=== PATIENT | female | born 1945 | race Caucasian/White ===

== ENCOUNTER 2019-08-17 11:20 | Inpatient (IN) | payer MEDICARE ==
[~2019-08-17] VITALS: Ht 149 cm; Wt 73.0 kg
[~2019-08-17 11:20] MED LIST: ACHYD1T PO; BUDE0.5A2 IH; CHOL100011 PO; CYCL10TA45 PO; FAMO10TA71 PO; FORM20VI IH; HYDR200T46 PO; MELO-198 PO; MONT10TA24 PO; OXYC1TAB95 PO
[2019-08-17] MEDS ORDERED: methylPREDNISolone 40 MG/ML (Solu-MEDROL) VIAL IV ONE (11:45)
--- NOTE | 2019-08-17 11:47 | ED Cough/URI ---
General Chief Complaint: Respiratory Problems Stated Complaint: PNEUMONIA/INFLUENZA A,02 AT 81, SENT FROM [facility] Nursing Triage Note: ARRIVED VIA AMB TO TRIAGE WITH COMPLAINTS OF SOA, WEAKNESS, EARACHE STARTING ON MONDAY. WAS SEEN AT CLINIC IN AND PULSE OX WAS IN THE 80'S. Sepsis Screen: No Definite Risk Source: patient Exam Limitations: no limitations History of Present Illness Date Seen by Provider: Aug 17, 2019 Time Seen by Provider: 11:46 Initial Comments To ER with reports of shortness of air general weakness earaches 30 on 2 days ago. He was sent here from [facility] in [place] she was found to be hypoxic and 80% range. She does have COPD but does not wear oxygen at home her baseline. Her is admitted on the rehabilitation floor here. She was seen at [facility] urgent care yesterday, diagnosed with left lower lobe pneumonia given a shot of Rocephin. She was then started on doxycycline and Tamiflu. Timing/Duration: constant Severity/Quality: severe Associated Symptoms: cough, nasal congestion, shortness of breath, wheezing Allergies and Home Medications Allergies Coded Allergies: No Known Drug Allergies (Unverified , 06/13/13) Home Medications Budesonide 0.5 Mg/2 Ml Ampul.neb, 1 EACH IH BID, (Reported) Cholecalciferol 1,000 Unit Capsule, 1,000 UNIT PO DAILY, (Reported) Cyclobenzaprine Hcl 10 Mg Tablet, 10 MG PO Q8H PRN for MUSCLE SPASMS Prescribed by: FERNANDA HORAN on 07/09/13 0450 Famotidine 10 Mg Tablet, 1 EACH PO DAILY, (Reported) Formoterol Fumarate 20 Mcg/2 Ml Vial.neb, 20 MCG IH BID, (Reported) Hydrocodone Bit/Acetaminophen 1 Tab Tablet, 1-2 EA PO Q4H PRN for PAIN Prescribed by: FERNANDA HORAN on 07/09/13 0450 Hydroxychloroquine Sulfate 200 Mg Tab, 200 MG PO BID, (Reported) Montelukast Sodium 10 Mg Tablet, 10 MG PO DAILY, (Reported) Patient Home Medication List Home Medication List Reviewed: Yes Review of Systems Review of Systems Constitutional: see HPI, chills, malaise, weakness EENTM: see HPI, nose congestion Respiratory: see HPI, cough, wheezing Cardiovascular: no symptoms reported Genitourinary: no symptoms reported Musculoskeletal: no symptoms reported Skin: no symptoms reported Psychiatric/Neurological: No Symptoms Reported Hematologic/Lymphatic: No Symptoms Reported Immunological/Allergic: no symptoms reported Past Biaxrjj-Udffjh-Tzbinh Hx Patient Social History Alcohol Use: Denies Use Recreational Drug Use: No Smoking Status: Never a Smoker Recent Foreign Travel: No Contact w/Someone Who Travel: No Recent Infectious Disease Expo: No Recent Hopitalizations: No Immunizations Up To Date Tetanus Booster (TDap): Unknown PED Vaccines UTD: No Date of Pneumonia Vaccine: Jun 19, 2011 Date of Influenza Vaccine: Apr 19, 2013 Past Medical History Surgeries: Yes (BACK) Appendectomy, Gallbladder, Orthopedic Respiratory: Yes COPD Cardiac: No Neurological: No Reproductive Disorders: No Genitourinary: No Gastrointestinal: No Musculoskeletal: Yes (LUMBAR PROBLEMS) Degenerate Disk Disease, Arthritis Endocrine: No Cancer: No Psychosocial: No Integumentary: No Blood Disorders: No Adverse Reaction/Blood Tranf: No Family Medical History Family history: Breast disease 03 MOTHER Family history: Cardiovascular disease 03 MOTHER Family history: Diabetes mellitus 03 MOTHER History of - respiratory disease 03 FATHER Physical Exam Vital Signs - First Documented 08/17/19 08/17/19 11:33 11:39 Temp 36.8 Pulse 88 Resp 16 B/P (MAP) 139/84 (102) Pulse Ox 89 O2 Delivery Room Air O2 Flow Rate 2.00 Capillary Refill : Less Than 3 Seconds Height: '" Weight: 186lbs. 0.0oz. 84.637938td; 32.00 BMI Method: General Appearance: WD/WN, no apparent distress, other (87% room air) Eyes: Bilateral Eye Normal Inspection, Bilateral Eye PERRL, Bilateral Eye EOMI HEENT: PERRL/EOMI, normal ENT inspection Neck: non-tender, full range of motion Respiratory: no respiratory distress, no accessory muscle use, wheezing Gastrointestinal: normal bowel sounds, soft Neurologic/Psychiatric: alert, normal mood/affect, oriented x 3 Skin: normal color, warm/dry Focused Exam Lactate Level 08/17/19 11:51: Lactic Acid Level 1.11 Lactic Acid Level Laboratory Tests Test 08/17/19 11:51 Lactic Acid Level 1.11 MMOL/L (0.50-2.00) Progress/Results/Core Measures Suspected Sepsis Recent Fever Within 48 Hours: No Infection Criteria Present: None New/Unexplained Altered Menta: No Sepsis Screen: No Definite Risk SIRS Temperature: Pulse: 88 Respiratory Rate: 16 Laboratory Tests 08/17/19 11:51: White Blood Count 6.0 Blood Pressure 139 /84 Mean: 102 08/17/19 11:51: Lactic Acid Level 1.11 Laboratory Tests 08/17/19 11:51: Creatinine 0.77, Platelet Count 170, Total Bilirubin 0.5 Results/Orders Lab Results Laboratory Tests Test 08/17/19 11:51 08/17/19 12:19 Range/Units White Blood Count 6.0 4.3-11.0 10^3/uL Red Blood Count 4.71 4.35-5.85 10^6/uL Hemoglobin 14.2 11.5-16.0 G/DL Hematocrit 43 35-52 % Mean Corpuscular Volume 90 80-99 FL Mean Corpuscular Hemoglobin 30 25-34 PG Mean Corpuscular Hemoglobin Concent 33 32-36 G/DL Red Cell Distribution Width 13.9 10.0-14.5 % Platelet Count 170 130-400 10^3/uL Mean Platelet Volume 10.0 7.4-10.4 FL Neutrophils (%) (Auto) 85 H 42-75 % Lymphocytes (%) (Auto) 7 L 12-44 % Monocytes (%) (Auto) 8 0-12 % Eosinophils (%) (Auto) 0 0-10 % Basophils (%) (Auto) 0 0-10 % Neutrophils # (Auto) 5.1 1.8-7.8 X 10^3 Lymphocytes # (Auto) 0.4 L 1.0-4.0 X 10^3 Monocytes # (Auto) 0.5 0.0-1.0 X 10^3 Eosinophils # (Auto) 0.0 0.0-0.3 10^3/uL Basophils # (Auto) 0.0 0.0-0.1 10^3/uL Neutrophils % (Manual) 75 % Lymphocytes % (Manual) 7 % Monocytes % (Manual) 8 % Eosinophils % (Manual) 2 % Band Neutrophils 8 % Blood Morphology Comment NORMAL Sodium Level 138 135-145 MMOL/L Potassium Level 4.1 3.6-5.0 MMOL/L Chloride Level 104 98-107 MMOL/L Carbon Dioxide Level 25 21-32 MMOL/L Anion Gap 9 5-14 MMOL/L Blood Urea Nitrogen 13 7-18 MG/DL Creatinine 0.77 0.60-1.30 MG/DL Estimat Glomerular Filtration Rate > 60 BUN/Creatinine Ratio 17 Glucose Level 106 H 70-105 MG/DL Lactic Acid Level 1.11 0.50-2.00 MMOL/L Calcium Level 10.1 8.5-10.1 MG/DL Corrected Calcium 9.9 8.5-10.1 MG/DL Total Bilirubin 0.5 0.1-1.0 MG/DL Aspartate Amino Transf (AST/SGOT) 38 H 5-34 U/L Alanine Aminotransferase (ALT/SGPT) 17 0-55 U/L Alkaline Phosphatase 81 40-136 U/L B-Type Natriuretic Peptide 66.4 <100.0 PG/ML Total Protein 7.3 6.4-8.2 GM/DL Albumin 4.2 3.2-4.5 GM/DL Blood Gas Puncture Site LT RADIAL Blood Gas Patient Temperature 36.8 Arterial Blood pH 7.41 7.37-7.43 Arterial Blood Partial Pressure CO2 40 35-45 MMHG Arterial Blood Partial Pressure O2 98 H 79-93 MMHG Arterial Blood HCO3 25 23-27 MMOL/L Arterial Blood Total CO2 25.9 21.0-31.0 MMOL/L Arterial Blood Oxygen Saturation 98 94-100 % Arterial Blood Base Excess 0.5 -2.5-2.5 MMOL/L Ronnie Test YES-POS Blood Gas Ventilator Setting NO Blood Gas Inspired Oxygen 2 My Orders Orders - SHAN SANCHEZ ASSISTANT ELEMENTARY TEACHER Cbc With Automated Diff (08/17/19 11:43) Comprehensive Metabolic Panel (08/17/19 11:43) Chest Pa/Lat (2 View) (08/17/19 11:43) Ed Iv/Invasive Line Start (08/17/19 11:43) BNP (08/17/19 11:43) O2 (08/17/19 11:43) Methylprednisolone Sod Succ (Solu-Medrol (08/17/19 11:45) Albuterol/Ipra Inhalation Soln (Duoneb I (08/17/19 12:00) Svn Small Volume Nebulizer (08/17/19 11:52) Manual Differential (08/17/19 11:51) Blood Culture (08/17/19 12:08) Lactic Acid Analyzer (08/17/19 12:08) Arterial Blood Gas (08/17/19 12:17) Arterial Blood Draw (08/17/19 ) Medications Given in ED Current Medications Medications Dose Ordered Sig/Dandre Route Start Time Stop Time Status Last Admin Dose Admin Albuterol/ Ipratropium 3 ml ONCE ONCE INH 08/17/19 12:00 08/17/19 12:01 DC 08/17/19 12:08 3 ML Methylprednisolone Sodium Succinate 80 mg ONCE ONCE IV 08/17/19 11:45 08/17/19 11:46 DC 08/17/19 12:03 80 MG Vital Signs/I&O 08/17/19 08/17/19 08/17/19 11:33 11:39 12:08 Temp 36.8 Pulse 88 Resp 16 B/P (MAP) 139/84 (102) Pulse Ox 89 90 97 O2 Delivery Room Air Nasal Cannula Nasal Cannula O2 Flow Rate 2.00 2.00 Capillary Refill : Less Than 3 Seconds Blood Pressure Mean: 102 Diagnostic Imaging Diagonstic Imaging: Xray Comments NAME: ELIZA REID [facility] REC#: [id number] PT STATUS: REG ER : 1945 PHYSICIAN: SHAN SANCHEZ ASSISTANT ELEMENTARY TEACHER ADMIT DATE: 08/17/19/ER Draft Date of Exam:08/17/19 CHEST PA/LAT (2 VIEW) Clinical indication: Patient with shortness of air, weakness and headache which started . Patient's pulse ox was in the 80s when seen at clinic. Exam: Chest x-ray PA and lateral views. Comparisons: None. Findings: Lungs/pleura: There are minimal sized air space opacities in both lung bases which may represent mild atelectasis, but superimposed infiltrates cannot be completely excluded. The remainder of the lungs are clear. There is no pneumothorax. There is no pleural effusion. Mediastinum: Unremarkable. Pulmonary vasculature: Unremarkable. Heart: Unremarkable. Bones/extrathoracic soft tissue: There are mildly hypertrophic spurs involving the thoracic spine. Impression: There is minimal bibasilar atelectasis versus infiltrates. Dictated on workstation # [id number] Dict: 08/17/19 1247 Trans: 08/17/19 1251 [facility] [id number] Interpreted by: JANAY SALGUERO MD Electronically signed by: Departure Impression Primary Impression: Hypoxia Additional Impressions: Influenza COPD exacerbation Disposition: ADMITTED INPATIENT Condition: Stable Admissions Decision to Admit Reason: Admit from ER (General) Decision to Admit/Date: Aug 17, 2019 Time/Decision to Admit Time: 12:52 Departure-Patient Inst. Referrals: WENDY SALEEM MD (PCP/Family) Primary Care Physician SHAN SANCHEZ APRN Aug 17, 2019 11:47
[2019-08-17] MEDS ORDERED: RT-ALBUTEROL/IPRATROPIUM 3 ML (DUONEB) VIAL INH ONE (12:00)
[2019-08-17 12:01] LABS: BASOPHILS % (AUTO) 0 % (0-10); EOSINOPHILS % (AUTO) 0 % (0-10); HEMATOCRIT 43 % (35-52); HEMOGLOBIN 14.2 G/DL (11.5-16.0); LYMPHOCYTES # (AUTO) 0.4 X 10^3 (1.0-4.0); LYMPHOCYTES % (AUTO) 7 % (12-44); MEAN CORPUSCULAR HEMOGLOBIN 30 PG (25-34); MEAN CORPUSCULAR HGB CONC 33 G/DL (32-36); MEAN CORPUSCULAR VOLUME 90 FL (80-99); MONOCYTES # (AUTO) 0.5 X 10^3 (0.0-1.0); MONOCYTES % (AUTO) 8 % (0-12); NEUTROPHILS # (AUTO) 5.1 X 10^3 (1.8-7.8); NEUTROPHILS % (AUTO) 85 % (42-75); PLATELET COUNT 170 10^3/uL (130-400); RED CELL DISTRIBUTION WIDTH 13.9 % (10.0-14.5)
[2019-08-17 12:18] LABS: ALANINE AMINOTRANSFERASE 17 U/L (0-55); ALBUMIN 4.2 GM/DL (3.2-4.5); ALKALINE PHOSPHATASE 81 U/L (40-136); BILIRUBIN,TOTAL 0.5 MG/DL (0.1-1.0); BUN/CREATININE RATIO 17; CALCIUM 10.1 MG/DL (8.5-10.1); CARBON DIOXIDE 25 MMOL/L (21-32); CHLORIDE 104 MMOL/L (98-107); CREATININE SERUM 0.77 MG/DL (0.60-1.30); GFR ESTIMATED > 60; GLUCOSE 106 MG/DL (70-105); POTASSIUM 4.1 MMOL/L (3.6-5.0); SODIUM 138 MMOL/L (135-145); TOTAL PROTEIN 7.3 GM/DL (6.4-8.2)
[2019-08-17 12:21] LABS: LYMPHOCYTES % (MANUAL) 7 %; MONOCYTES % (MANUAL) 8 %; NEUTROPHILS % (MANUAL) 75 %
[2019-08-17 12:22] LABS: BAND NEUTROPHILS 8 %; EOSINOPHILS % (MANUAL) 2 %
[2019-08-17 12:22] LABS: ABG BASE EXCESS 0.5 MMOL/L (-2.5-2.5); ABG OXYGEN SATURATION 98 % (94-100); ABG PCO2 40 MMHG (35-45); ABG PH 7.41 (7.37-7.43); ABG PO2 98 MMHG (79-93); ABG TCO2 25.9 MMOL/L (21.0-31.0)
[2019-08-17 12:23] LABS: ALLENS TEST YES-POS; INSPIRED O2 2; PATIENT TEMP 36.8; VENTILATOR NO
[2019-08-17 12:23] LABS: RBC MORPH NORMAL
[2019-08-17] MEDS ORDERED: DOXY100T2 PO (12:34)
[2019-08-17] MEDS ORDERED: METH4TAB10 PO (12:34)
[2019-08-17] MEDS ORDERED: OSEL75CA15 PO (12:34)
--- NOTE | 2019-08-17 12:52 | Diagnostic Imaging Report ---
Clinical indication: Patient with shortness of air, weakness and headache which started . Patient's pulse ox was in the 80s when seen at clinic. Exam: Chest x-ray PA and lateral views. Comparisons: None. Findings: Lungs/pleura: There are minimal sized air space opacities in both lung bases which may represent mild atelectasis, but superimposed infiltrates cannot be completely excluded. The remainder of the lungs are clear. There is no pneumothorax. There is no pleural effusion. Mediastinum: Unremarkable. Pulmonary vasculature: Unremarkable. Heart: Unremarkable. Bones/extrathoracic soft tissue: There are mildly hypertrophic spurs involving the thoracic spine. Impression: There is minimal bibasilar atelectasis versus infiltrates. Dictated by: Dictated on workstation # [id number]
--- NOTE | 2019-08-17 13:32 | NUR ---
DR PERALTA HERE TO SEE PATIENT.
[2019-08-17 13:50] VITALS: BP 123/73
--- NOTE | 2019-08-17 13:53 | History & Physical-Hospitalist ---
History of Present Illness HPI/Chief Complaint This is a 74-year-old white female with a history of COPD. She began to become ill approximately 2 days prior to this presentation and was seen in [facility] urgent care. She was diagnosed with influenza A was started on Tamiflu and doxycycline and steroids. She presented today to the emergency room with complaints of incr eased shortness of breath and in fact was found to be somewhat hypoxic with oxygen saturations in the 80s. Chest x-ray does not show a discrete pneumonia but shows bibasilar atelectasis possible infiltrate. The patient is admitted for pulmonary toilet IV antibiotics and oxygen. Source: patient, family Exam Limitations: no limitations Date Seen 08/17/19 Time Seen by a Provider: 14:00 Attending Physician Bindu Richardson MD PCP SelfTyrone MD Referring Physician Date of Admission Aug 17, 2019 at 13:12 Home Medications & Allergies Home Medications Reviewed patient Home Medication Reconciliation performed by pharmacy medication reconciliations hvac residential service technician and/or nursing. Patients Allergies have been reviewed. Allergies Allergies Coded Allergies No Known Drug Allergies (Qczvopfool31/26/13) Past Teobanb-Hlhjom-Lyeomv Hx Past Med/Social Hx: Reviewed Nursing Past Med/Soc Hx Patient Social History Marrital Status: Employed/Student: retired Alcohol Use: Denies Use Recreational Drug Use: No Smoking Status: Never a Smoker Recent Foreign Travel: No Contact w/other who traveled: No Recent Hopitalizations: No Recent Infectious Disease Expo: No Immunizations Up To Date Tetanus Booster (TDap): Unknown Pediatric: No Date of Pneumonia Vaccine: Jun 19, 2011 Date of Influenza Vaccine: Apr 19, 2013 Past Medical History Surgeries: Appendectomy, Gallbladder, Orthopedic Respiratory: COPD Reproductive: No Musculoskeletal: Degenerate Disk Disease, Arthritis History of Blood Disorders: No Adverse Reaction to Blood Doshi: No Family History Family history: Breast disease 03 MOTHER Family history: Cardiovascular disease 03 MOTHER Family history: Diabetes mellitus 03 MOTHER History of - respiratory disease 03 FATHER Review of Systems Constitutional: see HPI EENTM: no symptoms reported Respiratory: cough, dyspnea on exertion, short of breath Cardiovascular: no symptoms reported Gastrointestinal: diarrhea, nausea Musculoskeletal: no symptoms reported Skin: no symptoms reported Psychiatric/Neurological: No Symptoms Reported Physical Exam Physical Exam Vital Signs Vital Signs - First Documented 08/17/19 08/17/19 11:33 11:39 Temp 36.8 Pulse 88 Resp 16 B/P (MAP) 139/84 (102) Pulse Ox 89 O2 Delivery Room Air O2 Flow Rate 2.00 Capillary Refill : Less Than 3 Seconds Height, Weight, BMI Height: '" Weight: 186lbs. 0.0oz. 84.224337dv; 32.00 BMI Method: General Appearance: Chronically ill HEENT: Normal ENT Inspection Neck: Full Range of Motion, Non Tender, Supple Respiratory: Crackles, Decreased Breath Sounds Cardiovascular: Regular Rate, Rhythm, No Gallop, No Murmur Gastrointestinal: Normal Bowel Sounds, Soft Rectal: Deferred Back: Normal Inspection Extremity: Normal Capillary Refill, No Pedal Edema Neurologic/Psychiatric: Alert, Oriented x3, No Motor/Sensory Deficits, Normal Mood/Affect Skin: Normal Color Results Results/Procedures Labs Laboratory Tests 08/17/19 11:51 Patient resulted labs reviewed. Imaging: Reviewed Imaging Report Assessment/Plan Admission Diagnosis Influenza A Respiratory insufficiency Exacerbation of COPD-with hypoxia Admission Status: Observation Copy Copies To 1: TYRONE SALEEM MD, KATHLEEN M MD Aug 17, 2019 13:53
[2019-08-17 14:07] VITALS: BP 123/73
[2019-08-17] MEDS ORDERED: methylPREDNISolone 40 MG/ML (Solu-MEDROL) VIAL IV SCH (14:15)
[2019-08-17] MEDS ORDERED: ONDANSETRON 4 MG/2 ML (SDV) Z0FRAN IVP PRN (14:15)
[2019-08-17] MEDS ORDERED: ACETAMINOPHEN 325 MG TABLET PO PRN (14:15)
[2019-08-17] MEDS ORDERED: IBUPROFEN 600 MG (MOTRIN) TAB PO PRN (14:15)
[2019-08-17] MEDS: LACTATED RINGERS 1,000 ML IV SCH (14:24)
[2019-08-17 16:09] VITALS: BP 117/65
[2019-08-17 17:02] VITALS: BP 139/84
[2019-08-17] MEDS ORDERED: RT-ALBUTEROL/IPRATROPIUM 3 ML (DUONEB) VIAL INH PRN (17:15)
[2019-08-17 19:42] VITALS: BP 102/50
[2019-08-17] MEDS: methylPREDNISolone 40 MG/ML (Solu-MEDROL) VIAL IV SCH (19:43)
[2019-08-17] MEDS: guaiFENesin (MUCINEX) 600 MG TAB PO SCH (19:43)
[2019-08-17] MEDS: OSELTAMIVIR 30 MG (TAMIFLU) CAPSULE PO SCH (19:44)
[2019-08-17] MEDS: BENZONATATE 100 MG (TESSALON) CAPSULE PO SCH (19:44)
[2019-08-17] MEDS: DOXYCYCLINE 100 MG (VIBRAMYCIN) TABLET PO SCH (19:44)
[2019-08-17] MEDS: RT-ALBUTEROL/IPRATROPIUM 3 ML (DUONEB) VIAL INH SCH (20:40)
[2019-08-17] MEDS ORDERED: OSELTAMIVIR 75 MG (TAMIFLU) CAPSULE PO SCH (21:00)
[2019-08-18 00:39] VITALS: BP 108/55
[2019-08-18] MEDS: RT-ALBUTEROL/IPRATROPIUM 3 ML (DUONEB) VIAL INH SCH ×4 (02:16→22:17)
[2019-08-18] MEDS: LACTATED RINGERS 1,000 ML IV SCH ×2 (03:11→17:18)
[2019-08-18] MEDS: methylPREDNISolone 40 MG/ML (Solu-MEDROL) VIAL IV SCH ×3 (04:45→20:43)
[2019-08-18 04:50] VITALS: BP 121/57
[2019-08-18 08:00] VITALS: BP 116/69
[2019-08-18] MEDS: BENZONATATE 100 MG (TESSALON) CAPSULE PO SCH ×3 (08:28→20:43)
[2019-08-18] MEDS: OSELTAMIVIR 30 MG (TAMIFLU) CAPSULE PO SCH ×2 (08:28→20:43)
[2019-08-18] MEDS: guaiFENesin (MUCINEX) 600 MG TAB PO SCH ×2 (08:28→20:43)
[2019-08-18] MEDS: ENOXAPARIN 40 MG/0.4 ML (LOVENOX) SYR SC SCH (08:28)
[2019-08-18] MEDS: DOXYCYCLINE 100 MG (VIBRAMYCIN) TABLET PO SCH ×2 (08:28→20:43)
[2019-08-18 12:00] VITALS: BP 109/65
[2019-08-18 12:45] LABS: BASOPHILS % (AUTO) 0 % (0-10); EOSINOPHILS % (AUTO) 0 % (0-10); HEMATOCRIT 39 % (35-52); LYMPHOCYTES # (AUTO) 0.3 X 10^3 (1.0-4.0); LYMPHOCYTES % (AUTO) 5 % (12-44); MEAN CORPUSCULAR HEMOGLOBIN 30 PG (25-34); MEAN CORPUSCULAR HGB CONC 33 G/DL (32-36); MEAN CORPUSCULAR VOLUME 91 FL (80-99); MEAN PLATELET VOLUME 9.9 FL (7.4-10.4); MONOCYTES # (AUTO) 0.3 X 10^3 (0.0-1.0); MONOCYTES % (AUTO) 6 % (0-12); NEUTROPHILS # (AUTO) 4.8 X 10^3 (1.8-7.8); NEUTROPHILS % (AUTO) 89 % (42-75); PLATELET COUNT 179 10^3/uL (130-400); RED CELL DISTRIBUTION WIDTH 14.1 % (10.0-14.5); WHITE BLOOD COUNT 5.4 10^3/uL (4.3-11.0)
--- NOTE | 2019-08-18 13:08 | Progress Note - Hospitalist ---
Subjective HPI/CC On Admission Date Seen by Provider: Aug 18, 2019 Time Seen by Provider: 12:00 This is a 74-year-old white female with a history of COPD. She began to become ill approximately 2 days prior to this presentation and was seen in [facility] urgent care. She was diagnosed with influenza A was started on Tamiflu and doxycycline and steroids. She presented today to the emergency room with complaints of increased shortness of breath and in fact was found to be somewhat hypoxic with oxygen saturations in the 80s. Chest x-ray does not show a discrete pneumonia but shows bibasilar atelectasis possible infiltrate. The patient is admitted for pulmonary toilet IV antibiotics and oxygen. Subjective/Events-last exam Patient complains of coughing all night. She is on Tamiflu doxycycline Solu- Medrol and pulmonary toilet. Did not she does say that she feels a little bit better today. Review of Systems Pulmonary: Dyspnea, Cough Focused Exam Lactate Level 08/17/19 11:51: Lactic Acid Level 1.11 Objective Exam Vital Signs Vital Signs Date Time Temp Pulse Resp B/P (MAP) Pulse Ox O2 Delivery O2 Flow Rate FiO2 08/18/19 09:47 95 Nasal Cannula 2.00 08/18/19 08:00 37.0 63 18 116/69 (85) 08/17/19 17:02 21 Capillary Refill : Less Than 3 Seconds General Appearance: No Apparent Distress, WD/WN HEENT: Normal ENT Inspection, Pharynx Normal Neck: Full Range of Motion, Normal Inspection, Non Tender, Supple Respiratory: Chest Non Tender, Crackles, Rales Cardiovascular: Regular Rate, Rhythm, No Gallop, No Murmur, Normal Peripheral Pulses Gastrointestinal: Normal Bowel Sounds, Non Tender, Soft Extremity: Normal Capillary Refill, Normal Range of Motion, Non Tender Results/Procedures Lab Laboratory Tests 08/18/19 12:25 Patient resulted labs reviewed. Imaging: Reviewed Imaging Report Assessment/Plan Assessment and Plan Assess & Plan/Chief Complaint Influenza A COPD with hypoxia and exacerbation secondary to influenza A Cough and weakness Clinical Quality Measures DVT/VTE Risk/Contraindication: Risk Factor Score Per Nursin RFS Level Per Nursing on Admit: 4+=Very High DEANNA PERALTA MD Aug 18, 2019 13:08
[2019-08-18 13:09] LABS: ALANINE AMINOTRANSFERASE 16 U/L (0-55); ALBUMIN 3.7 GM/DL (3.2-4.5); ALKALINE PHOSPHATASE 68 U/L (40-136); BILIRUBIN,TOTAL 0.4 MG/DL (0.1-1.0); BUN/CREATININE RATIO 19; CARBON DIOXIDE 24 MMOL/L (21-32); CHLORIDE 107 MMOL/L (98-107); GFR ESTIMATED > 60; GLUCOSE 133 MG/DL (70-105); SODIUM 141 MMOL/L (135-145); TOTAL PROTEIN 6.2 GM/DL (6.4-8.2)
[2019-08-18 16:30] VITALS: BP 107/53
[2019-08-18 20:01] VITALS: BP 129/59
[2019-08-19 00:19] VITALS: BP 153/83
[2019-08-19] MEDS: methylPREDNISolone 40 MG/ML (Solu-MEDROL) VIAL IV SCH ×2 (05:21→11:25)
[2019-08-19] MEDS: LACTATED RINGERS 1,000 ML IV SCH ×2 (05:22→18:48)
[2019-08-19] MEDS: RT-ALBUTEROL/IPRATROPIUM 3 ML (DUONEB) VIAL INH SCH ×4 (06:22→21:39)
[2019-08-19 08:00] VITALS: BP 127/68
[2019-08-19] MEDS: DOXYCYCLINE 100 MG (VIBRAMYCIN) TABLET PO SCH ×2 (08:37→19:46)
[2019-08-19] MEDS: BENZONATATE 100 MG (TESSALON) CAPSULE PO SCH ×3 (08:37→19:46)
[2019-08-19] MEDS: OSELTAMIVIR 30 MG (TAMIFLU) CAPSULE PO SCH ×2 (08:37→19:47)
[2019-08-19] MEDS: guaiFENesin (MUCINEX) 600 MG TAB PO SCH ×2 (08:37→19:46)
[2019-08-19] MEDS: ENOXAPARIN 40 MG/0.4 ML (LOVENOX) SYR SC SCH (08:37)
[2019-08-19] MEDS ORDERED: HYDR200T46 PO (09:48)
[2019-08-19] MEDS ORDERED: CHOL10007 PO (09:48)
[2019-08-19] MEDS ORDERED: FLUT12AE6 IH (09:48)
[2019-08-19] MEDS ORDERED: GABA-486 PO (09:48)
[2019-08-19] MEDS ORDERED: MONT10TA26 PO (09:48)
[2019-08-19] MEDS ORDERED: IPRA0.2S51 NEB (09:48)
--- NOTE | 2019-08-19 10:15 | NUR ---
SPOKE WITH THE PT, WENT THRU THE EXT MED HISTORY AND CALLED [facility] IN [place] TO COMPLETE THE MED REC. PT WAS ABLE TO NAME ALL HER MED AND HOW/WHEN SHE TAKES EACH MEDICATION. GABAPENTIN 100MG: SCRIPT READS " TAKE 1 TO 3 CAPS TID" HOWEVER THE PT ONLY TAKES 2 CAPS BID PRN. ON 08-16-2019 DOXYCYCLINE 100, TAMIFLU 75MG AND MEDROL DOSE PACK WERE ALL PICKED UP AND STARTED ( 2 DOSES WERE TAKEN) ALL OTHER MEDS ARE LISTED ON THE EXT MED HISTORY. OTC MEDS: VIT D 25MCG
[2019-08-19 16:00] VITALS: BP 125/71
--- NOTE | 2019-08-19 21:09 | Progress Note ---
Subjective Subjective/Events-last exam Afebrile, states she is feeling similar today, maybe slight improvement. Focused Exam Lactate Level 08/17/19 11:51: Lactic Acid Level 1.11 Objective Exam Last Set of Vital Signs Vital Signs Date Time Temp Pulse Resp B/P (MAP) Pulse Ox O2 Delivery O2 Flow Rate FiO2 08/19/19 19:10 Nasal Cannula 2.00 08/19/19 16:25 94 08/19/19 16:00 36.5 64 20 125/71 (89) 08/17/19 17:02 21 Capillary Refill : Less Than 3 Seconds I&O Intake and Output 08/19/19 00:00 Intake Total 1402 ml Output Total 800 ml Balance 602 ml Intake Oral 1402 ml Output Urine Total 800 ml # Voids 8 # Bowel Movements 1 General: Alert, No Acute Distress Neuro: Normal Speech Psych/Mental Status: Mental Status NL Results/Procedures Lab Microbiology 08/17/19 Blood Culture - Preliminary, Resulted No growth Assessment/Plan Assessment/Plan (1) Influenza Status: Acute Assessment & Plan: Oseltamavir (2) COPD exacerbation Status: Acute Assessment & Plan: Doxycycline and solumedrol, change to prednisone today. RT, rios. (3) DVT prophylaxis Status: Acute Assessment & Plan: Enoxaparin Clinical Quality Measures DVT/VTE Risk/Contraindication: Risk Factor Score Per Nursin RFS Level Per Nursing on Admit: 4+=Very High JOSSE CARROLL MD Aug 19, 2019 21:09
[2019-08-20 00:32] VITALS: BP 103/64
[2019-08-20] MEDS: RT-ALBUTEROL/IPRATROPIUM 3 ML (DUONEB) VIAL INH SCH ×5 (02:00→22:15)
[2019-08-20 06:59] LABS: HEMOGLOBIN 12.2 G/DL (11.5-16.0); MEAN PLATELET VOLUME 9.9 FL (7.4-10.4); WHITE BLOOD COUNT 6.5 10^3/uL (4.3-11.0)
[2019-08-20 07:23] LABS: ALANINE AMINOTRANSFERASE 27 U/L (0-55); ALBUMIN 3.3 GM/DL (3.2-4.5); ALKALINE PHOSPHATASE 62 U/L (40-136); BILIRUBIN,TOTAL 0.4 MG/DL (0.1-1.0); BUN/CREATININE RATIO 19; CALCIUM 9.5 MG/DL (8.5-10.1); CARBON DIOXIDE 28 MMOL/L (21-32); CHLORIDE 107 MMOL/L (98-107); CREATININE SERUM 0.64 MG/DL (0.60-1.30); GFR ESTIMATED > 60; GLUCOSE 89 MG/DL (70-105); POTASSIUM 3.8 MMOL/L (3.6-5.0); SODIUM 143 MMOL/L (135-145); TOTAL PROTEIN 5.6 GM/DL (6.4-8.2)
[2019-08-20] MEDS: DOXYCYCLINE 100 MG (VIBRAMYCIN) TABLET PO SCH ×2 (08:21→20:37)
[2019-08-20] MEDS: LACTATED RINGERS 1,000 ML IV SCH ×2 (08:21→21:59)
[2019-08-20] MEDS: guaiFENesin (MUCINEX) 600 MG TAB PO SCH ×2 (08:21→20:37)
[2019-08-20] MEDS: predniSONE 20 MG TAB PO SCH (08:21)
[2019-08-20] MEDS: BENZONATATE 100 MG (TESSALON) CAPSULE PO SCH ×3 (08:22→20:38)
[2019-08-20] MEDS: ENOXAPARIN 40 MG/0.4 ML (LOVENOX) SYR SC SCH (08:22)
[2019-08-20] MEDS: OSELTAMIVIR 30 MG (TAMIFLU) CAPSULE PO SCH ×2 (08:22→20:37)
[2019-08-20 08:54] VITALS: BP 143/63
--- NOTE | 2019-08-20 11:10 | NUR ---
Patient was on 2 L NC with an O2 sat of 95% and HR 54, O2 was removed and patient was on RA for 52 mins and had an O2 sat of 89% with HR 79; Patient started walking and walked 1 min and O2 sat dropped to 85%; O2 was added at 2 L NC and patient continued to walk for the remainer of the 6 mins, O2 stayed up on 2 L and was at 92%; HR while walking was between 88 and 112 bpm. Patient needed 2 L on ambutation at this time tks up to atleast 88%. She walked a total of 424 ft
[2019-08-20 11:24] VITALS: BP 143/63
--- NOTE | 2019-08-20 11:39 | Progress Note ---
Subjective Subjective/Events-last exam Afebrile, feeling better. Still on 2 lpm supplemental oxygen. Focused Exam Lactate Level 08/17/19 11:51: Lactic Acid Level 1.11 Objective Exam Last Set of Vital Signs Vital Signs Date Time Temp Pulse Resp B/P (MAP) Pulse Ox O2 Delivery O2 Flow Rate FiO2 08/20/19 11:24 36.6 60 95 28 08/20/19 11:18 Nasal Cannula 2.00 08/20/19 08:54 22 143/63 (89) Capillary Refill : Less Than 3 Seconds I&O Intake and Output 08/20/19 00:00 Intake Total 2572 ml Balance 2572 ml Intake Oral 1572 ml IV Total 1000 ml # Voids 8 General: Alert, No Acute Distress Lungs: Clear to Auscultation, Normal Air Movement Heart: Regular Rate, No Murmurs Neuro: Normal Speech Psych/Mental Status: Mental Status NL Results/Procedures Lab Laboratory Tests 08/20/19 06:45: White Blood Count 6.5, Red Blood Count 4.02L, Hemoglobin 12.2, Hematocrit 37, Mean Corpuscular Volume 93, Mean Corpuscular Hemoglobin 30, Mean Corpuscular Hemoglobin Concent 33, Red Cell Distribution Width 14.0, Platelet Count 178, Mean Platelet Volume 9.9, Sodium Level 143, Potassium Level 3.8, Chloride Level 107, Carbon Dioxide Level 28, Anion Gap 8, Blood Urea Nitrogen 12, Creatinine 0.64, Estimat Glomerular Filtration Rate > 60, BUN/Creatinine Ratio 19, Glucose Level 89, Calcium Level 9.5, Corrected Calcium 10.1, Total Bilirubin 0.4, Aspartate Amino Transf (AST/SGOT) 37H, Alanine Aminotransferase (ALT/SGPT) 27, Alkaline Phosphatase 62, Total Protein 5.6L, Albumin 3.3 Microbiology 08/17/19 Blood Culture - Preliminary, Resulted No growth Assessment/Plan Assessment/Plan (1) Influenza Status: Acute Assessment & Plan: Oseltamavir (2) COPD exacerbation Status: Acute Assessment & Plan: Doxycycline and solumedrol, change to prednisone /. RT, duonebs. 3 wean oxygen today, possible d/c if weaned off. (3) DVT prophylaxis Status: Acute Assessment & Plan: Enoxaparin Clinical Quality Measures DVT/VTE Risk/Contraindication: Risk Factor Score Per Nursin RFS Level Per Nursing on Admit: 4+=Very High JOSSE CARROLL MD Aug 20, 2019 11:39
[2019-08-20] MEDS ORDERED: GABAPENTIN 100 MG (NEURONTIN) CAP PO PRN (11:45)
--- NOTE | 2019-08-20 14:15 | NUR ---
CM/SS: Visited with pt as to her need for oxygen and plan for discharge Plan: Pt to be discharged to home with oxygen when deemed appropriate DME: Oxygen will be needed Summary: Pt is tearful when asked how she is doing today. Pt reports she just needs for everyone to be well. Pt shares her is in the hospital in [facility] and that he will be going to Rehab unit on 2nd floor. Visited with pt as to her need for oxygen. Pt reports she is needing it. Note: Respiratory Therapy has evaluated. Her preference is to use [facility], as her has oxygen through them as well. Pt is encouraged to know that everything is going to be ok. She reports she knows, she is just is having a difficult time, and she will be ok. Pt's lunch has arrived, she is assisted with her table and is eating lunch at the end of the visit. She thanks this worker for visiting.
[2019-08-20 16:00] VITALS: BP 117/67
[2019-08-20] MEDS ORDERED: MONTELUKAST 10 MG (SINGULAIR) TAB PO SCH (21:00)
[2019-08-20] MEDS ORDERED: NON-FORMULARY MEDICATION 1 EA EA (Fluticasone/Salmeterol (Advair Hfa 230-21 Mcg Inhaler) 2 IH SCH (21:00)
[2019-08-20 23:07] LABS: HEPATITIS C ANTIBODY C Non-Reactive (Non-Reactive)
[2019-08-20 23:49] VITALS: BP 146/82
[2019-08-21 06:33] LABS: MEAN PLATELET VOLUME 9.7 FL (7.4-10.4); WHITE BLOOD COUNT 5.4 10^3/uL (4.3-11.0)
[2019-08-21] MEDS: predniSONE 20 MG TAB PO SCH (06:40)
[2019-08-21 06:53] LABS: ALANINE AMINOTRANSFERASE 29 U/L (0-55); ALBUMIN 3.1 GM/DL (3.2-4.5); ALKALINE PHOSPHATASE 54 U/L (40-136); BILIRUBIN,TOTAL 0.5 MG/DL (0.1-1.0); BUN/CREATININE RATIO 20; CARBON DIOXIDE 32 MMOL/L (21-32); CHLORIDE 105 MMOL/L (98-107); CREATININE SERUM 0.65 MG/DL (0.60-1.30); GFR ESTIMATED > 60; GLUCOSE 81 MG/DL (70-105); POTASSIUM 3.7 MMOL/L (3.6-5.0); SODIUM 142 MMOL/L (135-145); TOTAL PROTEIN 5.2 GM/DL (6.4-8.2)
[2019-08-21 08:06] VITALS: BP 125/60
[2019-08-21] MEDS: RT-ALBUTEROL/IPRATROPIUM 3 ML (DUONEB) VIAL INH SCH ×2 (08:15→11:11)
[2019-08-21] MEDS: guaiFENesin (MUCINEX) 600 MG TAB PO SCH (08:33)
[2019-08-21] MEDS: OSELTAMIVIR 30 MG (TAMIFLU) CAPSULE PO SCH (08:33)
[2019-08-21] MEDS: BENZONATATE 100 MG (TESSALON) CAPSULE PO SCH (08:33)
[2019-08-21] MEDS: DOXYCYCLINE 100 MG (VIBRAMYCIN) TABLET PO SCH (08:33)
[2019-08-21] MEDS: ENOXAPARIN 40 MG/0.4 ML (LOVENOX) SYR SC SCH (08:33)
[2019-08-21] MEDS ORDERED: HYDROXYCHLOROQUINE 200 MG (PLAQUENIL) TAB PO SCH (09:00)
--- NOTE | 2019-08-21 09:00 | NUR ---
RECEIVED REPORT FROM JASMIN SANDERS TO ASSUME NURSING CARE.
[2019-08-21] MEDS ORDERED: BENZ100C18 PO (11:24)
--- NOTE | 2019-08-21 11:27 | Discharge Summary ---
Discharge Summary Hospital Course Problems/Diagnosis: (1) Influenza Status: Acute Assessment & Plan: Oseltamavir completed 5 day course (2) COPD exacerbation Status: Acute Assessment & Plan: Doxycycline and solumedrol, change to prednisone 08/18. RT, duonebs. 08/19 wean oxygen today, possible d/c if weaned off. 08/20 complete home doxycycline, d/c steroids as already treated for over 4 days. Required home O2 only with exercise, ordered on d/c. Hospital Course Date of Admission: Aug 17, 2019 at 13:12 Admission Diagnosis : Family Physician/Provider: Tyrone Bolden MD Date of Discharge: 08/21/19 Discharge Diagnosis: See problem list Hospital Course: See problem list Labs and Pending Lab Test: Laboratory Tests 08/21/19 06:23: White Blood Count 5.4, Red Blood Count 4.03L, Hemoglobin 12.0, Hematocrit 38, Mean Corpuscular Volume 93, Mean Corpuscular Hemoglobin 30, Mean Corpuscular Hemoglobin Concent 32, Red Cell Distribution Width 14.0, Platelet Count 170, Mean Platelet Volume 9.7, Sodium Level 142, Potassium Level 3.7, Chloride Level 105, Carbon Dioxide Level 32, Anion Gap 5, Blood Urea Nitrogen 13, Creatinine 0.65, Estimat Glomerular Filtration Rate > 60, BUN/Creatinine Ratio 20, Glucose Level 81, Calcium Level 9.0, Corrected Calcium 9.7, Total Bilirubin 0.5, Aspartate Amino Transf (AST/SGOT) 30, Alanine Aminotransferase (ALT/SGPT) 29, Alkaline Phosphatase 54, Total Protein 5.2L, Albumin 3.1L Microbiology 08/17/19 Blood Culture - Preliminary, Resulted No growth Home Meds Active Reported Gabapentin 100 Mg Capsule 200 Mg PO BID PRN Montelukast Sodium 10 Mg Tablet 10 Mg PO DAILY Hydroxychloroquine Sulfate 200 Mg Tablet 200 Mg PO DAILY TAKE WITH FOOD Ipratropium [place] 0.2 Mg/1 Ml Solution 1 Vial NEB BID Advair Hfa 230-21 Mcg Inhaler (Fluticasone/Salmeterol) 12 Gm Hfa.aer.ad 2 Puff IH BID Vitamin D3 (Cholecalciferol (Vitamin D3)) 25 Mcg Capsule 25 Mcg PO DAILY Methylprednisolone 4 Mg Tab.ds.pk 4 Mg PO UD MEDROL TAPER DOSE- 6 TABS DAY 1 AND DECREASE BY 1 TAB EACH DAY (6,5,4,3,2,1) THEN STOP Oseltamivir Phosphate 75 Mg Capsule 75 Mg PO Q12H Doxycycline Hyclate 100 Mg Tablet 100 Mg PO BID PICKED UP 08-16-2019 #07/04 DAY SUPPLY Assessment/Pt DC Instructions Follow up with Dr. Bolden on 08/26 at 10:45. Discharge Diet: Regular Diet Activity as Tolerated: Yes Orders-Post D/C & Referrals Pneu Vac Indicated: Yes Discharge Physical Examination Allergies: Coded Allergies: No Known Drug Allergies (Unverified , 06/13/13) General Appearance: No Apparent Distress, WD/WN Respiratory: Lungs Clear, Normal Breath Sounds Cardiovascular: Regular Rate, Rhythm, No Murmur Skin: Normal Color, Warm/Dry Neurologic/Psychiatric: Alert, Normal Mood/Affect Copy Copies To 1: TYRONE BOLDEN MD Clinical Quality Measures DVT/VTE Risk/Contraindication: Risk Factor Score Per Nursin RFS Level Per Nursing on Admit: 4+=Very High JOSSE CARROLL MD Aug 21, 2019 11:27
--- NOTE | 2019-08-21 13:49 | NUR ---
CM/SS: Coordinate oxygen delivery prior to discharge Plan: Pt will be discharged to home today with oxygen Summary: Information faxed to [facility] home medical equipment for oxygen. Pt has selected [facility] as they live in [place]. Pt will need oxygen, prior to leaving the hospital. [facility] to deliver to hospital prior to 2pm. Pt is informed on the oxygen being here prior to 2pm. 1:30pm- [facility] is here to drop off oxygen. Pt is able to discharge to home awaiting daughter to pick her up.
[2019-08-21 14:32] VITALS: BP 125/60
--- NOTE | 2019-08-21 14:32 | NUR ---
DISCHARGE INSTRUCTIONS GIVEN, VERBALIZED UNDERSTANDING, DAUGHTER AT BEDSIDE, PORTABLE OXYGEN DELIVERED, IV DC, SITE WITHOUT REDNESS OR SWELLING, DISMISSED PER W/C, ACCOMPANIED BY DAUGHTER
--- OUTSIDE RECORDS SUMMARY | 2019-08-23 08:21 | XMS REPORT | Continuity of Care Document ---
Author Organization Unknown Address Unknown Phone Unavailable Allergies Active Description Code Type Severity Reaction Onset Reported/Identified Relationship to Patient Clinical Status Yes No Known Drug Allergies [id number] Drug Allergy Unknown N/A 06/13/2013 Medications There is no data. Problems Date Dx Coded Attending Type Code Diagnosis Diagnosed By 08/21/2019 JOSSE CARROLL MD, Ot J10 .1 FLU DUE TO OTH IDENT INFLUENZA VIRUS W O 08/21/2019 JOSSE CARROLL MD, Ot J44 .1 CHRONIC OBSTRUCTIVE PULMONARY DISEASE W 08/21/2019 JOSSE CARROLL MD, Ot J98.11 ATELECTASIS 08/21/2019 JOSSE CARROLL MD Ot M19.91 PRIMARY OSTEOARTHRITIS, UNSPECIFIED SITE 08/21/2019 JOSSE CARROLL MD Ot R06.89 OTHER ABNORMALITIES OF BREATHING 08/21/2019 JOSSE CARROLL MD Ot R09.02 HYPOXEMIA Procedures There is no data. Results Test Result Range Complete blood count (CBC) with automate d white blood cell (WBC) differential - 08/17/19 11:51 Blood leukocytes automated count (number/volume) 6.0 10*3/uL 4.3-11.0 Blood erythrocytes automated count (number/volume) 4.71 10*6/uL 4.35-5.85 Venous blood hemoglobin measurement (mass/volume) 14.2 g/dL 11.5-16.0 Blood hematocrit (volume fraction) 43 % 35-52 Automated erythrocyte mean corpuscular volume 90 [ foz_us] 80-99 Automated erythrocyte mean corpuscular h emoglobin (mass per erythrocyte) 30 pg 25-34 Automated erythrocyte mean corpuscular h emoglobin concentration measurement (mass/volume) 33 g/dL 32-36 Automated erythrocyte distribution width ratio 13. 9 % 10.0- 14.5 Automated blood platelet count (count/volume) 170 10*3/uL 130-400 Automated blood platelet mean volume measurement 10.0 [foz_us] 7.4-10.4 Automated blood neutrophils/100 leukocytes 85 % 42-75 Automated blood lymphocytes/100 leukocytes 7 % 12-44 Blood monocytes/100 leukocytes 8 % 0-12 Automated blood eosinophils/100 leukocytes 0 % 0-10 Automated blood basophils/100 leukocytes 0 % 0-10 Blood neutrophils automated count (number/volume) 5.1 10*3 1.8-7.8 Blood lymphocytes automated count (number/volume) 0.4 10*3 1.0-4.0 Blood monocytes automated count (number/volume) 0. 5 10*3 0.0-1.0 Automated eosinophil count 0.0 10*3/uL 0 .0-0.3 Automated blood basophil count (count/volume) 0.0 10*3/uL 0.0-0.1 Comprehensive metabolic panel - 08/17/19 11:51 Serum or plasma sodium measurement (moles/volume) 138 mmol/L 135-145 Serum or plasma potassium measurement (moles/volume) 4.1 mmol/L 3.6-5.0 Serum or plasma chloride measurement (moles/volume) 104 mmol/L 98-107 Carbon dioxide 25 mmol/L 21-32 Serum or plasma anion gap determination (moles/volume) 9 mmol/L 5-14 Serum or plasma urea nitrogen measurement (mass/volume ) 13 mg/dL 7-18 Serum or plasma creatinine measurement (mass/volume) 0.77 mg/dL 0.60-1.30 Serum or plasma urea nitrogen/creatinine mass ratio 17 NRG Serum or plasma creatinine measurement w ith calculation of estimated glomerular filtration rate > NRG Serum or plasma glucose measurement (mass/volume) 106 mg/dL 70-105 Serum or plasma calcium measurement (mass/volume) 10.1 mg/dL 8.5-10.1 Serum or plasma total bilirubin measurement (mass/volu me) 0.5 mg/dL 0.1-1.0 Serum or plasma alkaline phosphatase yasmeen surement (enzymatic activity/volume) 81 U/L 40-136 Serum or plasma aspartate aminotransfera se measurement (enzymatic activity/volume) 38 U/L 5-34 Serum or plasma alanine aminotransferase measurement (enzymatic activity/volume) 17 U/L 0-55 Serum or plasma protein measurement (mass/volume) 7.3 g/dL 6.4-8.2 Serum or plasma albumin measurement (mass/volume) 4.2 g/dL 3.2-4.5 CALCIUM CORRECTED 9.9 mg/dL 8.5-10.1 Manual absolute plasma cell count - 07/21 03/08 11:51 Blood monocytes/100 leukocytes 8 % NRG Manual blood segmented neutrophils/100 leukocytes 75 % NRG Blood band neutrophils/100 leukocytes 8 % NRG Manual blood lymphocytes/100 leukocytes 7 % NRG Manual eosinophils/100 leukocytes in nose 2 % NRG Blood erythrocyte morphology finding identification NORMAL NRG Serum or plasma lithium measurement (mol es/volume) - 08/17/19 11:51 BNP PT 66.4 pg/mL <100.0 Blood lactic acid measurement (moles/vol ume) - 08/17/19 11:51 Blood lactic acid measurement (moles/volume) 1.11 mmol/L 0.50-2.00 Bacterial blood culture - 08/17/19 11:51 Bacterial blood culture NG NRG Arterial blood gas measurement - 0 12:19 Blood pCO2 40 mm[Hg] 35-45 Blood pO2 98 mm[Hg] 79-93 Arterial blood bicarbonate measurement (moles/volume) 25 mmol/L 23-27 Arterial blood base excess by calculation 0.5 mmol /L -2.5-2.5 Arterial blood oxygen saturation measurement 98 % 94-100 * Inhaled oxygen flow rate 2 NRG Arterial blood pH measurement with patient temperature correction 7.41 7.37-7.43 Arterial blood carbon dioxide, total measurement (mole s/volume) 25.9 mmol/L 21.0-31.0 Body site LT RADIAL NRG Assessment of wrist artery patency prior to arterial p uncture YES-POS NRG Setting of ventilation mode NO NR G Measurement of body temperature 36.8 NRG Bacterial blood culture - 08/17/19 13:08 Bacterial blood culture NG NRG Complete blood count (CBC) with automate d white blood cell (WBC) differential - 08/18/19 12:25 Blood leukocytes automated count (number/volume) 5.4 10*3/uL 4.3-11.0 Blood erythrocytes automated count (number/volume) 4.31 10*6/uL 4.35-5.85 Venous blood hemoglobin measurement (mass/volume) 13.0 g/dL 11.5-16.0 Blood hematocrit (volume fraction) 39 % 35-52 Automated erythrocyte mean corpuscular volume 91 [ foz_us] 80-99 Automated erythrocyte mean corpuscular h emoglobin (mass per erythrocyte) 30 pg 25-34 Automated erythrocyte mean corpuscular h emoglobin concentration measurement (mass/volume) 33 g/dL 32-36 Automated erythrocyte distribution width ratio 14. 1 % 10.0- 14.5 Automated blood platelet count (count/volume) 179 10*3/uL 130-400 Automated blood platelet mean volume measurement 9.9 [foz_us] 7.4-10.4 Automated blood neutrophils/100 leukocytes 89 % 42-75 Automated blood lymphocytes/100 leukocytes 5 % 12-44 Blood monocytes/100 leukocytes 6 % 0-12 Automated blood eosinophils/100 leukocytes 0 % 0-10 Automated blood basophils/100 leukocytes 0 % 0-10 Blood neutrophils automated count (number/volume) 4.8 10*3 1.8-7.8 Blood lymphocytes automated count (number/volume) 0.3 10*3 1.0-4.0 Blood monocytes automated count (number/volume) 0. 3 10*3 0.0-1.0 Automated eosinophil count 0.0 10*3/uL 0 .0-0.3 Automated blood basophil count (count/volume) 0.0 10*3/uL 0.0-0.1 Comprehensive metabolic panel - 08/18/19 12:25 Serum or plasma sodium measurement (moles/volume) 141 mmol/L 135-145 Serum or plasma potassium measurement (moles/volume) 4.0 mmol/L 3.6-5.0 Serum or plasma chloride measurement (moles/volume) 107 mmol/L 98-107 Carbon dioxide 24 mmol/L 21-32 Serum or plasma anion gap determination (moles/volume) 10 mmol/L 5-14 Serum or plasma urea nitrogen measurement (mass/volume ) 13 mg/dL 7-18 Serum or plasma creatinine measurement (mass/volume) 0.70 mg/dL 0.60-1.30 Serum or plasma urea nitrogen/creatinine mass ratio 19 NRG Serum or plasma creatinine measurement w ith calculation of estimated glomerular filtration rate > NRG Serum or plasma glucose measurement (mass/volume) 133 mg/dL 70-105 Serum or plasma calcium measurement (mass/volume) 10.0 mg/dL 8.5-10.1 Serum or plasma total bilirubin measurement (mass/volu me) 0.4 mg/dL 0.1-1.0 Serum or plasma alkaline phosphatase yasmeen surement (enzymatic activity/volume) 68 U/L 40-136 Serum or plasma aspartate aminotransfera se measurement (enzymatic activity/volume) 36 U/L 5-34 Serum or plasma alanine aminotransferase measurement (enzymatic activity/volume) 16 U/L 0-55 Serum or plasma protein measurement (mass/volume) 6.2 g/dL 6.4-8.2 Serum or plasma albumin measurement (mass/volume) 3.7 g/dL 3.2-4.5 CALCIUM CORRECTED 10.2 mg/dL 8.5-10.1 Automated blood complete blood count ( mogram) panel - 08/20/19 06:45 Blood leukocytes automated count (number/volume) 6.5 10*3/uL 4.3-11.0 Blood erythrocytes automated count (number/volume) 4.02 10*6/uL 4.35-5.85 Venous blood hemoglobin measurement (mass/volume) 12.2 g/dL 11.5-16.0 Blood hematocrit (volume fraction) 37 % 35-52 Automated erythrocyte mean corpuscular volume 93 [ foz_us] 80-99 Automated erythrocyte mean corpuscular h emoglobin (mass per erythrocyte) 30 pg 25-34 Automated erythrocyte mean corpuscular h emoglobin concentration measurement (mass/volume) 33 g/dL 32-36 Automated erythrocyte distribution width ratio 14. 0 % 10.0- 14.5 Automated blood platelet count (count/volume) 178 10*3/uL 130-400 Automated blood platelet mean volume measurement 9.9 [foz_us] 7.4-10.4 Comprehensive metabolic panel - 08/20/19 06:45 Serum or plasma sodium measurement (moles/volume) 143 mmol/L 135-145 Serum or plasma potassium measurement (moles/volume) 3.8 mmol/L 3.6-5.0 Serum or plasma chloride measurement (moles/volume) 107 mmol/L 98-107 Carbon dioxide 28 mmol/L 21-32 Serum or plasma anion gap determination (moles/volume) 8 mmol/L 5-14 Serum or plasma urea nitrogen measurement (mass/volume ) 12 mg/dL 7-18 Serum or plasma creatinine measurement (mass/volume) 0.64 mg/dL 0.60-1.30 Serum or plasma urea nitrogen/creatinine mass ratio 19 NRG Serum or plasma creatinine measurement w ith calculation of estimated glomerular filtration rate > NRG Serum or plasma glucose measurement (mass/volume) 89 mg/dL 70-105 Serum or plasma calcium measurement (mass/volume) 9.5 mg/dL 8.5-10.1 Serum or plasma total bilirubin measurement (mass/volu me) 0.4 mg/dL 0.1-1.0 Serum or plasma alkaline phosphatase yasmeen surement (enzymatic activity/volume) 62 U/L 40-136 Serum or plasma aspartate aminotransfera se measurement (enzymatic activity/volume) 37 U/L 5-34 Serum or plasma alanine aminotransferase measurement (enzymatic activity/volume) 27 U/L 0-55 Serum or plasma protein measurement (mass/volume) 5.6 g/dL 6.4-8.2 Serum or plasma albumin measurement (mass/volume) 3.3 g/dL 3.2-4.5 CALCIUM CORRECTED 10.1 mg/dL 8.5-10.1 Acute hepatitis panel - 08/20/19 06:45 HEPATITIS A ANTIBODY IGM Non-Reactive N on-Reactive HEPATITIS B CORE ZOË IGM Non-Reactive N on-Reactive Confirmatory quantitative serum or plasm a hepatitis B virus surface antigen measurement Non-Reactive Non-Reactive Serum hepatitis C virus antibody detection Non-[place] ctive Non-Reactive Automated blood complete blood count (he mogram) panel - 08/21/19 06:23 Blood leukocytes automated count (number/volume) 5.4 10*3/uL 4.3-11.0 Blood erythrocytes automated count (number/volume) 4.03 10*6/uL 4.35-5.85 Venous blood hemoglobin measurement (mass/volume) 12.0 g/dL 11.5-16.0 Blood hematocrit (volume fraction) 38 % 35-52 Automated erythrocyte mean corpuscular volume 93 [ foz_us] 80-99 Automated erythrocyte mean corpuscular h emoglobin (mass per erythrocyte) 30 pg 25-34 Automated erythrocyte mean corpuscular h emoglobin concentration measurement (mass/volume) 32 g/dL 32-36 Automated erythrocyte distribution width ratio 14. 0 % 10.0- 14.5 Automated blood platelet count (count/volume) 170 10*3/uL 130-400 Automated blood platelet mean volume measurement 9.7 [foz_us] 7.4-10.4 Comprehensive metabolic panel - 08/21/19 06:23 Serum or plasma sodium measurement (moles/volume) 142 mmol/L 135-145 Serum or plasma potassium measurement (moles/volume) 3.7 mmol/L 3.6-5.0 Serum or plasma chloride measurement (moles/volume) 105 mmol/L 98-107 Carbon dioxide 32 mmol/L 21-32 Serum or plasma anion gap determination (moles/volume) 5 mmol/L 5-14 Serum or plasma urea nitrogen measurement (mass/volume ) 13 mg/dL 7-18 Serum or plasma creatinine measurement (mass/volume) 0.65 mg/dL 0.60-1.30 Serum or plasma urea nitrogen/creatinine mass ratio 20 NRG Serum or plasma creatinine measurement w ith calculation of estimated glomerular filtration rate > NRG Serum or plasma glucose measurement (mass/volume) 81 mg/dL 70-105 Serum or plasma calcium measurement (mass/volume) 9.0 mg/dL 8.5-10.1 Serum or plasma total bilirubin measurement (mass/volu me) 0.5 mg/dL 0.1-1.0 Serum or plasma alkaline phosphatase yasmeen surement (enzymatic activity/volume) 54 U/L 40-136 Serum or plasma aspartate aminotransfera se measurement (enzymatic activity/volume) 30 U/L 5-34 Serum or plasma alanine aminotransferase measurement (enzymatic activity/volume) 29 U/L 0-55 Serum or plasma protein measurement (mass/volume) 5.2 g/dL 6.4-8.2 Serum or plasma albumin measurement (mass/volume) 3.1 g/dL 3.2-4.5 CALCIUM CORRECTED 9.7 mg/dL 8.5-10.1 Encounters ACCT No. Visit Date/Time Discharge Status Pt. Type Provider Facility Loc./Unit Complaint [id number] 08/17/2019 13:12:00 020 14:35:00 DIS Inpatient CARLY EDOUARD, JOSSE Dolan [facility] 4TH HYPOXIA, COPD, EXCAERBA TION [id number] 07/03/2013 06:00:00 014 12:30:00 DIS Inpatient [id number] 06/13/2013 09:16:00 013 23:59:59 CLS Outpatient
--- OUTSIDE RECORDS SUMMARY | 2019-08-23 09:12 | XMS REPORT | Continuity of Care Document ---
Author Organization Unknown Address Unknown Phone Unavailable Allergies Active Description Code Type Severity Reaction Onset Reported/Identified Relationship to Patient Clinical Status Yes No Known Drug Allergies [id number] Drug Allergy Unknown N/A 06/13/2013 Medications There [...] Status Pt. Type Provider Facility Loc./Unit Complaint [id number] 08/17/2019 13:12:00 020 14:35:00 DIS Inpatient CARLY EDOUARD, JOSSE Dolan [facility] 4TH HYPOXIA, COPD, EXCAERBA TION [id number] 07/03/2013 06:00:00 014 12:30:00 DIS Inpatient [id number] 06/13/2013 09:16:00 013 23:59:59 CLS Outpatient
== END 2019-08-21 14:35 | disposition home or self-care (01) | DRG 194 ==
LOC: EDUNIT# 11:20 → ER 11:22 → 4TH 13:12
PROVIDERS: ADMIT Internal Medicine; ATTEND Family Medicine
DX: J10.1 Influenza due to other identified influenza virus with other respiratory manifestations (principal); J44.1 Chronic obstructive pulmonary disease with (acute) exacerbation; J98.11 Atelectasis; R09.02 Hypoxemia; R06.89 Other abnormalities of breathing; M19.91 Primary osteoarthritis, unspecified site
CPT/HCPCS: 36415; 36600; 71046; 80053; 80074; 82805; 83605; 83880; 85007; 85025; 85027; 87040; 94640; 94760; 94761; 96374

== ENCOUNTER → 2020-07-23 | Outpatient (CLI) | payer MEDICARE, OTHER ==
[~2020-07-23] MED LIST changes: +BENZ100C18 PO; +CATHETER FLUSH 10 ML SYR IV PRN; +CHOL10007 PO; +DOXY100T2 PO; +FLUT12AE6 IH; +GABA-486 PO; +HOLD METFORMIN - RECEIVED CONTRAST 20 ML VIAL IV SCH; +IOHEXOL 350 MG/ML 100 ML (OMNIPAQUE 350) VIAL IV ONE; +IPRA0.2S51 NEB; +METH4TAB10 PO; +MONT10TA97 PO; +NS 100 ML (IVPB) BAG IV ONE; +OSEL75CA15 PO; +RT-ALBUTEROL SULF 2.5 MG/3 ML PRE-MIX VIAL INH ONE
[2020-07-23 12:57] LABS: BUN/CREATININE RATIO 15; CREATININE SERUM 0.79 MG/DL (0.60-1.30); GFR ESTIMATED > 60
== END ==
LOC: RT 12:08
PROVIDERS: ATTEND Internal Medicine Critical Care Medicine
DX: Z13.83 Encounter for screening for respiratory disorder NEC (principal); R06.00 Dyspnea, unspecified
CPT/HCPCS: 36415; 82565; 84520; 94060; 94726; 94729

== ENCOUNTER → 2021-01-05 | Outpatient (CLI) | payer MEDICARE, OTHER ==
[~2021-01-05] MED LIST changes: -CATHETER FLUSH 10 ML SYR IV PRN; -HOLD METFORMIN - RECEIVED CONTRAST 20 ML VIAL IV SCH; -IOHEXOL 350 MG/ML 100 ML (OMNIPAQUE 350) VIAL IV ONE; +MONT10TA32 PO; -MONT10TA97 PO; -NS 100 ML (IVPB) BAG IV ONE; -RT-ALBUTEROL SULF 2.5 MG/3 ML PRE-MIX VIAL INH ONE
--- NOTE | 2021-01-05 12:42 | Diagnostic Imaging Report ---
INDICATION: Postmenopausal screening COMPARISON: Baseline FINDINGS: AP Spine L1-L4: [BMD (g/cm2): NA] [T-Score: NA] [Z-Score: NA] [BMD Previous: NA] [BMD % Change: NA] LT Hip Neck: [BMD (g/cm2): 0.717] [T-Score: -2.3] [Z-Score: -0.5] LT Hip Total: [BMD (g/cm2):0.633] [T-Score:-3.0] [Z-Score: -1.3] [BMD Previous: NA] [BMD % Change: NA] RT Hip Neck: [BMD (g/cm2):0.674] [T-Score:-2.6] [Z-Score:-0.8] RT Hip Total: [BMD (g/cm2):0.589] [T-score:-3.3] [Z-Score:-1.7] [BMD Previous:NA] [BMD % Change:NA] *Indicates significant change from prior examination based on 95% confidence level. World Health Organization criteria for BMD interpretation classify patients as Normal (T-score at or above -1.0), Osteopenic (T-score between -1.0 and -2.5) or Osteoporotic (T-score at or below -2.5). LIMITATIONS AND MODIFICATION: None. FRACTURE RISK (FRAX SCORE): The ten year probability of (%): Major Osteoporotic Fracture: [NA] Hip Fracture: [NA] IMPRESSION: 1. Osteoporosis. 2. Baseline examination. 3. See below National Osteoporosis Foundation guidelines on when to potentially initiate pharmacologic therapy. Based on the National Osteoporosis Foundation Guidelines, pharmacologic treatment should be initiated in any of the following, unless clinical conditions suggest otherwise: * Any patient with prior fragility fracture of the hip or vertebrae. A spine fracture indicates 5X risk for subsequent spine fracture and 2X risk for subsequent hip fracture. * Osteoporosis (T-score <-2.5). * Postmenopausal women and men age 50 and older with low bone mass/osteopenia (T-score between -1.0 and -2.5) by DXA and 10-year major osteoporotic fracture greater than 20% or a 10-year probability of hip fracture greater than 3%. These fracture risks are supplied above in the FRAX score, if applicable. * Clinician judgement and/or patient preferences may indicate treatment for people with 10-year fracture probabilities above or below these levels. Dictated by: Dictated on workstation # [id number]
== END ==
LOC: RAD 11:00
PROVIDERS: ATTEND Family Medicine
DX: M81.0 Age-related osteoporosis without current pathological fracture (principal); Z78.0 Asymptomatic menopausal state
CPT/HCPCS: 77080

== ENCOUNTER → 2022-05-25 | Outpatient (CLI) | payer MEDICARE, OTHER ==
[~2022-05-25] MED LIST changes: +LIDOCAINE 1% INJ 30 ML (XYLOCAINE) VIAL INJ ONE; +MONT-40 PO; -MONT10TA32 PO
--- NOTE | 2022-05-25 11:53 | Diagnostic Imaging Report ---
INDICATION: Left thyroid nodule. Patient presents for ultrasound-guided fine-needle aspiration and Rotex biopsy. Patient brought to the procedure room and placed on table in the supine position. Ultrasound imaging of the neck was performed to evaluate appropriate entry site. Left neck was then prepped and draped in usual sterile fashion. Small amount of 1% lidocaine was utilized for local anesthesia. Total of 4 passes were made into the dominant solid mass left lobe of thyroid utilizing 25-gauge needles and fine-needle aspiration technique. A single pass was made with a Rotex needle and Rotex biopsy was performed. Hemostasis was obtained. Patient tolerated the procedure well and left the department in stable condition. IMPRESSION: Successful ultrasound guided fine needle aspiration and Rotex biopsy of the dominant left lobe thyroid mass. Pathology results are currently pending. Dictated by: Dictated on workstation # [id number]
== END ==
LOC: RAD 10:26
PROVIDERS: ATTEND Family Medicine
DX: E04.1 Nontoxic single thyroid nodule (principal)
CPT/HCPCS: 10005

== ENCOUNTER 2022-07-13 01:01 | Emergency (ER) | payer MEDICARE, OTHER ==
[~2022-07-13] VITALS: Ht 152 cm; Wt 77.1 kg
[~2022-07-13 01:01] MED LIST changes: -LIDOCAINE 1% INJ 30 ML (XYLOCAINE) VIAL INJ ONE
[2022-07-13] MEDS ORDERED: fentaNYL INJ 100 MCG/2 ML AMP IVP STA (01:13)
[2022-07-13] MEDS ORDERED: ASPIRIN 81 MG CHEW (CHILDREN'S ASA) PO STA (01:13)
[2022-07-13] MEDS ORDERED: NITROGLYCERIN 0.4 MG SL TABS BTL 25'S SL PRN (01:15)
[2022-07-13] MEDS ORDERED: ONDANSETRON 4 MG/2 ML (SDV) Z0FRAN IVP STA (01:17)
--- NOTE | 2022-07-13 01:24 | ED Chest Pain ---
General Stated Complaint: CP Source: patient, EMS History of Present Illness Date Seen by Provider: Jul 13, 2022 Time Seen by Provider: 01:01 Initial Comments 77-year-old female presenting by EMS from home with complaints of heaviness in her chest and radiating to the left neck and jaw. She states that the pain is a 10 out of 10 and woke her up from sleep at 11:50. Initially she thought it might be indigestion because she had eaten chili for supper. When the pain was not going away she called EMS and they transported her here to the emergency department. She states that she has COPD and has thyroid cancer. She denies having any history of cardiac disease and has not had chest heaviness like this previously. She did have 1 episode of vomiting and states she thinks it was a combination of getting the morphine by EMS for her chest pain in addition to some phlegm caught in the back of her throat from her COPD. She denies feeling bad earlier in the evening or during the day. She has not had a fever, chills, abdominal pain, cough worse than usual, nasal drainage, sore throat, pain in her legs, pain in her arms. Pain has been constant since it came on and also radiates to her back in addition to her left neck and jaw. Timing/Duration: 1 hour Severity/Quality: severe, pressure (heaviness or pressure on her chest) Location: substernal Radiation: jaw (left side), back Activities at Onset: sleep Prior CP/Workup: no prior cardiac workup Modifying Factors: worse with movement ASA po SQL MANAGER: No NTG SL SQL MANAGER: No Associated Symptoms: No abdominal pain; back pain (pain radiates to her back); No diaphoresis, No dizziness, No edema, No fatigue, No fever/chills, No headache; heartburn, nausea/vomiting (x1 after morphine); No rash; shortness of breath (chronic from COPD); No swelling/lump in chest, No syncope, No weakness Allergies and Home Medications Allergies Coded Allergies: No Known Drug Allergies (Unverified , 06/13/13) Patient Home Medication List Home Medication List Reviewed: Yes Benzonatate (Tessalon Perles) 100 Mg Capsule, 100 MG PO TID Prescribed by: JOSSE CARROLL on 08/21/19 6259 Cholecalciferol (Vitamin D3) (Vitamin D3) 25 Mcg Capsule, 25 MCG PO DAILY, (Reported) Entered as Reported by: MARY CLAYTON on 08/19/19947 Doxycycline Hyclate (Doxycycline Hyclate) 100 Mg Tablet, 100 MG PO BID, (Reported) Entered as Reported by: TASHI MERA on 08/17/19 1234 Fluticasone/Salmeterol (Advair Hfa 230-21 Mcg Inhaler) 12 Gm Hfa.aer.ad, 2 PUFF IH BID, (Reported) Entered as Reported by: MARY CLAYTON on 08/19/19947 Gabapentin (Gabapentin) 100 Mg Capsule, 200 MG PO BID PRN for NERVE PAIN, (Reported) Entered as Reported by: MARY CLAYTON on 08/19/19947 Hydroxychloroquine Sulfate (Hydroxychloroquine Sulfate) 200 Mg Tablet, 200 MG PO DAILY, (Reported) Entered as Reported by: MARY CLAYTON on 08/19/19947 Ipratropium Garfield (Ipratropium Garfield) 0.2 Mg/1 Ml Solution, 1 VIAL NEB BID, (Reported) Entered as Reported by: MARY CLAYTON on 08/19/19947 Montelukast Sodium (Montelukast Sodium) 10 Mg Tablet, 10 MG PO DAILY, (Reported) Entered as Reported by: MARY CLAYTON on 08/19/19947 Review of Systems Review of Systems Constitutional: No chills, No fever EENTM: No Symptoms Reported Respiratory: See HPI Cardiovascular: See HPI Gastrointestinal: See HPI Genitourinary: No Symptoms Reported Musculoskeletal: no symptoms reported Skin: No rash Psychiatric/Neurological: Anxiety Endocrine: No Symptoms Reported Hematologic/Lymphatic: Denies Blood Clots Past Kjnhewn-Ltvkhe-Ijocwj Hx Patient Social History Tobacco Use?: No Use of E-Cig and/or Vaping dev: No Substance use?: No Alcohol Use?: No Immunizations Up To Date Tetanus Booster (TDap): Unknown PED Vaccines UTD: No Past Medical History Surgery/Hospitalization HX: COPD, Thyroid cancer Surgeries: Yes (BACK) Appendectomy, Gallbladder, Orthopedic Respiratory: Yes COPD Cardiac: No Neurological: No Reproductive Disorders: No Genitourinary: No Gastrointestinal: No Musculoskeletal: Yes (LUMBAR PROBLEMS) Degenerate Disk Disease, Arthritis Endocrine: No Cancer: No Psychosocial: No Integumentary: No Blood Disorders: No Adverse Reaction/Blood Tranf: No Family Medical History Family history: Breast disease 03 MOTHER Family history: Cardiovascular disease 03 MOTHER Family history: Diabetes mellitus 03 MOTHER History of - respiratory disease 03 FATHER Physical Exam Vital Signs Vital Signs - First Documented 07/13/22 07/13/22 01:04 01:45 Temp 36.0 Pulse 71 Resp 20 B/P (MAP) 141/65 (90) Pulse Ox 94 O2 Delivery Room Air O2 Flow Rate 3.00 Capillary Refill : Height, Weight, BMI Height: '" Weight: 186lbs. 0.0oz. 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 Norm as Tested Skin: Normal Color, Warm/Dry Progress/Results/Core Measures Results/Orders Lab Results Laboratory Tests Test 07/13/22 01:15 07/13/22 03:10 Range/Units White Blood Count 7.6 4.3-11.0 10^3/uL Red Blood Count 4.38 3.80-5.11 10^6/uL Hemoglobin 13.1 11.5-16.0 g/dL Hematocrit 39 35-52 % Mean Corpuscular Volume 88 80-99 fL Mean Corpuscular Hemoglobin 30 25-34 pg Mean Corpuscular Hemoglobin Concent 34 32-36 g/dL Red Cell Distribution Width 13.2 10.0-14.5 % Platelet Count 167 130-400 10^3/uL Mean Platelet Volume 10.4 9.0-12.2 fL Immature Granulocyte % (Auto) 0 % Neutrophils (%) (Auto) 42 42-75 % Lymphocytes (%) (Auto) 47 H 12-44 % Monocytes (%) (Auto) 7 0-12 % Eosinophils (%) (Auto) 3 0-10 % Basophils (%) (Auto) 1 0-10 % Neutrophils # (Auto) 3.2 1.8-7.8 10^3/uL Lymphocytes # (Auto) 3.6 1.0-4.0 10^3/uL Monocytes # (Auto) 0.5 0.0-1.0 10^3/uL Eosinophils # (Auto) 0.2 0.0-0.3 10^3/uL Basophils # (Auto) 0.0 0.0-0.1 10^3/uL Immature Granulocyte # (Auto) 0.0 0.0-0.1 10^3/uL Prothrombin Time 14.1 12.2-14.7 SEC INR Comment 1.0 0.8-1.4 Activated Partial Thromboplast Time 28 24-35 SEC Sodium Level 139 135-145 MMOL/L Potassium Level 4.2 3.6-5.0 MMOL/L Chloride Level 105 98-107 MMOL/L Carbon Dioxide Level 26 21-32 MMOL/L Anion Gap 8 5-14 MMOL/L Blood Urea Nitrogen 15 7-18 MG/DL Creatinine 0.84 0.60-1.30 MG/DL Estimat Glomerular Filtration Rate 71 BUN/Creatinine Ratio 18 Glucose Level 104 70-105 MG/DL Calcium Level 10.0 8.5-10.1 MG/DL Corrected Calcium 10.1 8.5-10.1 MG/DL Magnesium Level 1.8 1.6-2.4 MG/DL Total Bilirubin 0.3 0.1-1.0 MG/DL Aspartate Amino Transf (AST/SGOT) 17 5-34 U/L Alanine Aminotransferase (ALT/SGPT) 8 0-55 U/L Alkaline Phosphatase 101 40-136 U/L Troponin I < 0.30 < 0.30 <0.30 NG/ML Pro-B-Type Natriuretic Peptide 64.8 <450.0 PG/ML Total Protein 6.4 6.4-8.2 GM/DL Albumin 3.9 3.2-4.5 GM/DL Lipase 22 8-78 U/L My Orders Orders - JALEESA THORPE MD Cbc With Automated Diff (07/13/22 01:12) Magnesium (07/13/22 01:12) Chest 1 View Ap/Pa Only (07/13/22 01:12) Ekg Tracing (07/13/22 01:12) Comprehensive Metabolic Panel (07/13/22 01:12) Protime With Inr (07/13/22 01:12) Partial Thromboplastin Time (07/13/22 01:12) O2 (07/13/22 01:12) Monitor-Rhythm Ecg Trace Only (07/13/22 01:12) Ed Iv/Invasive Line Start (07/13/22 01:12) Lipase (07/13/22 01:12) Troponin I Fs (07/13/22 01:12) Probnp Fs (07/13/22 01:12) Fentanyl Inj (Sublimaze Injection) (07/13/22 01:13) Aspirin Chewable Tablet (Baby Aspirin Ch (07/13/22 01:13) Nitroglycerin 0.4 Mg Btl 25's (Nitrostat (07/13/22 01:15) Ondansetron Injection (Zofran Injectio (07/13/22 01:17) Ns Iv 1000 Ml (Sodium Chloride 0.9%) (07/13/22 01:31) Lidocaine 2% Viscous 15 Ml (Xylocaine Vi (07/13/22 01:45) Antacid Suspension (Mylanta Suspension (07/13/22 01:45) Pantoprazole Injection (Protonix Injecti (07/13/22 01:41) Lorazepam Injection (Ativan Injection) (07/13/22 02:18) Albuterol/Ipra Inhalation Soln (Duoneb I (07/13/22 02:18) Svn Small Volume Nebulizer (07/13/22 02:18) Methylprednisolone Sod Succ (Solu-Medrol (07/13/22 02:19) Iohexol Injection (Omnipaque 350 Mg/Ml 1 (07/13/22 02:45) Received Contrast (Hold Metformin- Contr (07/13/22 02:45) Sodium Chloride Flush (Catheter Flush Sy (07/13/22 02:45) Ns (Ivpb) (Sodium Chloride 0.9% Ivpb Bag (07/13/22 02:45) Troponin I Fs (07/13/22 02:54) Ct Angio Chest W (07/13/22 04:31) Medications Given in ED Current Medications Medications Dose Ordered Sig/Dandre Route Start Time Stop Time Status Last Admin Dose Admin Al Hydrox/Mg Hydrox/Simethicone 30 ml ONCE ONCE PO 07/13/22 01:45 07/13/22 01:46 DC 07/13/22 01:54 30 ML Iohexol 100 ml ONCE ONCE IV 07/13/22 02:45 07/13/22 02:46 DC 07/13/22 03:11 100 ML Lidocaine HCl 15 ml ONCE ONCE PO 07/13/22 01:45 07/13/22 01:46 DC 07/13/22 01:54 15 ML Nitroglycerin 1 TAB Q 5 MIN X 3 NEEDED PRN SL 07/13/22 01:15 07/13/22 01:23 0.4 MG Sodium Chloride 10 ml NEEDED PRN IV 07/13/22 02:45 07/13/22 03:11 10 ML Sodium Chloride 100 ml ONCE ONCE IV 07/13/22 02:45 07/13/22 02:46 DC 07/13/22 03:11 100 ML Vital Signs/I&O 07/13/22 07/13/22 07/13/22 07/13/22 01:04 01:04 01:45 03:04 Temp 36.0 Pulse 71 Resp 20 B/P (MAP) 141/65 (90) Pulse Ox 94 34 85 100 O2 Delivery Room Air Room Air Nasal Cannula Nasal Cannula O2 Flow Rate 3.00 3.00 Admisison Planning May Need Admission (Planning): 01:15 Progress Progress Note #1: Progress Note Potential life-threatening conditions of pulmonary embolism, myocardial infarction, congestive heart failure, pneumonia, dissecting aortic aneurysm. Obtain electrocardiogram on patient's arrival for her complaint of chest pain. Order labs to look at CBC, chemistry, cardiac enzymes, magnesium, coags. Chest x-ray to look for structural abnormalities. Placed on cardiac residential monitor for her complaint of chest pain. Initial cardiac telemetry shows sinus rhythm with a heart rate in the 70s. My initial interpretation and review of her electrocardiogram shows a normal sinus rhythm without ST elevation. She has no prior tracing available for comparison. Order Fentanyl 25 mcg IV for pain, Aspirin 324 mg po, sublingual nitroglycerin 0.4 mg x 1. Shortly after the medications were given she had drop in her blood pressure to systolic 69, O2 sat to 80%, heart rate to 40 sinus bradycardia on cardiac residential monitor. Placed in trendelenberg and given NS 1 L IV fluid bolus. Progress Note #2: Time: 01:54 Progress Note CBC stable without elevation of WBC or anemia. On my personal interpretation and review of her 1 view chest xray she had no definite infiltrate but has COPD changes with hyperexpansion of lungs and increased perihilar markings with atelectasis vs infiltrate in left lung base. Overall appears similar to imaging from 2020. Coags were normal without acute significant abnormality. Will try GI cocktail and Protonix 40 mg IV to see if that helps her symptoms as she still has heaviness in her chest. If she is having indigestion or GI source of her symptoms then this should help. Progress Note #3: Time: 02:16 Progress Note Chemistry without acute significant abnormality. Troponin I is <0.3 and proBNP is not elevated. With her continued pain, although she is resting more comfortably in the room. Will add on CT angiogram of chest to evaluate for PE, lung mass, aortic dissection, pneumonia. She said she was too anxious to be enclosed for CT and they usually have to "knock me out" to get a scan. Will give Lorazepam 0.5 mg IV for anxiety and see if that helps her chest pain as well. Since she does have COPD history will also give Solumedrol 125 mg IV and Duoneb treatment to help treat for COPD as a possible contributing factor to her symptoms and complaints tonight. Progress Note #4: Time: 03:22 Progress Note I reviewed [facility] radiologist reading for CT angiography of chest with IV contrast shows No pulmonary embolism, no thoracic aorta aneurysm. awaiting repeat Troponin. Patient resting more comfortably in the room after lorazepam and solumedrol. She was having pleuritic chest pain with deep breaths when trying to do DuoNeb treatment. Progress Note #5: Time: 03:51 Progress Note Repeat Troponin is still <0.3. Cardiac residential monitor shows sinus tachycardia after she had the breathing treatment. Heart rate 106 to 116 sinus tachycardia on telemetry. Will check again on patient and update her about the CT results and repeat lab tests still negative for LA or ACS. Her symptoms may be a combinationof her COPD, Anxiety, GERD with esophagitis and pleurisy. Progress Note #6: Time: 04:18 Progress Note Now that patient is more calm and pain is doing better when I reviewed the test findings with her she now mentions that she was worried about her headache that was there when she woke up. She had not mentioned a left sided headache at all until now when discussing discharge to home. She states she gets them from time to time and sometimes they are severe. She treats them with a heated rice bag and sometimes a cold bag of frozen peas. The headaches sometimes get better with exposure to cold air as well. Reassured that the tests to look for heart attack were negative. She also had no evidence of blood clots in her lungs, tumor or mass present, pneumonia, collapsed lung. We were not seeing evidence of an infection or fluid buildup. Her aorta appeared fine without dissection or aneurysm. The pain radiating to her back could certainly have been from esophageal spasms and irritation from GERD. Her extra stress and anxiety about the thyroid cancer could be playing a role as well. Certainly it might be contributing to flareup of GERD for her. The COPD can be causing her to be short of breath and have heaviness or tightness in chest as well. Her daughter is present in the room when reviewing the results and discussing the discharge plan. They are both comfortable with going home knowing that her tests were all negative for acute life threatening conditions. She did not have abnormal findings to indicate admit to the hospital was necessary, especially since she had improving symptoms. Initial ECG Impression Date: Jul 13, 2022 Initial ECG Impression Time: 01:10 Initial ECG Rate: 71 Initial ECG Rhythm: Normal Sinus Initial ECG Comparisson: No Previous ECG Available Comment Based on my personal interpretation and review her electrocardiogram shows normal sinus rhythm with a heart rate of 71 bpm. PA interval [address] elevation. There are some artifact and wander on the tracing. QT interval 408 ms with a QTc interval 430 ms. She has less than [address] depression in her lateral leads. There is no prior tracing available for comparison Diagnostic Imaging Diagonstic Imaging: Xray Plain Films/CT/US/NM/MRI: chest Comments On my personal review and interpretation of her 1 view chest x-ray compared to two-view chest x-ray from 2019 she has increased perihilar markings and chronic COPD changes to her lungs. There is atelectasis versus infiltrate in the left lung base. Reviewed: Reviewed by Me Diagonstic Imaging: CT (Angiography) Plain Films/CT/US/NM/MRI: chest Comments CT angiography of the chest with IV contrast read by [facility] Impression: No pulmonary embolism. No thoracic aortic aneurysm. She has thyroid nodules with the largest measuring 2.1 cm. Read by radiologist Dr. Nuvia Cassidy MD at 0312 and faxed at 0320 Reviewed: Reviewed [place] Study, Reviewed by Me Departure Impression Primary Impression: Chest heaviness Additional Impressions: GERD with esophagitis Qualified Codes: K21.00 - Gastro-esophageal reflux disease with esophagitis, without bleeding Anxiety about health Pleuritic chest pain Disposition: HOME, SELF-CARE Condition: Improved Departure-Patient Inst. Decision time for Depature: 04:23 Referrals: WENDY SALEEM MD (PCP/Family) Primary Care Physician Patient Instructions: Pleuritic Chest Pain ED, Acid Reflux, Adult and Adolescent ED, Anxiety, Adult ED, Chest Pain, Adult ED Add. Discharge Instructions: Your tests to look at the heart did not show signs of a heart attack or heart damage. Testing to look for blood clot in your lungs or any tumors or masses in the lungs were all negative as well. Your symptoms tonight were likely a combination of your COPD along with anxiety and stress and some gastritis causing irritation to the stomach and esophagus. For the next week consider just following a bland diet and you could also take [id number] medication of famotidine which is Pepcid or a proton pump inhibitor such as Prilosec which is omeprazole, Prevacid which is lansoprazole, Nexium which is esomeprazole. Check back with your primary care provider for continued concerns or if not improving. JALEESA THORPE MD Jul 13, 2022 01:24
[2022-07-13 01:29] LABS: BASOPHILS % (AUTO) 1 % (0-10); EOSINOPHILS # (AUTO) 0.2 10^3/uL (0.0-0.3); EOSINOPHILS % (AUTO) 3 % (0-10); HEMATOCRIT 39 % (35-52); HEMOGLOBIN 13.1 g/dL (11.5-16.0); LYMPHOCYTES # (AUTO) 3.6 10^3/uL (1.0-4.0); LYMPHOCYTES % (AUTO) 47 % (12-44); MEAN CORPUSCULAR HEMOGLOBIN 30 pg (25-34); MEAN CORPUSCULAR HGB CONC 34 g/dL (32-36); MEAN CORPUSCULAR VOLUME 88 fL (80-99); MEAN PLATELET VOLUME 10.4 fL (9.0-12.2); MONOCYTES # (AUTO) 0.5 10^3/uL (0.0-1.0); MONOCYTES % (AUTO) 7 % (0-12); NEUTROPHILS # (AUTO) 3.2 10^3/uL (1.8-7.8); NEUTROPHILS % (AUTO) 42 % (42-75); PLATELET COUNT 167 10^3/uL (130-400); WHITE BLOOD COUNT 7.6 10^3/uL (4.3-11.0)
[2022-07-13] MEDS ORDERED: NS IV 1000 ML 1,000 ML IV STA (01:31)
[2022-07-13] MEDS ORDERED: PANTOPRAZOLE 40 MG (PROTONIX) VIAL IV STA (01:41)
[2022-07-13] MEDS ORDERED: ANTACID SUSP 30 ML UDC (MYLANTA) PO ONE (01:45)
[2022-07-13] MEDS ORDERED: LIDOCAINE 2% VISCOUS 15 ML UDC PO ONE (01:45)
[2022-07-13 01:52] LABS: PROTHROMBIN TIME PATIENT 14.1 SEC (12.2-14.7)
[2022-07-13 02:09] LABS: POTASSIUM 4.2 MMOL/L (3.6-5.0)
[2022-07-13 02:10] LABS: ALBUMIN 3.9 GM/DL (3.2-4.5); BILIRUBIN,TOTAL 0.3 MG/DL (0.1-1.0); CREATININE SERUM 0.84 MG/DL (0.60-1.30); MAGNESIUM 1.8 MG/DL (1.6-2.4); TOTAL PROTEIN 6.4 GM/DL (6.4-8.2)
[2022-07-13] MEDS ORDERED: RT-ALBUTEROL/IPRATROPIUM 3 ML (DUONEB) VIAL INH STA (02:18)
[2022-07-13] MEDS ORDERED: LORazepam INJ 2 MG/ML (ATIVAN) VIAL IVP STA (02:18)
[2022-07-13] MEDS ORDERED: methylPREDNISolone 125 MG (Solu-MEDROL) VIAL IVP STA (02:19)
[2022-07-13] MEDS ORDERED: NS 100 ML (IVPB) BAG IV ONE (02:45)
[2022-07-13] MEDS ORDERED: IOHEXOL 350 MG/ML 100 ML (OMNIPAQUE 350) VIAL IV ONE (02:45)
[2022-07-13] MEDS ORDERED: HOLD METFORMIN - RECEIVED CONTRAST 20 ML VIAL IV SCH (02:45)
[2022-07-13] MEDS ORDERED: CATHETER FLUSH 10 ML SYR IV PRN (02:45)
[2022-07-13 04:35] VITALS: BP 122/71
--- NOTE | 2022-07-13 06:04 | Diagnostic Imaging Report ---
PROCEDURE: CT angiography of the chest with contrast. TECHNIQUE: Multiple contiguous axial images were obtained through the chest after uneventful bolus administration of intravenous contrast. 3D reconstructed CTA MIP acquisitions were also performed. Auto Exposure Controls were utilized during the CT exam to meet ALARA standards for radiation dose reduction. INDICATION: Shortness of breath, chest pain There are no intraluminal pulmonary arterial filling defects. No PE. The thoracic aorta is nonacute. There is no pleural or pericardial effusion. Some mild juxta fissural and dependent zones of partial atelectasis but no consolidating pneumonia. No findings of pulmonary edema. No lung mass. No thoracic adenopathy. No acute chest wall pathology. Bridging syndesmophytes and ankylosis throughout the thoracic spine present with no acute spinal pathology evident. The visualized upper abdomen showed no free fluid, free air or acute appearing abnormalities. IMPRESSION: Negative for PE or other acute abnormalities. I agree with preliminary. Dictated by: Dictated on workstation # [id number]
--- NOTE | 2022-07-13 07:41 | Diagnostic Imaging Report ---
INDICATION: Pain, shortness of air COMPARISON: 08/17/2019 FINDINGS: The lungs clear. No failure, effusion or pneumothorax. IMPRESSION: No acute appearing abnormality. Dictated by: Dictated on workstation # [id number]
== END 2022-07-13 04:45 | disposition home or self-care (01) ==
LOC: EDUNIT# 01:01 → ER FS 01:02
DX: K21.00 Gastro-esophageal reflux disease with esophagitis, without bleeding (principal); F41.9 Anxiety disorder, unspecified; J44.9 Chronic obstructive pulmonary disease, unspecified; Z90.49 Acquired absence of other specified parts of digestive tract; Z28.310 Unvaccinated for COVID-19
CPT/HCPCS: 36415; 71045; 71275; 80053; 83690; 83735; 83880; 84484; 85025; 85610; 85730; 93005; 93041; 94640; 96361; 96374; 96375

== ENCOUNTER 2023-01-18 15:30 | Inpatient (IN) | payer MEDICARE, OTHER ==
[~2023-01-18] VITALS: Ht 152 cm; Wt 77.2 kg
[~2023-01-18 15:30] MED LIST changes: +HYDR200T71 PO
--- NOTE | 2023-01-18 15:34 | ED General ---
General Stated Complaint: SOB History of Present Illness Date Seen by Provider: Jan 18, 2023 Time Seen by Provider: 15:34 Initial Comments 77-year-old female presents with shortness of breath, rapid heart rate and not feeling well that started around 130. Patient reports she has a cough as a chronic cough all the time. She uses inhaler 3 times a day. EMS arrived and found she was tachycardic and was concerned about SVT and she received 6 of adenosine and 12 adenosine with no relief. Patient also received 324 mg of aspirin and 1 dose of nitro sublingual prior to arrival by EMS. She has no known history of atrial fibs or atrial flutter. Patient did admit to increase in her chronic cough however over the last month but no fevers or chills. She uses albuterol twice daily and has had 2 doses already today. She is not on any blood thinners. Allergies and Home Medications Allergies Coded Allergies: No Known Drug Allergies (Unverified , 06/13/13) Patient Home Medication List Home Medication List Reviewed: Yes Benzonatate (Tessalon Perles) 100 Mg Capsule, 100 MG PO TID Prescribed by: JOSSE CARROLL on 08/21/19 1124 Cholecalciferol (Vitamin D3) (Vitamin D3) 25 Mcg Capsule, 25 MCG PO DAILY, (Reported) Entered as Reported by: MARY CLAYTON on 08/19/19 0948 Doxycycline Hyclate (Doxycycline Hyclate) 100 Mg Tablet, 100 MG PO BID, (Reported) Entered as Reported by: TASHI MERA on 08/17/19 1234 Fluticasone/Salmeterol (Advair Hfa 230-21 Mcg Inhaler) 12 Gm Hfa.aer.ad, 2 PUFF IH BID, (Reported) Entered as Reported by: MARY CLAYTON on 08/19/1948 Gabapentin (Gabapentin) 100 Mg Capsule, 200 MG PO BID PRN for NERVE PAIN, (Reported) Entered as Reported by: MARY CLAYTON on 08/19/19947 Hydroxychloroquine Sulfate (Hydroxychloroquine Sulfate) 200 Mg Tablet, 200 MG PO DAILY, (Reported) Entered as Reported by: MARY CLAYTON on 08/19/19947 Ipratropium Cylinder (Ipratropium Cylinder) 0.2 Mg/1 Ml Solution, 1 VIAL NEB BID, (Reported) Entered as Reported by: MARY CLAYTON on 08/19/19947 Montelukast Sodium (Montelukast Sodium) 10 Mg Tablet, 10 MG PO DAILY, (Reported) Entered as Reported by: MARY CLAYTON on 08/19/19947 Review of Systems Review of Systems Constitutional: see HPI Respiratory: see HPI, cough Cardiovascular: see HPI, chest pain Genitourinary: no symptoms reported Musculoskeletal: no symptoms reported Skin: no symptoms reported Psychiatric/Neurological: No Symptoms Reported Hematologic/Lymphatic: No Symptoms Reported Past Pjontfz-Sokivr-[id number] Hx Immunizations Up To Date Tetanus Booster (TDap): Unknown PED Vaccines UTD: No Past Medical History Surgery/Hospitalization HX: COPD, Thyroid cancer Surgeries: Yes (BACK) Appendectomy, Gallbladder, Orthopedic Respiratory: Yes COPD Cardiac: No Neurological: No Reproductive Disorders: No Genitourinary: No Gastrointestinal: No Musculoskeletal: Yes (LUMBAR PROBLEMS) Degenerate Disk Disease, Arthritis Endocrine: No Cancer: No Psychosocial: No Integumentary: No Blood Disorders: No Adverse Reaction/Blood Tranf: No Family Medical History Family history: Breast disease 03 MOTHER Family history: Cardiovascular disease 03 MOTHER Family history: Diabetes mellitus 03 MOTHER History of - respiratory disease 03 FATHER Physical Exam Vital Signs Vital Signs - First Documented 01/18/23 01/18/23 01/18/23 15:45 15:49 15:50 Temp 37.2 Pulse 189 Resp 24 B/P (MAP) 150/120 Pulse Ox 98 O2 Delivery Nasal Cannula O2 Flow Rate 2.00 Capillary Refill : Height, Weight, BMI Height: '" Weight: 186lbs. 0.0oz. 84.072846kd; 33.00 BMI Method: General Appearance: Mild Distress Respiratory: Decreased Breath Sounds Cardiovascular: Irregularly Irregular, Tachycardia Gastrointestinal: Non Tender, Soft Extremity: Normal Capillary Refill, Normal Inspection, Normal Range of Motion Neurologic/Psychiatric: Oriented x3, No Motor/Sensory Deficits, Normal Mood/Affect, town administrator II-XII Norm as Tested Skin: Normal Color, Warm/Dry Progress/Results/Core Measures Suspected Sepsis SIRS Temperature: Pulse: Respiratory Rate: Laboratory Tests 01/18/23 15:37: White Blood Count 8.4 Blood Pressure / Mean: Laboratory Tests 01/18/23 15:37: Creatinine 0.71, INR Comment 1.0, Platelet Count 146, Total Bilirubin 0.5 Results/Orders Lab Results Laboratory Tests Test 01/18/23 15:37 Range/Units White Blood Count 8.4 4.3-11.0 10^3/uL Red Blood Count 4.31 3.80-5.11 10^6/uL Hemoglobin 13.0 11.5-16.0 g/dL Hematocrit 40 35-52 % Mean Corpuscular Volume 92 80-99 fL Mean Corpuscular Hemoglobin 30 25-34 pg Mean Corpuscular Hemoglobin Concent 33 32-36 g/dL Red Cell Distribution Width 13.8 10.0-14.5 % Platelet Count 146 130-400 10^3/uL Mean Platelet Volume 11.2 9.0-12.2 fL Neutrophils (%) (Auto) 61 42-75 % Lymphocytes (%) (Auto) 30 12-44 % Monocytes (%) (Auto) 8 0-12 % Eosinophils (%) (Auto) 1 0-10 % Basophils (%) (Auto) 1 0-10 % Neutrophils # (Auto) 5.1 1.8-7.8 X 10^3 Lymphocytes # (Auto) 2.5 1.0-4.0 X 10^3 Monocytes # (Auto) 0.7 0.0-1.0 X 10^3 Eosinophils # (Auto) 0.1 0.0-0.3 10^3/uL Basophils # (Auto) 0.1 0.0-0.1 10^3/uL Prothrombin Time 13.9 12.2-14.7 SEC INR Comment 1.0 0.8-1.4 Activated Partial Thromboplast Time 29 24-35 SEC Sodium Level 144 135-145 MMOL/L Potassium Level 4.4 3.6-5.0 MMOL/L Chloride Level 109 H 98-107 MMOL/L Carbon Dioxide Level 24 21-32 MMOL/L Anion Gap 11 5-14 MMOL/L Blood Urea Nitrogen 13 7-18 MG/DL Creatinine 0.71 0.60-1.30 MG/DL Estimat Glomerular Filtration Rate 86 BUN/Creatinine Ratio 18 Glucose Level 109 H 70-105 MG/DL Calcium Level 9.2 8.5-10.1 MG/DL Corrected Calcium 9.4 8.5-10.1 MG/DL Magnesium Level 1.7 1.6-2.4 MG/DL Total Bilirubin 0.5 0.1-1.0 MG/DL Aspartate Amino Transf (AST/SGOT) 27 5-34 U/L Alanine Aminotransferase (ALT/SGPT) 11 0-55 U/L Alkaline Phosphatase 100 40-136 U/L Troponin I < 0.30 <0.30 NG/ML Pro-B-Type Natriuretic Peptide 660.7 H <450.0 PG/ML Total Protein 6.1 L 6.4-8.2 GM/DL Albumin 3.7 3.2-4.5 GM/DL My Orders Orders - OSORIO,ALIZA L DO Cbc With Automated Diff (01/18/23 15:34) Comprehensive Metabolic Panel (01/18/23 15:34) Magnesium (01/18/23 15:34) Protime With Inr (01/18/23 15:34) Partial Thromboplastin Time (01/18/23 15:34) Troponin I Fs (01/18/23 15:34) Ekg Tracing (01/18/23 15:34) O2 (01/18/23 15:34) Monitor-Rhythm Ecg Trace Only (01/18/23 15:34) Diltiazem Injection (Diltiazem Injection (01/18/23 15:45) Chest 1 View Ap/Pa Only (01/18/23 15:37) Probnp Fs (01/18/23 15:34) Benzonatate Capsule (Benzonatate Capsule (01/18/23 16:00) Diltiazem Injection (Diltiazem Injection (01/18/23 16:00) Diltiazem Drip Pre-Mix (Diltiazem Drip P (01/18/23 16:15) Ekg Tracing (01/18/23 16:46) Diltiazem Er 24 Hr Capsule (Diltiazem Er (01/18/23 17:00) Ed Admission (Communication) (01/18/23 17:05) Medications Given in ED Current Medications Medications Dose Ordered Sig/Dandre Route Start Time Stop Time Status Last Admin Dose Admin Benzonatate 100 mg ONCE ONCE PO 01/18/23 16:00 01/18/23 16:01 DC 01/18/23 15:53 100 MG Diltiazem HCl 20 mg ONCE ONCE IVP 01/18/23 15:45 01/18/23 15:46 DC 8/2/23 15:45 20 MG Diltiazem HCl 25 mg ONCE ONCE IVP 01/18/23 16:00 01/18/23 16:01 DC 01/18/23 15:58 25 MG Vital Signs/I&O 01/18/23 01/18/23 01/18/23 01/18/23 15:45 15:49 15:50 15:58 Temp 37.2 Pulse 189 189 139 Resp 24 B/P (MAP) 150/120 161/115 (130) 117/69 Pulse Ox 98 O2 Delivery Nasal Cannula Nasal Cannula O2 Flow Rate 2.00 01/18/23 01/18/23 16:12 17:09 Temp 36.9 Pulse 123 79 Resp 20 B/P (MAP) 121/80 117/37 Pulse Ox 94 O2 Delivery Room Air Capillary Refill : Progress Note : Progress Note Patient's diagnostic studies were ordered reviewed and interpreted by me. Patient presented with initial EKG of atrial fibs with RVR heart rate [address] and T wave changes. She was treated with initial 20 mg bolus of Cardizem with minimal response then an additional 25 mg bolus of Cardizem with slightly improved response but continued to have atrial fib with RVR with a elevated heart rate. She was then started on a Cardizem drip. She did spontaneously convert approximately 35 to 45 minutes after being on the drip. Patient was then given the Cardizem 120 mg p.o. extended release. Repeat EKG approximately an hour later showed sinus rhythm, heart rate 88, NH 153, QRS [address]-T wave abnormalities is unchanged. She will be weaned off the drip. I did discuss case with on-call [facility] resident who accepted patient after visiting with Dr. Sanders. Patient to be admitted to [facility] and transferred to [facility] via EMS. Patient was stable at time of transfer. Diagnostic Imaging Diagonstic Imaging: Xray Plain Films/CT/US/NM/MRI: chest Comments Date of Exam:01/18/23 CHEST 1 VIEW AP/PA ONLY INDICATION: Chest pain. COMPARISON: 07/13/2022. FINDINGS: The heart is mildly enlarged, increased from prior. There is increased central vascular congestion. No pneumonic consolidation. No effusion or pneumothorax. IMPRESSION: Slight increased heart size and venous congestion. No brant edema or acute pleural pathology, however. Critical Care Note Critical Care Total Time (minutes) 60 minutes Departure Impression Primary Impression: Atrial fibrillation Qualified Codes: I48.91 - Unspecified atrial fibrillation Disposition: 43 DISC/XFER TO A [facility] Condition: Stable Admissions Decision to Admit Reason: Admit from ER (General) Decision to Admit/Date: Jan 18, 2023 Time/Decision to Admit Time: 17:00 Departure-Patient Inst. Referrals: WENDY SALEEM MD (PCP/Family) Primary Care Physician ALIZA OSORIO DO Jan 18, 2023 15:34
[2023-01-18] MEDS ORDERED: dilTIAZem INJ 25 MG/5 ML VIAL IVP ONE ×2 (15:45→16:00)
[2023-01-18 15:47] LABS: BASOPHILS # (AUTO) 0.1 10^3/uL (0.0-0.1); BASOPHILS % (AUTO) 1 % (0-10); EOSINOPHILS # (AUTO) 0.1 10^3/uL (0.0-0.3); EOSINOPHILS % (AUTO) 1 % (0-10); HEMATOCRIT 40 % (35-52); LYMPHOCYTES # (AUTO) 2.5 X 10^3 (1.0-4.0); LYMPHOCYTES % (AUTO) 30 % (12-44); MEAN CORPUSCULAR HEMOGLOBIN 30 pg (25-34); MEAN CORPUSCULAR HGB CONC 33 g/dL (32-36); MEAN CORPUSCULAR VOLUME 92 fL (80-99); MEAN PLATELET VOLUME 11.2 fL (9.0-12.2); MONOCYTES # (AUTO) 0.7 X 10^3 (0.0-1.0); MONOCYTES % (AUTO) 8 % (0-12); NEUTROPHILS # (AUTO) 5.1 X 10^3 (1.8-7.8); NEUTROPHILS % (AUTO) 61 % (42-75); PLATELET COUNT 146 10^3/uL (130-400); WHITE BLOOD COUNT 8.4 10^3/uL (4.3-11.0)
--- NOTE | 2023-01-18 15:59 | Diagnostic Imaging Report ---
INDICATION: Chest pain. COMPARISON: 07/13/2022. FINDINGS: The heart is mildly enlarged, increased from prior. There is increased central vascular congestion. No pneumonic consolidation. No effusion or pneumothorax. IMPRESSION: Slight increased heart size and venous congestion. No brant edema or acute pleural pathology, however. Dictated by: Dictated on workstation # [id number]
[2023-01-18] MEDS ORDERED: BENZONATATE 100 MG CAPSULE PO ONE (16:00)
[2023-01-18] MEDS ORDERED: dilTIAZem DRIP PRE-MIX 125 ML IV SCH (16:15)
[2023-01-18 16:17] LABS: PROTHROMBIN TIME PATIENT 13.9 SEC (12.2-14.7)
[2023-01-18 16:18] LABS: ALANINE AMINOTRANSFERASE 11 U/L (0-55); ALBUMIN 3.7 GM/DL (3.2-4.5); ALKALINE PHOSPHATASE 100 U/L (40-136); BILIRUBIN,TOTAL 0.5 MG/DL (0.1-1.0); BUN/CREATININE RATIO 18; CALCIUM 9.2 MG/DL (8.5-10.1); CARBON DIOXIDE 24 MMOL/L (21-32); CHLORIDE 109 MMOL/L (98-107); CREATININE SERUM 0.71 MG/DL (0.60-1.30); GFR ESTIMATED 86; GLUCOSE 109 MG/DL (70-105); MAGNESIUM 1.7 MG/DL (1.6-2.4); POTASSIUM 4.4 MMOL/L (3.6-5.0); SODIUM 144 MMOL/L (135-145); TOTAL PROTEIN 6.1 GM/DL (6.4-8.2)
[2023-01-18] MEDS ORDERED: dilTIAZem ER 120 MG CAPSULE PO SCH (17:00)
[2023-01-19] VITALS: BP_SYST 103; BP_SYST 99; BP_DIAS 43; BP_DIAS 55
[2023-01-19] MEDS: ACETAMINOPHEN 325 MG TABLET PO PRN ×2 (02:02→22:35)
[2023-01-19 04:00] VITALS: BP 102/51
[2023-01-19 08:18] VITALS: BP 110/62
[2023-01-19] MEDS ORDERED: dilTIAZem ER 240 MG CAPSULE PO ONE ×2 (08:30)
[2023-01-19] MEDS ORDERED: APIXABAN 5 MG TABLET ONE (08:30)
[2023-01-19] MEDS: MONTELUKAST 10 MG (SINGULAIR) TAB PO SCH (08:32)
[2023-01-19] MEDS: HYDROXYCHLOROQUINE 200 MG TABLET PO SCH (08:40)
[2023-01-19] MEDS ORDERED: dilTIAZem ER 120 MG CAPSULE PO SCH (09:00)
[2023-01-19] MEDS ORDERED: APIXABAN 5 MG TABLET PO SCH (09:00)
--- NOTE | 2023-01-19 09:17 | Consultation-Cardiology ---
HPI-Cardiology Cardiology Consultation: Date of Consultation 01/19/23 Time Seen by a Provider: 09:10 Date of Admission Attending Physician Tyrone Bolden MD Admitting Physician Admitting Physician: Renae Sanders MD Attending Physician: Renae Sanders MD Consulting Physician SHANTELLE DANIELS MD, MA, FACP, FACC, FSCAI, CCDS Physician requesting consult: Dr Sanders HPI: Chief Complaint: Reason for Card consult: PAF with RVR 77 yo woman who has been weak and tired for several weeks. Had thyroid cancer surgery on 08/15/22 and has since been generally weak. This has progressed over the last several weeks. Came home from [facility] and was profoundly weak abd was then short of breath and some gen feeling of chest discomfort that last several hours and gradually subsided. She decided to come to the ER. Went to [facility] where she was found to be in PAF. She was placed on iv dilt and transferred to this hospital to Dr Sanders's service who has now asked ask to see Ms Noyola in consultation. Ms Noyola had chronic, bilat leg swelling. She denies palp or syncope. She reports shortness of breath that is chronic due to COPD. Review of Systems-Cardiology Review of Systems Constitutional: malaise, tiredness; No weight loss, No weight gain Eyes: No vision change Ears/Nose/Throat: No ear discharge, No nasal drainage, No recent hearing loss Respiratory: As described under HPI Cardiovascular: As described under HPI Gastrointestinal: No diarrhea, No nausea, No vomiting Genitourinary: No dysuria, No hematuria Musculoskeletal: No back pain; joint pain (chronic) Skin: No rash, No ulcerations Psychiatric/Neurological: No seizure, No focal weakness, No syncope Hematologic: No bleeding abnormalities PXN-Snfxvy-Gllfvo Hx Patient Social History Smoking Status: Former Smoker 2nd Hand Smoke Exposure: No Alcohol Use?: No Immunizations Up To Date Tetanus Booster (TDap): Unknown Date of Pneumonia Vaccine: Jun 19, 2011 Date of Influenza Vaccine: Mar 19, 2019 Past Medical History PMH As described under Assessment. Family Medical History Family Medical History: No fam h/o early CAD Family History: Family history: Breast disease 03 MOTHER Family history: Cardiovascular disease 03 MOTHER Family history: Diabetes mellitus 03 MOTHER History of - respiratory disease 03 FATHER Allergies and Home Medications Allergies Coded Allergies: No Known Drug Allergies (Unverified , 06/13/13) Patient Home Medication List Home Medication List Reviewed: Yes Benzonatate (Tessalon Perles) 100 Mg Capsule, 100 MG PO TID Prescribed by: JOSSE CARROLL on 08/21/19 112 Last Action: Held Cholecalciferol (Vitamin D3) (Vitamin D3) 25 Mcg Capsule, 25 MCG PO DAILY, (Reported) Entered as Reported by: MARY CLAYTON on 08/19/19947 Last Action: Reviewed Doxycycline Hyclate (Doxycycline Hyclate) 100 Mg Tablet, 100 MG PO BID, (Reported) Entered as Reported by: TASHI MERA on 08/17/19 1234 Last Action: Held Fluticasone/Salmeterol (Advair Hfa 230-21 Mcg Inhaler) 12 Gm Hfa.aer.ad, 2 PUFF IH BID, (Reported) Entered as Reported by: MARY CLAYTON on 08/19/19947 Last Action: Converted Gabapentin (Gabapentin) 100 Mg Capsule, 200 MG PO BID PRN for NERVE PAIN, (Reported) Entered as Reported by: MARY CLAYTON on 08/19/19947 Last Action: Held Hydroxychloroquine Sulfate (Hydroxychloroquine Sulfate) 200 Mg Tablet, 200 MG PO DAILY, (Reported) Entered as Reported by: MARY CLAYTON on 08/19/19947 Last Action: Continued Ipratropium [place] (Ipratropium [place]) 0.2 Mg/1 Ml Solution, 1 VIAL NEB BID, (Reported) Entered as Reported by: MARY CLAYTON on 08/19/19947 Last Action: Continued Montelukast Sodium (Montelukast Sodium) 10 Mg Tablet, 10 MG PO DAILY, (Reported) Entered as Reported by: MARY CLAYTON on 08/19/19947 Last Action: Continued Physical Exam-Cardiology Physical Exam Vital Signs/I&O 01/18/23 01/19/23 01/19/23 01/19/23 22:00 00:00 00:00 01:00 Temp 37.8 37.8 Pulse 66 70 Resp 16 B/P (MAP) 99/43 (61) 103/55 (71) Pulse Ox 97 94 O2 Delivery Nasal Cannula Room Air O2 Flow Rate 2.00 01/19/23 01/19/23 01/19/23 01/19/23 02:02 03:13 04:00 07:00 Temp 37.8 37.5 37.5 Pulse 56 52 Resp 16 B/P (MAP) 102/51 (68) Pulse Ox 94 O2 Delivery Room Air 01/19/23 08:18 Temp 36.6 Pulse 131 Resp 20 B/P (MAP) 110/62 (78) Pulse Ox 96 O2 Delivery Room Air 01/19/23 00:00 Intake Total 157 ml Balance 157 ml Capillary Refill : Constitutional: AAO x 3, well-developed, well-nourished HEENT: EOMI, hearing is well preserved; No xanthelasmas are seen Neck: No carotid pulses are 2 + bilaterally; with good upstrokes Respiratory: chest expansion is symmetric, chest is bilaterally symmetric, other (good, bilateral air entry) Cardiovascular: irregularly irregular, S1 and S2, systolic murmur (soft ELÍAS at card base) Gastrointestinal: No tender, No guarding, No rebound; audible bowel sounds Extremities: No clubbing, No cyanosis; significant edema (bilat, nonpitting leg edema, moderate) Neurologic/Psychiatric: oriented x 3, other (moves all limbs equally) Skin: No rash on exposed areas, No ulcerations on exposed areas Data Review Labs Laboratory Tests 01/18/23 15:37: White Blood Count 8.4, Red Blood Count 4.31, Hemoglobin 13.0, Hematocrit 40, Mean Corpuscular Volume 92, Mean Corpuscular Hemoglobin 30, Mean Corpuscular Hemoglobin Concent 33, Red Cell Distribution Width 13.8, Platelet Count 146, Mean Platelet Volume 11.2, Neutrophils (%) (Auto) 61, Lymphocytes (%) (Auto) 30, Monocytes (%) (Auto) 8, Eosinophils (%) (Auto) 1, Basophils (%) (Auto) 1, Ne utrophils # (Auto) 5.1, Lymphocytes # (Auto) 2.5, Monocytes # (Auto) 0.7, Eosinophils # (Auto) 0.1, Basophils # (Auto) 0.1, Prothrombin Time 13.9, INR Comment 1.0, Activated Partial Thromboplast Time 29, Sodium Level 144, Potassium Level 4.4, Chloride Level 109H, Carbon Dioxide Level 24, Anion Gap 11, Blood Urea Nitrogen 13, Creatinine 0.71, Estimat Glomerular Filtration Rate 86, BUN/Creatinine Ratio 18, Glucose Level 109H, Calcium Level 9.2, Corrected C alcium 9.4, Magnesium Level 1.7, Total Bilirubin 0.5, Aspartate Amino Transf (AST/SGOT) 27, Alanine Aminotransferase (ALT/SGPT) 11, Alkaline Phosphatase 100, Troponin I < 0.30, Pro-B-Type Natriuretic Peptide 660.7H, Total Protein 6.1L, Albumin 3.7 01/19/23 04:30: Thyroid Stimulating Hormone (TSH) 0.69 Laboratory Tests 01/18/23 15:37 A/P-Cardiology Assessment/Admission Diagnosis PAF with RVR 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 Add beta-jack if needed * Apixaban for stroke prophylaxis * Echo * MPI when stable * Monitor labs * Keep on tele SHANTELLE DANIELS MD FACP [facility] CCDS Jan 19, 2023 09:17
[2023-01-19] MEDS ORDERED: NS IV 1000 ML 1,000 ML ONE (10:49)
[2023-01-19] MEDS ORDERED: HEParin (CATH LAB) 1,000 ML IV ONE (10:49)
[2023-01-19] MEDS ORDERED: LIDOCAINE 1% INJ 20 ML VIAL ONE (10:49)
[2023-01-19] MEDS ORDERED: fentaNYL INJECTION 100 MCG/2 ML VIAL ONE (10:51)
[2023-01-19] MEDS ORDERED: MIDAZOLAM 2 MG/2 ML (VERSED) VIAL ONE (10:51)
[2023-01-19] MEDS ORDERED: FLUT1BLS15 INH (11:06)
[2023-01-19] MEDS ORDERED: MULT-1136 PO (11:06)
[2023-01-19] MEDS ORDERED: OMEP20CA18 PO (11:06)
[2023-01-19] MEDS ORDERED: IPRA3AMP31 NEB (11:06)
[2023-01-19] MEDS ORDERED: MIRT7.5T8 PO (11:06)
[2023-01-19] MEDS ORDERED: CETI10TA17 PO (11:06)
[2023-01-19] MEDS ORDERED: ALBU18HF2 INH (11:06)
[2023-01-19] MEDS ORDERED: LEVO150T6 PO (11:06)
[2023-01-19] MEDS ORDERED: GABA-486 PO (11:06)
[2023-01-19] MEDS ORDERED: NS IV 1000 ML 1,000 ML IV SCH (11:45)
--- NOTE | 2023-01-19 12:44 | History & Physical ---
TATIANATAYLOR 01/19/23 1244: HPI History of Present Illness: Patient is a 60-year-old female with a history of COPD that arrived to the ED on 01/18 via EMS with CC of SOB. Patient states that over the past 3 months she has had intermittent feeling of pressure in her chest that sometimes radiate to her head and neck. She states that yesterday this happened again but more severe and very painful. She also felt that she could not catch her breath during this time. Patient has albuterol and ipratropium inhalers that she tried without relief. She also tried aspirin and sublingual nitro with no improvement. EMS found her to be tachycardic on arrival and gave adenosine with no change. On arrival to the hospital she was found to be in afib w/ RVR and a HR in the 180s. She was given 20mg then 25mg of cardizem before being started on a drip, after which she converted to sinus rhythm. She reports that while in sinus rhythm her SOB and feeling of pressure in her chest improved, however she had converted out of sinus rhythm with HR in the 140s-170s and was hypotensive, with BP as low as 77/43 while in the room. She had short symptomatic pauses this morning, but began having multiple symptomatic pauses in her HR while in the room. Patient is scheduled for pacemaker placement later today, but was taken to the coreroom foundry laborer for emergent temporary pacemaker placement. Source: patient Exam Limitations: no limitations Attending Physician Tyrone Bolden MD PCP Admitting Physician: Kaylee Vera MD Attending Physician: Kaylee Vera MD Consult Date of Admission Jan 18, 2023 at 19:08 Home Medications Home Medications Reviewed patient Home Medication Reconciliation performed by pharmacy medication reconciliations template reproduction technician and/or nursing. Patients Allergies have been reviewed. Allergies Coded Allergies: No Known Drug Allergies (Unverified , 06/13/13) [id number] Hx Patient Social History Smoking Status: Former Smoker 2nd Hand Smoke Exposure: No Recent Hopitalizations: No Alcohol Use?: No Immunizations Up To Date Tetanus Booster (TDap): Unknown Family Medical History Significant Family History: No Pertinent Family Hx Family History: Family history: Breast disease 03 MOTHER Family history: Cardiovascular disease 03 MOTHER Family history: Diabetes mellitus 03 MOTHER History of - respiratory disease 03 FATHER Review of Systems ([facility]) Constitutional: No chills, No fever, No weakness EENTM: No hearing loss, No blurred vision, No double vision Respiratory: cough (Chronic, patient states worse past month), short of breath (Improved when in sinus rhythm) Cardiovascular: chest pain (Describe as heavy sensation radiating to neck and head), edema (3+ b/l LEs, patient states slightly more than her baseline), palpitations Gastrointestinal: No abdominal pain, No diarrhea, No nausea, No vomiting Genitourinary: No dysuria, No frequency, No hematuria Musculoskeletal: No back pain, No neck pain Skin: No change in color, No change in hair/nails Psychiatric/Neurological: Denies Numbness, Denies Tingling, Denies Weakness Reviewed Test Results Reviewed Test Results Lab Laboratory Tests Test 01/18/23 15:37 01/19/23 04:30 Range/Units White Blood Count 8.4 4.3-11.0 10^3/uL Red Blood Count 4.31 3.80-5.11 10^6/uL Hemoglobin 13.0 11.5-16.0 g/dL Hematocrit 40 35-52 % Mean Corpuscular Volume 92 80-99 fL Mean Corpuscular Hemoglobin 30 25-34 pg Mean Corpuscular Hemoglobin Concent 33 32-36 g/dL Red Cell Distribution Width 13.8 10.0-14.5 % Platelet Count 146 130-400 10^3/uL Mean Platelet Volume 11.2 9.0-12.2 fL Neutrophils (%) (Auto) 61 42-75 % Lymphocytes (%) (Auto) 30 12-44 % Monocytes (%) (Auto) 8 0-12 % Eosinophils (%) (Auto) 1 0-10 % Basophils (%) (Auto) 1 0-10 % Neutrophils # (Auto) 5.1 1.8-7.8 X 10^3 Lymphocytes # (Auto) 2.5 1.0-4.0 X 10^3 Monocytes # (Auto) 0.7 0.0-1.0 X 10^3 Eosinophils # (Auto) 0.1 0.0-0.3 10^3/uL Basophils # (Auto) 0.1 0.0-0.1 10^3/uL Prothrombin Time 13.9 12.2-14.7 SEC INR Comment 1.0 0.8-1.4 Activated Partial Thromboplast Time 29 24-35 SEC Sodium Level 144 135-145 MMOL/L Potassium Level 4.4 3.6-5.0 MMOL/L Chloride Level 109 H 98-107 MMOL/L Carbon Dioxide Level 24 21-32 MMOL/L Anion Gap 11 5-14 MMOL/L Blood Urea Nitrogen 13 7-18 MG/DL Creatinine 0.71 0.60-1.30 MG/DL Estimat Glomerular Filtration Rate 86 BUN/Creatinine Ratio 18 Glucose Level 109 H 70-105 MG/DL Calcium Level 9.2 8.5-10.1 MG/DL Corrected Calcium 9.4 8.5-10.1 MG/DL Magnesium Level 1.7 1.6-2.4 MG/DL Total Bilirubin 0.5 0.1-1.0 MG/DL Aspartate Amino Transf (AST/SGOT) 27 5-34 U/L Alanine Aminotransferase (ALT/SGPT) 11 0-55 U/L Alkaline Phosphatase 100 40-136 U/L Troponin I < 0.30 <0.30 NG/ML Pro-B-Type Natriuretic Peptide 660.7 H <450.0 PG/ML Total Protein 6.1 L 6.4-8.2 GM/DL Albumin 3.7 3.2-4.5 GM/DL Thyroid Stimulating Hormone (TSH) 0.69 0.35-4.94 UIU/ML Physical Exam-([facility]) Physical Exam Vital Signs VS - Last 72 Hours, by Label 01/18/23 01/18/23 01/18/23 01/18/23 15:45 15:49 15:50 15:58 Temp 37.2 Pulse 189 189 139 Resp 24 B/P (MAP) 150/120 161/115 (130) 117/69 Pulse Ox 98 O2 Delivery Nasal Cannula Nasal Cannula O2 Flow Rate 2.00 01/18/23 01/18/23 01/18/23 01/18/23 16:12 17:09 19:10 22:00 Temp 36.9 Pulse 123 79 90 Resp 20 B/P (MAP) 121/80 117/37 Pulse Ox 94 O2 Delivery Room Air Nasal Cannula O2 Flow Rate 2.00 01/19/23 01/19/23 01/19/23 01/19/23 00:00 00:00 01:00 02:02 Temp 37.8 37.8 37.8 Pulse 66 70 Resp 16 B/P (MAP) 99/43 (61) 103/55 (71) Pulse Ox 97 94 O2 Delivery Room Air 01/19/23 01/19/23 01/19/23 01/19/23 03:13 04:00 07:00 08:00 Temp 37.5 37.5 Pulse 56 52 Resp 16 B/P (MAP) 102/51 (68) Pulse Ox 94 O2 Delivery Room Air Room Air 01/19/23 01/19/23 01/19/23 01/19/23 08:18 10:00 10:30 10:45 Temp 36.6 Pulse 131 144 133 146 Resp 20 37 15 12 B/P (MAP) 110/62 (78) 111/55 (73) 100/55 (70) 111/55 (73) Pulse Ox 96 98 95 97 O2 Delivery Room Air Room Air Room Air Room Air 01/19/23 01/19/23 01/19/23 11:50 11:54 12:00 Temp 36.3 Pulse 116 Resp 20 B/P (MAP) 124/52 (76) Pulse Ox 95 O2 Delivery Room Air Room Air Room Air Capillary Refill : General Appearance: WD/WN, moderate distress HEENT: PERRL/EOMI, pharynx normal Neck: non-tender, supple Respiratory: lungs clear, normal breath sounds Cardiovascular: tachycardia, other (afib w/ RVR, symptomatic pauses) Gastrointestinal: non tender, soft Rectal: deferred Back: no vertebral tenderness Extremities: normal capillary refill, pedal edema (3+ b/l) Neurologic/Psychiatric: alert, oriented x 3 Skin: normal color, warm/dry Lymphatic: no adenopathy (cervical) Assessment/Plan Assessment/Plan Admission Dx afib w/ RVR: Cardiology consulted appreciate recommendations, continue diltiazem, pacemaker placement this afternoon, restart apixaban after pacemaker placement, obtain echo 3rd degree AV block: symptomatic, emergent temporary pacemaker being placed, continue to monitor w/ telemetry SOB: O2 sats in 90s, supplemental O2 for symptomatic relief COPD: Continue Ipratropium and Breo-ellipta Fibromyalgia: Continue home dose hydroxychloroquine Admission Status: Observation Assessment & Plan Afib w/ RVR: KAYLEE VERA MD 01/19/23 1338: HPI History of Present Illness: Source: patient, family (Daughter) Date seen by provider: Jan 19, 2023 Time Seen by Provider: 09:00 Home Medications Allergies Coded Allergies: No Known Drug Allergies (Unverified , 06/13/13) [id number] Hx Past Medical History COPD H/o thyroid Ca s/p thyroidectomy Family Medical History Family History: Family history: Breast disease 03 MOTHER Family history: Cardiovascular disease 03 MOTHER Family history: Diabetes mellitus 03 MOTHER History of - respiratory disease 03 FATHER Review of Systems ([facility]) Constitutional: No chills; dizziness; No fever; malaise EENTM: no symptoms reported; No mouth pain, No nose congestion, No nose pain Respiratory: cough (Chronic, patient states worse past month), short of breath (Improved when in sinus rhythm) Cardiovascular: chest pain (Describe as heavy sensation radiating to neck and head), edema (3+ b/l LEs, patient states slightly more than her baseline), palpitations Gastrointestinal: no symptoms reported; No abdominal pain, No diarrhea, No nausea, No vomiting Genitourinary: no symptoms reported Musculoskeletal: no symptoms reported Skin: no symptoms reported Psychiatric/Neurological: No Symptoms Reported Physical Exam-([facility]) Physical Exam General Appearance: moderate distress (with change in HR) HEENT: PERRL/EOMI Neck: non-tender, supple Respiratory: chest non-tender, lungs clear, normal breath sounds, no respiratory distress, no accessory muscle use Cardiovascular: no murmur, tachycardia, other (afib w/ RVR, symptomatic pauses) Gastrointestinal: normal bowel sounds, non tender, soft Back: no CVA tenderness, no vertebral tenderness Extremities: pedal edema (2+ pitting edema) Neurologic/Psychiatric: alert, oriented x 3 Skin: normal color, warm/dry Lymphatic: no adenopathy (cervical) Assessment/Plan Assessment/Plan Admission Status: Inpatient Order (span 2 midnights) Reason for Inpatient Admission: Requiring close monitoring and emergent pacemaker Supervisory-Addendum Brief Supervisory Addendum Verification and Attestation of Medical Student E/M Service A medical student performed and documented this service in my presence. I reviewed and verified all information documented by the medical student and made modifications to such information, when appropriate. I personally performed the physical exam and medical decision making. Kaylee Vera, Jan 19, 2023,13:35 A/P Atrial Fibrillation with RVR Atypical Chest pain Shortness of breath H/o thyroid cancer Post op hypothyroidism COPD DVT PPX - Cardiology consulted appreciate recommendations. Patient having symptomatic bradycardia and pauses during my exam. Had nursing contact Dr Rao and he is going to proceed with temporary emergent pacemaker. Will restart levothyroxine and COPD home meds. TAYLOR SIMPSON Jan 19, 2023 12:44 KAYLEE VERA MD Jan 19, 2023 13:38
--- NOTE | 2023-01-19 13:32 | Diagnostic Imaging Report ---
EXAMINATION: Chest 1 view HISTORY: Pacemaker placement COMPARISON: 01/18/2023 FINDINGS: Transvenous pacemaker projects over the right ventricle. There is mild pulmonary edema asymmetrically on the right. No pleural effusion or pneumothorax. Heart size is normal. IMPRESSION: 1. Mild asymmetric right sided pulmonary edema. Dictated by: Dictated on workstation # [id number]
--- NOTE | 2023-01-19 14:02 | OPERATIVE REPORT ---
DATE OF SERVICE: 01/19/2023 PREOPERATIVE DIAGNOSIS: Sinus node dysfunction with tachycardia-bradycardia syndrome and episodes of profound bradycardia and long pauses. POSTOPERATIVE DIAGNOSIS: Sinus node dysfunction with tachycardia-bradycardia syndrome and episodes of profound bradycardia and long pauses. PROCEDURE: Temporary pacemaker implantation. The patient is a 77-year-old lady who presented with atrial fibrillation with a rapid ventricular response and has also been exhibiting episodes of profound bradycardia with long pauses from which she has been quite symptomatic. Consent for temporary pacemaker was obtained. She was brought to the cardiac catheterization laboratory. The right groin was prepped and draped in the usual sterile fashion. A 1% lidocaine was used for local anesthesia. Modified Seldinger technique was advanced to a 6-Divehi sheath into the right femoral vein and we then advanced a balloon-tipped pacemaker wire under fluoroscopy, the tip of which was placed at the right ventricular apex and the ends of the leads were attached to the pacemaker device. R-waves were approx 8 millivolts. The capture threshold was 0.5 milliamperes and was set at 8 milliamperes. The rate was set at 70 beats per minute. She tolerated the procedure well. Job ID: [id number] DocumentID: [id number] Dictated Date: 01/19/2023 11:38:39 Music Education Director Date: 01/19/2023 13:40:00 Dictated By: SHANTELLE DANIELS MD; JANE; FACP; CRYSTALC; SHAY
[2023-01-19] MEDS: RT-IPRATROPIUM NEBS 0.5 MG/2.5 ML IH SCH (22:34)
[2023-01-19] MEDS: FLUTICASONE/VILANTEROL 200/25 MCG (7 DOSES) IH SCH (22:34)
[2023-01-20 04:56] LABS: HEMATOCRIT 38 % (35-52); HEMOGLOBIN 12.4 g/dL (11.5-16.0); MEAN CORPUSCULAR HEMOGLOBIN 30 pg (25-34); MEAN CORPUSCULAR HGB CONC 33 g/dL (32-36); MEAN CORPUSCULAR VOLUME 92 fL (80-99); MEAN PLATELET VOLUME 11.2 fL (9.0-12.2); PLATELET COUNT 166 10^3/uL (130-400); WHITE BLOOD COUNT 5.9 10^3/uL (4.3-11.0)
[2023-01-20 05:11] LABS: ALBUMIN 3.1 GM/DL (3.2-4.5); CALCIUM 9.1 MG/DL (8.5-10.1); CREATININE SERUM 0.65 MG/DL (0.60-1.30); POTASSIUM 3.7 MMOL/L (3.6-5.0); TOTAL PROTEIN 5.6 GM/DL (6.4-8.2)
[2023-01-20] MEDS ORDERED: NS IV 1000 ML 1,000 ML ONE ×2 (06:48→07:47)
[2023-01-20] MEDS ORDERED: HEParin (CATH LAB) 1,000 ML IV ONE (06:48)
[2023-01-20] MEDS ORDERED: LIDOCAINE 1% INJ 20 ML VIAL ONE (06:48)
[2023-01-20] MEDS ORDERED: ceFAZolin INJECTION 1,000 MG ONE (06:48)
[2023-01-20] MEDS ORDERED: fentaNYL INJECTION 100 MCG/2 ML VIAL ONE ×2 (07:16→08:30)
[2023-01-20] MEDS ORDERED: MIDAZOLAM 5 MG/5 ML (VERSED) VIAL ONE ×2 (07:16→08:30)
[2023-01-20] MEDS ORDERED: diphenhydrAMINE INJ 50 MG/ML VIAL ONE (09:34)
--- NOTE | 2023-01-20 09:44 | Progress Note - Cardiology ---
Cardiology SOAP Progress Note Objective: I&O/Vital Signs 01/19/23 01/19/23 01/20/23 01/20/23 22:00 23:00 00:00 00:00 Pulse 141 129 112 Resp 18 26 20 B/P (MAP) 128/69 (88) 112/64 (80) 110/64 (79) Pulse Ox 92 94 90 O2 Delivery Room Air Room Air Room Air Room Air 01/20/23 01/20/23 01/20/23 01/20/23 01:00 01:00 02:00 03:00 Pulse 106 133 115 112 Resp 18 18 17 B/P (MAP) 113/67 (82) 104/62 (76) 103/57 (72) Pulse Ox 94 96 97 O2 Delivery Room Air Room Air Room Air 01/20/23 01/20/23 01/20/23 01/20/23 04:00 04:00 05:00 06:00 Pulse 87 70 70 Resp 19 15 16 B/P (MAP) 114/80 (91) 104/61 (75) 100/57 (71) Pulse Ox 94 94 94 O2 Delivery Room Air Room Air Room Air Room Air 01/20/23 01/20/23 01/20/23 01/20/23 07:00 07:30 07:38 07:51 Temp 36.2 Pulse 126 137 Resp 20 B/P (MAP) 110/93 (98) Pulse Ox 95 O2 Delivery Room Air Room Air 01/20/23 00:00 Intake Total 690 ml Output Total 230 ml Balance 460 ml Weight (Pounds): 186 Weight (Ounces): 0.0 Weight (Calculated Kilograms): 84.669883 Constitutional: AAO x 3, well-developed, well-nourished Respiratory: chest expansion is symmetric, chest is bilaterally symmetric, other (good, bilateral air entry) Cardiovascular: irregularly irregular, S1 and S2, systolic murmur (soft ELÍAS at card base) Gastrointestional: No tender, No guarding, No rebound; audible bowel sounds Extremities: No clubbing, No cyanosis; significant edema (bilat, nonpitting leg edema, moderate) Neurologic/Psychiatric: oriented x 3, other (moves all limbs equally) Skin: No rash on exposed areas, No ulcerations on exposed areas Results/Procedures: Labs Laboratory Tests 01/20/23 04:30: White Blood Count 5.9, Red Blood Count 4.17, Hemoglobin 12.4, Hematocrit 38, Mean Corpuscular Volume 92, Mean Corpuscular Hemoglobin 30, Mean Corpuscular Hemoglobin Concent 33, Red Cell Distribution Width 13.7, Platelet Count 166, Mean Platelet Volume 11.2, Sodium Level 143, Potassium Level 3.7, Chloride Level 114H, Carbon Dioxide Level 20L, Anion Gap 9, Blood Urea Nitrogen 11, Creatinine 0.65, Estimat Glomerular Filtration Rate 90, BUN/Creatinine Ratio 17, Glucose Level 74, Calcium Level 9.1, Corrected Calcium 9.8, Total Bilirubin 1.0, Aspartate Amino Transf (AST/SGOT) 19, Alanine Aminotransferase (ALT/SGPT) 8, Alkaline Phosphatase 76, Total Protein 5.6L, Albumin 3.1L A/P: Assessment: Marked sinus node dysfuntion - PAF with RVR 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) from both of which she is symptomatic - s/p temporary ventricular pacemaker on 01/19/23 - s/p perm dual chamber pacemaker (Medtronic) and removal of temp pacemaker on 01/20/23 - echo 01/19/23: LVEF 60-65%, mild to mod LA enlargement, mild to mod MR, PASP 25- 30 mmHg 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
[2023-01-20] MEDS ORDERED: dilTIAZem ER 240 MG CAPSULE PO ONE (09:45)
[2023-01-20] MEDS ORDERED: PATIENT MAY USE OWN MEDS, ALL PO SCH ×2 (09:45)
[2023-01-20] MEDS ORDERED: NS IV 1000 ML 1,000 ML IV SCH ×2 (09:45)
[2023-01-20] MEDS: MONTELUKAST 10 MG (SINGULAIR) TAB PO SCH (10:32)
[2023-01-20] MEDS: dilTIAZem ER 240 MG CAPSULE PO SCH (10:32)
[2023-01-20] MEDS: HYDROXYCHLOROQUINE 200 MG TABLET PO SCH (10:32)
--- NOTE | 2023-01-20 11:49 | Diagnostic Imaging Report ---
INDICATION: Post cardiac device placement. TECHNIQUE: Two view chest 10:07 AM CORRELATION STUDY: 01/19/2023 FINDINGS: Left-sided pacemaker is in place since prior. Heart size remains enlarged. There is mild vascular congestion. The lungs are clear with no consolidating infiltrate. There is no significant pleural effusion or pneumothorax. Advanced degenerative changes left to lesser right shoulder. IMPRESSION: 1. Left-sided pacemaker placement. No post procedure complication. Edema, however may be slightly increased from prior. Dictated by: Dictated on workstation # [id number]
--- NOTE | 2023-01-20 12:46 | OPERATIVE REPORT ---
DATE OF SERVICE: 01/20/2023 PREOPERATIVE DIAGNOSIS: Sinus node dysfunction with symptomatic tachycardia-bradycardia syndrome. POSTOPERATIVE DIAGNOSIS: Sinus node dysfunction with symptomatic tachycardia-bradycardia syndrome. DESCRIPTION OF PROCEDURE: Dual chamber pacemaker implantation was carried out after having obtained an informed consent. She was brought to the cardiac catheterization laboratory in a fasting state. The left prepectoral area was prepared and draped in the usual sterile fashion. Lidocaine 1% was used for local anesthesia. Modified Seldinger technique was used to advance 2 guidewires into the left subclavian vein and the tips of the wires were placed in the right atrium. Sharp and blunt dissection was used to make a pacemaker pocket and good hemostasis was assured. The pocket was packed with gauze soaked in saline. The wires were used to advance sheaths and the wires were removed. The sheaths were used to advance leads and the sheaths were removed. All lead manipulation was carried out under fluoroscopy. Both leads are active fixation leads. The tip of one lead was placed at the right ventricular apex. The tip of the other lead was placed at the right atrial appendage. The leads were actively secured. Good sensing and capture thresholds were obtained. There was no diaphragmatic stimulation seen at maximum output. Atrial lead impedance is 646 ohms and P-wave amplitude is 1.875 millivolts. Right atrial capture threshold is 1.25 volts at 0.4 milliseconds. The ventricular lead impedance is 722 ohms. R wave is measured at 7.5 millivolts and the capture threshold is 0.625 volts at 0.4 milliseconds. The leads were sutured to the prepectoral fascia using sleeves and 0 Ethibond. The gauze was removed from the pacemaker pocket and the pocket was thoroughly irrigated with normal saline. The leads were attached to a dual chamber pacemaker. The assembly was placed in a TYRX pouch and the leads and the pacemaker were placed in the pacemaker pocket and the pocket was closed in 2 layers using 3-0 Vicryl. The atrial lead is Medtronic model 5076-52 with serial number [id number]. The ventricular lead is Medtronic model 5076-58 with serial number [id number]. The pacemaker is Medtronic model W1DR01 with serial number [id number]. The pacemaker is set at a lower rate of 70 beats per minute with an upper tracking rate of 130 beats per minute. The paced and sensed AV intervals are set at 240 milliseconds. The pacing mode is DDDR. Job ID: [id number] DocumentID: [id number] Dictated Date: 01/20/2023 09:55:48 Project Development Director Date: 01/20/2023 12:44:00 Dictated By: SHANTELLE DANIELS MD; JANE; FACP; CRYSTALC; SHAY
--- NOTE | 2023-01-20 13:34 | Progress Note ---
TAYLOR SIMPSON 01/20/23 1334: Subjective Date Seen by a Provider: Jan 20, 2023 Time Seen by a Provider: 10:30 Subjective/Events-last exam Patient is seen awake and alert laying comfortably in bed following her pacemaker placement. HR is in the 70s while in the room, sinus rhythm. Patient was in sinus rhythm yesterday until about midnight when she converted back into afib. During that time she had some discomfort in her chest and SOB, she reports that these symptoms have resolved this morning. Patient reports that they are feeling well currently and have no complaints today. Review of Systems General: No Chills; Fatigue; No Malaise HEENT: No Head Aches, No Visual Changes Pulmonary: No Dyspnea (resolved), No Cough Cardiovascular: Edema (b/l LE edema, patient says slightly increased from her baseline); No: Chest Pain, Palpitations Gastrointestinal: No: Nausea, Vomiting, Abdominal Pain Genitourinary: No Dysuria, No Hematuria Musculoskeletal: No: neck pain, back pain Neurological: No: Numbness, Incoordination, Change in speech, Confusion Objective Exam Last Set of Vital Signs Vital Signs Date Time Temp Pulse Resp B/P (MAP) Pulse Ox O2 Delivery O2 Flow Rate FiO2 01/20/23 13:00 69 18 118/54 (73) 93 Room Air 01/20/23 12:18 35.9 01/18/23 22:00 2.00 Capillary Refill : I&O Intake and Output 01/20/23 00:00 Intake Total 810 ml Output Total 430 ml Balance 380 ml Intake Oral 810 ml Output Urine Total 430 ml # Voids 3 General: Alert, Oriented X3, Cooperative, No Acute Distress HEENT: Atraumatic Neck: Supple Lungs: Clear to Auscultation, Normal Air Movement Heart: Regular Rate, No Murmurs Abdomen: Soft, No Tenderness Extremities: No Clubbing, No Cyanosis Skin: No Rashes, No Breakdown, No Significant Lesion Neuro: Normal Speech, Normal Tone Psych/Mental Status: Mental Status NL Results Lab Laboratory Tests 01/20/23 04:30: White Blood Count 5.9, Red Blood Count 4.17, Hemoglobin 12.4, Hematocrit 38, Mean Corpuscular Volume 92, Mean Corpuscular Hemoglobin 30, Mean Corpuscular Hemoglobin Concent 33, Red Cell Distribution Width 13.7, Platelet Count 166, Mean Platelet Volume 11.2, Sodium Level 143, Potassium Level 3.7, Chloride Level 114H, Carbon Dioxide Level 20L, Anion Gap 9, Blood Urea Nitrogen 11, Creatinine 0.65, Estimat Glomerular Filtration Rate 90, BUN/Creatinine Ratio 17, Glucose Level 74, Calcium Level 9.1, Corrected Calcium 9.8, Total Bilirubin 1.0, Aspartate Amino Transf (AST/SGOT) 19, Alanine Aminotransferase (ALT/SGPT) 8, Alkaline Phosphatase 76, Total Protein 5.6L, Albumin 3.1L Assessment/Plan Assessment/Plan Assess & Plan/Chief Complaint afib w/ RVR: cardiology consulted, appreciate recs. HR currently well controlled on 240mg diltiazem, apixaban resumed after pacemaker placement this morning. SOB: resolved Atypical chest pain: resolved, acetaminophen PRN COPD: continue ipratropium, daniel-ellipta Fibromyalgia: continue hydroxychloroquine Hx of thyroid cancer: Post-op hypothyroidism: continue levothyroxine RENAE SANDERS MD 01/20/23 1416: Supervisory-Addendum Brief Verification & Attestation Participated in pt care: history, physical Personally performed: exam, history Care discussed with: Medical Student Procedures: n/a Verification and Attestation of Medical Student E/M Service A medical student performed and documented this service in my presence. I reviewed and verified all information documented by the medical student and made modifications to such information, when appropriate. I personally performed the physical exam and medical decision making. Renae Sanders, Jan 20, 2023,14:15 A/P Atrial Fibrillation with RVR Atypical Chest pain Shortness of breath H/o thyroid cancer Post op hypothyroidism COPD S/p Pacemaker placement DVT PPX - Cardiology consulted appreciate recommendations. Patient having symptomatic bradycardia and pauses during my exam. Had nursing contact Dr Rao and he is going to proceed with temporary emergent pacemaker. Will restart levothyroxine and COPD home meds. 01/20: Pacemaker placement this AM, patient doing well after procedure. Will likely d/c home in AM. TAYLOR SIMPSON Jan 20, 2023 13:34 RENAE SANDERS MD Jan 20, 2023 14:16
[2023-01-20] MEDS: ceFAZolin INJECTION 1,000 MG in NS (IVPB) 50 ML 50 ML IV SCH ×2 (14:31→21:12)
[2023-01-20] MEDS: FLUTICASONE/VILANTEROL 200/25 MCG (7 DOSES) IH SCH (15:08)
[2023-01-20] MEDS: RT-IPRATROPIUM NEBS 0.5 MG/2.5 ML IH SCH ×2 (15:09→19:52)
[2023-01-20] MEDS: APIXABAN 5 MG TABLET PO SCH (21:12)
[2023-01-21 04:54] LABS: HEMATOCRIT 38 % (35-52); HEMOGLOBIN 12.5 g/dL (11.5-16.0); MEAN CORPUSCULAR HEMOGLOBIN 30 pg (25-34); MEAN CORPUSCULAR HGB CONC 33 g/dL (32-36); MEAN CORPUSCULAR VOLUME 92 fL (80-99); MEAN PLATELET VOLUME 11.2 fL (9.0-12.2); PLATELET COUNT 167 10^3/uL (130-400); WHITE BLOOD COUNT 6.5 10^3/uL (4.3-11.0)
[2023-01-21 05:09] LABS: ALBUMIN 3.1 GM/DL (3.2-4.5); BILIRUBIN,TOTAL 0.5 MG/DL (0.1-1.0); CALCIUM 9.3 MG/DL (8.5-10.1); CREATININE SERUM 0.68 MG/DL (0.60-1.30); POTASSIUM 3.7 MMOL/L (3.6-5.0); TOTAL PROTEIN 5.6 GM/DL (6.4-8.2)
[2023-01-21] MEDS: ceFAZolin INJECTION 1,000 MG in NS (IVPB) 50 ML 50 ML IV SCH (05:30)
--- NOTE | 2023-01-21 08:14 | Tele-ICU Progress Note ---
Subjective Date Seen by a Provider: Jan 21, 2023 Time Seen by a Provider: 08:04 Subjective/Events-last exam (Tele-ICU Physician , consultation as per request of PCP Service provided via interactive audio and video telecommunications E-CARE system to a patient admitted to ICU bed in [facility]. Available chart/ vitals / labs / Images reviewed H&P is from ER notes Patient's information available about PMH, Shx, Fhx allergy reviewed in EMR. ROS as per chart and RN report Now in ICU, hemodynamically stable Video assessment done using teleICU camera, rest of exam as per RN Discussed with RN. 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 0.0oz. 84.678087zk; 32.67 BMI Method: Exam Exam Patient acknowledged, consented, and participated in this virtual visit which was conducted using real time audio/video Vital Signs Date Time Temp Pulse Resp B/P (MAP) Pulse Ox O2 Delivery O2 Flow Rate FiO2 01/21/23 07:37 35.8 Room Air 01/21/23 07:00 70 19 117/65 (94) 95 Room Air 01/21/23 07:00 71 01/21/23 06:00 70 16 113/64 (80) 95 Room Air 01/21/23 05:00 93 18 114/86 (95) 95 Room Air 01/21/23 04:00 Room Air 01/21/23 04:00 70 17 100/61 (74) 96 Room Air 01/21/23 03:00 70 17 105/58 (74) 95 Room Air 01/21/23 02:00 70 21 110/82 (91) 94 Room Air 01/21/23 01:00 70 18 86/62 (70) 96 Room Air 01/21/23 01:00 113 01/21/23 00:00 Room Air 01/21/23 00:00 70 18 100/57 (71) 96 Room Air 01/20/23 23:00 69 18 108/72 (84) 96 Room Air 01/20/23 22:00 69 22 108/55 (72) 94 Room Air 01/20/23 21:00 69 17 111/85 (94) 94 Room Air 01/20/23 20:00 Room Air 01/20/23 20:00 71 16 121/58 (79) 97 Room Air 01/20/23 19:53 97 Room Air 01/20/23 19:00 70 20 119/53 (75) 94 Room Air 01/20/23 19:00 70 01/20/23 18:00 70 36 121/57 (77) 89 Room Air 01/20/23 17:00 116 25 124/78 (84) 96 Room Air 01/20/23 16:12 35.9 01/20/23 16:00 Room Air 01/20/23 16:00 70 18 113/55 (71) 96 Room Air 01/20/23 15:00 69 18 101/61 (75) 93 Room Air 01/20/23 14:00 70 24 111/78 (85) 95 Room Air 01/20/23 13:00 69 18 118/54 (73) 93 Room Air 01/20/23 12:34 70 01/20/23 12:18 35.9 01/20/23 12:00 69 16 109/44 (69) 92 Room Air 01/20/23 12:00 Room Air 01/20/23 11:15 70 17 119/51 (73) 91 Room Air 01/20/23 11:00 70 19 100/60 (88) 97 Room Air 01/20/23 10:45 70 23 120/59 (75) 95 Room Air 01/20/23 10:30 70 14 116/66 (81) 97 Room Air 01/20/23 10:15 72 16 102/47 (65) 93 Room Air I & O 01/21/23 07:00 Intake Total 850 ml Output Total 1500 ml Balance -650 ml Height & Weight Height: '" Weight: 186lbs. 0.0oz. 84.853316ux; 32.67 BMI Method: General Appearance: Mild Distress, Other (+ cough) Respiratory: Lungs Clear, Decreased Breath Sounds Cardiovascular: Irregularly Irregular, Tachycardia Gastrointestinal: normal bowel sounds, non tender, soft Extremity: Normal Capillary Refill, Normal Inspection, Normal Range of Motion, No Pedal Edema Neurologic/Psychiatric: Alert, Oriented x3, No Motor/Sensory Deficits, Normal Mood/Affect, well driller II-XII Norm as Tested Skin: Normal Color, Warm/Dry Results Lab Laboratory Tests 01/20/23 04:30 01/21/23 04:22 Assessment/Plan Assessment/Plan s/p dual chamber pacemaker for tachy-lorna doing well, will continue Eliquis and Cardizem CXR post procedure did not show a PMNTX Cardiology to see, may need an additional med ie metoprolol, or increase in Crardizem dose COPD, on Breo, will order Jessie ESPANA Critical Care: Critically Ill Patient Time spent with patient (mins): 25 ROHINI SERRATO MD Jan 21, 2023 08:14
[2023-01-21] MEDS: APIXABAN 5 MG TABLET PO SCH ×2 (08:35→21:03)
[2023-01-21] MEDS: RT-IPRATROPIUM NEBS 0.5 MG/2.5 ML IH SCH ×2 (08:36→20:27)
[2023-01-21] MEDS: FLUTICASONE/VILANTEROL 200/25 MCG (7 DOSES) IH SCH ×2 (08:36→20:31)
[2023-01-21] MEDS: dilTIAZem ER 240 MG CAPSULE PO SCH (08:36)
[2023-01-21] MEDS: MONTELUKAST 10 MG (SINGULAIR) TAB PO SCH (08:36)
[2023-01-21] MEDS: HYDROXYCHLOROQUINE 200 MG TABLET PO SCH (08:36)
[2023-01-21] MEDS: ACETAMINOPHEN 325 MG TABLET PO PRN (08:36)
[2023-01-21] MEDS ORDERED: dilTIAZem ER 240 MG CAPSULE PO SCH (09:00)
--- NOTE | 2023-01-21 09:04 | Progress Note ---
Standard Progress Note Progress Notes/Assess & Plan Date Seen by a Provider: Jan 21, 2023 ROBERT SMITH MD Jan 21, 2023 09:04
[2023-01-21] MEDS ORDERED: dilTIAZem ER 120 MG CAPSULE PO ONE (10:45)
--- NOTE | 2023-01-21 12:44 | Progress Note ---
ROBERT ARREDONDO MD 01/21/23 1244: Subjective HPI/CC On Admission Date Seen by Provider: Jan 21, 2023 Time Seen by Provider: 09:55 A-fib with RVR Subjective/Events-last exam Patient is continuing to feel some heart racing sensations and overall feels anxious and antsy. She would like to get up into the chair as she feels she has been in bed too much. She otherwise denies any chest pain, shortness of breath. Has no other concerns for today. Objective Exam Vital Signs Vital Signs Date Time Temp Pulse Resp B/P (MAP) Pulse Ox O2 Delivery O2 Flow Rate FiO2 01/21/23 12:00 105 28 112/79 (92) 95 Room Air 01/21/23 11:28 36.0 01/18/23 22:00 2.00 Capillary Refill : General Appearance: No Apparent Distress HEENT: PERRL/EOMI Neck: Full Range of Motion Respiratory: Chest Non Tender, Lungs Clear, Normal Breath Sounds, No Accessory Muscle Use, No Respiratory Distress, Wheezing (Occasional mild) Cardiovascular: No Murmur, Irregularly Irregular, Other (Nonpitting peripheral edema) Gastrointestinal: Normal Bowel Sounds, Non Tender, Soft Extremity: Normal Range of Motion Neurologic/Psychiatric: Alert, Oriented x3 Skin: Normal Color Results/Procedures Lab Laboratory Tests 01/21/23 04:22 Patient resulted labs reviewed. Imaging: Reviewed Imaging Films, Reviewed Imaging Report Assessment/Plan Assessment and Plan Assess & Plan/Chief Complaint A-fib with RVR Diagnosis/Problems Diagnosis/Problems (1) Atrial fibrillation Status: Acute Assessment & Plan: Status post pacemaker placement on 01/20/2023 Patient continues to pop into A-fib overnight, have been self converting Continue diltiazem Appreciate cardiology recommendations for next steps Qualifiers: Qualified Codes: I48.91 - Unspecified atrial fibrillation (2) DVT prophylaxis Status: Acute Assessment & Plan: Continue Eliquis (3) History of thyroid cancer Assessment & Plan: Noted to have a history of thyroid cancer with postop hypothyroidism Is on levothyroxine TSH during hospitalization normal (4) COPD (chronic obstructive pulmonary disease) Status: Chronic Assessment & Plan: Resumed home meds Qualifiers: Qualified Codes: J44.9 - Chronic obstructive pulmonary disease, unspecified LAMBERT BROOKS DO 01/21/23 1556: Assessment/Plan Assessment and Plan Assess & Plan/Chief Complaint Rounded with Dr Arredondo and interviewed the patient and discussed case in- depth with results review and med management. Daughter is anxious for resolution and plan going forward and tried to reassure and updated them that Cardiology will have the plan ROBERT ARREDONDO MD Jan 21, 2023 12:44 LAMBERT BROOKS DO Jan 21, 2023 15:56
--- NOTE | 2023-01-21 14:13 | Progress Note - Cardiology ---
Cardiology SOAP Progress Note Subjective: Reports some improvement of weakness and shortness of breath, but not complete resolution No n/v/d No focal weakness No cp or palp or syncope Objective: I&O/Vital Signs 01/21/23 01/21/23 01/21/23 01/21/23 03:00 04:00 04:00 05:00 Pulse 70 70 93 Resp 17 17 18 B/P (MAP) 105/58 (74) 100/61 (74) 114/86 (95) Pulse Ox 95 96 95 O2 Delivery Room Air Room Air Room Air Room Air 01/21/23 01/21/23 01/21/23 01/21/23 06:00 07:00 07:00 07:37 Temp 35.8 Pulse 70 71 70 Resp 16 19 B/P (MAP) 113/64 (80) 117/65 (94) Pulse Ox 95 95 O2 Delivery Room Air Room Air Room Air 01/21/23 01/21/23 01/21/23 01/21/23 08:00 08:44 09:00 10:00 Pulse 70 122 126 Resp 31 25 12 B/P (MAP) 126/72 (86) 112/73 (77) 97/75 (82) Pulse Ox 95 95 94 97 O2 Delivery Room Air Room Air Room Air Room Air 01/21/23 01/21/23 01/21/23 01/21/23 11:00 11:28 12:00 12:47 Temp 36.0 Pulse 124 105 131 Resp 19 28 B/P (MAP) 102/73 (79) 112/79 (92) Pulse Ox 94 95 O2 Delivery Room Air Room Air Room Air 01/21/23 00:00 Intake Total 750 ml Output Total 1500 ml Balance -750 ml Weight (Pounds): 186 Weight (Ounces): 0.0 Weight (Calculated Kilograms): 84.923420 Constitutional: AAO x 3, well-developed, well-nourished Respiratory: chest expansion is symmetric, chest is bilaterally symmetric, other (good, bilateral air entry) Cardiovascular: irregularly irregular, S1 and S2, systolic murmur (soft ELÍAS at card base) Gastrointestional: No tender, No guarding, No rebound; audible bowel sounds Extremities: No clubbing, No cyanosis; significant edema (bilat, nonpitting leg edema, moderate) Neurologic/Psychiatric: oriented x 3, other (moves all limbs equally) Skin: No rash on exposed areas, No ulcerations on exposed areas Results/Procedures: Labs Laboratory Tests 01/21/23 04:22: White Blood Count 6.5, Red Blood Count 4.17, Hemoglobin 12.5, Hematocrit 38, Mean Corpuscular Volume 92, Mean Corpuscular Hemoglobin 30, Mean Corpuscular Hemoglobin Concent 33, Red Cell Distribution Width 13.5, Platelet Count 167, Mean Platelet Volume 11.2, Sodium Level 142, Potassium Level 3.7, Chloride Level 113H, Carbon Dioxide Level 22, Anion Gap 7, Blood Urea Nitrogen 15, Creatinine 0.68, Estimat Glomerular Filtration Rate 89, BUN/Creatinine Ratio 22, Glucose Level 110H, Calcium Level 9.3, Corrected Calcium 10.0, Total Bilirubin 0.5, Aspartate Amino Transf (AST/SGOT) 20, Alanine Aminotransferase (ALT/SGPT) 9, Alkaline Phosphatase 87, Total Protein 5.6L, Albumin 3.1L Laboratory Tests 01/20/23 04:30 01/21/23 04:22 A/P: Assessment: Marked sinus node dysfunction - PAF with RVR 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) from both of which she is symptomatic - s/p temporary ventricular pacemaker on 01/19/23 - s/p perm dual chamber pacemaker ([employer]tronic) and removal of temp pacemaker on 01/20/23 - echo 01/19/23: LVEF 60-65%, mild to mod LA enlargement, mild to mod MR, PASP 25- 30 mmHg - no clinical evidence of decompensated CHF S/p 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 Will initiate dronedarone (no contraindication, given no cardiomyopathy or CHF) * Oral dilt for rate control during episodes of PAF * Pacemaker set at lower atrial rate of 70 bpm in effort to keep right atrium overdriven * Apixaban for stroke prophylaxis * Monitor labs * Keep on tele * Increase ambulation SHANTELLE DANIELS MD [facility] Jan 21, 2023 14:13
[2023-01-21] MEDS: DRONEDARONE 400 MG TABLET PO SCH ×2 (14:55→21:03)
[2023-01-21] MEDS ORDERED: RT-ALBUTEROL HFA 8.5 GM INHALER IH PRN (16:15)
[2023-01-22] MEDS: ACETAMINOPHEN 325 MG TABLET PO PRN (03:23)
[2023-01-22] MEDS ORDERED: ONDANSETRON 4 MG/2 ML (SDV) Z0FRAN IV PRN (07:00)
[2023-01-22] MEDS ORDERED: ACETAMINOPHEN 325 MG TABLET PO PRN (07:00)
[2023-01-22] MEDS ORDERED: BISACODYL 10 MG SUPPOSITORY PR PRN (07:00)
[2023-01-22] MEDS ORDERED: polyethylene glycoL POWDER 17 GM (MIRALAX) PACK PO PRN (07:00)
[2023-01-22] MEDS ORDERED: CALCIUM CARBONATE 500 MG CHEW TABLET PO PRN (07:00)
[2023-01-22] MEDS ORDERED: ANTACID SUSP 30 ML UDC (MYLANTA) PO PRN (07:00)
[2023-01-22] MEDS ORDERED: MILK OF MAGNESIA 400 MG/5 ML 30 ML UDC PO PRN (07:00)
[2023-01-22] MEDS ORDERED: diphenhydrAMINE 25 MG TABLET PO PRN (07:00)
[2023-01-22] MEDS ORDERED: LACTULOSE SYRUP 10GM/15ML 30ML UDC PO PRN (07:00)
[2023-01-22] MEDS ORDERED: ONDANSETRON 4 MG (ZOFRAN) ORAL DISSOLVE TAB PO PRN (07:00)
[2023-01-22] MEDS ORDERED: diphenhydrAMINE INJ 50 MG/ML VIAL IVP PRN (07:00)
[2023-01-22] MEDS ORDERED: MELATONIN 3 MG TABLET PO PRN (07:00)
[2023-01-22] MEDS: RT-IPRATROPIUM NEBS 0.5 MG/2.5 ML IH SCH ×2 (07:14→21:52)
--- NOTE | 2023-01-22 07:34 | Progress Note ---
ROBERT SMITH MD 01/22/23 0734: Subjective HPI/CC On Admission Date Seen by Provider: Jan 22, 2023 A-fib with RVR Subjective/Events-last exam Patient doing well today, was happy that she was able to get up and out of bed yesterday. She does feel very sleepy this morning but otherwise notes that her heart rhythm has not been jumping into A-fib as frequently. Was noted that she was coughing, she states this is chronic and consistent with her COPD. Patient otherwise had no concerns today. Review of Systems General: Fatigue HEENT: No Sore Throat Pulmonary: Cough Cardiovascular: No: Chest Pain, Palpitations, Edema Gastrointestinal: No: Nausea, Vomiting, Abdominal Pain, Diarrhea, Constipation Genitourinary: No Dysuria Objective Exam Vital Signs Vital Signs Date Time Temp Pulse Resp B/P (MAP) Pulse Ox O2 Delivery O2 Flow Rate FiO2 01/22/23 07:55 Room Air 95 01/22/23 07:54 36.4 70 20 112/64 (80) 94 01/18/23 22:00 2.00 Capillary Refill : General Appearance: No Apparent Distress, WD/WN HEENT: Moist Mucous Membranes Neck: Full Range of Motion Respiratory: Chest Non Tender, Lungs Clear, No Accessory Muscle Use, No Respiratory Distress, Wheezing Cardiovascular: Regular Rate, Rhythm, No Edema, No Murmur, Normal Peripheral Pulses Gastrointestinal: Normal Bowel Sounds, Non Tender Extremity: Pedal Edema (Tender on the right lower extremity however left and right lower extremity are consistent in size) Neurologic/Psychiatric: Alert, Oriented x3 Results/Procedures Lab Laboratory Tests 01/22/23 07:28 Patient resulted labs reviewed. Imaging: Reviewed Imaging Films, Reviewed Imaging Report Assessment/Plan Assessment and Plan Assess & Plan/Chief Complaint A-fib with RVR Diagnosis/Problems Diagnosis/Problems (1) Atrial fibrillation Status: Acute Assessment & Plan: Status post pacemaker placement on 01/20/2023 Patient popped into A-fib 1 time this a.m. and self converted after [address] Rao discussed with EP service in [place], started dronedarone Ok to increase ambulation Patient may be a candidate for inpatient rehab to work on improving strength Would appreciate cardiology's recommendations prior to transfer likely tomorrow Qualifiers: Qualified Codes: I48.91 - Unspecified atrial fibrillation (2) DVT prophylaxis Status: Acute Assessment & Plan: Continue Eliquis (3) History of thyroid cancer Assessment & Plan: Noted to have a history of thyroid cancer with postop hypothyroidism Is on levothyroxine, restarting today TSH during hospitalization normal (4) COPD (chronic obstructive pulmonary disease) Status: Chronic Assessment & Plan: Continue home meds Qualifiers: Qualified Codes: J44.9 - Chronic obstructive pulmonary disease, unspecified LAMBERT BROOKS DO 01/22/23 1626: Assessment/Plan Assessment and Plan Assess & Plan/Chief Complaint I performed a history and physical examination of the patient and discussed the management with the resident. I reviewed the residents note and agree with the documented findings and plan of care. ROBERT SMITH MD Jan 22, 2023 07:34 LAMBERT BROOKS DO Jan 22, 2023 16:26
[2023-01-22 07:36] LABS: BASOPHILS % (AUTO) 1 % (0-10); EOSINOPHILS # (AUTO) 0.2 10^3/uL (0.0-0.3); EOSINOPHILS % (AUTO) 3 % (0-10); HEMATOCRIT 36 % (35-52); LYMPHOCYTES # (AUTO) 2.6 10^3/uL (1.0-4.0); LYMPHOCYTES % (AUTO) 41 % (12-44); MEAN CORPUSCULAR HEMOGLOBIN 30 pg (25-34); MEAN CORPUSCULAR HGB CONC 33 g/dL (32-36); MEAN CORPUSCULAR VOLUME 91 fL (80-99); MEAN PLATELET VOLUME 10.6 fL (9.0-12.2); MONOCYTES # (AUTO) 0.5 10^3/uL (0.0-1.0); MONOCYTES % (AUTO) 8 % (0-12); NEUTROPHILS # (AUTO) 2.9 10^3/uL (1.8-7.8); NEUTROPHILS % (AUTO) 47 % (42-75); PLATELET COUNT 174 10^3/uL (130-400); WHITE BLOOD COUNT 6.2 10^3/uL (4.3-11.0)
[2023-01-22 07:54] LABS: ALBUMIN 3.1 GM/DL (3.2-4.5); POTASSIUM 3.8 MMOL/L (3.6-5.0)
[2023-01-22 07:56] LABS: TOTAL PROTEIN 5.7 GM/DL (6.4-8.2)
[2023-01-22 07:58] LABS: BILIRUBIN,TOTAL 0.6 MG/DL (0.1-1.0)
[2023-01-22 08:00] LABS: CREATININE SERUM 0.68 MG/DL (0.60-1.30)
[2023-01-22] MEDS: DRONEDARONE 400 MG TABLET PO SCH ×2 (08:39→21:47)
[2023-01-22] MEDS: HYDROXYCHLOROQUINE 200 MG TABLET PO SCH (08:39)
[2023-01-22] MEDS: dilTIAZem ER 240 MG CAPSULE PO SCH (08:39)
[2023-01-22] MEDS: APIXABAN 5 MG TABLET PO SCH ×2 (08:39→21:47)
[2023-01-22] MEDS: DOCUSATE SODIUM 100 MG CAPSULE PO SCH ×2 (08:40→21:47)
[2023-01-22] MEDS: SENNOSIDES 8.6 MG (SENOKOT) TAB PO SCH ×2 (08:40→21:47)
[2023-01-22] MEDS: MONTELUKAST 10 MG (SINGULAIR) TAB PO SCH (09:00)
--- NOTE | 2023-01-22 11:49 | Progress Note - Cardiology ---
Cardiology SOAP Progress Note Subjective: No cp or palp or syncope Shortness of breath much improved No n/v/d Gen weakness and malaise are present, chronic Objective: I&O/Vital Signs 01/22/23 01/22/23 01/22/23 01/22/23 00:00 01:00 01:00 02:00 Pulse 82 75 Resp 18 B/P (MAP) 92/50 (62) 103/57 (74) 109/50 (76) Pulse Ox 94 O2 Delivery Room Air 01/22/23 01/22/23 01/22/23 01/22/23 03:00 04:00 07:00 07:15 Temp 35.9 Pulse 70 70 Resp 20 B/P (MAP) 108/57 (73) 88/44 (64) Pulse Ox 94 96 O2 Delivery Room Air Room Air 01/22/23 01/22/23 07:54 07:55 Temp 36.4 Pulse 70 Resp 20 B/P (MAP) 112/64 (80) Pulse Ox 94 O2 Delivery Room Air Room Air FiO2 95 01/22/23 00:00 Intake Total 450 ml Balance 450 ml Weight (Pounds): 186 Weight (Ounces): 0.0 Weight (Calculated Kilograms): 84.169982 Constitutional: AAO x 3, well-developed, well-nourished Respiratory: chest expansion is symmetric, chest is bilaterally symmetric, other (good, bilateral air entry) Cardiovascular: irregularly irregular, S1 and S2, systolic murmur (soft ELÍAS at card base) Gastrointestional: No tender, No guarding, No rebound; audible bowel sounds Extremities: No clubbing, No cyanosis; significant edema (bilat, nonpitting leg edema, moderate) Neurologic/Psychiatric: oriented x 3, other (moves all limbs equally) Skin: No rash on exposed areas, No ulcerations on exposed areas Results/Procedures: Labs Laboratory Tests 01/22/23 07:28: White Blood Count 6.2, Red Blood Count 3.97, Hemoglobin 12.0, Hematocrit 36, Mean Corpuscular Volume 91, Mean Corpuscular Hemoglobin 30, Mean Corpuscular Hemoglobin Concent 33, Red Cell Distribution Width 13.6, Platelet Count 174, Mean Platelet Volume 10.6, Immature Granulocyte % (Auto) 0, Neutrophils (%) (Auto) 47, Lymphocytes (%) (Auto) 41, Monocytes (%) (Auto) 8, Eosinophils (%) (Auto) 3, Basophils (%) (Auto) 1, Neutrophils # (Auto) 2.9, Lymphocytes # (Auto) 2.6, Monocytes # (Auto) 0.5, Eosinophils # (Auto) 0.2, Basophils # (Auto) 0.0, Immature Granulocyte # (Auto) 0.0, Sodium Level 141, Potassium Level 3.8, Chloride Level 111H, Carbon Dioxide Level 21, Anion Gap 9, Blood Urea Nitrogen 12, Creatinine 0.68, Estimat Glomerular Filtration Rate 89, BUN/Creatinine Ratio 18, Glucose Level 91, Calcium Level 9.0, Corrected Calcium 9.7, Total Bilirubin 0.6, Aspartate Amino Transf (AST/SGOT) 19, Alanine Aminotransferase (ALT/SGPT) 8, Alkaline Phosphatase 77, Total Protein 5.7L, Albumin 3.1L Laboratory Tests 01/21/23 04:22 01/22/23 07:28 A/P: Assessment: Marked sinus node dysfunction - PAF with RVR 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 Continue current regimen * Pacemaker set at lower atrial rate of 70 bpm in effort to keep right atrium overdriven * Apixaban for stroke prophylaxis * Increase ambulation * Ok to d/c from cardiac standpoint. Close outpatient eval * Dr Sharp evaluating for inpatient rehab * I spoke with the patient and her family and answered questions in detail SHANTELLE DANIELS MD [facility] Jan 22, 2023 11:49
[2023-01-22] MEDS: FLUTICASONE/VILANTEROL 200/25 MCG (7 DOSES) IH SCH (21:49)
[2023-01-23 05:08] LABS: BASOPHILS # (AUTO) 0.1 10^3/uL (0.0-0.1); BASOPHILS % (AUTO) 1 % (0-10); EOSINOPHILS # (AUTO) 0.2 10^3/uL (0.0-0.3); EOSINOPHILS % (AUTO) 4 % (0-10); HEMATOCRIT 37 % (35-52); HEMOGLOBIN 12.2 g/dL (11.5-16.0); LYMPHOCYTES # (AUTO) 2.1 10^3/uL (1.0-4.0); LYMPHOCYTES % (AUTO) 42 % (12-44); MEAN CORPUSCULAR HEMOGLOBIN 30 pg (25-34); MEAN CORPUSCULAR HGB CONC 33 g/dL (32-36); MEAN CORPUSCULAR VOLUME 91 fL (80-99); MEAN PLATELET VOLUME 10.3 fL (9.0-12.2); MONOCYTES # (AUTO) 0.4 10^3/uL (0.0-1.0); MONOCYTES % (AUTO) 8 % (0-12); NEUTROPHILS # (AUTO) 2.3 10^3/uL (1.8-7.8); NEUTROPHILS % (AUTO) 45 % (42-75); PLATELET COUNT 173 10^3/uL (130-400)
[2023-01-23 05:43] LABS: ALBUMIN 3.2 GM/DL (3.2-4.5); BILIRUBIN,TOTAL 0.5 MG/DL (0.1-1.0); CALCIUM 9.2 MG/DL (8.5-10.1); CREATININE SERUM 0.76 MG/DL (0.60-1.30); TOTAL PROTEIN 5.7 GM/DL (6.4-8.2)
[2023-01-23] MEDS ORDERED: LEVOTHYROXINE 150 MCG (LEVOTHROID) TAB PO SCH (06:30)
[2023-01-23] MEDS: RT-IPRATROPIUM NEBS 0.5 MG/2.5 ML IH SCH (07:19)
[2023-01-23] MEDS: MONTELUKAST 10 MG (SINGULAIR) TAB PO SCH (08:11)
[2023-01-23] MEDS: dilTIAZem ER 240 MG CAPSULE PO SCH (08:11)
[2023-01-23] MEDS: DRONEDARONE 400 MG TABLET PO SCH (08:11)
[2023-01-23] MEDS: HYDROXYCHLOROQUINE 200 MG TABLET PO SCH (08:11)
[2023-01-23] MEDS: APIXABAN 5 MG TABLET PO SCH (08:11)
[2023-01-23] MEDS: SENNOSIDES 8.6 MG (SENOKOT) TAB PO SCH (08:12)
[2023-01-23] MEDS: DOCUSATE SODIUM 100 MG CAPSULE PO SCH (08:12)
--- NOTE | 2023-01-23 08:52 | Physical Therapy Evaluation ---
PT Evaluation-General Medical Diagnosis Admission Date Jan 20, 2023 at 13:16 Medical Diagnosis: new onset A-fib Onset Date: Jan 20, 2023 Therapy Diagnosis Therapy Diagnosis: debility Height/Weight Weight (Pounds): 186 Weight (Ounces): 0.0 Precautions Precautions/Isolations: Fall Prevention, Standard Precautions Referral Physician: Aron Reason for Referral: Evaluation/Treatment Medical History Pertinent Medical History: COPD Additional Medical History thyroid cancer Current History ER secondary to elevated HR and SOA/s/p pacemaker placement with sling in place Reviewed History: Yes Social History Home: Single Level Current Living Status: Alone Entry Into Home: Ramp, Stairs With Railing PT Steps Into Home: 3 Prior Prior Level of Function SCALE: Activities may be completed with or without assistive devices. 7-Kgqvjepbli-gneqrco completes the activity by him/herself with no assistance fr om a helper. 5-Set-up or Clean-up Assistance-helper sets up or cleans up; patient completes activity. Kendrick assists only prior to or following the activity. 4-Supervision or Touching Assistance-helper provides verbal cues and/or touching/steadying and/or contact guard assistance as patient completes activity. Assistance may be provided throughout the activity or intermittently. 3-Partial/Moderate Assistance-helper does LESS THAN HALF the effort. Kendrick lifts, holds or supports trunk or limbs, but provides less than half the effort. 2-Substantial/Maximal Assistance-helper does MORE THAN HALF the effort. Kendrick lifts or holds trunk or limbs and provides more than half the effort. 6-Hqjxwhfty-glemvu does ALL the effort. Patient does none of the effort to complete the activity. Or, the assistance of 2 or more helpers is required for the patient to complete the activity. If activity was not attempted, code reason: 7-Patient Refused. 9-Not Applicable-not attempted and the patient did not perform the activity before the current illness, exacerbation or injury. 10-Not Attempted due to Environmental Limitations-(lack of equipment, weather restraints, etc.). 88-Not Attempted due to Medical Conditions or Safety Concerns. Bed Mobility: 6 Transfers (B,C,W/C): 6 Gait: 6 Stairs: 6 Indoor Mobility (Ambulation): Independent Stairs: Independent Prior Devices Use: Other-see list below Prior Device Use: cane PT Evaluation-Current Subjective Patient agrees to PT. Family present Objective Patient Orientation: Normal For Age ROM/Strength ROM Lower Extremities bilateral LE WFL Strength Lower Extremities 3+/5 grossly bilateral LE all planes Integumentary/Posture Bowel Incontinence: No Bladder Incontinence: No Posture trunk flexed posture Neuromuscular (Tone, Coordination, Reflexes) grossly intact Sensory Vision: Wears Glasses Hearing: Functional Transfers Sit to Stand (QC): 4 Chair/Uur-zi-Aglat Xfer(QC): 4 Gait Mode of Locomotion: Walk Anticipated Mode of Locomotion: Walk Walk 10 feet (QC): 4 Walk 50 ft with 2 Turns(QC): 4 Walk 150 ft (QC): 88 Distance: 100' Gait Assistive Device: Cane Single Point Comments/Gait Description slow, steady gait sequence Balance Sitting Static: Normal Sitting Dynamic: Normal Standing Static: Fair Standing Dynamic: Fair Assessment/Needs Patient will benefit from skilled PT to address functional strength and mobility to improve current LOF to safely return to home at maximum LOF. Rehab Potential: Fair PT Piercing Specialist Goals Piercing Specialist Goals PT Senior Living Goals Time Frame: Feb 04, 2023 Roll Left & Right (QC): 6 Sit to Lying (QC): 6 Lying-Sitting on Side/Bed(QC): 6 Sit to Stand (QC): 6 Chair/Ccj-pb-Aewzf Xfer(QC): 6 Toilet Transfer (QC): 6 Walk 10 feet (QC): 6 Walk 50ft with 2 Turns (QC): 6 Walk 150 ft (QC): 6 1 Step (curb) (QC): 4 4 Steps (QC): 4 PT Plan Problem List Problem List: Activity Tolerance, Functional Strength, Balance, Gait, Transfer, Bed Mobility Treatment/Plan Treatment Plan: Continue Plan of Care Treatment Plan: Bed Mobility, Education, Functional Activity Mulu, Functional Strength, Gait, Safety, Therapeutic Exercise, Transfers Treatment Duration: Feb 04, 2023 Frequency: 6 times per week Estimated Hrs Per Day: .25 hour per day Patient and/or Family Agrees t: Yes Time Time In: 812 Time Out: 825 DATE: Jan 23, 2023 Total Billed Treatment Time: 13 Total Billed Treatment 1 visit EVMod 13 min [facility] PT Jan 23, 2023 08:52
[2023-01-23] MEDS ORDERED: DILT240C91 PO (08:57)
[2023-01-23] MEDS ORDERED: DRON400T6 PO (08:57)
[2023-01-23] MEDS ORDERED: APIX5TAB PO (08:57)
--- NOTE | 2023-01-23 08:58 | Discharge Summary ---
Diagnosis/Chief Complaint Date of Admission Jan 20, 2023 at 13:16 Date of Discharge Discharge Date: Jan 23, 2023 Discharge Diagnosis (1) Atrial fibrillation Status: Acute Assessment & Plan: Status post pacemaker placement on 01/20/2023 Patient popped into A-fib 1 time this a.m. and self converted after [address] Rao discussed with EP service in [place], started dronedarone Ok to increase ambulation Patient may be a candidate for inpatient rehab to work on improving strength Would appreciate cardiology's recommendations prior to transfer likely tomorrow Qualifiers: Qualified Codes: I48.91 - Unspecified atrial fibrillation (2) DVT prophylaxis Status: Acute Assessment & Plan: Continue Eliquis (3) History of thyroid cancer Assessment & Plan: Noted to have a history of thyroid cancer with postop hypothyroidism Is on levothyroxine, restarting today TSH during hospitalization normal (4) COPD (chronic obstructive pulmonary disease) Status: Chronic Assessment & Plan: Continue home meds Qualifiers: Qualified Codes: J44.9 - Chronic obstructive pulmonary disease, unspecified Discharge Summary Discharge Physical Examination Allergies: Coded Allergies: No Known Drug Allergies (Unverified , 06/13/13) Vitals & I&Os Vital Signs Date Time Temp Pulse Resp B/P (MAP) Pulse Ox O2 Delivery O2 Flow Rate FiO2 01/23/23 13:45 01/23/23 13:00 70 01/23/23 11:57 36.2 Room Air 01/23/23 08:00 18 94 01/23/23 08:00 95 01/18/23 22:00 2.00 General Appearance: Alert, Oriented X3, Cooperative Respiratory: Clear to Auscultation Cardiovascular: Regular Rate Psych/Mental Status: Mental Status NL Hospital Course Was the Problem List Reviewed?: Yes Patient had a complicated hospital course which included new onset atrial fibrillation and cardiac pauses requiring temporary pacemaker placement until permanent pacemaker placed by Dr. Rao. She still required multiple medication changes due to consistent atrial fibrillation with RVR. She was restarted on all home medication and maintain on oral anticoagulation. Due to the fact that she was very weak she was deemed stable for inpatient rehab discharge. Labs (last 24 hrs) Laboratory Tests 01/18/23 15:37: White Blood Count 8.4, Red Blood Count 4.31, Hemoglobin 13.0, Hematocrit 40, Mean Corpuscular Volume 92, Mean Corpuscular Hemoglobin 30, Mean Corpuscular Hemoglobin Concent 33, Red Cell Distribution Width 13.8, Platelet Count 146, Mean Platelet Volume 11.2, Neutrophils (%) (Auto) 61, Lymphocytes (%) (Auto) 30, Monocytes (%) (Auto) 8, Eosinophils (%) (Auto) 1, Basophils (%) (Auto) 1, Neutr ophils # (Auto) 5.1, Lymphocytes # (Auto) 2.5, Monocytes # (Auto) 0.7, Eosinophils # (Auto) 0.1, Basophils # (Auto) 0.1, Prothrombin Time 13.9, INR Comment 1.0, Activated Partial Thromboplast Time 29, Sodium Level 144, Potassium Level 4.4, Chloride Level 109H, Carbon Dioxide Level 24, Anion Gap 11, Blood Urea Nitrogen 13, Creatinine 0.71, Estimat Glomerular Filtration Rate 86, BUN/Creatinine Ratio 18, Glucose Level 109H, Calcium Level 9.2, Corrected Calcium 9.4, Magnesium Level 1.7, Total Bilirubin 0.5, Aspartate Amino Transf (AST/SGOT) 27, Alanine Aminotransferase (ALT/SGPT) 11, Alkaline Phosphatase 100, Troponin I < 0.30, Pro-B-Type Natriuretic Peptide 660.7H, Total Protein 6.1L, Albumin 3.7 01/19/23 04:30: Thyroid Stimulating Hormone (TSH) 0.69 01/20/23 04:30: White Blood Count 5.9, Red Blood Count 4.17, Hemoglobin 12.4, Hematocrit 38, Mean Corpuscular Volume 92, Mean Corpuscular Hemoglobin 30, Mean Corpuscular Hemoglobin Concent 33, Red Cell Distribution Width 13.7, Platelet Count 166, Mean Platelet Volume 11.2, Sodium Level 143, Potassium Level 3.7, Chloride Level 114H, Carbon Dioxide Level 20L, Anion Gap 9, Blood Urea Nitrogen 11, Creatinine 0.65, Estimat Glomerular Filtration Rate 90, BUN/Creatinine Ratio 17, Glucose Level 74, Calcium Level 9.1, Corrected Calcium 9.8, Total Bilirubin 1.0, Aspartate Amino Transf (AST/SGOT) 19, Alanine Aminotransferase (ALT/SGPT) 8, Alkaline Phosphatase 76, Total Protein 5.6L, Albumin 3.1L 01/21/23 04:22: White Blood Count 6.5, Red Blood Count 4.17, Hemoglobin 12.5, Hematocrit 38, Mean Corpuscular Volume 92, Mean Corpuscular Hemoglobin 30, Mean Corpuscular Hemoglobin Concent 33, Red Cell Distribution Width 13.5, Platelet Count 167, Mean Platelet Volume 11.2, Sodium Level 142, Potassium Level 3.7, Chloride Level 113H, Carbon Dioxide Level 22, Anion Gap 7, Blood Urea Nitrogen 15, Creatinine 0.68, Estimat Glomerular Filtration Rate 89, BUN/Creatinine Ratio 22, Glucose L evel 110H, Calcium Level 9.3, Corrected Calcium 10.0, Total Bilirubin 0.5, Aspartate Amino Transf (AST/SGOT) 20, Alanine Aminotransferase (ALT/SGPT) 9, Alkaline Phosphatase 87, Total Protein 5.6L, Albumin 3.1L 01/22/23 07:28: White Blood Count 6.2, Red Blood Count 3.97, Hemoglobin 12.0, Hematocrit 36, Mean Corpuscular Volume 91, Mean Corpuscular Hemoglobin 30, Mean Corpuscular Hemoglobin Concent 33, Red Cell Distribution Width 13.6, Platelet Count 174, Mean Platelet Volume 10.6, Immature Granulocyte % (Auto) 0, Neutrophils (%) (Auto) 47, Lymphocytes (%) (Auto) 41, Monocytes (%) (Auto) 8, Eosinophils (%) (Auto) 3, Basophils (%) (Auto) 1, Neutrophils # (Auto) 2.9, Lymphocytes # (Auto) 2.6, Monocytes # (Auto) 0.5, Eosinophils # (Auto) 0.2, Basophils # (Auto) 0.0, Immature Granulocyte # (Auto) 0.0, Sodium Level 141, Potassium Level 3.8, Chloride Level 111H, Carbon Dioxide Level 21, Anion Gap 9, Blood Urea Nitrogen 12, Creatinine 0.68, Estimat Glomerular Filtration Rate 89, BUN/Creatinine Ratio 18, Glucose Level 91, Calcium Level 9.0, Corrected Calcium 9.7, Total Bilirubin 0.6, Aspartate Amino Transf (AST/SGOT) 19, Alanine Aminotransferase (ALT/SGPT) 8, Alkaline Phosphatase 77, Total Protein 5.7L, Albumin 3.1L 01/23/23 04:50: White Blood Count 5.0, Red Blood Count 4.09, Hemoglobin 12.2, Hematocrit 37, Mean Corpuscular Volume 91, Mean Corpuscular Hemoglobin 30, Mean Corpuscular Hemoglobin Concent 33, Red Cell Distribution Width 13.4, Platelet Count 173, Mean Platelet Volume 10.3, Immature Granulocyte % (Auto) 0, Neutrophils (%) (Au to) 45, Lymphocytes (%) (Auto) 42, Monocytes (%) (Auto) 8, Eosinophils (%) (Auto) 4, Basophils (%) (Auto) 1, Neutrophils # (Auto) 2.3, Lymphocytes # (Auto) 2.1, Monocytes # (Auto) 0.4, Eosinophils # (Auto) 0.2, Basophils # (Auto) 0.1, Immature Granulocyte # (Auto) 0.0, Sodium Level 141, Potassium Level 4.0, Chloride Level 110H, Carbon Dioxide Level 24, Anion Gap 7, Blood Urea Nitrogen 13, Creatinine 0.76, Estimat Glomerular Filtration Rate 79, BUN/Creatinine Ratio 17, Glucose Level 97, Calcium Level 9.2, Corrected Calcium 9.8, Total Bilirubin 0.5, Aspartate Amino Transf (AST/SGOT) 18, Alanine Aminotransferase (ALT/SGPT) 6, Alkaline Phosphatase 73, Total Protein 5.7L, Albumin 3.2 Pending Labs Laboratory Tests 01/18/23 15:37: White Blood Count 8.4, Red Blood Count 4.31, Hemoglobin 13.0, Hematocrit 40, M essence Corpuscular Volume 92, Mean Corpuscular Hemoglobin 30, Mean Corpuscular Hemoglobin Concent 33, Red Cell Distribution Width 13.8, Platelet Count 146, Mean Platelet Volume 11.2, Neutrophils (%) (Auto) 61, Lymphocytes (%) (Auto) 30, Monocytes (%) (Auto) 8, Eosinophils (%) (Auto) 1, Basophils (%) (Auto) 1, Neutrophils # (Auto) 5.1, Lymphocytes # (Auto) 2.5, Monocytes # (Auto) 0.7, Eosinophils # (Auto) 0.1, Basophils # (Auto) 0.1, Prothrombin Time 13.9, INR Comment 1.0, Activated Partial Thromboplast Time 29, Sodium Level 144, Potassium Level 4.4, Chloride Level 109, Carbon Dioxide Level 24, Anion Gap 11, Blood Urea Nitrogen 13, Creatinine 0.71, Estimat Glomerular Filtration Rate 86, BUN/Creatinine Ratio 18, Glucose Level 109, Calcium Level 9.2, Corrected Calcium 9.4, Magnesium Level 1.7, Total Bilirubin 0.5, Aspartate Amino Transf (AST/SGOT) 27, Alanine Aminotransferase (ALT/SGPT) 11, Alkaline Phosphatase 100, Troponin I < 0.30, Pro-B-Type Natriuretic Peptide 660.7, Total Protein 6.1, Albumin 3.7 01/19/23 04:30: Thyroid Stimulating Hormone (TSH) 0.69 01/20/23 04:30: White Blood Count 5.9, Red Blood Count 4.17, Hemoglobin 12.4, Hematocrit 38, Mean Corpuscular Volume 92, Mean Corpuscular Hemoglobin 30, Mean Corpuscular Hemoglobin Concent 33, Red Cell Distribution Width 13.7, Platelet Count 166, Mean Platelet Volume 11.2, Sodium Level 143, Potassium Level 3.7, Chloride Level 114, Carbon Dioxide Level 20, Anion Gap 9, Blood Urea Nitrogen 11, Creatinine 0.65, Estimat Glomerular Filtration Rate 90, BUN/Creatinine Ratio 17, Glucose Level 74, Calcium Level 9.1, Corrected Calcium 9.8, Total Bilirubin 1.0, A spartate Amino Transf (AST/SGOT) 19, Alanine Aminotransferase (ALT/SGPT) 8, Alkaline Phosphatase 76, Total Protein 5.6, Albumin 3.1 01/21/23 04:22: White Blood Count 6.5, Red Blood Count 4.17, Hemoglobin 12.5, Hematocrit 38, Mean Corpuscular Volume 92, Mean Corpuscular Hemoglobin 30, Mean Corpuscular Hemoglobin Concent 33, Red Cell Distribution Width 13.5, Platelet Count 167, Mean Platelet Volume 11.2, Sodium Level 142, Potassium Level 3.7, Chloride Level 113, Carbon Dioxide Level 22, Anion Gap 7, Blood Urea Nitrogen 15, Creatinine 0.68, Estimat Glomerular Filtration Rate 89, BUN/Creatinine Ratio 22, Glucose Level 110, Calcium Level 9.3, Corrected Calcium 10.0, Total Bilirubin 0.5, Aspartate Amino Transf (AST/SGOT) 20, Alanine Aminotransferase (ALT/SGPT) 9, Alkaline Phosphatase 87, Total Protein 5.6, Albumin 3.1 01/22/23 07:28: White Blood Count 6.2, Red Blood Count 3.97, Hemoglobin 12.0, Hematocrit 36, Mean Corpuscular Volume 91, Mean Corpuscular Hemoglobin 30, Mean Corpuscular Hemoglobin Concent 33, Red Cell Distribution Width 13.6, Platelet Count 174, Mean Platelet Volume 10.6, Immature Granulocyte % (Auto) 0, Neutrophils (%) (Auto) 47, Lymphocytes (%) (Auto) 41, Monocytes (%) (Auto) 8, Eosinophils (%) (Auto) 3, Basophils (%) (Auto) 1, Neutrophils # (Auto) 2.9, Lymphocytes # (Auto) 2.6, Monocytes # (Auto) 0.5, Eosinophils # (Auto) 0.2, Basophils # (Auto) 0.0, Immature Granulocyte # (Auto) 0.0, Sodium Level 141, Potassium Level 3.8, Chloride Level 111, Carbon Dioxide Level 21, Anion Gap 9, Blood Urea Nitrogen 12, Creatinine 0.68, Estimat Glomerular Filtration Rate 89, BUN/Creatinine Ratio 18, Glucose Level 91, Calcium Level 9.0, Corrected Calcium 9.7, Total Bilirubin 0.6, Aspartate Amino Transf (AST/SGOT) 19, Alanine Aminotransferase (ALT/SGPT) 8, Alkaline Phosphatase 77, Total Protein 5.7, Albumin 3.1 01/23/23 04:50: White Blood Count 5.0, Red Blood Count 4.09, Hemoglobin 12.2, Hematocrit 37, Mean Corpuscular Volume 91, Mean Corpuscular Hemoglobin 30, Mean Corpuscular Hemoglobin Concent 33, Red Cell Distribution Width 13.4, Platelet Count 173, Mean Platelet Volume 10.3, Immature Granulocyte % (Auto) 0, Neutrophils (%) (Auto) 45, Lymphocytes (%) (Auto) 42, Monocytes (%) (Auto) 8, Eosinophils (%) (Auto) 4, Basophils (%) (Auto) 1, Neutrophils # (Auto) 2.3, Lymphocytes # (Auto) 2.1, Monocytes # (Auto) 0.4, Eosinophils # (Auto) 0.2, Basophils # (Auto) 0.1, Immature Granulocyte # (Auto) 0.0, Sodium Level 141, Potassium Level 4.0, Chloride Level 110, Carbon Dioxide Level 24, Anion Gap 7, Blood Urea Nitrogen 13, Creatinine 0.76, Estimat Glomerular Filtration Rate 79, BUN/Creatinine Ratio 17, Glucose Level 97, Calcium Level 9.2, Corrected Calcium 9.8, Total Bilirubin 0.5, Aspartate Amino Transf (AST/SGOT) 18, Alanine Aminotransferase (ALT/SGPT) 6, Alkaline Phosphatase 73, Total Protein 5.7, Albumin 3.2 Discharge Home Medications: Active Scripts Active Diltiazem 24Hr ER (Diltiazem HCl) 240 Mg Cap.er.24h 240 Mg PO DAILY 30 Days Multaq (Dronedarone HCl) 400 Mg Tablet 400 Mg PO BID 30 Days Eliquis (Apixaban) 5 Mg Tablet 5 Mg PO BID 30 Days Reported Multivitamin 1 Each Tablet 1 Each PO DAILY Omeprazole 20 Mg Capsule.dr 20 Mg PO DAILY Cetirizine HCl 10 Mg Tablet 10 Mg PO DAILY Trelegy Ellipta 200-62.5-25 (Fluticasone/Umeclidin/Vilanter) 200-62.5 Blst.w.dev 1 Puff INH HS Levothyroxine Sodium 150 Mcg Tablet 150 Mcg PO DAILY Mirtazapine 7.5 Mg Tablet 7.5 Mg PO HS Ventolin Hfa (Albuterol Sulfate) 90 Mcg Hfa.aer.ad 2 Puff INH Q6H PRN Gabapentin 100 Mg Capsule 100 Mg PO BID PRN Iprat-Albut 0.5-3(2.5) mg/3 ml (Ipratropium/Albuterol Sulfate) 0.5 Mg-3 Mg (2.5 Mg Base)/3 Ml Ampul.neb 3 Ml NEB BID Gabapentin 100 Mg Capsule 100 Mg PO DAILY Montelukast Sodium 10 Mg Tablet 10 Mg PO DAILY Hydroxychloroquine Sulfate 200 Mg Tablet 200 Mg PO DAILY Vitamin D3 (Cholecalciferol (Vitamin D3)) 25 Mcg Capsule 25 Mcg PO DAILY Instructions to patient/family Please see electronic discharge instructions given to patient. LAMBERT BROOKS DO Jan 23, 2023 08:58
--- NOTE | 2023-01-23 09:54 | Progress Note - Cardiology ---
Cardiology SOAP Progress Note Subjective: Sitting up in the recliner at the bedside No c/o CP, SOB or palpitations No c/o discomfort at the device insertion site Objective: I&O/Vital Signs 01/22/23 01/23/23 01/23/23 01/23/23 23:59 00:30 04:00 07:00 Temp 35.8 35.8 Pulse 69 73 68 73 Resp 14 16 B/P (MAP) 117/71 (86) 108/53 (71) Pulse Ox 95 92 O2 Delivery Room Air Room Air 01/23/23 01/23/23 08:00 08:00 Temp 36.4 Pulse 69 Resp 18 B/P (MAP) 114/75 (88) Pulse Ox 94 O2 Delivery Room Air Room Air FiO2 95 01/23/23 00:00 Intake Total 1025 ml Balance 1025 ml Weight (Pounds): 186 Weight (Ounces): 0.0 Weight (Calculated Kilograms): 84.346189 Side: left Swelling: without swelling Drainage: No Bruising: mild bruising Constitutional: AAO x 3, well-developed, well-nourished Respiratory: chest expansion is symmetric, chest is bilaterally symmetric, other (good, bilateral air entry) Cardiovascular: irregularly irregular, S1 and S2, systolic murmur (soft ELÍAS at card base) Gastrointestional: No tender, No guarding, No rebound; audible bowel sounds Extremities: No clubbing, No cyanosis; significant edema (bilat, nonpitting leg edema, moderate) Neurologic/Psychiatric: oriented x 3, other (moves all limbs equally) Skin: No rash on exposed areas, No ulcerations on exposed areas Results/Procedures: Labs Laboratory Tests 01/23/23 04:50: White Blood Count 5.0, Red Blood Count 4.09, Hemoglobin 12.2, Hematocrit 37, Mean Corpuscular Volume 91, Mean Corpuscular Hemoglobin 30, Mean Corpuscular Hemoglobin Concent 33, Red Cell Distribution Width 13.4, Platelet Count 173, Mean Platelet Volume 10.3, Immature Granulocyte % (Auto) 0, Neutrophils (%) (Auto) 45, Lymphocytes (%) (Auto) 42, Monocytes (%) (Auto) 8, Eosinophils (%) (A uto) 4, Basophils (%) (Auto) 1, Neutrophils # (Auto) 2.3, Lymphocytes # (Auto) 2.1, Monocytes # (Auto) 0.4, Eosinophils # (Auto) 0.2, Basophils # (Auto) 0.1, Immature Granulocyte # (Auto) 0.0, Sodium Level 141, Potassium Level 4.0, Chloride Level 110H, Carbon Dioxide Level 24, Anion Gap 7, Blood Urea Nitrogen 13, Creatinine 0.76, Estimat Glomerular Filtration Rate 79, BUN/Creatinine Ratio 17, Glucose Level 97, Calcium Level 9.2, Corrected Calcium 9.8, Total Bilirubin 0.5, Aspartate Amino Transf (AST/SGOT) 18, Alanine Aminotransferase (ALT/SGPT) 6, Alkaline Phosphatase 73, Total Protein 5.7L, Albumin 3.2 Laboratory Tests 01/22/23 07:28 01/23/23 04:50 A/P: Assessment: Marked sinus node dysfunction - PAF with RVR 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) from both of which she is symptomatic - s/p temporary ventricular pacemaker on 01/19/23 - s/p perm dual chamber pacemaker ([employer]) and removal of temp pacemaker on 01/20/23 - echo 01/19/23: LVEF 60-65%, mild to mod LA enlargement, mild to mod MR, PASP 25- 30 mmHg - no clinical evidence of decompensated CHF - initiation of oral dronedarone on 01/21/23 S/p 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 Continue current regimen * Pacemaker set at lower atrial rate of 70 bpm in effort to keep right atrium overdriven * Apixaban for stroke prophylaxis * Increase ambulation * Ok to d/c from cardiac standpoint. Close outpatient eval * Dr Sharp planning for admission to inpatient rehab * Dressing to pacemaker insertion site removed: steri-strips in place, no drainage or swelling, edges approx. Instructions regarding site care reviewed with patient RANJITDA LARA Jazzy BOJORQUEZ Jan 23, 2023 09:54
--- NOTE | 2023-01-23 11:39 | Occupational Therapy Eval ---
OT Evaluation-General/PLF Medical Diagnosis Admission Date Jan 20, 2023 at 13:16 Medical Diagnosis: new onset A-fib Onset Date: Jan 20, 2023 Therapy Diagnosis Therapy Diagnosis: weakness Height/Weight Weight (Pounds): 186 Weight (Ounces): 0.0 Precautions Precautions/Isolations: Fall Prevention, Standard Precautions Referral Physician: Aron Eastman Reason: Self Care, Evaluation/Treatment Medical History Pertinent Medical History: COPD Social History Home: Multilevel Current Living Status: Alone Entry Into Home: Ramp, Stairs With Railing Steps Into Home: 3 Steps Inside Home: 13 (upstairs bedrooms, Patient does access bedromms) ADL-Prior Level of Function SCALE: Activities may be completed with or without assistive devices. 4-Uqadxdalsu-knrtaak completes the activity by him/herself with no assistance from a helper. 5-Set-up or Clean-up Assistance-helper sets up or cleans up; patient completes activity. [place] assists only prior to or following the activity. 4-Supervision or Touching Assistance-helper provides verbal cues and/or touching/steadying and/or contact guard assistance as patient completes activity. Assistance may be provided throughout the activity or intermittently. 3-Partial/Moderate Assistance-helper does LESS THAN HALF the effort. [place] lifts, holds or supports trunk or limbs, but provides less than half the effort. 2-Substantial/Maximal Assistance-helper does MORE THAN HALF the effort. [place] lifts or holds trunk or limbs and provides more than half the effort. 6-Amusiernw-kbdgss does ALL the effort. Patient does none of the effort to complete the activity. Or, the assistance of 2 or more helpers is required for the patient to complete the activity. If activity was not attempted, code reason: 7-Patient Refused. 9-Not Applicable-not attempted and the patient did not perform the activity before the current illness, exacerbation or injury. 10-Not Attempted due to Environmental Limitations-(lack of equipment, weather restraints, etc.). 88-Not Attempted due to Medical Conditions or Safety Concerns. Self Care: Independent Functional Cognition: Independent DME/Equipment: Bath Chair (has a back), Grab Bars (in shower), Tall Toilet (removable toilet riser), Tub/Shower DME/Equipment Comments has a both FWW and 4ww but does not use, uses cane when she thinks she needs it during outtings. Drive Self: Yes OT Current Status Pain Numeric Pain Scale: 0-No Pain Mental Status/Objective Patient Orientation: Person, Place, Time, Situation b;ue. sock. 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 and has a dog ADL-Treatment Eating (QC): 6 Oral Hygiene (QC): 6 Shower/Bathe Self (QC): 88 Upper Body Dressing (QC): 4 Lower Body Dressing (QC): 4 On/Off Footwear (QC): 4 Toileting Hygiene (QC): 4 Education OT Patient Education: Correct positioning, Modified ADL techniques, Progress toward Goal/Update tx plan, Purpose of tx/functional activities, Reviewed precautions, Rehab process, Safety issues, Transfer techniques, Use of adapted equipment Teaching Recipient: Patient, Family (daughter and grandkids) Teaching Methods: Demonstration, Discussion Response to Teaching: Verbalize Understanding, Reinforcement Needed OT Retirement Goals Job Tracer Goals Eating (QC): 6 Oral Hygiene (QC): 6 Toileting Hygiene (QC): 6 Shower/Bathe Self (QC): 6 Upper Body Dressing (QC): 6 Lower Body Dressing (QC): 6 On/Off Footwear (QC): 6 1=Demonstrate adherence to instructed precautions during ADL tasks. 2=Patient will verbalize/demonstrate understanding of assistive devices/modifications for ADL. 3=Patient will improve strength/tolerance for activity to enable patient to perform ADL's. OT Education/Plan Problem List/Assessment Assessment: Decreased Activ Tolerance, Decreased UE Strength, Impaired Cognition, Impaired Funct Balance, Impaired Self-Care Skills, Restricted Funct UE ROM Discharge Recommendations Plan/Recommendations: Continue POC Treatment Plan/Plan of Care Treatment,Training & Education: Yes Patient would benefit from OT for education, treatment and training to promote independence in ADL's, mobility, safety and/or upper extremity function for ADL's. Plan of Care: ADL Retraining, Concurrent Therapy, Functional Mobility, Group Exercise/Act as Ind, UE Funct Exercise/Act Treatment Duration: Jan 27, 2023 Frequency: 3 times per week (3-5 times per week) Estimated Hrs Per Day: .25 hour per day Agreement: Yes Rehab Potential: Fair Time Start Time: 11:30 Stop Time: 11:48 DATE: Jan 23, 2023 Total Time Billed (hr/min): 18 Billed Treatment Time EVM 18 min RIYA HAYDEN OT Jan 23, 2023 11:39
--- NOTE | 2023-01-23 18:50 | Progress Note - Cardiology ---
Cardiology SOAP Progress Note Subjective: No cp or palp or syncope or shortness of breath No n/v/d Gen weakness and malaise No focal weakness Objective: I&O/Vital Signs 01/23/23 01/23/23 01/23/23 01/23/23 07:00 08:00 08:00 11:57 Temp 36.4 36.2 Pulse 73 69 71 Resp 18 B/P (MAP) 114/75 (88) 111/58 (75) Pulse Ox 94 O2 Delivery Room Air Room Air Room Air FiO2 95 01/23/23 01/23/23 13:00 13:45 Pulse 70 B/P (MAP) 01/23/23 00:00 Intake Total 1025 ml Balance 1025 ml Weight (Pounds): 186 Weight (Ounces): 0.0 Weight (Calculated Kilograms): 84.732285 Side: left Swelling: without swelling Drainage: No Bruising: mild bruising Constitutional: AAO x 3, well-developed, well-nourished Respiratory: chest expansion is symmetric, chest is bilaterally symmetric, other (good, bilateral air entry) Cardiovascular: irregularly irregular, S1 and S2, systolic murmur (soft ELÍAS at card base) Gastrointestional: No tender, No guarding, No rebound; audible bowel sounds Extremities: No clubbing, No cyanosis; significant edema (bilat, nonpitting leg edema, moderate) Neurologic/Psychiatric: oriented x 3, other (moves all limbs equally) Skin: No rash on exposed areas, No ulcerations on exposed areas Results/Procedures: Labs Laboratory Tests 01/23/23 04:50: White Blood Count 5.0, Red Blood Count 4.09, Hemoglobin 12.2, Hematocrit 37, Mean Corpuscular Volume 91, Mean Corpuscular Hemoglobin 30, Mean Corpuscular Hemoglobin Concent 33, Red Cell Distribution Width 13.4, Platelet Count 173, Mean Platelet Volume 10.3, Immature Granulocyte % (Auto) 0, Neutrophils (%) (Auto) 45, Lymphocytes (%) (Auto) 42, Monocytes (%) (Auto) 8, Eosinophils (%) (Auto) 4, Basophils (%) (Auto) 1, Neutrophils # (Auto) 2.3, Lymphocytes # (Auto) 2.1, Monocytes # (Auto) 0.4, Eosinophils # (Auto) 0.2, Basophils # (Auto) 0.1, Immature Granulocyte # (Auto) 0.0, Sodium Level 141, Potassium Level 4.0, Chloride Level 110H, Carbon Dioxide Level 24, Anion Gap 7, Blood Urea Nitrogen 13, Creatinine 0.76, Estimat Glomerular Filtration Rate 79, BUN/Creatinine Ratio 17, Glucose Level 97, Calcium Level 9.2, Corrected Calcium 9.8, Total Bilirubin 0.5, Aspartate Amino Transf (AST/SGOT) 18, Alanine Aminotransferase (ALT/SGPT) 6, Alkaline Phosphatase 73, Total Protein 5.7L, Albumin 3.2 A/P: Assessment: Marked sinus node dysfunction - PAF with RVR 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) from both of which she is symptomatic - s/p temporary ventricular pacemaker on 01/19/23 - s/p perm dual chamber pacemaker ([employer]) and removal of temp pacemaker on 01/20/23 - echo 01/19/23: LVEF 60-65%, mild to mod LA enlargement, mild to mod MR, PASP 25- 30 mmHg - no clinical evidence of decompensated CHF - initiation of oral dronedarone on 01/21/23 S/p thyroidectomy in Jul 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 Continue current regimen * Pacemaker set at lower atrial rate of 70 bpm in effort to keep right atrium overdriven * Apixaban for stroke prophylaxis * Increase ambulation * Ok to d/c from cardiac standpoint. Close outpatient eval * Dr Sharp planning for admission to inpatient rehab * Dressing to pacemaker insertion site removed: steri-strips in place, no drainage or swelling, edges approx. Instructions regarding site care reviewed with patient SHANTELLE DANIELS MD [facility] Jan 23, 2023 18:50
== END 2023-01-23 13:45 | DRG 244 ==
LOC: EDUNIT# 15:30 → ER FS 15:31 → CSD 19:08 → ICU 01-19 09:49 → OBSVTOIN 01-20 13:16 → CSD 01-21 15:36
PROVIDERS: ADMIT Family Medicine; ATTEND Family Medicine
PROC: 5A1223Z Performance of Cardiac Pacing, Continuous (ICD-10-PCS; 2023-01-19)
PROC: 0JH606Z Insertion of Pacemaker, Dual Chamber into Chest Subcutaneous Tissue and Fascia, Open Approach (ICD-10-PCS; principal; 2023-01-20)
PROC: 02H63JZ Insertion of Pacemaker Lead into Right Atrium, Percutaneous Approach (ICD-10-PCS; 2023-01-20)
PROC: 02HK3JZ Insertion of Pacemaker Lead into Right Ventricle, Percutaneous Approach (ICD-10-PCS; 2023-01-20)
DX: I48.0 Paroxysmal atrial fibrillation (principal); I44.2 Atrioventricular block, complete; I49.5 Sick sinus syndrome; J44.9 Chronic obstructive pulmonary disease, unspecified; M79.7 Fibromyalgia; R07.89 Other chest pain; E89.0 Postprocedural hypothyroidism; Z85.850 Personal history of malignant neoplasm of thyroid; M19.90 Unspecified osteoarthritis, unspecified site; Z87.891 Personal history of nicotine dependence; Z79.01 Long term (current) use of anticoagulants; Z79.899 Other long term (current) drug therapy
CPT/HCPCS: 33208; 33210; 36415; 71045; 71046; 80053; 83735; 83880; 84443; 84484; 85025; 85027; 85610; 85730; 93005; 93041; 93306; 94640; 96374; G0378

== ENCOUNTER 2023-01-23 12:15 | Inpatient (IN) | payer MEDICARE, OTHER ==
[~2023-01-23] VITALS: Ht 149.8 cm; Wt 75.4 kg
[~2023-01-23 12:15] MED LIST changes: +ALBU18HF2 INH; +APIX5TAB PO; +CETI10TA17 PO; +DILT240C91 PO; +DRON400T6 PO; +FLUT1BLS15 INH; +IPRA3AMP31 NEB; +LEVO150T6 PO; +MIRT7.5T8 PO; +MULT-1136 PO; +OMEP20CA18 PO
[2023-01-23] MEDS ORDERED: BISACODYL 10 MG SUPPOSITORY PR PRN ×2 (12:45→19:00)
[2023-01-23] MEDS ORDERED: MELATONIN 3 MG TABLET PO PRN ×2 (12:45→19:00)
[2023-01-23] MEDS ORDERED: LOPERAMIDE 2 MG CAPSULE PO PRN (12:45)
[2023-01-23] MEDS ORDERED: diphenhydrAMINE 25 MG TABLET PO PRN ×2 (12:45→19:00)
[2023-01-23] MEDS ORDERED: DOCUSATE SODIUM 100 MG CAPSULE PO PRN (12:45)
[2023-01-23] MEDS ORDERED: guaiFENesin/CODEINE 10ML UDC PO PRN (12:45)
[2023-01-23] MEDS ORDERED: LACTULOSE SYRUP 10GM/15ML 30ML UDC PO PRN ×2 (12:45→19:00)
[2023-01-23] MEDS ORDERED: ONDANSETRON 4 MG (ZOFRAN) ORAL DISSOLVE TAB PO PRN ×2 (12:45→19:00)
[2023-01-23] MEDS ORDERED: CALCIUM CARBONATE 500 MG CHEW TABLET PO PRN (12:45)
[2023-01-23] MEDS ORDERED: Sodium Phosphate/Sodium Biphosphate ADULT enema PR PRN (12:45)
[2023-01-23] MEDS ORDERED: ACETAMINOPHEN 325 MG TABLET PO PRN (12:45)
[2023-01-23 13:50] VITALS: BP 127/58
--- OUTSIDE RECORDS SUMMARY | 2023-01-23 14:04 | XMS REPORT | Clinical Summary ---
Author Author [facility] Organization [facility] Address Unknown Phone Unavailable Care Team Providers Care Safe Deposit Clerk Name Role Phone PCP Unavailable Allergies Not on File Medications Not on file Active Problems Not on file Family History Medical History Relation Name Comments Coronary artery disease Other Family History ; Coronary Artery Disease; Diabetes Other Family History; Lisa betes Mellitus; Relation Name Status Comments Other Social History Date Tobacco Use Types Packs/Day Years Used Smoking Tobacco: Never Assessed Date Recorded Sex and Gender Information Value Sex Assigned at Not on file Gender Identity Not on file Sexual Orientation Not on file Last Filed Vital Signs Reading Time Taken Comments Vital Sign 130/80 12/05/2008 11:55 AM CDT Blood Pressure 60 12/05/2008 11:55 AM CDT Pulse - - Temperature - - Respiratory Rate - - Oxygen Saturation - - Inhaled Oxygen Concentration 91.6 kg (202 lb) 12/05/2008 11:55 AM CDT Weight - - Height - - Body Mass Index Plan of Treatment Not on file Results Not on filefrom Last 3 Months
--- NOTE | 2023-01-23 14:08 | Physical Therapy Evaluation ---
PT Evaluation-General Medical Diagnosis Admission Date Jan 23, 2023 at 13:50 Medical Diagnosis: CHF Myopathy Onset Date: Jan 18, 2023 Therapy Diagnosis Therapy Diagnosis: Proximal weakness, decreased functional mobility, SOB Height/Weight Weight (Pounds): 186 Weight (Ounces): 0.0 Precautions Precautions/Isolations: Fall Prevention, Standard Precautions L UE pacemaker precautions L UE sling for comfort; no lifting greater than 8 lbs, no extreme ROM Sling for comfort, at night Weight Bear Status Right Lower Extremity: Right Full Weight Bearing Left Lower Extremity: Left Full Weight Bearing Referral Physician: Aron Reason for Referral: Evaluation/Treatment Medical History Pertinent Medical History: COPD Additional Medical History A-Fib, COPD, Fibromyalgia, Hypothyroidism s/p thyroidectomy due to cancer 07/2022, Pacemaker placement 01/20/23, Appendectomy, Gallbladder surgery, Orthopedic surgery, DDD, Arthritis Current History ED on 01/18/23 for SOB and rapid HR; S/P pacemaker placement on 01/20/23; Admitted to ARU on 01/23/23 Reviewed History: Yes Social History Home: Multilevel Current Living Status: Alone Entry Into Home: Stairs With Railing PT Steps Into Home: 3 (B HR ) PT Steps Inside Home: 10 (B HR ) Pt lives in [place] alone in a multi-level home with 3 steps to enter/exit in the front with B HR. Ramp to enter through the back door. 10 steps in the home with B HR. Tub-shower combo, GBs, SC, tall toilet. Family lives close and is able to assist as needed. 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 Dog at home. Prior Prior Level of Function SCALE: Activities may be completed with or without assistive devices. 0-Nmhruhlpiv-yidyjff completes the activity by him/herself with no assistance from a helper. 5-Set-up or Clean-up Assistance-helper sets up or cleans up; patient completes activity. [place] assists only prior to or following the activity. 4-Supervision or Touching Assistance-helper provides verbal cues and/or touching/steadying and/or contact guard assistance as patient completes activity. Assistance may be provided throughout the activity or intermittently. 3-Partial/Moderate Assistance-helper does LESS THAN HALF the effort. [place] lifts, holds or supports trunk or limbs, but provides less than half the effort. 2-Substantial/Maximal Assistance-helper does MORE THAN HALF the effort. [place] lifts or holds trunk or limbs and provides more than half the effort. 6-Rfquezfuv-svvrnb does ALL the effort. Patient does none of the effort to complete the activity. Or, the assistance of 2 or more helpers is required for the patient to complete the activity. If activity was not attempted, code reason: 7-Patient Refused. 9-Not Applicable-not attempted and the patient did not perform the activity before the current illness, exacerbation or injury. 10-Not Attempted due to Environmental Limitations-(lack of equipment, weather restraints, etc.). 88-Not Attempted due to Medical Conditions or Safety Concerns. Bed Mobility: 6 Transfers (B,C,W/C): 6 Gait: 6 Stairs: 6 Wheelchair Mobility: 9 Indoor Mobility (Ambulation): Independent Stairs: Independent Prior Devices Use: Mechanical lift (lift chair ) Prior Device Use: SPC At [facility], pt was Mod I with the SPC, cooking, and driving; Ind with stairs PT Evaluation-Current Subjective Pt is agreeable PT eval; denies pain Pain Numeric Pain Scale: 0-No Pain Location: No Pain Reported Section J - Health Conditions 1. Rarely or not at all 2. Occasionally 3. Frequently 4. Almost constantly 8. Unable to answer Pain Effect on Sleep: 1 Pain Interference with Therapy: 1 Pain Interference w/Day-to-Day: 1 Pt/Family Goals Safely return home Objective Patient Orientation: Person, Place, Time, Situation Attachments: IV ROM/Strength ROM Upper Extremities See OT eval ROM Lower Extremities WFL Strength Upper Extremities See OT eval Strength Lower Extremities B ankle/knee MMT = 4-/5 B hip MMT = 3+/5 Fair core strength Integumentary/Posture Integumentary See nurses note Bowel Incontinence: No Bladder Incontinence: No Sensory Vision: Wears Glasses Hearing: Functional Hand Dominance: Right Sensation Right Upper Extremit: Impaired Sensation Left Upper Extremity: Impaired Sensation Right Lower Extremit: Impaired Sensation Left Lower Extremity: Impaired Transfers Roll Left & Right (QC): 4 (SBA ) Sit to Lying (QC): 4 (SBA ) Lying to Sitting/Side of Bed(Q: 4 (SBA ) Sit to Stand (QC): 4 (CGA ) Chair/Zuj-td-Wiupp Xfer(QC): 4 (CGA ) Toilet Transfer (QC): 4 (CGA ) Car Transfer (QC): 3 (Min A) Gait Does the Patient Walk?: Yes Mode of Locomotion: Walk Anticipated Mode of Locomotion: Walk Walk 10 feet (QC): 4 (CGA ) Walk 50 ft with 2 Turns(QC): 4 (CGA ) Walk 150 ft (QC): 4 (CGA ) Walking 10ft/uneven surface-QC: 3 (Min A for balance ) Distance: 150ft Gait Assistive Device: Cane Single Point Wheelchair Training Does the Pt Use a Wheelchair?: No Wheel 50 ft with 2 turns (QC): 9 Wheel 150 ft (QC): 9 Type of Wheelchair: N/A Stairs #of Steps: 4 1 Step (curb) (QC): 3 (Min A ) 4 Steps (QC): 3 (Min A ) 12 Steps (QC): 88 Walking Assistive Device: Cane Balance Sitting Static: Normal Sitting Dynamic: Good Standing Static: Good Standing Dynamic: Fair Picking up an Object (QC): 4 (CGA with core dropper ) Special Test Comments KU standing balance scale = 2+/5 (Goal = 4+/5) Treatment PT eval completed Assessment/Needs Pt tolerated PT well with good effort; O2 stayed above 90% throughout eval Rehab Potential: Good Post Rehab Potential-Barriers: SOB; enduracne Equipment Needs N/A PT Chief Of Party Goals Correction Goals PT Correction Goals Time Frame: Feb 02, 2023 Roll Left to Right (QC): 6 (Pt will be Mod I with all aspects of functional mobility with SPC, in order to safely return home. ) Sit to Lying (QC): 6 (Pt will be Mod I with all aspects of functional mobility with SPC, in order to safely return home. ) Lying-Sitting on Side/Bed(QC): 6 (Pt will be Mod I with all aspects of functional mobility with SPC, in order to safely return home. ) Sit to Stand (QC): 6 (Pt will be Mod I with all aspects of functional mobility with SPC, in order to safely return home. ) Chair/Lky-hk-Ajkia Xfer(QC): 6 (Pt will be Mod I with all aspects of functional mobility with SPC, in order to safely return home. ) Toilet/Commode Transfer (QC): 6 (Pt will be Mod I with all aspects of functional mobility with SPC, in order to safely return home. ) Car Transfer (QC): 6 (Pt will be Mod I with all aspects of functional mobility with SPC, in order to safely return home. ) Does the Patient Walk: Yes Walk 10 feet (QC): 6 (Pt will be Mod I with all aspects of functional mobility with SPC, in order to safely return home. ) Walk 10ft-Uneven Surface(QC): 6 (Pt will be Mod I with all aspects of functional mobility with SPC, in order to safely return home. ) Walk 50ft with 2 Turns (QC): 6 (Pt will be Mod I with all aspects of functional mobility with SPC, in order to safely return home. ) Walk 150 ft (QC): 6 (Pt will be Mod I with all aspects of functional mobility with SPC, in order to safely return home. ) Does the Pt use WC or Scooter?: No Wheel 50 feet with 2 turns (QC: 9 Type: N/A Wheel 150 feet: 9 Type: N/A 1 Step (curb) (QC): 6 (Pt will be Mod I with all aspects of functional mobility with SPC, in order to safely return home. ) 4 Steps (QC): 6 (Pt will be Mod I with all aspects of functional mobility with SPC, in order to safely return home. ) 12 Steps (QC): 6 (Pt will be Mod I with all aspects of functional mobility with SPC, in order to safely return home. ) Picking up an Object (QC): 6 (Pt will be Mod I with all aspects of functional mobility with SPC, in order to safely return home. ) KU standing balance scale = 4+/5 PT Plan Problem List Problem List: Activity Tolerance, Functional Strength, Safety, Balance, Gait, Transfer, Bed Mobility Proximal B LE weakness, as well as decreased core strength Treatment/Plan Treatment Plan: Continue Plan of Care Treatment Plan: Bed Mobility, Concurrent Therapy, Education, Functional Activity Mulu, Functional Strength, Group Therapy, Gait, Safety, Therapeutic Exercise, Transfers Treatment Duration: Feb 02, 2023 Frequency: At least 5 of 7 days/Wk (IRF) Estimated Hrs Per Day: 2 hours per day Patient and/or Family Agrees t: Yes Safety Risks/Education Patient Education: Gait Training, Transfer Techniques, Steps, Reviewed Precautions, Correct Positioning, Safety Issues Teaching Recipient: Patient Teaching Methods: Demonstration, Discussion Response to Teaching: Verbalize Understanding, Return Demonstration, Reinforcement Needed Discharge Recommendations Therapy Discharge Recommendati: Home & Family Equpiment Recommendations-D/C: None Discharge Status/Home Program Cont per POC Barriers to Progress SOB; endurance; proximal weakness; decreased core strength Target Placement Home with family support Time Time In: 1355 Time Out: 1410 DATE: Jan 23, 2023 Total Billed Treatment Time: 15 Total Billed Treatment 15 min ANNI DUMONT PT Jan 23, 2023 14:08
--- NOTE | 2023-01-23 14:52 | Occupational Therapy Eval ---
OT Evaluation-General/PLF Medical Diagnosis Admission Date Jan 23, 2023 at 13:50 Medical Diagnosis: CHF Myopathy Onset Date: Jan 18, 2023 Therapy Diagnosis Therapy Diagnosis: s/p PPm, weakness, SOA Height/Weight Weight (Pounds): 186 Weight (Ounces): 0.0 Precautions Precautions/Isolations: Fall Prevention, Standard Precautions Weight Bear Status Weight Bearing Restriction: Partial Weight Bearing Location Restriction: L UE (PPM precautions 8 pounds) Sling for comfort, at night Referral Physician: Aron Referral Reason: Activity Tolerance, Self Care, Evaluation/Treatment, Strengthening/ROM Medical History Pertinent Medical History: COPD Additional Medical History A fib, RVR, COPD, hypothyroid resection d/t CA, fibromyalgia, PPM 01/20/23 Reviewed History: Yes Social History Home: Multilevel (upstairs bedrooms) Current Living Status: Alone Entry Into Home: Stairs With Railing Steps Into Home: 3 (B HR ) Steps Inside Home: 10 (B HR ) ADL-Prior Level of Function SCALE: Activities may be completed with or without assistive devices. 4-Hdseudsbgr-uzugkam completes the activity by him/herself with no assistance from a helper. 5-Set-up or Clean-up Assistance-helper sets up or cleans up; patient completes activity. [place] assists only prior to or following the activity. 4-Supervision or Touching Assistance-helper provides verbal cues and/or touchin g/steadying and/or contact guard assistance as patient completes activity. Assistance may be provided throughout the activity or intermittently. 3-Partial/Moderate Assistance-helper does LESS THAN HALF the effort. [place] lifts, holds or supports trunk or limbs, but provides less than half the effort. 2-Substantial/Maximal Assistance-helper does MORE THAN HALF the effort. [place] lifts or holds trunk or limbs and provides more than half the effort. 3-Afzidvihs-msodnr does ALL the effort. Patient does none of the effort to complete the activity. Or, the assistance of 2 or more helpers is required for the patient to complete the activity. If activity was not attempted, code reason: 7-Patient Refused. 9-Not Applicable-not attempted and the patient did not perform the activity before the current illness, exacerbation or injury. 10-Not Attempted due to Environmental Limitations-(lack of equipment, weather restraints, etc.). 88-Not Attempted due to Medical Conditions or Safety Concerns. 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 Self Care: Independent Functional Cognition: Independent DME/Equipment: Bath Chair (back, no arms), Grab Bars, Shower, Tub/Shower (combo), Toilet/Riser DME/Equipment Comments has lift chair, FWW and 4ww at home, does not use walkers, uses SPC Drive Self: Yes OT Current Status Subjective Agreeable to OT Mental Status/Objective Patient Orientation: Person, Place, Time, Situation Happy birthday Attachments: IV (port only) Current Glasses/Contacts: Yes Hearing Aids: No Dentures/Partials: Yes Hand Dominance: Right Upper Extremity ROM PPM ROM precautions, otherwise WFLS Upper Extremity Coordination forward flexion posture, FAIR +, Upper Extremity Sensation numbness in hands and feet. Upper Extremity Strength PPM precautions 8 pounds ADL-Treatment ADL-Current 02 sustianed RA 96-92% during evaluation Eating (QC): 6 Oral Hygiene (QC): 5 (standing at sink w/ SPC) Shower/Bathe Self (QC): 88 Upper Body Dressing (QC): 88 Lower Body Dressing (QC): 88 On/Off Footwear (QC): 5 Toileting Hygiene (QC): 5 Education OT Patient Education: Correct positioning, Modified ADL techniques, Progress toward Goal/Update tx plan, Purpose of tx/functional activities, Reviewed precautions, Rehab process, Safety issues, Transfer techniques, Use of adapted equipment Teaching Recipient: Patient Teaching Methods: Demonstration, Discussion Response to Teaching: Reinforcement Needed BIMS CAM BIMS Expression of Ideas and Wants: Without Difficulty Understanding Verbal Content: Understands Brief Interview/Mental Status: Yes IRF ZAIDA BIMS: IRF ZAIDA BIMS Response (Comments) Value Repitition of Three Words Three 3 Recalls Socks Yes, No Cue Required 2 Recalls Blue Yes, No Cue Required 2 Recalls Bed Yes, No Cue Required 2 Year Correct 3 Month Accurate Within 5 Days 2 Day Correct 1 Total 15 Patient Normally Able to Recal: Current Session, Staff Names and faces, That he/she in a hsp Should Staff Asses. Mental St.: No CAM Mental Status Change/Baseline: 0 Inattention: 0 Disorganized thinkin Altered level of consciousness: 0 OT Short Term Goals Short Term Goals Time Frame: Jan 26, 2023 Eatin Oral hygiene: 6 Toileting hygiene: 6 OT Longterm Goals Longterm Goals Eating (QC): 6 Oral Hygiene (QC): 6 Toileting Hygiene (QC): 6 Shower/Bathe Self (QC): 6 Upper Body Dressing (QC): 6 Lower Body Dressing (QC): 6 On/Off Footwear (QC): 6 1=Demonstrate adherence to instructed precautions during ADL tasks. 2=Patient will verbalize/demonstrate understanding of assistive devices/modifications for ADL. 3=Patient will improve strength/tolerance for activity to enable patient to perform ADL's. OT Education/Plan Problem List/Assessment Assessment: Decreased Activ Tolerance, Impaired I ADL's, Impaired Self-Care Skills, Restricted Funct UE ROM Discharge Recommendations Plan/Recommendations: Continue POC Treatment Plan/Plan of Care Treatment,Training & Education: Yes Patient would benefit from OT for education, treatment and training to promote independence in ADL's, mobility, safety and/or upper extremity function for ADL's. Plan of Care: ADL Retraining, Concurrent Therapy, Functional Mobility, Group Exercise/Act as Ind, UE Funct Exercise/Act Treatment Duration: Feb 01, 2023 Frequency: At least 5 of 7 days/Wk (IRF) Estimated Hrs Per Day: 1 hour per day (up to 60 minutes less than 130 minutes) Agreement: Yes Rehab Potential: Good Time Start Time: 14:10 Stop Time: 14:40 DATE: Jan 23, 2023 Total Time Billed (hr/min): 30 Billed Treatment Time 1 EVM, 30 minutes RIYA HAYDEN OT Jan 23, 2023 14:52
--- NOTE | 2023-01-23 15:55 | Physical Therapy Daily Note ---
PT Daily Note-Current Subjective Pt sitting in recliner upon arrival. Pt agrees to PT/OT co-treat due to decreased fall risk, monitor SOA, educate on energy conservation and increased activity tolerance. Pain Location: No Pain Reported Section J - Health Conditions 1. Rarely or not at all 2. Occasionally 3. Frequently 4. Almost constantly 8. Unable to answer Pain Effect on Sleep: 1 Pain Interference with Therapy: 1 Pain Interference w/Day-to-Day: 1 Mental Status Patient Orientation: Person, Place, Time, Situation Attachments: Other-See Comments (Telemetry), IV Transfers SCALE: Activities may be completed with or without assistive devices. 2-Pmlewbdzhh-xyfpuzv completes the activity by him/herself with no assistance from a helper. 5-Set-up or Clean-up Assistance-helper sets up or cleans up; patient completes activity. [place] assists only prior to or following the activity. 4-Supervision or Touching Assistance-helper provides verbal cues and/or touching/steadying and/or contact guard assistance as patient completes activit y. Assistance may be provided throughout the activity or intermittently. 3-Partial/Moderate Assistance-helper does LESS THAN HALF the effort. [place] lifts, holds or supports trunk or limbs, but provides less than half the effort. 2-Substantial/Maximal Assistance-helper does MORE THAN HALF the effort. [place] lifts or holds trunk or limbs and provides more than half the effort. 5-Vvypdikci-pxvdre does ALL the effort. Patient does none of the effort to complete the activity. Or, the assistance of 2 or more helpers is required for the patient to complete the activity. If activity was not attempted, code reason: 7-Patient Refused. 9-Not Applicable-not attempted and the patient did not perform the activity before the current illness, exacerbation or injury. 10-Not Attempted due to Environmental Limitations-(lack of equipment, weather restraints, etc.). 88-Not Attempted due to Medical Conditions or Safety Concerns. Sit to Lying (QC): 5 Sit to Stand (QC): 5 Weight Bearing Right Lower Extremity: Right Full Weight Bearing Left Lower Extremity: Left Full Weight Bearing Gait Training Does the Patient Walk?: Yes Distance: 15' x2 Walk 10 feet (QC): 5 Gait Assistive Device: Cane Single Point Exercises Seated Therapy Exercises: Ankle pumps, Long arc quads, Hip flexion Seated Reps: 15 Treatments TF to standing and amb to BR. Pt completes shower, dresses & brushes teeth (see OT note for ADL info). Pt returns to recliner to rest then completes Seated UE & LE w/RB as needed. Pt TF to standing then lays Supine in bed at end of tx to rest. All needs met, call light in hand. Assessment Current Status: Fair Progress Pt fatigues easily and needs frequent RB to recover. PT [facility] Goals Ore Trimmer Goals PT Penitentiary Goals Time Frame: Feb 02, 2023 Roll Left & Right (QC): 6 (Pt will be Mod I with all aspects of functional mobility with SPC, in order to safely return home. ) Sit to Lying (QC): 6 (Pt will be Mod I with all aspects of functional mobility with SPC, in order to safely return home. ) Lying-Sitting on Side/Bed(QC): 6 (Pt will be Mod I with all aspects of functional mobility with SPC, in order to safely return home. ) Sit to Stand (QC): 6 (Pt will be Mod I with all aspects of functional mobility with SPC, in order to safely return home. ) Chair/Trv-gb-Gfrcj Xfer(QC): 6 (Pt will be Mod I with all aspects of functional mobility with SPC, in order to safely return home. ) Toilet Transfer (QC): 6 (Pt will be Mod I with all aspects of functional mobility with SPC, in order to safely return home. ) Car Transfer (QC): 6 (Pt will be Mod I with all aspects of functional mobility with SPC, in order to safely return home. ) Does the Patient Walk: Yes Walk 10 feet (QC): 6 (Pt will be Mod I with all aspects of functional mobility with SPC, in order to safely return home. ) Walk 50ft with 2 Turns (QC): 6 (Pt will be Mod I with all aspects of functional mobility with SPC, in order to safely return home. ) Walk 150 ft (QC): 6 (Pt will be Mod I with all aspects of functional mobility with SPC, in order to safely return home. ) Walking 10ft on Uneven Surface: 6 (Pt will be Mod I with all aspects of functional mobility with SPC, in order to safely return home. ) 1 Step (curb) (QC): 6 (Pt will be Mod I with all aspects of functional mobility with SPC, in order to safely return home. ) 4 Steps (QC): 6 (Pt will be Mod I with all aspects of functional mobility with SPC, in order to safely return home. ) 12 Steps (QC): 6 (Pt will be Mod I with all aspects of functional mobility with SPC, in order to safely return home. ) Picking up an Object (QC): 6 (Pt will be Mod I with all aspects of functional mobility with SPC, in order to safely return home. ) Does the Pt use WC or Scooter?: No Wheel 50 feet with 2 turns (QC: 9 Type: N/A Wheel 150 feet: 9 Type: N/A PT Plan Problem List Problem List: Activity Tolerance Treatment/Plan Treatment Plan: Continue Plan of Care Treatment Plan: Bed Mobility, Concurrent Therapy, Education, Functional Activity Mulu, Functional Strength, Group Therapy, Gait, Safety, Therapeutic Exercise, Transfers Treatment Duration: Feb 02, 2023 Frequency: At least 5 of 7 days/Wk (IRF) Estimated Hrs Per Day: 2 hours per day Patient and/or Family Agrees t: Yes Time Time In: 1440 Time Out: 1548 DATE: Jan 23, 2023 Total Billed Treatment Time: 68 Total Billed Treatment Co-treat w/OT for 68m, 1,FA x3 (40m) & EX x 2 (28m) CURTIS SMITH CHOCOLATE FINISHER Jan 23, 2023 15:55
--- NOTE | 2023-01-23 15:57 | Occupational Ther Daily Note ---
OT Current Status-Daily Note Subjective Pt alert, working with OTR/L. Took over care from OTR/L. Co-treat with PT [id number], skills of 2 clinicians required to decrease fall risk, monitor SOA, educate on energy conservation and increase activity tolerance. PT focusing on transfers, ambulation and B LE strengthening while OT focusing on ADLs, func tional mobility and B UE with modifications due to pacemaker precautions. Mental Status/Objective Patient Orientation: Person, Place, Time, Situation Attachments: IV (2), Telemetry, Other-See Comments (pacemaker) ADL-Treatment Pt agrees to shower. CGA for shower and toilet transfer. Using shower bench, grabbar and hand held shower pt required assist to cleanse feet then able to cleanse all other areas. CGA for toileting. Min A for UBD due to pacemaker precautions. Min A to thread feet into pants then CGA while pt hiked pants over hips. Pt dons/doffs slip on shoes with set up. CGA standing at sink to complete oral care. Pt demonstrates ability to complete eating independently. Therapy Code Descriptions/Definitions Functional [place] Measure: 0=Not Assessed/NA 4=Minimal Assistance 1=Total Assistance 5=Supervision or Setup 2=Maximal Assistance 6=Modified [place] 3=Moderate Assistance 7=Complete IndependenceSCALE: Activities may be completed with or without assistive devices. 0-Ayycwwubsx-oabkyqo completes the activity by him/herself with no assistance from a helper. 5-Set-up or Clean-up Assistance-helper sets up or cleans up; patient completes activity. [place] assists only prior to or following the activity. 4-Supervision or Touching Assistance-helper provides verbal cues and/or touching/steadying and/or contact guard assistance as patient completes activity. Assistance may be provided throughout the activity or intermittently. 3-Partial/Moderate Assistance-helper does LESS THAN HALF the effort. [place] lifts, holds or supports trunk or limbs, but provides less than half the effort. 2-Substantial/Maximal Assistance-helper does MORE THAN HALF the effort. [place] lifts or holds trunk or limbs and provides more than half the effort. 4-Zefwjyejz-ymgrxh does ALL the effort. Patient does none of the effort to complete the activity. Or, the assistance of 2 or more helpers is required for the patient to complete the activity. If activity was not attempted, code reason: 7-Patient Refused. 9-Not Applicable-not attempted and the patient did not perform the activity bef ore the current illness, exacerbation or injury. 10-Not Attempted due to Environmental Limitations-(lack of equipment, weather r estraints, etc.). 88-Not Attempted due to Medical Conditions or Safety Concerns. Eating (QC): 6 Oral Hygiene (QC): 4 Shower/Bathe Self (QC): 3 Upper Body Dressing (QC): 3 Lower Body Dressing (QC): 3 On/Off Footwear: 5 Toileting Hygiene (QC): 4 Toilet Transfer (QC): 4 Other Treatment Pt given medium resistance therapy sponge to increase strength for translator deaf and pinch for use in room. Modification to UE strengthening due to pacemaker precautions. After therapy, pt lying in bed with call light/phone in reach. All needs met. OT Short Term Goals Short Term Goals Time Frame: Jan 26, 2023 Eatin Oral hygiene: 6 Toileting hygiene: 6 OT Correspondence Dictator Goals Correspondence Dictator Goals Acute change in mental status: 0 Inattention: 0 Disorganized thinkin Altered level of consciousness: 0 Eating (QC): 6 Oral Hygiene (QC): 6 Toileting Hygiene (QC): 6 Shower/Bathe Self (QC): 6 Upper Body Dressing (QC): 6 Lower Body Dressing (QC): 6 On/Off Footwear (QC): 6 1=Demonstrate adherence to instructed precautions during ADL tasks. 2=Patient will verbalize/demonstrate understanding of assistive devices/mo difications for ADL. 3=Patient will improve strength/tolerance for activity to enable patient to perform ADL's. OT Education/Plan Problem List/Assessment Assessment: Decreased Activ Tolerance, Decreased UE Strength, Impaired Funct Balance, Impaired Self-Care Skills, Restricted Funct UE ROM Discharge Recommendations Plan/Recommendations: Continue POC Treatment Plan/Plan of Care Patient would benefit from OT for education, treatment and training to promote independence in ADL's, mobility, safety and/or upper extremity function for ADL 's. Plan of Care: ADL Retraining, Concurrent Therapy, Functional Mobility, Group Exercise/Act as Ind, UE Funct Exercise/Act Treatment Duration: Feb 01, 2023 Frequency: At least 5 of 7 days/Wk (IRF) Estimated Hrs Per Day: 1 hour per day (up to 60 minutes less than 130 minutes) Agreement: Yes Rehab Potential: Good Time Start Time: 13:40 Stop Time: 14:48 DATE: Jan 23, 2023 Total Time Billed (hr/min): 68 Billed Treatment Time 1 visit-ADL 4 (60 min) EX 1 (8 min) co-treat with PT 68 min PING PHILLIPS Jan 23, 2023 15:57
--- NOTE | 2023-01-23 18:59 | PM&R Post Admission Assessment ---
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 She had a complicated hospital course upstairs which included new onset atrial fibrillation with RVR which was very resistant to control and included cardiac pauses requiring temporary pacemaker placement until permanent pacemaker was placed by Dr. Rao. Currently she is doing very well but very weak. She will continue on telemetry. Cardiology will continue monitoring. She resides at home alone and her daughter is involved in her care. Past Sfldrkm-Phwnov-Fwdrjn Hx Past Med/Social Hx: Reviewed Nursing Past Med/Soc Hx, Reviewed and Corrections made Patient Social History Marrital Status: single Employed/Student: retired Alcohol Use: Denies Use Smoking Status: Former Smoker 2nd Hand Smoke Exposure: No Recent Hopitalizations: No Immunizations Up To Date Tetanus Booster (TDap): Unknown Pediatric: No Date of Pneumonia Vaccine: Jun 19, 2011 Date of Influenza Vaccine: Mar 19, 2019 Past Medical History Surgeries: Appendectomy, Gallbladder, Orthopedic, Pacemaker Respiratory: COPD Cardiac: Atrial Fibrillation Reproductive: No Musculoskeletal: Degenerate Disk Disease, Arthritis History of Blood Disorders: No Adverse Reaction to Blood Doshi: No Family History Family history: Breast disease 03 MOTHER Family history: Cardiovascular disease 03 MOTHER Family history: Diabetes mellitus 03 MOTHER History of - respiratory disease 03 FATHER No Pertinent Family Hx Prior Level of Function Bed Mobility: 6 Transfers: 6 Gait: 6 Stairs: 6 Wheelchair Mobility: 9 Indoor Mobility (Ambulation): Independent Stairs: Independent Prior Devices Use: Mechanical lift (lift chair ) SPC Self Care: Independent Functional Cognition: Independent Drive Self: Yes Current Level of Fuctioning Roll Left to Right: 4 (SBA ) Sit to Lyin Lying to Sitting/Side of Bed: 4 (SBA ) Sit to Stand: 5 Chair/Awf-lc-Ayngf Xfer: 4 (CGA ) Car Transfer: 3 (Min A) Does the Patient Walk: Yes Mode of Locomotion: Walk Anticipated Mode of Locomotion: Walk Walk 10 feet: 5 Walk 50 ft with 2 Turns: 4 (CGA ) Walk 150 ft: 4 (CGA ) Walking 10ft on uneven surface: 3 (Min A for balance ) Gait Assistive Device: Cane Single Point Does the Pt Use a Wheelchair: No Wheel 50 ft with 2 turns: 9 Wheel 150 ft: 9 Type of Wheelchair: N/A #of Steps: 4 1 Step (curb): 3 (Min A ) 4 Steps: 3 (Min A ) Walking Assistive Device: Cane 12 Steps: 88 Picking up an Object: 4 (CGA with tool and equipment rental clerk ) Eatin Oral Hygiene: 4 Shower/Bathe Self: 3 Upper Body Dressin Lower Body Dressin On/Off Footwear: 5 Toileting Hygiene: 4 Toilet Transfer: 4 PM&R Allergy/Meds/Data Review Allergies Coded Allergies: No Known Drug Allergies (Unverified , 06/13/13) Home Medications Scheduled Apixaban (Eliquis), 5 MG PO BID Cetirizine HCl (Cetirizine HCl), 10 MG PO DAILY, (Reported) Cholecalciferol (Vitamin D3) (Vitamin D3), 25 MCG PO DAILY, (Reported) Diltiazem HCl (Diltiazem 24Hr ER), 240 MG PO DAILY Dronedarone HCl (Multaq), 400 MG PO BID Fluticasone/Umeclidin/Vilanter (Trelegy Ellipta 200-62.5-25), 1 PUFF INH HS, (Reported) Gabapentin (Gabapentin), 100 MG PO DAILY, (Reported) Hydroxychloroquine Sulfate (Hydroxychloroquine Sulfate), 200 MG PO DAILY, (Reported) Ipratropium/Albuterol Sulfate (Iprat-Albut 0.5-3(2.5) mg/3 ml), 3 ML NEB BID, (Reported) Levothyroxine Sodium (Levothyroxine Sodium), 150 MCG PO DAILY, (Reported) Mirtazapine (Mirtazapine), 7.5 MG PO HS, (Reported) Montelukast Sodium (Montelukast Sodium), 10 MG PO DAILY, (Reported) Multivitamin (Multivitamin), 1 EACH PO DAILY, (Reported) Omeprazole (Omeprazole), 20 MG PO DAILY, (Reported) Scheduled PRN Albuterol Sulfate (Ventolin Hfa), 2 PUFF INH Q6H PRN for SHORTNESS OF BREATH, (Reported) Gabapentin (Gabapentin), 100 MG PO BID PRN for PAIN-BREAKTHROUGH, (Reported) Discontinued Medications Benzonatate (Tessalon Perles), 100 MG PO TID Discontinued Reason: No Longer Taking Doxycycline Hyclate (Doxycycline Hyclate), 100 MG PO BID, (Reported) Discontinued Reason: No Longer Taking Fluticasone/Salmeterol (Advair Hfa 230-21 Mcg Inhaler), 2 PUFF IH BID, (Reported) Discontinued Reason: No Longer Taking Ipratropium [place] (Ipratropium [place]), 1 VIAL NEB BID, (Reported) Discontinued Reason: No Longer Taking Current Medications Current Medications Reviewed Review of Systems Constitutional: see HPI, malaise, weakness EENTM: no symptoms reported Respiratory: cough, dyspnea on exertion, short of breath Cardiovascular: palpitations Gastrointestinal: no symptoms reported Genitourinary: no symptoms reported Musculoskeletal: no symptoms reported Skin: no symptoms reported Psychiatric/Neurological: Anxiety, Depressed All Other Systems Reviewed Negative Unless Noted: Yes Physical Exam Physical Exam Vital Signs Vital Signs - First Documented 01/23/23 13:50 Temp 36.2 Pulse 72 Resp 20 B/P (MAP) 127/58 (81) Pulse Ox 94 O2 Delivery Room Air Capillary Refill : Height, Weight, BMI Height: '" Weight: 186lbs. 0.0oz. 84.178964ko; 32.88 BMI Method: General Appearance: No Apparent Distress, WD/WN, Chronically ill Eyes: Bilateral Eye Normal Inspection, Bilateral Eye PERRL HEENT: PERRL/EOMI, Normal ENT Inspection, Pharynx Normal Neck: Full Range of Motion, Normal Inspection, Non Tender, Supple, Carotid Bruit Respiratory: Chest Non Tender, No Accessory Muscle Use, No Respiratory Distress, Decreased Breath Sounds, Wheezing Cardiovascular: Regular Rate, Rhythm, No Edema, No Gallop, No JVD, No Murmur, Normal Peripheral Pulses Gastrointestinal: Normal Bowel Sounds, No Organomegaly, No Pulsatile Mass, Non Tender, Soft Back: Normal Inspection, No CVA Tenderness, No Vertebral Tenderness Extremity: Normal Capillary Refill, Normal Inspection, Normal Range of Motion, Non Tender, No Calf Tenderness, No Pedal Edema Neurologic/Psychiatric: Alert, Oriented x3, bumboater II-XII Norm as Tested, Abnormal Gait, Depressed Affect, Motor Weakness (Generalized 3/5) Skin: Normal Color, Warm/Dry Lymphatic: No Adenopathy PM&R Medical Assessment & Plan REHAB/MEDICAL ASSESSMENT AND PLAN: REHAB IMPAIRMENT GROUP: CHF myopathy ETIOLOGIC DIAGNOSIS: CHF myopathy with A-fib with RVR requiring pacemaker placement due to cardiac pauses The comorbidities that impact the patients function and/or functional outcome by: advanced age, severe weakness, new onset arrhythmia, new pacemaker placement, fall risk REHAB PLAN: The patient is being admitted to our comprehensive inpatient rehabilitation facility and can tolerate the intensity of service consisting of at least: 180 minutes of therapy a day, 5 out of 7 days a week Rehab treatment will consist of: PT and OT will focus on regaining function with use of assistive devices in order to increase stamina with ambulation and prevent falls and increased independence in ADLs The patient/family has a good understanding of our discharge process and will benefit from an interdisciplinary inpatient rehabilitation program. The patient has potential to make improvement and is in need of at least two of the following multidisciplinary therapies including but not limited to physical, occupational, speech, and prosthetics and orthotics. Additionally the patient will need services from respiratory, nutritional services, wound care, psychology, etc. (Customize this to each patient). Given the patients complex condition and risk of further medical complications, rehabilitation services cannot be safely or effectively provided at a lower level of care such as a longterm facility. BARRIERS TO DISCHARGE: severe weakness and lives alone ESTIMATED LOS: 7 days DISPOSITION: home with home care RELEVANT CHANGES SINCE PREADMISSION SCREENING: I have compared the patients medical and functional status at the time of the preadmission screening and there are: no changes PROGNOSIS: good REHABILITATION GOALS: 1. PT and OT will focus on regaining function with use of assistive devices in order to increase stamina with ambulation and prevent falls and increased independence in ADLs All the above goals were reviewed with the patient and he/she is in agreement. By signing this document, I acknowledge that I have personally performed a full physical examination on this patient within 24 hours of admission to this inpatient rehabilitation facility and have determined the patient to be able to tolerate the above course of treatment at an intensive level for a reasonable period of time. I will be completing a detailed individualized Plan of Care for this patient by day #4 of the patients stay based upon the Preadmission Screen, the Post-Admission Evaluation, and the therapy evaluations. Admission Dx/Comorbidities: (1) Myopathy ICD Codes: G72.9 - Myopathy, unspecified (2) Atrial fibrillation Status: Acute ICD Codes: I48.91 - Unspecified atrial fibrillation (3) COPD (chronic obstructive pulmonary disease) Status: Chronic ICD Codes: J44.9 - Chronic obstructive pulmonary disease, unspecified (4) New onset a-fib ICD Codes: I48.91 - Unspecified atrial fibrillation Assessment/Plan Assessment and Plan Assess & Plan/Chief Complaint Assessment: CHF myopathy Recent pacemaker placement due to cardiac pauses New onset atrial fibrillation with RVR with difficult to control rate COPD Cough Wheezing History of thyroid cancer Neuropathy Fall risk Advanced age Plan: Restart home meds Oral anticoagulation Telemetry Cardiology evaluation Aggressive rehab LAMBERT BROOKS DO Jan 23, 2023 18:59
[2023-01-23] MEDS ORDERED: ANTACID SUSPENSION 30 ML UDC PO PRN (19:00)
[2023-01-23] MEDS ORDERED: diphenhydrAMINE INJ 50 MG/ML VIAL IVP PRN (19:00)
[2023-01-23] MEDS ORDERED: PATIENT MAY USE OWN MEDS, ALL PO SCH (19:00)
[2023-01-23] MEDS ORDERED: polyethylene glycoL POWDER 17 GM (MIRALAX) PACK PO PRN (19:00)
[2023-01-23] MEDS ORDERED: MILK OF MAGNESIA 400 MG/5 ML 30 ML UDC PO PRN (19:00)
[2023-01-23] MEDS ORDERED: ONDANSETRON 4 MG/2 ML (SDV) Z0FRAN IV PRN (19:00)
[2023-01-23 20:35] VITALS: BP 124/58
[2023-01-23] MEDS: DOCUSATE SODIUM 100 MG CAPSULE PO SCH (20:42)
[2023-01-23] MEDS: SENNOSIDES 8.6 MG (SENOKOT) TAB PO SCH (20:42)
[2023-01-23] MEDS: polyethylene glycoL POWDER 17 GM (MIRALAX) PACK PO SCH (20:42)
[2023-01-23] MEDS: APIXABAN 5 MG TABLET PO SCH (20:47)
[2023-01-23] MEDS: DRONEDARONE 400 MG TABLET PO SCH (20:47)
[2023-01-23] MEDS ORDERED: SENNA W/DOCUSATE (SENOKOT S) TABLET PO SCH (21:00)
[2023-01-23] MEDS ORDERED: DOCUSATE SODIUM 100 MG CAPSULE PO SCH (21:00)
[2023-01-23] MEDS: RT-IPRATROPIUM NEBS 0.5 MG/2.5 ML IH SCH (21:12)
[2023-01-24 05:33] LABS: BASOPHILS % (AUTO) 1 % (0-10); EOSINOPHILS # (AUTO) 0.3 10^3/uL (0.0-0.3); EOSINOPHILS % (AUTO) 5 % (0-10); HEMATOCRIT 36 % (35-52); HEMOGLOBIN 12.1 g/dL (11.5-16.0); LYMPHOCYTES # (AUTO) 2.2 10^3/uL (1.0-4.0); LYMPHOCYTES % (AUTO) 41 % (12-44); MEAN CORPUSCULAR HEMOGLOBIN 31 pg (25-34); MEAN CORPUSCULAR HGB CONC 34 g/dL (32-36); MEAN CORPUSCULAR VOLUME 91 fL (80-99); MEAN PLATELET VOLUME 10.4 fL (9.0-12.2); MONOCYTES # (AUTO) 0.4 10^3/uL (0.0-1.0); MONOCYTES % (AUTO) 8 % (0-12); NEUTROPHILS # (AUTO) 2.4 10^3/uL (1.8-7.8); NEUTROPHILS % (AUTO) 45 % (42-75); PLATELET COUNT 152 10^3/uL (130-400); WHITE BLOOD COUNT 5.3 10^3/uL (4.3-11.0)
[2023-01-24 06:06] LABS: ALBUMIN 3.1 GM/DL (3.2-4.5); BILIRUBIN,TOTAL 0.4 MG/DL (0.1-1.0); CALCIUM 9.3 MG/DL (8.5-10.1); CREATININE SERUM 0.71 MG/DL (0.60-1.30); POTASSIUM 4.1 MMOL/L (3.6-5.0); TOTAL PROTEIN 5.5 GM/DL (6.4-8.2)
[2023-01-24] MEDS: LEVOTHYROXINE 150 MCG TABLET PO SCH (06:22)
--- NOTE | 2023-01-24 06:24 | PM&R Progress Note ---
Subjective HPI/CC On Admission Date Seen by Provider: Jan 24, 2023 Time Seen by Provider: 09:00 Subjective/Events-last exam 01/24/2023: Patient doing much better No pain Less short of breath Ambulating around much better Very weak Review of Systems General: Fatigue, Malaise Neurological: Weakness Objective Exam Vital Signs Vital Signs Date Time Temp Pulse Resp B/P (MAP) Pulse Ox O2 Delivery O2 Flow Rate FiO2 01/25/23 01:00 70 01/24/23 21:20 94 Room Air 01/24/23 20:58 36.3 18 120/69 (86) Capillary Refill : General Appearance: No Apparent Distress, WD/WN, Chronically ill HEENT: PERRL/EOMI, Normal ENT Inspection, Pharynx Normal Neck: Full Range of Motion, Normal Inspection, Non Tender, Supple, Carotid Bru it Respiratory: Chest Non Tender, No Accessory Muscle Use, No Respiratory Dist ress, Decreased Breath Sounds, Wheezing Cardiovascular: Regular Rate, Rhythm, No Edema, No Gallop, No JVD, No Murmur, Normal Peripheral Pulses Gastrointestinal: Normal Bowel Sounds, No Organomegaly, No Pulsatile Mass, Non Tender, Soft Back: Normal Inspection, No CVA Tenderness, No Vertebral Tenderness Extremity: Normal Capillary Refill, Normal Inspection, Normal Range of Motion, Non Tender, No Calf Tenderness, No Pedal Edema Neurologic/Psychiatric: Alert, Oriented x3, scow hand II-XII Norm as Tested, Abnormal Gait, Depressed Affect, Motor Weakness (Generalized 3/5) Skin: Normal Color, Warm/Dry Lymphatic: No Adenopathy Results/Procedures Lab Laboratory Tests 01/24/23 05:19 Patient resulted labs reviewed. FIM Transfers Therapy Code Descriptions/Definitions Functional [place] Measure: 0=Not Assessed/NA 4=Minimal Assistance 1=Total Assistance 5=Supervision or Setup 2=Maximal Assistance 6=Modified [place] 3=Moderate Assistance 7=Complete IndependenceSCALE: Activities may be completed with or without assistive devices. 1-Bwycryfuks-tximmbe completes the activity by him/herself with no assistance from a helper. 5-Set-up or Clean-up Assistance-helper sets up or cleans up; patient completes activity. [place] assists only prior to or following the activity. 4-Supervision or Touching Assistance-helper provides verbal cues and/or touching/steadying and/or contact guard assistance as patient completes activity. Assistance may be provided throughout the activity or intermittently. 3-Partial/Moderate Assistance-helper does LESS THAN HALF the effort. [place] lifts, holds or supports trunk or limbs, but provides less than half the effort. 2-Substantial/Maximal Assistance-helper does MORE THAN HALF the effort. [place] lifts or holds trunk or limbs and provides more than half the effort. 0-Xtwjwwlxq-cvqlaj does ALL the effort. Patient does none of the effort to complete the activity. Or, the assistance of 2 or more helpers is required for the patient to complete the activity. If activity was not attempted, code reason: 7-Patient Refused. 9-Not Applicable-not attempted and the patient did not perform the activity before the current illness, exacerbation or injury. 10-Not Attempted due to Environmental Limitations-(lack of equipment, weather restraints, etc.). 88-Not Attempted due to Medical Conditions or Safety Concerns. Roll Left to Right (QC): 4 (SBA ) Sit to Lying (QC): 5 Sit to Stand (QC): 5 Chair/Qej-pu-Qixyp Xfer(QC): 4 (CGA ) Car Transfer (QC): 3 (Min A) Gait Training Does the Patient Walk?: Yes Distance: 15' x2 Walk 10 feet (QC): 5 Walk 50 ft with 2 Turns(QC): 4 (CGA ) Walk 150 ft (QC): 4 (CGA ) Walking 10ft/uneven surface-QC: 3 (Min A for balance ) Gait Assistive Device: Cane Single Point Wheelchair Training Does the Pt Use a Wheelchair?: No Wheel 50 ft with 2 turns (QC): 9 Wheel 150 ft (QC): 9 Type of Wheelchair: N/A Stair Training #of Steps: 4 1 Step (curb) (QC): 3 (Min A ) 4 Steps (QC): 3 (Min A ) 12 Steps (QC): 88 Balance Picking up an Object (QC): 4 (CGA with dry ice maker ) ADL-Treatment Eating (QC): 6 Oral Hygiene (QC): 4 Shower/Bathe Self (QC): 3 Upper Body Dressing (QC): 3 Lower Body Dressing (QC): 3 On/Off Footwear (QC): 5 Toileting Hygiene (QC): 4 Toilet Transfer (QC): 4 Assessment/Plan Assessment and Plan Assess & Plan/Chief Complaint Assessment: CHF myopathy Recent pacemaker placement due to cardiac pauses New onset atrial fibrillation with RVR with difficult to control rate COPD Cough Wheezing History of thyroid cancer Neuropathy Fall risk Advanced age Plan: Restart home meds Oral anticoagulation Telemetry Cardiology evaluation Aggressive rehab 01/24/2023: Continue telemetry Continue aggressive rehab (1) Myopathy (2) Atrial fibrillation Status: Acute (3) COPD (chronic obstructive pulmonary disease) Status: Chronic (4) New onset a-fib LAMBERT BROOKS DO Jan 24, 2023 06:24
--- NOTE | 2023-01-24 06:24 | Individualized Plan of Care ---
Individualized Plan of Care Rehab Nursing IPOC Order Admission Date Jan 23, 2023 at 13:50 Current Orders Orders Admission Order(Inpt,Obs,Sdc) (01/23/23 12:36) Vital Signs: Per Unit Policy ( 08,16,00 (01/23/23 12:36) Barrera Dutton ,21 (01/23/23 12:36) Sequential Compression Device [id number] (01/23/23 12:36) Mailing Specialist-Inpt Rehab Con (01/23/23 12:36) Rehab Nursing Orders-Ipoc (01/23/23 12:36) Physical Therapy Rehab Orders (01/23/23 12:36) Occupational Therapy Rehab Ord (01/23/23 12:36) Speech Therapy Rehab Orders (01/23/23 12:36) Cbc With Automated Diff (01/24/23 06:00) Comprehensive Metabolic Panel (01/24/23 06:00) Precautions (Aru) (01/23/23 12:36) Weekly Weight WEEK (01/23/23 12:36) Rehab-Intensity Of Therapy (01/23/23 12:36) Initiate Admission Nursing Pro .admission (01/23/23 12:36) Alprazolam Tablet (Alprazolam Tablet) (01/23/23 12:45) Calcium Carbonate Chew Tablet (Calcium C (01/23/23 12:45) Diphenhydramine Tablet (Diphenhydramine (01/23/23 12:45) Docusate Sodium Capsule (Docusate Sodium (01/23/23 21:00) Docusate Sodium Capsule (Docusate Sodium (01/23/23 12:45) Bisacodyl Suppository (Bisacodyl Supposi (01/23/23 12:45) Lactulose Oral Solution (Enulose Oral So (01/23/23 12:45) Na Phos/Na Biphos Adult Enema (Na Phos/N (01/23/23 12:45) Guaifenesin/Codeine Syrup (Guaifenesin/C (01/23/23 12:45) Loperamide Tablet (Imodium Tablet) (01/23/23 12:45) Melatonin Tablet (Melatonin Tablet) (01/23/23 12:45) Polyethylene Glycol Powder Pkt (Miralax (01/23/23 21:00) Ondansetron Oral Dissolve Tab (Zofran (01/23/23 12:45) Senna S Tablet (Senokot S Tablet) (01/23/23 21:00) Acetaminophen Tablet (Acetaminophen Ta (01/23/23 12:45) Initiate Admission Nursing Pro .admission (01/23/23 12:36) Telemetry (01/23/23 12:37) Telemetry Nursing Assessment ( (01/23/23 12:37) Admission Arrival Bed Request (01/23/23 13:51) Patient Visit (01/23/23 ) Pt Eval Moderate Complexity (01/23/23 ) Patient Visit (01/23/23 ) Functional Activities, Ea 15 (01/23/23 ) Exercise Therap, Ea 15 Min (01/23/23 ) Incentive Spirometry (Nursing) Q2H (01/23/23 17:14) Code/Resuscitation (01/23/23 18:59) Sodium 2g (2000 Mg) (01/23/23 Dinner) Apixaban Tablet (Apixaban Tablet) (01/23/23 21:00) Diphenhydramine Injection (Diphenhydram (01/23/23 19:00) Diphenhydramine Tablet (Diphenhydramine (01/23/23 19:00) Docusate Sodium Capsule (Docusate Sodium (01/23/23 21:00) Dronedarone Tablet (Dronedarone Tablet) (01/23/23 21:00) Bisacodyl Suppository (Bisacodyl Supposi (01/23/23 19:00) Lactulose Oral Solution (Enulose Oral So (01/23/23 19:00) Hydroxychloroquine Sulfate (Plaquenil) (01/24/23 08:00) Ipratropium 0.02% Neb Solution (Atrovent (01/23/23 21:00) Levothyroxine Tablet (Synthroid Tablet) (01/24/23 06:30) Melatonin Tablet (Melatonin Tablet) (01/23/23 19:00) Magnesium Hydroxide Oral Susp (Mom Oral (01/23/23 19:00) Polyethylene Glycol Powder Pkt (Miralax (01/23/23 19:00) Montelukast Tablet (Singulair Tablet) (01/24/23 09:00) Antacid Suspension (Mylanta Suspension (01/23/23 19:00) Patient May Use Own Meds, All (Patient M (01/23/23 19:00) Sennosides Tablet (Senokot Tablet) (01/23/23 21:00) Calcium Carbonate Chew Tablet (Calcium C (01/23/23 19:00) Acetaminophen Tablet (Acetaminophen Ta (01/23/23 19:00) Ondansetron Injection (Zofran Injectio (01/23/23 19:00) Ondansetron Oral Dissolve Tab (Zofran (01/23/23 19:00) Diltiazem Er 24 Hr Capsule (Diltiazem Er (01/24/23 09:00) Guaifenesin/Dm Syrup (Guaifenesin/Dm Syr (01/23/23 19:00) Consult Cardiology (01/23/23 18:59) Patient Visit (01/24/23 ) Gait Training, Ea 15 Min (01/24/23 ) Exercise Therap, Ea 15 Min (01/24/23 ) Functional Activities, Ea 15 (01/24/23 ) Rehab Nursing Orders: Ongoing Assess. of Cognitive Status, Ongoing Assess. of Function Status, Bladder Management, Bladder Scan, Bladder Training, Bowel Management, Bowel Training, Disease Management & Educaiton, DVT Prophylaxis, Fall Prevention, Fluid/Electrolyte/Nutrition Mgmt, Infection Prevention, Medication Management & Education, Management of Risks & Complications, Management of Skin Intergrity, Nutrition Management, Pain Management, Patient/Family Support, Safety Management Intensity of Therapy to be met Patient to be seen: Min.3h per day/5 of 7d PT IPOC Problem List: Activity Tolerance Treatment Plan: Continue Plan of Care Bed Mobility, Concurrent Therapy, Education, Functional Activity Mulu, Functional Strength, Group Therapy, Gait, Safety, Therapeutic Exercise, Transfers Treatment Duration: Feb 02, 2023 Frequency: At least 5 of 7 days/Wk (IRF) Estimated Hrs Per Day: 2 hours per day OT IPOC Problems: Decreased Activ Tolerance, Decreased UE Strength, Impaired Funct Balance, Impaired Self-Care Skills, Restricted Funct UE ROM OT Treatment, Training and Edu: Yes Plan of Care: ADL Retraining, Concurrent Therapy, Functional Mobility, Group Exercise/Act as Ind, UE Funct Exercise/Act Treatment Duration: Feb 01, 2023 Frequency: At least 5 of 7 days/Wk (IRF) Estimated Hrs Per Day: 1 hour per day (up to 60 minutes less than 130 minutes) ST IPOC Speech Therapy Treatment Plan: Discontinue ST Treatment Duration: Jan 24, 2023 Frequency: Modified Program (IRF) Estimated Hrs Per Day: Other Mailing Specialist/Case Mgmt Mailing Specialist/Case Managemen: Discharge Planning Dietitian/Cash Management Coordinator Dietitian/Cash Management Coordinator to monitor nutritional status and make changes and/or recommendations as needed and work with speech pathology on dietary upgrades as the occur. Physician IPOC Medical Issues being managed closely and that require the 24 hour availability of a physician: Recent new onset A-fib requiring multiple medication changes along with pacemaker for cardiac pauses will require close monitoring on telemetry with cardiology consultation Medical Issues: Bowel/Bladder Function, DVT Prophylaxis, Falls Precautions, Fluid/Electrolyte/Nutrition Balance, Infection Protection, Pain Management Brief Synthesis of Preadmission Screen, Post-Admission Evaluation, and Therapy Evaluations: PT and OT will focus on regaining function with assistive devices to increase ambulation and increase ADLs in order to go home and live alone Medical Prognosis: Good Anticipated Length of Stay: 7 days LAMBERT BROOKS DO Jan 24, 2023 06:24
[2023-01-24 07:01] VITALS: BP 104/53
[2023-01-24] MEDS: DRONEDARONE 400 MG TABLET PO SCH ×2 (08:07→21:11)
[2023-01-24] MEDS: MONTELUKAST 10 MG TABLET PO SCH (08:07)
[2023-01-24] MEDS: dilTIAZem ER 240 MG CAPSULE PO SCH (08:07)
[2023-01-24] MEDS: HYDROXYCHLOROQUINE 200 MG TABLET PO SCH (08:07)
[2023-01-24] MEDS: APIXABAN 5 MG TABLET PO SCH ×2 (08:07→21:11)
[2023-01-24] MEDS: RT-IPRATROPIUM NEBS 0.5 MG/2.5 ML IH SCH ×2 (08:13→20:43)
[2023-01-24] MEDS: DOCUSATE SODIUM 100 MG CAPSULE PO SCH ×2 (08:17→21:15)
[2023-01-24] MEDS: polyethylene glycoL POWDER 17 GM (MIRALAX) PACK PO SCH ×2 (08:17→21:15)
[2023-01-24] MEDS: SENNOSIDES 8.6 MG (SENOKOT) TAB PO SCH ×2 (08:17→21:15)
--- NOTE | 2023-01-24 09:50 | Physical Therapy Daily Note ---
PT Daily Note-Current Subjective Pt sitting in recliner upon arrival. Pt reports sleeping well and has no pain. Pt agrees to PT. Pain Location: No Pain Reported Section J - Health Conditions 1. Rarely or not at all 2. Occasionally 3. Frequently 4. Almost constantly 8. Unable to answer Pain Effect on Sleep: 1 Pain Interference with Therapy: 1 Pain Interference w/Day-to-Day: 1 Mental Status Patient Orientation: Person, Place, Time, Situation Attachments: Other-See Comments (Telemetry), IV Transfers SCALE: Activities may be completed with or without assistive devices. 0-Gehqemzmzk-erphoom completes the activity by him/herself with no assistance from a helper. 5-Set-up or Clean-up Assistance-helper sets up or cleans up; patient completes activity. [place] assists only prior to or following the activity. 4-Supervision or Touching Assistance-helper provides verbal cues and/or touching/steadying and/or contact guard assistance as patient completes activity. Assistance may be provided throughout the activity or intermittently. 3-Partial/Moderate Assistance-helper does LESS THAN HALF the effort. [place] lifts, holds or supports trunk or limbs, but provides less than half the effort. 2-Substantial/Maximal Assistance-helper does MORE THAN HALF the effort. [place] lifts or holds trunk or limbs and provides more than half the effort. 9-Jhjpksuxb-jxkiyf does ALL the effort. Patient does none of the effort to complete the activity. Or, the assistance of 2 or more helpers is required for the patient to complete the activity. If activity was not attempted, code reason: 7-Patient Refused. 9-Not Applicable-not attempted and the patient did not perform the activity before the current illness, exacerbation or injury. 10-Not Attempted due to Environmental Limitations-(lack of equipment, weather restraints, etc.). 88-Not Attempted due to Medical Conditions or Safety Concerns. Sit to Stand (QC): 5 Weight Bearing Right Lower Extremity: Right Full Weight Bearing Left Lower Extremity: Left Full Weight Bearing Gait Training Does the Patient Walk?: Yes Distance: 60', 250' Walk 10 feet (QC): 4 Walk 50 ft with 2 Turns(QC): 4 Walk 150 ft (QC): 4 Gait Persons Needed: 1 Gait Assistive Device: Cane Single Point Wheelchair Training Does the Pt Use a Wheelchair?: No Exercises Seated Therapy Exercises: Ankle pumps, Long arc quads, Hip flexion, Hamstring Curls, Hip abd/add, Glut set Seated Reps: 15 NuStep Minutes: 15 NuStep Workload: 3 Treatments Discusses how ARU works and what POC will look like, how to make progress for d/c to home. Declines need for BR. TF to standing and amb in hallway. Pt uses NuStep followed by short RB. Pt completes Seated Ex on written HEP followed by demo. on Supine Ex from HEP. Pt amb longer distance in hallway before returning to room to rest in recliner. Pt declined need for BR. All needs met, call light in hand. Assessment Current Status: Good Progress Pt is gaining strength and act. margoth. with mobility. PT Facilities Coordinator Goals Group Home Goals PT Group Home Goals Time Frame: Feb 02, 2023 Roll Left & Right (QC): 6 (Pt will be Mod I with all aspects of functional mobility with SPC, in order to safely return home. ) Sit to Lying (QC): 6 (Pt will be Mod I with all aspects of functional mobility with SPC, in order to safely return home. ) Lying-Sitting on Side/Bed(QC): 6 (Pt will be Mod I with all aspects of functional mobility with SPC, in order to safely return home. ) Sit to Stand (QC): 6 (Pt will be Mod I with all aspects of functional mobility with SPC, in order to safely return home. ) Chair/Lzh-oz-Ganxu Xfer(QC): 6 (Pt will be Mod I with all aspects of functional mobility with SPC, in order to safely return home. ) Toilet Transfer (QC): 6 (Pt will be Mod I with all aspects of functional mobility with SPC, in order to safely return home. ) Car Transfer (QC): 6 (Pt will be Mod I with all aspects of functional mobility with SPC, in order to safely return home. ) Does the Patient Walk: Yes Walk 10 feet (QC): 6 (Pt will be Mod I with all aspects of functional mobility with SPC, in order to safely return home. ) Walk 50ft with 2 Turns (QC): 6 (Pt will be Mod I with all aspects of functional mobility with SPC, in order to safely return home. ) Walk 150 ft (QC): 6 (Pt will be Mod I with all aspects of functional mobility with SPC, in order to safely return home. ) Walking 10ft on Uneven Surface: 6 (Pt will be Mod I with all aspects of functional mobility with SPC, in order to safely return home. ) 1 Step (curb) (QC): 6 (Pt will be Mod I with all aspects of functional mobility with SPC, in order to safely return home. ) 4 Steps (QC): 6 (Pt will be Mod I with all aspects of functional mobility with SPC, in order to safely return home. ) 12 Steps (QC): 6 (Pt will be Mod I with all aspects of functional mobility with SPC, in order to safely return home. ) Picking up an Object (QC): 6 (Pt will be Mod I with all aspects of functional mobility with SPC, in order to safely return home. ) Does the Pt use WC or Scooter?: No Wheel 50 feet with 2 turns (QC: 9 Type: N/A Wheel 150 feet: 9 Type: N/A PT Plan Problem List Problem List: Activity Tolerance, Functional Strength Treatment/Plan Treatment Plan: Continue Plan of Care Treatment Plan: Bed Mobility, Concurrent Therapy, Education, Functional Activity Mulu, Functional Strength, Group Therapy, Gait, Safety, Therapeutic Exercise, Transfers Treatment Duration: Feb 02, 2023 Frequency: At least 5 of 7 days/Wk (IRF) Estimated Hrs Per Day: 2 hours per day Patient and/or Family Agrees t: Yes Safety Risks/Education Patient Education: Gait Training, Issued Written HEP, Correct Positioning, Safety Issues Teaching Recipient: Patient Teaching Methods: Demonstration, Discussion Response to Teaching: Verbalize Understanding, Return Demonstration Time Time In: 800 Time Out: 930 DATE: Jan 24, 2023 Total Billed Treatment Time: 90 Total Billed Treatment 1, GT x2 (30m), EX x3 (45m) & FA (15m) CURTIS SMITH HIDE BUFFER Jan 24, 2023 09:50
--- NOTE | 2023-01-24 11:57 | Occupational Ther Daily Note ---
OT Current Status-Daily Note Subjective Pt alert, sitting in recliner. Pt agrees to therapy. Pt c/o fatigue, no pain. Mental Status/Objective Patient Orientation: Person, Place, Time, Situation Attachments: IV, Telemetry ADL-Treatment Pt declines shower. Agrees to complete oral care standing at sink independently. Therapy Code Descriptions/Definitions Functional [place] Measure: 0=Not Assessed/NA 4=Minimal Assistance 1=Total Assistance 5=Supervision or Setup 2=Maximal Assistance 6=Modified [place] 3=Moderate Assistance 7=Complete IndependenceSCALE: Activities may be completed with or without assistive devices. 4-Jpzzcmnekb-kyoncei completes the activity by him/herself with no assistance from a helper. 5-Set-up or Clean-up Assistance-helper sets up or cleans up; patient completes activity. [place] assists only prior to or following the activity. 4-Supervision or Touching Assistance-helper provides verbal cues and/or touching/steadying and/or contact guard assistance as patient completes activity. Assistance may be provided throughout the activity or intermittently. 3-Partial/Moderate Assistance-helper does LESS THAN HALF the effort. [place] lifts, holds or supports trunk or limbs, but provides less than half the effort. 2-Substantial/Maximal Assistance-helper does MORE THAN HALF the effort. [place] lifts or holds trunk or limbs and provides more than half the effort. 3-Asucsqdzu-dmxnoo does ALL the effort. Patient does none of the effort to complete the activity. Or, the assistance of 2 or more helpers is required for the patient to complete the activity. If activity was not attempted, code reason: 7-Patient Refused. 9-Not Applicable-not attempted and the patient did not perform the activity before the current illness, exacerbation or injury. 10-Not Attempted due to Environmental Limitations-(lack of equipment, weather restraints, etc.). 88-Not Attempted due to Medical Conditions or Safety Concerns. Oral Hygiene (QC): 6 Other Treatment Pt adheres to pacemaker precautions with L UE. Pt does complete task slowly and takes recovery breaks when needed for energy conservation. Pt ambulated around ARU prior to going to gym using SPC with CGA. Skilled instruction for B UE strengthening for correct technique and modifications due to pacemaker precautions. Pt completed wrist flex/ext/uln and rad deviation using 1# wt 3 sets 10 reps. Light resistance theraband exercises with R UE only to increase strength for daily functional tasks, 2 sets 10 reps 4 exercises. Bicep curls with L UE using 1# wt, 2 sets 10 reps. Pt educated then demonstrated tub transfer bench transfer into tub/shower, CGA for safety. Discussed energy conservation techniques for home environment. Pt verbalized understanding by giving own strategies used at home. Pt then completed pinch/director of corporate responsibility exercises with medium resistance therapy sponge sitting in room recliner. After session, pt sitting in recliner with call light/phone in reach. All needs met in room. OT Short Term Goals Short Term Goals Time Frame: Jan 26, 2023 Eatin Oral hygiene: 6 Toileting hygiene: 6 OT Skilled Nursing Goals Skilled Nursing Goals Acute change in mental status: 0 Inattention: 0 Disorganized thinkin Altered level of consciousness: 0 Eating (QC): 6 Oral Hygiene (QC): 6 Toileting Hygiene (QC): 6 Shower/Bathe Self (QC): 6 Upper Body Dressing (QC): 6 Lower Body Dressing (QC): 6 On/Off Footwear (QC): 6 1=Demonstrate adherence to instructed precautions during ADL tasks. 2=Patient will verbalize/demonstrate understanding of assistive devices/modifications for ADL. 3=Patient will improve strength/tolerance for activity to enable patient to perform ADL's. OT Education/Plan Problem List/Assessment Assessment: Decreased Activ Tolerance, Decreased UE Strength, Impaired Funct Balance, Impaired Self-Care Skills, Restricted Funct UE ROM Discharge Recommendations Plan/Recommendations: Continue POC Treatment Plan/Plan of Care Patient would benefit from OT for education, treatment and training to promote independence in ADL's, mobility, safety and/or upper extremity function for ADL's. Plan of Care: ADL Retraining, Concurrent Therapy, Functional Mobility, Group Exercise/Act as Ind, UE Funct Exercise/Act Treatment Duration: Feb 01, 2023 Frequency: At least 5 of 7 days/Wk (IRF) Estimated Hrs Per Day: 1 hour per day (up to 60 minutes less than 130 minutes) Agreement: Yes Rehab Potential: Good Time Start Time: 10:30 Stop Time: 12:00 DATE: Jan 24, 2023 Total Time Billed (hr/min): 90 Billed Treatment Time 1 visit-ADL 1 (20 min) FA 3 (40 min) EX 2 (30 min) PING PHILLIPS Jan 24, 2023 11:57
[2023-01-24] MEDS: ACETAMINOPHEN 325 MG TABLET PO PRN ×2 (15:15→21:11)
[2023-01-24 20:58] VITALS: BP 120/69
--- NOTE | 2023-01-25 05:35 | PM&R Progress Note ---
Subjective HPI/CC On Admission Date Seen by Provider: Jan 25, 2023 Time Seen by Provider: 13:00 Subjective/Events-last exam 01/25/2023: Patient doing really well Had an episode of lightheadedness and she did have an arrhythmia on telemetry but cardiology will evaluate No pain is reported 01/24/2023: Patient doing much better No pain Less short of breath Ambulating around much better Very weak Review of Systems General: Fatigue, Malaise Objective Exam Vital Signs Vital Signs Date Time Temp Pulse Resp B/P (MAP) Pulse Ox O2 Delivery O2 Flow Rate FiO2 01/25/23 13:18 71 01/25/23 09:56 94 Room Air 0.00 01/25/23 09:53 127/60 (82) 01/25/23 09:22 22 01/25/23 08:44 36.4 Capillary Refill : General Appearance: No Apparent Distress, WD/WN, Chronically ill HEENT: PERRL/EOMI, Normal ENT Inspection, Pharynx Normal Neck: Full Range of Motion, Normal Inspection, Non Tender, Supple, Carotid Bruit Respiratory: Chest Non Tender, No Accessory Muscle Use, No Respiratory Distress, Decreased Breath Sounds, Wheezing Cardiovascular: Regular Rate, Rhythm, No Edema, No Gallop, No JVD, No Murmur, Normal Peripheral Pulses Gastrointestinal: Normal Bowel Sounds, No Organomegaly, No Pulsatile Mass, Non Tender, Soft Back: Normal Inspection, No CVA Tenderness, No Vertebral Tenderness Extremity: Normal Capillary Refill, Normal Inspection, Normal Range of Motion, Non Tender, No Calf Tenderness, No Pedal Edema Neurologic/Psychiatric: Alert, Oriented x3, conductor/brakeman II-XII Norm as Tested, Abnormal Gait, Depressed Affect, Motor Weakness (Generalized 3/5) Skin: Normal Color, Warm/Dry Lymphatic: No Adenopathy Results/Procedures Lab Patient resulted labs reviewed. FIM Transfers Therapy Code Descriptions/Definitions Functional [place] Measure: 0=Not Assessed/NA 4=Minimal Assistance 1=Total Assistance 5=Supervision or Setup 2=Maximal Assistance 6=Modified [place] 3=Moderate Assistance 7=Complete IndependenceSCALE: Activities may be completed with or without assistive devices. 9-Anjwsxfkst-xpvbczv completes the activity by him/herself with no assistance from a helper. 5-Set-up or Clean-up Assistance-helper sets up or cleans up; patient completes activity. [place] assists only prior to or following the activity. 4-Supervision or Touching Assistance-helper provides verbal cues and/or touching/steadying and/or contact guard assistance as patient completes activity. Assistance may be provided throughout the activity or intermittently. 3-Partial/Moderate Assistance-helper does LESS THAN HALF the effort. [place] lifts, holds or supports trunk or limbs, but provides less than half the effort. 2-Substantial/Maximal Assistance-helper does MORE THAN HALF the effort. [place] lifts or holds trunk or limbs and provides more than half the effort. 8-Vauckskxp-xonszo does ALL the effort. Patient does none of the effort to complete the activity. Or, the assistance of 2 or more helpers is required for the patient to complete the activity. If activity was not attempted, code reason: 7-Patient Refused. 9-Not Applicable-not attempted and the patient did not perform the activity before the current illness, exacerbation or injury. 10-Not Attempted due to Environmental Limitations-(lack of equipment, weather restraints, etc.). 88-Not Attempted due to Medical Conditions or Safety Concerns. Roll Left to Right (QC): 4 (SBA ) Sit to Lying (QC): 5 Sit to Stand (QC): 5 Chair/Duk-dj-Uxehm Xfer(QC): 4 (CGA ) Car Transfer (QC): 3 (Min A) Gait Training Does the Patient Walk?: Yes Distance: 60', 250' Walk 10 feet (QC): 4 Walk 50 ft with 2 Turns(QC): 4 Walk 150 ft (QC): 4 Walking 10ft/uneven surface-QC: 3 (Min A for balance ) Gait Persons Needed: 1 Gait Assistive Device: Cane Single Point Wheelchair Training Does the Pt Use a Wheelchair?: No Wheel 50 ft with 2 turns (QC): 9 Wheel 150 ft (QC): 9 Type of Wheelchair: N/A Stair Training #of Steps: 4 1 Step (curb) (QC): 3 (Min A ) 4 Steps (QC): 3 (Min A ) 12 Steps (QC): 88 Balance Picking up an Object (QC): 4 (CGA with patent engineer ) ADL-Treatment Eating (QC): 6 Oral Hygiene (QC): 6 Shower/Bathe Self (QC): 3 Upper Body Dressing (QC): 3 Lower Body Dressing (QC): 3 On/Off Footwear (QC): 5 Toileting Hygiene (QC): 4 Toilet Transfer (QC): 4 Assessment/Plan Assessment and Plan Assess & Plan/Chief Complaint 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
[2023-01-25] MEDS: LEVOTHYROXINE 150 MCG TABLET PO SCH (06:06)
[2023-01-25 08:44] VITALS: BP 138/63
[2023-01-25 09:22] VITALS: BP 134/98
[2023-01-25] MEDS: HYDROXYCHLOROQUINE 200 MG TABLET PO SCH (09:35)
[2023-01-25] MEDS: MONTELUKAST 10 MG TABLET PO SCH (09:41)
[2023-01-25] MEDS: dilTIAZem ER 240 MG CAPSULE PO SCH (09:41)
[2023-01-25] MEDS: DRONEDARONE 400 MG TABLET PO SCH ×2 (09:41→20:20)
[2023-01-25] MEDS: APIXABAN 5 MG TABLET PO SCH ×2 (09:41→20:20)
[2023-01-25] MEDS: DOCUSATE SODIUM 100 MG CAPSULE PO SCH ×2 (09:48→21:00)
--- NOTE | 2023-01-25 09:48 | Physical Therapy Daily Note ---
PT Daily Note-Current Subjective Pt in recliner upon arrival and willing for therapy. pt reported no pain upon arrival. after pt ambulated to therapy gym pt stated a bit of chest pain. nursing reported HR of 150 from monitor technician. BP was taken 138/63. pt preformed nu step 5 mins at a time and rested 5 mins after each session with HR not exceeding 75 at all times during.after pt ambulated back to room form therapy gym pt was SOB and nursing was notified. nursing aided in getting pt in bed comfortably BP was taken at 134/98 HR was 72 SPo2 was 95. Pt was left in bed with call light in hand and nursing by bedside Pain Section J - Health Conditions 1. Rarely or not at all 2. Occasionally 3. Frequently 4. Almost constantly 8. Unable to answer Pain Effect on Sleep: 1 Pain Interference with Therapy: 1 Pain Interference w/Day-to-Day: 1 Transfers SCALE: Activities may be completed with or without assistive devices. 2-Txjjtsconk-adixobo completes the activity by him/herself with no assistance from a helper. 5-Set-up or Clean-up Assistance-helper sets up or cleans up; patient completes activity. [place] assists only prior to or following the activity. 4-Supervision or Touching Assistance-helper provides verbal cues and/or touching/steadying and/or contact guard assistance as patient completes activity. Assistance may be provided throughout the activity or intermittently. 3-Partial/Moderate Assistance-helper does LESS THAN HALF the effort. [place] lifts, holds or supports trunk or limbs, but provides less than half the effort. 2-Substantial/Maximal Assistance-helper does MORE THAN HALF the effort. [place] lifts or holds trunk or limbs and provides more than half the effort. 1-Tmclxmwoc-eylcms does ALL the effort. Patient does none of the effort to complete the activity. Or, the assistance of 2 or more helpers is required for the patient to complete the activity. If activity was not attempted, code reason: 7-Patient Refused. 9-Not Applicable-not attempted and the patient did not perform the activity before the current illness, exacerbation or injury. 10-Not Attempted due to Environmental Limitations-(lack of equipment, weather restraints, etc.). 88-Not Attempted due to Medical Conditions or Safety Concerns. Sit to Stand (QC): 4 Chair/Bat-oe-Ygtje Xfer(QC): 4 Weight Bearing Right Lower Extremity: Right Full Weight Bearing Left Lower Extremity: Left Full Weight Bearing Gait Training Walk 10 feet (QC): 4 Gait Assistive Device: Cane Single Point Exercises Supine Ex: Ankle pumps, Quad Set, Glut sets, Short Arc Quads, Hip abd/add Seated Therapy Exercises: Ankle pumps, Long arc quads, Hip flexion, Kicking activity, Hip abd/add, Glut set NuStep Minutes: 10 NuStep Workload: 1 Treatments Pt preformed there-ex with and without gravity in all planes of motion available with BLE with rest in between each activity. pt preformed 2 sets with and without gravity for 15 reps each. Pt preformed sit to stand transfer and ambulated aprox 60ft with SPC and CGA wit resting break after secodnary to SOB. pt preformed 5 min on Nu-step at level 1 and rest 5 mins, pt repeated 5 mins level one and resting 5 mins. Pt was able to ambulate aprox 60ft from therapy gym to bed in room with SPA and CGA. Assessment Current Status: Fair Progress PT Chcf Goals Cdl Bulk Driver Goals PT Cdl Bulk Driver Goals Time Frame: Feb 02, 2023 Roll Left & Right (QC): 6 (Pt will be Mod I with all aspects of functional mobi lity with SPC, in order to safely return home. ) Sit to Lying (QC): 6 (Pt will be Mod I with all aspects of functional mobility with SPC, in order to safely return home. ) Lying-Sitting on Side/Bed(QC): 6 (Pt will be Mod I with all aspects of functional mobility with SPC, in order to safely return home. ) Sit to Stand (QC): 6 (Pt will be Mod I with all aspects of functional mobility with SPC, in order to safely return home. ) Chair/Rud-go-Rxcnh Xfer(QC): 6 (Pt will be Mod I with all aspects of functional mobility with SPC, in order to safely return home. ) Toilet Transfer (QC): 6 (Pt will be Mod I with all aspects of functional mobility with SPC, in order to safely return home. ) Car Transfer (QC): 6 (Pt will be Mod I with all aspects of functional mobility with SPC, in order to safely return home. ) Does the Patient Walk: Yes Walk 10 feet (QC): 6 (Pt will be Mod I with all aspects of functional mobility with SPC, in order to safely return home. ) Walk 50ft with 2 Turns (QC): 6 (Pt will be Mod I with all aspects of functional mobility with SPC, in order to safely return home. ) Walk 150 ft (QC): 6 (Pt will be Mod I with all aspects of functional mobility with SPC, in order to safely return home. ) Walking 10ft on Uneven Surface: 6 (Pt will be Mod I with all aspects of funct ional mobility with SPC, in order to safely return home. ) 1 Step (curb) (QC): 6 (Pt will be Mod I with all aspects of functional mobility with SPC, in order to safely return home. ) 4 Steps (QC): 6 (Pt will be Mod I with all aspects of functional mobility with SPC, in order to safely return home. ) 12 Steps (QC): 6 (Pt will be Mod I with all aspects of functional mobility with SPC, in order to safely return home. ) Picking up an Object (QC): 6 (Pt will be Mod I with all aspects of functional mobility with SPC, in order to safely return home. ) Does the Pt use WC or Scooter?: No Wheel 50 feet with 2 turns (QC: 9 Type: N/A Wheel 150 feet: 9 Type: N/A PT Plan Treatment/Plan Treatment Plan: Continue Plan of Care Treatment Plan: Bed Mobility, Concurrent Therapy, Education, Functional Activity [place], Functional Strength, Group Therapy, Gait, Safety, Therapeutic Exercise, Transfers Treatment Duration: Feb 02, 2023 Frequency: At least 5 of 7 days/Wk (IRF) Estimated Hrs Per Day: 2 hours per day Patient and/or Family Agrees t: Yes Time Time In: 0800 Time Out: 929 DATE: Jan 25, 2023 Total Billed Treatment Time: 90 Total Billed Treatment 1 EX x 4 GT FA Cathi Maldonado MACHINE CLOTHING WORKER Jan 25, 2023 09:48
[2023-01-25] MEDS: SENNOSIDES 8.6 MG (SENOKOT) TAB PO SCH ×2 (09:49→21:00)
[2023-01-25] MEDS: polyethylene glycoL POWDER 17 GM (MIRALAX) PACK PO SCH ×2 (09:49→21:00)
[2023-01-25 09:52] VITALS: BP 142/65
[2023-01-25 09:53] VITALS: BP 127/60
[2023-01-25] MEDS: RT-IPRATROPIUM NEBS 0.5 MG/2.5 ML IH SCH ×2 (09:56→20:49)
--- NOTE | 2023-01-25 12:53 | Occupational Ther Daily Note ---
OT Current Status-Daily Note Subjective Pt alert, sitting in recliner. Pt states she feels better after earlier anxiety attack. Pt agrees to therapy. No c/o pain, discomfort at L upper trap area. Mental Status/Objective Patient Orientation: Person, Place, Time, Situation Attachments: IV, Telemetry ADL-Treatment Pt agrees to shower. SBA while pt ambulated to closet and gathered clothing. Using grabbars, hand held shower, LH sponge and shower bench pt completed shower after setup for covering surgical site and IV. Pt able to complete UBD by self. SBA for LBD. Set up for footwear. Independent with oral care. Therapy Code Descriptions/Definitions Functional [place] Measure: 0=Not Assessed/NA 4=Minimal Assistance 1=Total Assistance 5=Supervision or Setup 2=Maximal Assistance 6=Modified [place] 3=Moderate Assistance 7=Complete IndependenceSCALE: Activities may be completed with or without assistive devices. 2-Uwnigeyrsz-taohkbl completes the activity by him/herself with no assistance from a helper. 5-Set-up or Clean-up Assistance-helper sets up or cleans up; patient completes activity. [place] assists only prior to or following the activity. 4-Supervision or Touching Assistance-helper provides verbal cues and/or touching/steadying and/or contact guard assistance as patient completes act ivity. Assistance may be provided throughout the activity or intermittently. 3-Partial/Moderate Assistance-helper does LESS THAN HALF the effort. [place] lifts, holds or supports trunk or limbs, but provides less than half the effort. 2-Substantial/Maximal Assistance-helper does MORE THAN HALF the effort. [place] lifts or holds trunk or limbs and provides more than half the effort. 9-Ufdotkjfa-ggkgck does ALL the effort. Patient does none of the effort to complete the activity. Or, the assistance of 2 or more helpers is required for the patient to complete the activity. If activity was not attempted, code reason: 7-Patient Refused. 9-Not Applicable-not attempted and the patient did not perform the activity before the current illness, exacerbation or injury. 10-Not Attempted due to Environmental Limitations-(lack of equipment, weather restraints, etc.). 88-Not Attempted due to Medical Conditions or Safety Concerns. Eating (QC): 6 Oral Hygiene (QC): 6 Shower/Bathe Self (QC): 5 Upper Body Dressing (QC): 5 Lower Body Dressing (QC): 5 On/Off Footwear: 5 Toileting Hygiene (QC): 6 Toilet Transfer (QC): 6 Other Treatment Pt completed arm bike using R UE to increase activity tolerance for daily functional tasks, no resistance for 8 min. Theraputty to increase solar sales manager and pinch strength for daily tasks. After session, pt sitting in recliner with call light/phone in reach. All needs met. OT Short Term Goals Short Term Goals Time Frame: Jan 26, 2023 Eatin Oral hygiene: 6 Toileting hygiene: 6 OT Bucket Chucker Goals Intermediate Goals Acute change in mental status: 0 Inattention: 0 Disorganized thinkin Altered level of consciousness: 0 Eating (QC): 6 Oral Hygiene (QC): 6 Toileting Hygiene (QC): 6 Shower/Bathe Self (QC): 6 Upper Body Dressing (QC): 6 Lower Body Dressing (QC): 6 On/Off Footwear (QC): 6 1=Demonstrate adherence to instructed precautions during ADL tasks. 2=Patient will verbalize/demonstrate understanding of assistive devices/modifications for ADL. 3=Patient will improve strength/tolerance for activity to enable patient to perform ADL's. OT Education/Plan Problem List/Assessment Assessment: Decreased Activ Tolerance, Decreased UE Strength, Impaired Funct Balance, Impaired Self-Care Skills, Restricted Funct UE ROM Discharge Recommendations Plan/Recommendations: Continue POC Treatment Plan/Plan of Care Patient would benefit from OT for education, treatment and training to promote independence in ADL's, mobility, safety and/or upper extremity function for ADL's. Plan of Care: ADL Retraining, Concurrent Therapy, Functional Mobility, Group Exercise/Act as Ind, UE Funct Exercise/Act Treatment Duration: Feb 01, 2023 Frequency: At least 5 of 7 days/Wk (IRF) Estimated Hrs Per Day: 1 hour per day (up to 60 minutes less than 130 minutes) Agreement: Yes Rehab Potential: Good Time Start Time: 10:30 Stop Time: 12:00 DATE: Jan 25, 2023 Total Time Billed (hr/min): 90 Billed Treatment Time 1 visit-ADL 4 (60 min) EX 2 (30 min) PING PHILLIPS Jan 25, 2023 12:53
[2023-01-25] MEDS: ACETAMINOPHEN 325 MG TABLET PO PRN (20:20)
[2023-01-25 20:55] VITALS: BP 119/66
[2023-01-25] MEDS: ALPRAZolam 0.25 MG TABLET PO PRN (23:54)
--- NOTE | 2023-01-26 05:47 | PM&R Progress Note ---
Subjective HPI/CC On Admission Date Seen by Provider: Jan 26, 2023 Time Seen by Provider: 12:00 Subjective/Events-last exam 01/26/2023: Patient doing well Had another panic attack last night No falls Appreciate cardiology 01/25/2023: Patient doing really well Had an episode of lightheadedness and she did have an arrhythmia on telemetry but cardiology will evaluate No pain is reported 01/24/2023: Patient doing much better No pain Less short of breath Ambulating around much better Very weak Review of Systems General: Fatigue, Malaise Objective Exam Vital Signs Vital Signs Date Time Temp Pulse Resp B/P (MAP) Pulse Ox O2 Delivery O2 Flow Rate FiO2 01/26/23 19:28 36.3 73 22 113/55 (74) 94 Room Air 01/25/23 09:56 0.00 Capillary Refill : General Appearance: No Apparent Distress, WD/WN, Chronically ill HEENT: PERRL/EOMI, Normal ENT Inspection, Pharynx Normal Neck: Full Range of Motion, Normal Inspection, Non Tender, Supple, Carotid Bruit Respiratory: Chest Non Tender, No Accessory Muscle Use, No Respiratory Distress, Decreased Breath Sounds, Wheezing Cardiovascular: Regular Rate, Rhythm, No Edema, No Gallop, No JVD, No Murmur, Normal Peripheral Pulses Gastrointestinal: Normal Bowel Sounds, No Organomegaly, No Pulsatile Mass, Non Tender, Soft Back: Normal Inspection, No CVA Tenderness, No Vertebral Tenderness Extremity: Normal Capillary Refill, Normal Inspection, Normal Range of Motion, Non Tender, No Calf Tenderness, No Pedal Edema Neurologic/Psychiatric: Alert, Oriented x3, zoology professor II-XII Norm as Tested, Abnormal Gait, Depressed Affect, Motor Weakness (Generalized 3/5) Skin: Normal Color, Warm/Dry Lymphatic: No Adenopathy Results/Procedures Lab Patient resulted labs reviewed. FIM Transfers Therapy Code Descriptions/Definitions Functional [place] Measure: 0=Not Assessed/NA 4=Minimal Assistance 1=Total Assistance 5=Supervision or Setup 2=Maximal Assistance 6=Modified [place] 3=Moderate Assistance 7=Complete IndependenceSCALE: Activities may be completed with or without assistive devices. 4-Kknuouvtmn-iseklug completes the activity by him/herself with no assistance from a helper. 5-Set-up or Clean-up Assistance-helper sets up or cleans up; patient completes activity. [place] assists only prior to or following the activity. 4-Supervision or Touching Assistance-helper provides verbal cues and/or touching/steadying and/or contact guard assistance as patient completes activity. Assistance may be provided throughout the activity or intermittently. 3-Partial/Moderate Assistance-helper does LESS THAN HALF the effort. [place] lifts, holds or supports trunk or limbs, but provides less than half the effort. 2-Substantial/Maximal Assistance-helper does MORE THAN HALF the effort. [place] l ifts or holds trunk or limbs and provides more than half the effort. 3-Mmbmavqcg-ayiuag does ALL the effort. Patient does none of the effort to complete the activity. Or, the assistance of 2 or more helpers is required for the patient to complete the activity. If activity was not attempted, code reason: 7-Patient Refused. 9-Not Applicable-not attempted and the patient did not perform the activity before the current illness, exacerbation or injury. 10-Not Attempted due to Environmental Limitations-(lack of equipment, weather restraints, etc.). 88-Not Attempted due to Medical Conditions or Safety Concerns. Roll Left to Right (QC): 4 (SBA ) Sit to Lying (QC): 5 Sit to Stand (QC): 4 Chair/Dhy-ko-Mmcdc Xfer(QC): 4 Car Transfer (QC): 3 (Min A) Gait Training Does the Patient Walk?: Yes Distance: 60', 250' Walk 10 feet (QC): 4 Walk 50 ft with 2 Turns(QC): 4 Walk 150 ft (QC): 4 Walking 10ft/uneven surface-QC: 3 (Min A for balance ) Gait Persons Needed: 1 Gait Assistive Device: Cane Single Point Wheelchair Training Does the Pt Use a Wheelchair?: No Wheel 50 ft with 2 turns (QC): 9 Wheel 150 ft (QC): 9 Type of Wheelchair: Manual Stair Training #of Steps: 4 1 Step (curb) (QC): 3 (Min A ) 4 Steps (QC): 3 (Min A ) 12 Steps (QC): 88 Balance Picking up an Object (QC): 4 (CGA with vamp stitcher ) ADL-Treatment Eating (QC): 6 Oral Hygiene (QC): 6 Shower/Bathe Self (QC): 5 Upper Body Dressing (QC): 5 Lower Body Dressing (QC): 5 On/Off Footwear (QC): 5 Toileting Hygiene (QC): 6 Toilet Transfer (QC): 6 Assessment/Plan Assessment and Plan Assess & Plan/Chief Complaint 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
[2023-01-26] MEDS: LEVOTHYROXINE 150 MCG TABLET PO SCH (06:18)
[2023-01-26 07:10] VITALS: BP 117/57
[2023-01-26] MEDS: RT-IPRATROPIUM NEBS 0.5 MG/2.5 ML IH SCH ×2 (07:13→19:24)
--- NOTE | 2023-01-26 07:47 | Occupational Ther Daily Note ---
OT Current Status-Daily Note Subjective Pt alert, sitting in recliner. Pt agrees to therapy. Pt c/o upper shldr pain due to shldr elevation, movement completed to protect pacemaker site/movement. Discussed with nrsg K-pac or pain ointment. Mental Status/Objective Patient Orientation: Person, Place, Time, Situation Attachments: IV, Telemetry (pacemaker) ADL-Treatment Pt takes increased time to complete all tasks due to decreased stamina and lengthy recovery breaks. Pt declines shower. Independent with toileting. Using SPC, pt gathers clothing with supervision. Pt completes oral care/grooming and minimal sponge bath sitting at sink, independent. SBA for all dressing for safety and verbal cues to assist with maintaining pacemaker precautions with dressing when needed. Pt utilizes slip on shoes, independently. Therapy Code Descriptions/Definitions Functional [place] Measure: 0=Not Assessed/NA 4=Minimal Assistance 1=Total Assistance 5=Supervision or Setup 2=Maximal Assistance 6=Modified [place] 3=Moderate Assistance 7=Complete IndependenceSCALE: Activities may be completed with or without assistive devices. 8-Qdbldhxatb-evmrcny completes the activity by him/herself with no assistance from a helper. 5-Set-up or Clean-up Assistance-helper sets up or cleans up; patient completes activity. [place] assists only prior to or following the activity. 4-Supervision or Touching Assistance-helper provides verbal cues and/or touching/steadying and/or contact guard assistance as patient completes activity. Assistance may be provided throughout the activity or intermittently. 3-Partial/Moderate Assistance-helper does LESS THAN HALF the effort. [place] lifts, holds or supports trunk or limbs, but provides less than half the effort. 2-Substantial/Maximal Assistance-helper does MORE THAN HALF the effort. [place] lifts or holds trunk or limbs and provides more than half the effort. 2-Punltpzrs-kcvgma does ALL the effort. Patient does none of the effort to complete the activity. Or, the assistance of 2 or more helpers is required for the patient to complete the activity. If activity was not attempted, code reason: 7-Patient Refused. 9-Not Applicable-not attempted and the patient did not perform the activity before the current illness, exacerbation or injury. 10-Not Attempted due to Environmental Limitations-(lack of equipment, weather restraints, etc.). 88-Not Attempted due to Medical Conditions or Safety Concerns. Eating (QC): 6 Oral Hygiene (QC): 6 Upper Body Dressing (QC): 4 Lower Body Dressing (QC): 4 On/Off Footwear: 6 Toileting Hygiene (QC): 6 Toilet Transfer (QC): 6 Other Treatment Pt ambulated to therapy gym using SPC, supervision for safety. Pt completed B UE exercises to increase strength, stamina and maintain ROM for daily functional tasks. Skilled instruction provided for correct position and modification needed for pacemaker precautions. Pt used 2# wt for R UE and 1# wt for L UE, bicep/tricep exercises 2 sets 10 reps each, R shldr abd/add 2 sets 10 reps. Pt tolerated well. After session, pt sitting in recliner with call light/phone in reach. All needs met in room. Education OT Patient Education: Modified ADL techniques Teaching Recipient: Patient Teaching Methods: Demonstration, Discussion Response to Teaching: Verbalize Understanding, Return Demonstration OT Short Term Goals Short Term Goals Time Frame: Jan 26, 2023 Eatin Oral hygiene: 6 Toileting hygiene: 6 OT Shelter Goals Shelter Goals Acute change in mental status: 0 Inattention: 0 Disorganized thinkin Altered level of consciousness: 0 Eating (QC): 6 Oral Hygiene (QC): 6 Toileting Hygiene (QC): 6 Shower/Bathe Self (QC): 6 Upper Body Dressing (QC): 6 Lower Body Dressing (QC): 6 On/Off Footwear (QC): 6 1=Demonstrate adherence to instructed precautions during ADL tasks. 2=Patient will verbalize/demonstrate understanding of assistive devices/modifications for ADL. 3=Patient will improve strength/tolerance for activity to enable patient to perform ADL's. OT Education/Plan Problem List/Assessment Assessment: Decreased Activ Tolerance, Decreased UE Strength, Impaired Funct Balance, Impaired Self-Care Skills Discharge Recommendations Plan/Recommendations: Continue POC Treatment Plan/Plan of Care Patient would benefit from OT for education, treatment and training to promote independence in ADL's, mobility, safety and/or upper extremity function for ADL's. Plan of Care: ADL Retraining, Concurrent Therapy, Functional Mobility, Group Exercise/Act as Ind, UE Funct Exercise/Act Treatment Duration: Feb 01, 2023 Frequency: At least 5 of 7 days/Wk (IRF) Estimated Hrs Per Day: 1 hour per day (up to 60 minutes less than 130 minutes) Agreement: Yes Rehab Potential: Good Time Start Time: 07:30 Stop Time: 08:30 DATE: Jan 26, 2023 Total Time Billed (hr/min): 60 Billed Treatment Time 1 visit-ADL 2 (30 min) EX 2 (30 min) PING PHILLIPS Jan 26, 2023 07:47
[2023-01-26] MEDS: HYDROXYCHLOROQUINE 200 MG TABLET PO SCH (08:37)
[2023-01-26] MEDS: DRONEDARONE 400 MG TABLET PO SCH ×2 (08:37→21:11)
[2023-01-26] MEDS: dilTIAZem ER 240 MG CAPSULE PO SCH (08:37)
[2023-01-26] MEDS: MONTELUKAST 10 MG TABLET PO SCH (08:37)
[2023-01-26] MEDS: APIXABAN 5 MG TABLET PO SCH ×2 (08:38→21:10)
[2023-01-26] MEDS: SENNOSIDES 8.6 MG (SENOKOT) TAB PO SCH ×2 (08:41→21:10)
[2023-01-26] MEDS: polyethylene glycoL POWDER 17 GM (MIRALAX) PACK PO SCH ×2 (08:41→21:11)
[2023-01-26] MEDS: DOCUSATE SODIUM 100 MG CAPSULE PO SCH ×2 (08:41→21:11)
--- NOTE | 2023-01-26 09:53 | Physical Therapy Daily Note ---
PT Daily Note-Current Subjective Pt reports she is doing well this morning and is agreeable to PT. Denies pain. Pain Numeric Pain Scale: 0-No Pain Location: No Pain Reported Section J - Health Conditions 1. Rarely or not at all 2. Occasionally 3. Frequently 4. Almost constantly 8. Unable to answer Pain Effect on Sleep: 1 Pain Interference with Therapy: 1 Pain Interference w/Day-to-Day: 1 Mental Status Attachments: IV Transfers SCALE: Activities may be completed with or without assistive devices. 6-Elnkstghbz-utiuwwz completes the activity by him/herself with no assistance from a helper. 5-Set-up or Clean-up Assistance-helper sets up or cleans up; patient completes activity. [place] assists only prior to or following the activity. 4-Supervision or Touching Assistance-helper provides verbal cues and/or touching/steadying and/or contact guard assistance as patient completes activity. Assistance may be provided throughout the activity or intermittently. 3-Partial/Moderate Assistance-helper does LESS THAN HALF the effort. [place] lifts, holds or supports trunk or limbs, but provides less than half the effort. 2-Substantial/Maximal Assistance-helper does MORE THAN HALF the effort. [place] lifts or holds trunk or limbs and provides more than half the effort. 9-Xeerxjtin-ldmneq does ALL the effort. Patient does none of the effort to complete the activity. Or, the assistance of 2 or more helpers is required for the patient to complete the activity. If activity was not attempted, code reason: 7-Patient Refused. 9-Not Applicable-not attempted and the patient did not perform the activity before the current illness, exacerbation or injury. 10-Not Attempted due to Environmental Limitations-(lack of equipment, weather restraints, etc.). 88-Not Attempted due to Medical Conditions or Safety Concerns. Sit to Stand (QC): 4 Chair/Zha-dj-Yknam Xfer(QC): 4 Weight Bearing Right Lower Extremity: Right Full Weight Bearing Left Lower Extremity: Left Full Weight Bearing Gait Training Does the Patient Walk?: Yes Distance: 240ft x 2 Walk 10 feet (QC): 4 Walk 50 ft with 2 Turns(QC): 4 Walk 150 ft (QC): 4 Gait Persons Needed: 1 Gait Assistive Device: Cane Single Point Wheelchair Training Does the Pt Use a Wheelchair?: No Wheel 50 ft with 2 turns (QC): 9 Wheel 150 ft (QC): 9 Type of Wheelchair: N/A Stair Training Stair Training: Handrails/: 2 handrails #of Steps: 1 1 Step (curb) (QC): 4 Stairs: Pattern: Step to Treatments Pt completed functional transfers with SBA. Pt ambulated 240ft x 2 with the SPC and CGA. Pt completed seated B LE Ther Ex x 15 reps each with the red Tband. Pt completed standing ring toss x 4 with SBA. Pt completed step-ups x 10 with B HR and SBA. Pt completed sit to stand x 10 reps with SBA. Pt completed mini-squats x 10 reps with B HR and SBA. Pt completed 10 min on the nu-step on level 2. Pt sitting in the recliner upon completion of PT with call light in reach and all needs met. Assessment Current Status: Good Progress Pt tolerated PT well with good effort PT Usp Goals Dental Aide Goals PT Dental Aide Goals Time Frame: Feb 02, 2023 Roll Left & Right (QC): 6 (Pt will be Mod I with all aspects of functional mobility with SPC, in order to safely return home. ) Sit to Lying (QC): 6 (Pt will be Mod I with all aspects of functional mobility with SPC, in order to safely return home. ) Lying-Sitting on Side/Bed(QC): 6 (Pt will be Mod I with all aspects of functional mobility with SPC, in order to safely return home. ) Sit to Stand (QC): 6 (Pt will be Mod I with all aspects of functional mobility with SPC, in order to safely return home. ) Chair/Xiy-rq-Dixhb Xfer(QC): 6 (Pt will be Mod I with all aspects of functional mobility with SPC, in order to safely return home. ) Toilet Transfer (QC): 6 (Pt will be Mod I with all aspects of functional mobility with SPC, in order to safely return home. ) Car Transfer (QC): 6 (Pt will be Mod I with all aspects of functional mobility with SPC, in order to safely return home. ) Does the Patient Walk: Yes Walk 10 feet (QC): 6 (Pt will be Mod I with all aspects of functional mobility with SPC, in order to safely return home. ) Walk 50ft with 2 Turns (QC): 6 (Pt will be Mod I with all aspects of functional mobility with SPC, in order to safely return home. ) Walk 150 ft (QC): 6 (Pt will be Mod I with all aspects of functional mobility with SPC, in order to safely return home. ) Walking 10ft on Uneven Surface: 6 (Pt will be Mod I with all aspects of functional mobility with SPC, in order to safely return home. ) 1 Step (curb) (QC): 6 (Pt will be Mod I with all aspects of functional mobility with SPC, in order to safely return home. ) 4 Steps (QC): 6 (Pt will be Mod I with all aspects of functional mobility with SPC, in order to safely return home. ) 12 Steps (QC): 6 (Pt will be Mod I with all aspects of functional mobility with SPC, in order to safely return home. ) Picking up an Object (QC): 6 (Pt will be Mod I with all aspects of functional mobility with SPC, in order to safely return home. ) Does the Pt use WC or Scooter?: No Wheel 50 feet with 2 turns (QC: 9 Type: N/A Wheel 150 feet: 9 Type: N/A PT Plan Problem List Problem List: Activity Tolerance, Functional Strength, Safety, Balance, Gait, Transfer, Bed Mobility, ROM Treatment/Plan Treatment Plan: Continue Plan of Care Treatment Plan: Bed Mobility, Concurrent Therapy, Education, Functional Activity [place], Functional Strength, Group Therapy, Gait, Safety, Therapeutic Exercise, Transfers Treatment Duration: Feb 02, 2023 Frequency: At least 5 of 7 days/Wk (IRF) Estimated Hrs Per Day: 2 hours per day Patient and/or Family Agrees t: Yes Safety Risks/Education Patient Education: Gait Training, Transfer Techniques, Steps, Reviewed Precautions, Correct Positioning, Safety Issues Teaching Recipient: Patient Teaching Methods: Demonstration, Discussion Response to Teaching: Verbalize Understanding, Return Demonstration, Reinforcement Needed Discharge Recommendations Therapy Discharge Recommendati: Home & Family Equpiment Recommendations-D/C: None Discharge Status/Home Program Cont per POC Barriers to Progress SOB; endurance; proximal weakness; decreased core strength Target Placement Home with family assistance Time Time In: 830 Time Out: 1000 DATE: Jan 26, 2023 Total Billed Treatment Time: 90 Total Billed Treatment 90 min 1 visit EX x 2 FA x 2 GT x 2 ANNI PUENTES PT Jan 26, 2023 09:53
[2023-01-26] MEDS: ACETAMINOPHEN 325 MG TABLET PO PRN (15:15)
--- NOTE | 2023-01-26 18:24 | Progress Note - Cardiology ---
Cardiology SOAP Progress Note Subjective: Episode of dizziness and rapid heart beat during PT today No syncope No cp or palp Shortness of breath with activity Gen weakness No focal weakness No n/v/d Objective: I&O/Vital Signs 01/26/23 01/26/23 01/26/23 01/26/23 06:55 07:10 07:13 09:00 Temp 36.0 Pulse 70 77 Resp 18 B/P (MAP) 117/57 (77) Pulse Ox 95 97 O2 Delivery Room Air Room Air Room Air 01/26/23 12:12 Pulse 71 01/25/23 23:59 Intake Total 1150 ml Balance 1150 ml Weight (Pounds): 186 Weight (Ounces): 0.0 Weight (Calculated Kilograms): 84.663235 Constitutional: AAO x 3, other (frail) Respiratory: No accessory muscle use; chest expansion is symmetric, chest is bilaterally symmetric, other (fair, bilateral air entry) Cardiovascular: regular rate-rhythm, S1 and S2, systolic murmur (soft ELÍAS at card base) Gastrointestional: No tender; soft; No guarding, No rebound; audible bowel sounds Extremities: No clubbing, No cyanosis, No significant edema Neurologic/Psychiatric: oriented x 3, other (moves all limbs equally) Skin: normal color, warm/dry; No cyanosis, No cool, No rash on exposed areas, No ulcerations on exposed areas A/P: Assessment: Marked sinus node dysfunction - PAF with RVR 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) from both of which she is symptomatic - s/p temporary ventricular pacemaker on 01/19/23 - s/p perm dual chamber pacemaker ([employer]) and removal of temp pacemaker on 01/20/23 - echo 01/19/23: LVEF 60-65%, mild to mod LA enlargement, mild to mod MR, PASP 25- 30 mmHg - no clinical evidence of decompensated CHF - initiation of oral dronedarone on 01/21/23 S/p thyroidectomy in Jul in 2022 for papillary thyroid cancer in [place], [place] COPD Fibromyalgia treated with Plaquenil and gabapentin Gen weakness Plan: * Continue dronedarone * Pacemaker set at lower atrial rate of 70 bpm in effort to keep right atrium overdriven * Apixaban for stroke prophylaxis * Continue PT * Monitor labs from time to time SHANTELLE DANIELS MD FACP FAC CCDS Jan 26, 2023 18:24
[2023-01-26 19:28] VITALS: BP 113/55
[2023-01-27 05:18] LABS: BASOPHILS # (AUTO) 0.1 10^3/uL (0.0-0.1); BASOPHILS % (AUTO) 1 % (0-10); EOSINOPHILS # (AUTO) 0.3 10^3/uL (0.0-0.3); EOSINOPHILS % (AUTO) 5 % (0-10); HEMATOCRIT 38 % (35-52); HEMOGLOBIN 12.4 g/dL (11.5-16.0); LYMPHOCYTES # (AUTO) 2.6 10^3/uL (1.0-4.0); LYMPHOCYTES % (AUTO) 48 % (12-44); MEAN CORPUSCULAR HEMOGLOBIN 30 pg (25-34); MEAN CORPUSCULAR HGB CONC 33 g/dL (32-36); MEAN CORPUSCULAR VOLUME 93 fL (80-99); MEAN PLATELET VOLUME 9.9 fL (9.0-12.2); MONOCYTES # (AUTO) 0.4 10^3/uL (0.0-1.0); MONOCYTES % (AUTO) 8 % (0-12); NEUTROPHILS % (AUTO) 38 % (42-75); PLATELET COUNT 168 10^3/uL (130-400); WHITE BLOOD COUNT 5.4 10^3/uL (4.3-11.0)
[2023-01-27 05:28] LABS: POTASSIUM 4.5 MMOL/L (3.6-5.0)
[2023-01-27 05:29] LABS: CALCIUM 9.1 MG/DL (8.5-10.1)
[2023-01-27 05:33] LABS: CREATININE SERUM 0.87 MG/DL (0.60-1.30)
[2023-01-27] MEDS: LEVOTHYROXINE 150 MCG TABLET PO SCH (06:30)
[2023-01-27 07:17] VITALS: BP 108/58
[2023-01-27] MEDS: SENNOSIDES 8.6 MG (SENOKOT) TAB PO SCH ×3 (07:37→20:00)
[2023-01-27] MEDS: MONTELUKAST 10 MG TABLET PO SCH (07:37)
[2023-01-27] MEDS: DRONEDARONE 400 MG TABLET PO SCH ×2 (07:37→20:01)
[2023-01-27] MEDS: HYDROXYCHLOROQUINE 200 MG TABLET PO SCH (07:37)
[2023-01-27] MEDS: dilTIAZem ER 240 MG CAPSULE PO SCH (07:38)
[2023-01-27] MEDS: APIXABAN 5 MG TABLET PO SCH ×2 (07:38→20:01)
[2023-01-27] MEDS: DOCUSATE SODIUM 100 MG CAPSULE PO SCH ×3 (07:38→20:01)
[2023-01-27] MEDS: RT-IPRATROPIUM NEBS 0.5 MG/2.5 ML IH SCH ×2 (07:44→20:44)
--- NOTE | 2023-01-27 07:51 | Occupational Ther Daily Note ---
OT Current Status-Daily Note Subjective Pt alert, sitting in recliner. Pt agrees to therapy. No c/o pain at this time. Mental Status/Objective Patient Orientation: Person, Place, Time, Situation Attachments: IV, Telemetry ADL-Treatment Independent with eating. Independent with toileting. Pt completes shower using grabbars, hand held shower and shower bench, set up for covering pacemaker site. Independent standing at sink to complete oral care. Pt gathers clothing using SPC independently. Independent completing dressing. Therapy Code Descriptions/Definitions Functional [place] Measure: 0=Not Assessed/NA 4=Minimal Assistance 1=Total Assistance 5=Supervision or Setup 2=Maximal Assistance 6=Modified [place] 3=Moderate Assistance 7=Complete IndependenceSCALE: Activities may be completed with or without assistive devices. 0-Pgeivfwnlj-lansaae completes the activity by him/herself with no assistance from a helper. 5-Set-up or Clean-up Assistance-helper sets up or cleans up; patient completes activity. [place] assists only prior to or following the activity. 4-Supervision or Touching Assistance-helper provides verbal cues and/or touching/steadying and/or contact guard assistance as patient completes activity. Assistance may be provided throughout the activity or intermittently. 3-Partial/Moderate Assistance-helper does LESS THAN HALF the effort. [place] lifts, holds or supports trunk or limbs, but provides less than half the effort. 2-Substantial/Maximal Assistance-helper does MORE THAN HALF the effort. [place] lifts or holds trunk or limbs and provides more than half the effort. 3-Rczbvqxxq-qmvcac does ALL the effort. Patient does none of the effort to complete the activity. Or, the assistance of 2 or more helpers is required for the patient to complete the activity. If activity was not attempted, code reason: 7-Patient Refused. 9-Not Applicable-not attempted and the patient did not perform the activity be fore the current illness, exacerbation or injury. 10-Not Attempted due to Environmental Limitations-(lack of equipment, weather restraints, etc.). 88-Not Attempted due to Medical Conditions or Safety Concerns. Eating (QC): 6 Oral Hygiene (QC): 6 Shower/Bathe Self (QC): 5 Upper Body Dressing (QC): 6 Lower Body Dressing (QC): 6 On/Off Footwear: 6 Toileting Hygiene (QC): 6 Toilet Transfer (QC): 6 Other Treatment Reviewed and completed HEP for B UE exercises while maintaining pacemaker precautions. Skilled instruction for correct technique and modifications. Pt requires minimal verbal cues for correct technique then demonstrates understanding of each exercise. Recommend that pt complete 10 reps each throughout the day. After therapy, pt sitting in recliner with call light/phone in reach. All needs met in room. OT Short Term Goals Short Term Goals Time Frame: Jan 26, 2023 Eatin Oral hygiene: 6 Toileting hygiene: 6 OT Fci Goals Fci Goals Acute change in mental status: 0 Inattention: 0 Disorganized thinkin Altered level of consciousness: 0 Eating (QC): 6 Oral Hygiene (QC): 6 Toileting Hygiene (QC): 6 Shower/Bathe Self (QC): 6 Upper Body Dressing (QC): 6 Lower Body Dressing (QC): 6 On/Off Footwear (QC): 6 1=Demonstrate adherence to instructed precautions during ADL tasks. 2=Patient will verbalize/demonstrate understanding of assistive devices/modifications for ADL. 3=Patient will improve strength/tolerance for activity to enable patient to perform ADL's. OT Education/Plan Problem List/Assessment Assessment: Decreased Activ Tolerance Discharge Recommendations Plan/Recommendations: Continue POC Treatment Plan/Plan of Care Patient would benefit from OT for education, treatment and training to promote independence in ADL's, mobility, safety and/or upper extremity function for ADL's. Plan of Care: ADL Retraining, Concurrent Therapy, Functional Mobility, Group Exercise/Act as Ind, UE Funct Exercise/Act Treatment Duration: Feb 01, 2023 Frequency: At least 5 of 7 days/Wk (IRF) Estimated Hrs Per Day: 1 hour per day (up to 60 minutes less than 130 minutes) Agreement: Yes Rehab Potential: Good Time Start Time: 07:30 Stop Time: 09:00 DATE: Jan 27, 2023 Total Time Billed (hr/min): 90 Billed Treatment Time 1 visit-ADL 5 (75 min) EX 1 (15 min) PING PHILLIPS Jan 27, 2023 07:51
[2023-01-27] MEDS: polyethylene glycoL POWDER 17 GM (MIRALAX) PACK PO SCH ×2 (09:09→19:25)
--- NOTE | 2023-01-27 09:22 | Occupational Ther Daily Note ---
OT Current Status-Daily Note Subjective LATE ENTRY FOR 01/26/2023: Pt alert, sitting in recliner. Pt agrees to therapy. No c/o pain. Mental Status/Objective Patient Orientation: Person, Place, Time, Situation Attachments: IV, Other-See Comments (pacemaker) ADL-Treatment Therapy Code Descriptions/Definitions Functional [place] Measure: 0=Not Assessed/NA 4=Minimal Assistance 1=Total Assistance 5=Supervision or Setup 2=Maximal Assistance 6=Modified [place] 3=Moderate Assistance 7=Complete IndependenceSCALE: Activities may be completed with or without assistive devices. 2-Qjyuyrflif-blselzk completes the activity by him/herself with no assistance from a helper. 5-Set-up or Clean-up Assistance-helper sets up or cleans up; patient completes activity. [place] assists only prior to or following the activity. 4-Supervision or Touching Assistance-helper provides verbal cues and/or touching/steadying and/or contact guard assistance as patient completes activity. Assistance may be provided throughout the activity or intermittently. 3-Partial/Moderate Assistance-helper does LESS THAN HALF the effort. [place] lifts, holds or supports trunk or limbs, but provides less than half the effort. 2-Substantial/Maximal Assistance-helper does MORE THAN HALF the effort. [place] lifts or holds trunk or limbs and provides more than half the effort. 0-Iolfanpoc-lmlsav does ALL the effort. Patient does none of the effort to complete the activity. Or, the assistance of 2 or more helpers is required for the patient to complete the activity. If activity was not attempted, code reason: 7-Patient Refused. 9-Not Applicable-not attempted and the patient did not perform the activity be fore the current illness, exacerbation or injury. 10-Not Attempted due to Environmental Limitations-(lack of equipment, weather restraints, etc.). 88-Not Attempted due to Medical Conditions or Safety Concerns. Other Treatment Pt ambulated through doors, corners utilizing SPC with R UE, with minimal LOB able to right self easily. Pt required 1 lengthy recovery break. Pt states that she typically uses L UE with cane and that R UE feels awkward. Pt then completed B UE exercises to increase strength and activity tolerance while maintaining pacemaker precautions. After therapy, pt sitting in recliner with call light/phone in reach. OT Short Term Goals Short Term Goals Time Frame: Jan 26, 2023 Eatin Oral hygiene: 6 Toileting hygiene: 6 OT Spa Host Goals Spa Host Goals Acute change in mental status: 0 Inattention: 0 Disorganized thinkin Altered level of consciousness: 0 Eating (QC): 6 Oral Hygiene (QC): 6 Toileting Hygiene (QC): 6 Shower/Bathe Self (QC): 6 Upper Body Dressing (QC): 6 Lower Body Dressing (QC): 6 On/Off Footwear (QC): 6 1=Demonstrate adherence to instructed precautions during ADL tasks. 2=Patient will verbalize/demonstrate understanding of assistive devices/modifications for ADL. 3=Patient will improve strength/tolerance for activity to enable patient to perform ADL's. OT Education/Plan Problem List/Assessment Assessment: Decreased Activ Tolerance, Decreased UE Strength Discharge Recommendations Plan/Recommendations: Continue POC Treatment Plan/Plan of Care Patient would benefit from OT for education, treatment and training to promote independence in ADL's, mobility, safety and/or upper extremity function for ADL's. Plan of Care: ADL Retraining, Concurrent Therapy, Functional Mobility, Group Exercise/Act as Ind, UE Funct Exercise/Act Treatment Duration: Feb 01, 2023 Frequency: At least 5 of 7 days/Wk (IRF) Estimated Hrs Per Day: 1 hour per day (up to 60 minutes less than 130 minutes) Agreement: Yes Rehab Potential: Good Time Start Time: 11:30 Stop Time: 12:00 DATE: Jan 27, 2023 Total Time Billed (hr/min): 30 Billed Treatment Time LATE ENTRY FOR 01/26/2023: 1 visit-EX 1 (15 min) FA 1 (15 min) PING PHILLIPS Jan 27, 2023 09:22
--- NOTE | 2023-01-27 10:25 | PM&R Progress Note ---
Subjective HPI/CC On Admission Date Seen by Provider: Jan 27, 2023 Time Seen by Provider: 10:15 Subjective/Events-last exam 01/27/2023: Doing well No pain reported No falls DC Monday Rehab going well 01/26/2023: Patient doing well Had another panic attack last night No falls Appreciate cardiology 01/25/2023: Patient doing really well Had an episode of lightheadedness and she did have an arrhythmia on telemetry but cardiology will evaluate No pain is reported 01/24/2023: Patient doing much better No pain Less short of breath Ambulating around much better Very weak Review of Systems General: Fatigue, Malaise Objective Exam Vital Signs Vital Signs Date Time Temp Pulse Resp B/P (MAP) Pulse Ox O2 Delivery O2 Flow Rate FiO2 01/27/23 12:33 71 01/27/23 09:10 Room Air 01/27/23 07:44 92 01/27/23 07:17 36.0 14 108/58 (75) 01/25/23 09:56 0.00 Capillary Refill : General Appearance: No Apparent Distress, WD/WN, Chronically ill HEENT: PERRL/EOMI, Normal ENT Inspection, Pharynx Normal Neck: Full Range of Motion, Normal Inspection, Non Tender, Supple, Carotid Bruit Respiratory: Chest Non Tender, No Accessory Muscle Use, No Respiratory Distress, Decreased Breath Sounds, Wheezing Cardiovascular: Regular Rate, Rhythm, No Edema, No Gallop, No JVD, No Murmur, Normal Peripheral Pulses Gastrointestinal: Normal Bowel Sounds, No Organomegaly, No Pulsatile Mass, Non Tender, Soft Back: Normal Inspection, No CVA Tenderness, No Vertebral Tenderness Extremity: Normal Capillary Refill, Normal Inspection, Normal Range of Motion, Non Tender, No Calf Tenderness, No Pedal Edema Neurologic/Psychiatric: Alert, Oriented x3, quill buncher and sorter II-XII Norm as Tested, Abnormal Gait, Depressed Affect, Motor Weakness (Generalized 3/5) Skin: Normal Color, Warm/Dry Lymphatic: No Adenopathy Results/Procedures Lab Laboratory Tests 01/27/23 05:12 Patient resulted labs reviewed. FIM Transfers Therapy Code Descriptions/Definitions Functional [place] Measure: 0=Not Assessed/NA 4=Minimal Assistance 1=Total Assistance 5=Supervision or Setup 2=Maximal Assistance 6=Modified [place] 3=Moderate Assistance 7=Complete IndependenceSCALE: Activities may be completed with or without assistive devices. 5-Kgxfyzqhky-vcghrry completes the activity by him/herself with no assistance from a helper. 5-Set-up or Clean-up Assistance-helper sets up or cleans up; patient completes activity. [place] assists only prior to or following the activity. 4-Supervision or Touching Assistance-helper provides verbal cues and/or touching/steadying and/or contact guard assistance as patient completes acti vity. Assistance may be provided throughout the activity or intermittently. 3-Partial/Moderate Assistance-helper does LESS THAN HALF the effort. [place] lifts, holds or supports trunk or limbs, but provides less than half the effort. 2-Substantial/Maximal Assistance-helper does MORE THAN HALF the effort. [place] lifts or holds trunk or limbs and provides more than half the effort. 0-Ytfxiupxg-qzpegm does ALL the effort. Patient does none of the effort to complete the activity. Or, the assistance of 2 or more helpers is required for the patient to complete the activity. If activity was not attempted, code reason: 7-Patient Refused. 9-Not Applicable-not attempted and the patient did not perform the activity before the current illness, exacerbation or injury. 10-Not Attempted due to Environmental Limitations-(lack of equipment, weather restraints, etc.). 88-Not Attempted due to Medical Conditions or Safety Concerns. Roll Left to Right (QC): 4 (SBA ) Sit to Lying (QC): 5 Sit to Stand (QC): 4 Chair/Nal-pu-Brcsa Xfer(QC): 4 Car Transfer (QC): 3 (Min A) Gait Training Does the Patient Walk?: Yes Distance: 240ft x 2 Walk 10 feet (QC): 4 Walk 50 ft with 2 Turns(QC): 4 Walk 150 ft (QC): 4 Walking 10ft/uneven surface-QC: 3 (Min A for balance ) Gait Persons Needed: 1 Gait Assistive Device: Cane Single Point Wheelchair Training Does the Pt Use a Wheelchair?: No Wheel 50 ft with 2 turns (QC): 9 Wheel 150 ft (QC): 9 Type of Wheelchair: N/A Stair Training Stair Training: Handrails/: 2 handrails #of Steps: 1 1 Step (curb) (QC): 4 4 Steps (QC): 3 (Min A ) 12 Steps (QC): 88 Stairs: Pattern: Step to Balance Picking up an Object (QC): 4 (CGA with medtronics technician ) ADL-Treatment Eating (QC): 6 Oral Hygiene (QC): 6 Shower/Bathe Self (QC): 5 Upper Body Dressing (QC): 6 Lower Body Dressing (QC): 6 On/Off Footwear (QC): 6 Toileting Hygiene (QC): 6 Toilet Transfer (QC): 6 Assessment/Plan Assessment and Plan Assess & Plan/Chief Complaint Assessment: CHF myopathy Recent pacemaker placement due to cardiac pauses New onset atrial fibrillation with RVR with difficult to control rate COPD Cough Wheezing History of thyroid cancer Neuropathy Fall risk Advanced age Plan: Restart home meds Oral anticoagulation Telemetry Cardiology evaluation Aggressive rehab 01/24/2023: Continue telemetry Continue aggressive rehab 01/25/2023: Supportive care Monitor closely 01/26/2023: Supportive care Monitor closely 01/27/2023: Monitor closely Monitor BP (1) Myopathy (2) Atrial fibrillation Status: Acute (3) COPD (chronic obstructive pulmonary disease) Status: Chronic (4) New onset a-fib LAMBERT BROOKS DO Jan 27, 2023 10:25
--- NOTE | 2023-01-27 13:53 | Physical Therapy Daily Note ---
PT Daily Note-Current Subjective Pt reports she is doing well today and is agreeable to PT. Denies pain. Pain Numeric Pain Scale: 0-No Pain Location: No Pain Reported Section J - Health Conditions 1. Rarely or not at all 2. Occasionally 3. Frequently 4. Almost constantly 8. Unable to answer Pain Effect on Sleep: 1 Pain Interference with Therapy: 1 Pain Interference w/Day-to-Day: 1 Transfers SCALE: Activities may be completed with or without assistive devices. 1-Iezsfdmapl-onayuzu completes the activity by him/herself with no assistance from a helper. 5-Set-up or Clean-up Assistance-helper sets up or cleans up; patient completes activity. [place] assists only prior to or following the activity. 4-Supervision or Touching Assistance-helper provides verbal cues and/or touching/steadying and/or contact guard assistance as patient completes activity. Assistance may be provided throughout the activity or intermittently. 3-Partial/Moderate Assistance-helper does LESS THAN HALF the effort. [place] lifts, holds or supports trunk or limbs, but provides less than half the effort. 2-Substantial/Maximal Assistance-helper does MORE THAN HALF the effort. [place] lifts or holds trunk or limbs and provides more than half the effort. 2-Pugictgsp-fnudzx does ALL the effort. Patient does none of the effort to complete the activity. Or, the assistance of 2 or more helpers is required for the patient to complete the activity. If activity was not attempted, code reason: 7-Patient Refused. 9-Not Applicable-not attempted and the patient did not perform the activity befo re the current illness, exacerbation or injury. 10-Not Attempted due to Environmental Limitations-(lack of equipment, weather re straints, etc.). 88-Not Attempted due to Medical Conditions or Safety Concerns. Sit to Stand (QC): 6 Chair/Ltj-qv-Ijrjf Xfer(QC): 6 Weight Bearing Right Lower Extremity: Right Full Weight Bearing Left Lower Extremity: Left Full Weight Bearing Gait Training Does the Patient Walk?: Yes Distance: 200ft x 2 Walk 10 feet (QC): 4 Walk 50 ft with 2 Turns(QC): 4 Walk 150 ft (QC): 4 Gait Persons Needed: 1 Gait Assistive Device: Cane Single Point Wheelchair Training Does the Pt Use a Wheelchair?: No Wheel 50 ft with 2 turns (QC): 9 Wheel 150 ft (QC): 9 Type of Wheelchair: N/A Stair Training Stair Training: Handrails/: 2 handrails #of Steps: 12 1 Step (curb) (QC): 4 4 Steps (QC): 4 12 Steps (QC): 4 Stairs: Pattern: Reciprocal Treatments Pt edu on HEP, with handouts provided. Pt completed functional transfers with Mod I. Pt ambulated 200ft with the SPC and CGA/SBA. Pt completed seated B LE Ther Ex x 15 reps each with the red Tband. Pt completed standing B LE Ther Ex x 10 reps each at the // bars with B UE support and SBA. Pt negotiated 12 steps with B HR and SBA. Pt completed 10 min on the nu-step on level 1. Pt sitting up in the recliner upon completion of PT with call light in hand and all needs met. Assessment Current Status: Good Progress Pt tolerated PT well with good effort; requires frequent rest breaks PT Usp Goals Commercial Lending Relationship Manager Goals PT Usp Goals Time Frame: Feb 02, 2023 Roll Left & Right (QC): 6 (Pt will be Mod I with all aspects of functional mobility with SPC, in order to safely return home. ) Sit to Lying (QC): 6 (Pt will be Mod I with all aspects of functional mobility with SPC, in order to safely return home. ) Lying-Sitting on Side/Bed(QC): 6 (Pt will be Mod I with all aspects of functional mobility with SPC, in order to safely return home. ) Sit to Stand (QC): 6 (Pt will be Mod I with all aspects of functional mobility with SPC, in order to safely return home. ) Chair/Cxg-yg-Ibcvg Xfer(QC): 6 (Pt will be Mod I with all aspects of functional mobility with SPC, in order to safely return home. ) Toilet Transfer (QC): 6 (Pt will be Mod I with all aspects of functional mobility with SPC, in order to safely return home. ) Car Transfer (QC): 6 (Pt will be Mod I with all aspects of functional mobility with SPC, in order to safely return home. ) Does the Patient Walk: Yes Walk 10 feet (QC): 6 (Pt will be Mod I with all aspects of functional mobility with SPC, in order to safely return home. ) Walk 50ft with 2 Turns (QC): 6 (Pt will be Mod I with all aspects of functional mobility with SPC, in order to safely return home. ) Walk 150 ft (QC): 6 (Pt will be Mod I with all aspects of functional mobility with SPC, in order to safely return home. ) Walking 10ft on Uneven Surface: 6 (Pt will be Mod I with all aspects of functional mobility with SPC, in order to safely return home. ) 1 Step (curb) (QC): 6 (Pt will be Mod I with all aspects of functional mobility with SPC, in order to safely return home. ) 4 Steps (QC): 6 (Pt will be Mod I with all aspects of functional mobility with SPC, in order to safely return home. ) 12 Steps (QC): 6 (Pt will be Mod I with all aspects of functional mobility with SPC, in order to safely return home. ) Picking up an Object (QC): 6 (Pt will be Mod I with all aspects of functional mobility with SPC, in order to safely return home. ) Does the Pt use WC or Scooter?: No Wheel 50 feet with 2 turns (QC: 9 Type: N/A Wheel 150 feet: 9 Type: N/A PT Plan Problem List Problem List: Activity Tolerance, Functional Strength, Safety, Balance, Gait, Transfer, Bed Mobility, ROM Treatment/Plan Treatment Plan: Continue Plan of Care Treatment Plan: Bed Mobility, Concurrent Therapy, Education, Functional Acti vity [place], Functional Strength, Group Therapy, Gait, Safety, Therapeutic Exercise, Transfers Treatment Duration: Feb 02, 2023 Frequency: At least 5 of 7 days/Wk (IRF) Estimated Hrs Per Day: 2 hours per day Patient and/or Family Agrees t: Yes Safety Risks/Education Patient Education: Gait Training, Transfer Techniques, Steps, Issued Written HEP, Reviewed Precautions, Correct Positioning, Safety Issues Teaching Recipient: Patient Teaching Methods: Demonstration, Discussion Response to Teaching: Verbalize Understanding, Return Demonstration, Reinforcement Needed Discharge Recommendations Therapy Discharge Recommendati: Home & Family Equpiment Recommendations-D/C: None Discharge Status/Home Program Cont per POC Barriers to Progress SOB; weakness; endurance Target Placement Home with family assistance Time Time In: 1000 Time Out: 1130 DATE: Jan 27, 2023 Total Billed Treatment Time: 90 Total Billed Treatment 90 min 1 visit GT x 2 FA x 2 EX x 2 ANNI PUENTES PT Jan 27, 2023 13:53
--- NOTE | 2023-01-27 15:54 | Progress Note - Cardiology ---
Cardiology SOAP Progress Note Subjective: No cp or palp or syncope or shortness of breath at rest Weakness improving No n/v/d No swelling Objective: I&O/Vital Signs 01/27/23 01/27/23 01/27/23 01/27/23 07:00 07:17 07:44 09:10 Temp 36.0 Pulse 72 71 Resp 14 B/P (MAP) 108/58 (75) Pulse Ox 94 92 O2 Delivery Room Air Room Air Room Air 01/27/23 12:33 Pulse 71 01/26/23 23:59 Intake Total 1050 ml Balance 1050 ml Weight (Pounds): 186 Weight (Ounces): 0.0 Weight (Calculated Kilograms): [id number] Constitutional: AAO x 3, other (frail) Respiratory: No accessory muscle use; chest expansion is symmetric, chest is bilaterally symmetric, other (fair, bilateral air entry) Cardiovascular: regular rate-rhythm, S1 and S2, systolic murmur (soft ELÍAS at c avelino base) Gastrointestional: No tender; soft; No guarding, No rebound; audible bowel sounds Extremities: No clubbing, No cyanosis, No significant edema Neurologic/Psychiatric: oriented x 3, other (moves all limbs equally) Skin: normal color, warm/dry; No cyanosis, No cool, No rash on exposed areas, No ulcerations on exposed areas Results/Procedures: Labs Laboratory Tests 01/27/23 05:12: White Blood Count 5.4, Red Blood Count 4.08, Hemoglobin 12.4, Hematocrit 38, Mean Corpuscular Volume 93, Mean Corpuscular Hemoglobin 30, Mean Corpuscular Hemoglobin Concent 33, Red Cell Distribution Width 13.3, Platelet Count 168, Mean Platelet Volume 9.9, Immature Granulocyte % (Auto) 0, Neutrophils (%) (Auto) 38L, Lymphocytes (%) (Auto) 48H, Monocytes (%) (Auto) 8, Eosinophils (%) (Auto) 5, Basophils (%) (Auto) 1, Neutrophils # (Auto) 2.0, Lymphocytes # (Auto) 2.6, Monocytes # (Auto) 0.4, Eosinophils # (Auto) 0.3, Basophils # (Auto) 0.1, I mmature Granulocyte # (Auto) 0.0, Sodium Level 140, Potassium Level 4.5, Chloride Level 110H, Carbon Dioxide Level 23, Anion Gap 7, Blood Urea Nitrogen 14, Creatinine 0.87, Estimat Glomerular Filtration Rate 67, BUN/Creatinine Ratio 16, Glucose Level 96, Calcium Level 9.1, Magnesium Level 2.0 Laboratory Tests 01/27/23 05:12 A/P: Assessment: Marked sinus node dysfunction - PAF with RVR 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) from both of which she is symptomatic - s/p temporary ventricular pacemaker on 01/19/23 - s/p perm dual chamber pacemaker ([employer]) and removal of temp pacemaker on 01/20/23 - echo 01/19/23: LVEF 60-65%, mild to mod LA enlargement, mild to mod MR, PASP 25- 30 mmHg - no clinical evidence of decompensated CHF - initiation of oral dronedarone on 01/21/23 S/p thyroidectomy in Jul in 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
[2023-01-27 19:32] VITALS: BP 111/74
[2023-01-27] MEDS: CALCIUM CARBONATE 500 MG CHEW TABLET PO PRN (20:02)
[2023-01-28] MEDS: LEVOTHYROXINE 150 MCG TABLET PO SCH (06:31)
--- NOTE | 2023-01-28 06:40 | PM&R Progress Note ---
Subjective HPI/CC On Admission Date Seen by Provider: Jan 28, 2023 Time Seen by Provider: 11:00 Subjective/Events-last exam 01/28/2023: Patient doing well Ready for discharge on Monday No falls Ambulating well 01/27/2023: Doing well No pain reported No falls DC Monday Rehab going well 01/26/2023: Patient doing well Had another panic attack last night No falls Appreciate cardiology 01/25/2023: Patient doing really well Had an episode of lightheadedness and she did have an arrhythmia on telemetry but cardiology will evaluate No pain is reported 01/24/2023: Patient doing much better No pain Less short of breath Ambulating around much better Very weak Review of Systems General: Fatigue, Malaise Objective Exam Vital Signs Vital Signs Date Time Temp Pulse Resp B/P (MAP) Pulse Ox O2 Delivery O2 Flow Rate FiO2 01/28/23 13:00 77 01/28/23 09:22 95 Room Air 01/28/23 07:10 36.3 18 109/66 (80) 01/25/23 09:56 0.00 Capillary Refill : General Appearance: No Apparent Distress, WD/WN, Chronically ill HEENT: PERRL/EOMI, Normal ENT Inspection, Pharynx Normal Neck: Full Range of Motion, Normal Inspection, Non Tender, Supple, Carotid Bruit Respiratory: Chest Non Tender, No Accessory Muscle Use, No Respiratory Distress, Decreased Breath Sounds, Wheezing Cardiovascular: Regular Rate, Rhythm, No Edema, No Gallop, No JVD, No Murmur, Normal Peripheral Pulses Gastrointestinal: Normal Bowel Sounds, No Organomegaly, No Pulsatile Mass, Non Tender, Soft Back: Normal Inspection, No CVA Tenderness, No Vertebral Tenderness Extremity: Normal Capillary Refill, Normal Inspection, Normal Range of Motion, Non Tender, No Calf Tenderness, No Pedal Edema Neurologic/Psychiatric: Alert, Oriented x3, director nicu II-XII Norm as Tested, Abnormal Gait, Depressed Affect, Motor Weakness (Generalized 3/5) Skin: Normal Color, Warm/Dry Lymphatic: No Adenopathy Results/Procedures Lab Patient resulted labs reviewed. FIM Transfers Therapy Code Descriptions/Definitions Functional [place] Measure: 0=Not Assessed/NA 4=Minimal Assistance 1=Total Assistance 5=Supervision or Setup 2=Maximal Assistance 6=Modified [place] 3=Moderate Assistance 7=Complete IndependenceSCALE: Activities may be completed with or without assistive devices. 4-Wslsdkpktl-tyozpih completes the activity by him/herself with no assistance from a helper. 5-Set-up or Clean-up Assistance-helper sets up or cleans up; patient completes activity. [place] assists only prior to or following the activity. 4-Supervision or Touching Assistance-helper provides verbal cues and/or touching/steadying and/or contact guard assistance as patient completes activity. Assistance may be provided throughout the activity or intermittently. 3-Partial/Moderate Assistance-helper does LESS THAN HALF the effort. [place] lifts, holds or supports trunk or limbs, but provides less than half the effort. 2-Substantial/Maximal Assistance-helper does MORE THAN HALF the effort. [place] lifts or holds trunk or limbs and provides more than half the effort. 8-Iipnyzioa-eaekem does ALL the effort. Patient does none of the effort to complete the activity. Or, the assistance of 2 or more helpers is required for the patient to complete the activity. If activity was not attempted, code reason: 7-Patient Refused. 9-Not Applicable-not attempted and the patient did not perform the activity before the current illness, exacerbation or injury. 10-Not Attempted due to Environmental Limitations-(lack of equipment, weather restraints, etc.). 88-Not Attempted due to Medical Conditions or Safety Concerns. Roll Left to Right (QC): 4 (SBA ) Sit to Lying (QC): 5 Sit to Stand (QC): 6 Chair/Cst-gy-Vcwoi Xfer(QC): 6 Car Transfer (QC): 3 (Min A) Gait Training Does the Patient Walk?: Yes Distance: 200ft x 2 Walk 10 feet (QC): 4 Walk 50 ft with 2 Turns(QC): 4 Walk 150 ft (QC): 4 Walking 10ft/uneven surface-QC: 3 (Min A for balance ) Gait Persons Needed: 1 Gait Assistive Device: Cane Single Point Wheelchair Training Does the Pt Use a Wheelchair?: No Wheel 50 ft with 2 turns (QC): 9 Wheel 150 ft (QC): 9 Type of Wheelchair: N/A Stair Training Stair Training: Handrails/: 2 handrails #of Steps: 12 1 Step (curb) (QC): 4 4 Steps (QC): 4 12 Steps (QC): 4 Stairs: Pattern: Reciprocal Balance Picking up an Object (QC): 4 (CGA with live out nanny ) ADL-Treatment Eating (QC): 6 Oral Hygiene (QC): 6 Shower/Bathe Self (QC): 5 Upper Body Dressing (QC): 6 Lower Body Dressing (QC): 6 On/Off Footwear (QC): 6 Toileting Hygiene (QC): 6 Toilet Transfer (QC): 6 Assessment/Plan Assessment and Plan Assess & Plan/Chief Complaint Assessment: CHF myopathy Recent pacemaker placement due to cardiac pauses New onset atrial fibrillation with RVR with difficult to control rate COPD Cough Wheezing History of thyroid cancer Neuropathy Fall risk Advanced age Plan: Restart home meds Oral anticoagulation Telemetry Cardiology evaluation Aggressive rehab 01/24/2023: Continue telemetry Continue aggressive rehab 01/25/2023: Supportive care Monitor closely 01/26/2023: Supportive care Monitor closely 01/27/2023: Monitor closely Monitor BP 01/28/2023: Supportive care (1) Myopathy (2) Atrial fibrillation Status: Acute (3) COPD (chronic obstructive pulmonary disease) Status: Chronic (4) New onset a-fib LAMBERT BROOKS DO Jan 28, 2023 06:40
[2023-01-28 07:10] VITALS: BP 109/66
[2023-01-28] MEDS: RT-IPRATROPIUM NEBS 0.5 MG/2.5 ML IH SCH ×2 (07:44→21:00)
[2023-01-28] MEDS: DOCUSATE SODIUM 100 MG CAPSULE PO SCH ×2 (08:35→20:11)
[2023-01-28] MEDS: HYDROXYCHLOROQUINE 200 MG TABLET PO SCH (08:35)
[2023-01-28] MEDS: DRONEDARONE 400 MG TABLET PO SCH ×2 (08:36→20:11)
[2023-01-28] MEDS: APIXABAN 5 MG TABLET PO SCH ×2 (08:36→20:11)
[2023-01-28] MEDS: MONTELUKAST 10 MG TABLET PO SCH (08:36)
[2023-01-28] MEDS: polyethylene glycoL POWDER 17 GM (MIRALAX) PACK PO SCH ×2 (08:36→20:11)
[2023-01-28] MEDS: dilTIAZem ER 240 MG CAPSULE PO SCH (08:36)
[2023-01-28] MEDS: SENNOSIDES 8.6 MG (SENOKOT) TAB PO SCH ×2 (08:37→20:11)
[2023-01-28 19:30] VITALS: BP 105/68
[2023-01-28] MEDS: CALCIUM CARBONATE 500 MG CHEW TABLET PO PRN (20:11)
[2023-01-29] MEDS: LEVOTHYROXINE 150 MCG TABLET PO SCH (06:30)
[2023-01-29 07:14] VITALS: BP 111/70
--- NOTE | 2023-01-29 08:00 | PM&R Progress Note ---
Subjective HPI/CC On Admission Date Seen by Provider: Jan 29, 2023 Time Seen by Provider: 11:00 Subjective/Events-last exam 01/29/2023: Doing well Wants DC tomorrow Iain Linares is pharmacy 01/28/2023: Patient doing well Ready for discharge on Monday No falls Ambulating well 01/27/2023: Doing well No pain reported No falls DC Monday Rehab going well 01/26/2023: Patient doing well Had another panic attack last night No falls Appreciate cardiology 01/25/2023: Patient doing really well Had an episode of lightheadedness and she did have an arrhythmia on telemetry but cardiology will evaluate No pain is reported 01/24/2023: Patient doing much better No pain Less short of breath Ambulating around much better Very weak Review of Systems General: Fatigue, Malaise Objective Exam Vital Signs Vital Signs Date Time Temp Pulse Resp B/P (MAP) Pulse Ox O2 Delivery O2 Flow Rate FiO2 01/29/23 12:21 72 01/29/23 09:00 93 Room Air 01/29/23 07:14 36.3 16 111/70 (84) 01/25/23 09:56 0.00 Capillary Refill : General Appearance: No Apparent Distress, WD/WN, Chronically ill HEENT: PERRL/EOMI, Normal ENT Inspection, Pharynx Normal Neck: Full Range of Motion, Normal Inspection, Non Tender, Supple, Carotid Bruit Respiratory: Chest Non Tender, No Accessory Muscle Use, No Respiratory Distress, Decreased Breath Sounds, Wheezing Cardiovascular: Regular Rate, Rhythm, No Edema, No Gallop, No JVD, No Murmur, Normal Peripheral Pulses Gastrointestinal: Normal Bowel Sounds, No Organomegaly, No Pulsatile Mass, Non Tender, Soft Back: Normal Inspection, No CVA Tenderness, No Vertebral Tenderness Extremity: Normal Capillary Refill, Normal Inspection, Normal Range of Motion, Non Tender, No Calf Tenderness, No Pedal Edema Neurologic/Psychiatric: Alert, Oriented x3, precision lens grinder apprentice II-XII Norm as Tested, Abnormal Gait, Depressed Affect, Motor Weakness (Generalized 3/5) Skin: Normal Color, Warm/Dry Lymphatic: No Adenopathy Results/Procedures Lab Patient resulted labs reviewed. FIM Transfers Therapy Code Descriptions/Definitions Functional [place] Measure: 0=Not Assessed/NA 4=Minimal Assistance 1=Total Assistance 5=Supervision or Setup 2=Maximal Assistance 6=Modified [place] 3=Moderate Assistance 7=Complete IndependenceSCALE: Activities may be completed with or without assistive devices. 4-Pwzexuhfzy-ujbjhlx completes the activity by him/herself with no assistance from a helper. 5-Set-up or Clean-up Assistance-helper sets up or cleans up; patient completes activity. [place] assists only prior to or following the activity. 4-Supervision or Touching Assistance-helper provides verbal cues and/or touching/steadying and/or contact guard assistance as patient completes activity. Assistance may be provided throughout the activity or intermittently. 3-Partial/Moderate Assistance-helper does LESS THAN HALF the effort. [place] lift s, holds or supports trunk or limbs, but provides less than half the effort. 2-Substantial/Maximal Assistance-helper does MORE THAN HALF the effort. [place] lifts or holds trunk or limbs and provides more than half the effort. 9-Wbleblfio-tygtpl does ALL the effort. Patient does none of the effort to complete the activity. Or, the assistance of 2 or more helpers is required for the patient to complete the activity. If activity was not attempted, code reason: 7-Patient Refused. 9-Not Applicable-not attempted and the patient did not perform the activity before the current illness, exacerbation or injury. 10-Not Attempted due to Environmental Limitations-(lack of equipment, weather restraints, etc.). 88-Not Attempted due to Medical Conditions or Safety Concerns. Roll Left to Right (QC): 4 (SBA ) Sit to Lying (QC): 5 Sit to Stand (QC): 6 Chair/Bdj-ah-Xpsnw Xfer(QC): 6 Car Transfer (QC): 3 (Min A) Gait Training Does the Patient Walk?: Yes Distance: 200ft x 2 Walk 10 feet (QC): 4 Walk 50 ft with 2 Turns(QC): 4 Walk 150 ft (QC): 4 Walking 10ft/uneven surface-QC: 3 (Min A for balance ) Gait Persons Needed: 1 Gait Assistive Device: Cane Single Point Wheelchair Training Does the Pt Use a Wheelchair?: No Wheel 50 ft with 2 turns (QC): 9 Wheel 150 ft (QC): 9 Type of Wheelchair: N/A Stair Training Stair Training: Handrails/: 2 handrails #of Steps: 12 1 Step (curb) (QC): 4 4 Steps (QC): 4 12 Steps (QC): 4 Stairs: Pattern: Reciprocal Balance Picking up an Object (QC): 4 (CGA with heavy equipment rental manager ) ADL-Treatment Eating (QC): 6 Oral Hygiene (QC): 6 Shower/Bathe Self (QC): 5 Upper Body Dressing (QC): 6 Lower Body Dressing (QC): 6 On/Off Footwear (QC): 6 Toileting Hygiene (QC): 6 Toilet Transfer (QC): 6 Assessment/Plan Assessment and Plan Assess & Plan/Chief Complaint Assessment: CHF myopathy Recent pacemaker placement due to cardiac pauses New onset atrial fibrillation with RVR with difficult to control rate COPD Cough Wheezing History of thyroid cancer Neuropathy Fall risk Advanced age Plan: Restart home meds Oral anticoagulation Telemetry Cardiology evaluation Aggressive rehab 01/24/2023: Continue telemetry Continue aggressive rehab 01/25/2023: Supportive care Monitor closely 01/26/2023: Supportive care Monitor closely 01/27/2023: Monitor closely Monitor BP 01/28/2023: Supportive care 01/29/2023: DC tomorrow (1) Myopathy (2) Atrial fibrillation Status: Acute (3) COPD (chronic obstructive pulmonary disease) Status: Chronic (4) New onset a-fib LAMBERT BROOKS DO Jan 29, 2023 08:00
[2023-01-29] MEDS: RT-IPRATROPIUM NEBS 0.5 MG/2.5 ML IH SCH ×2 (08:05→20:19)
[2023-01-29] MEDS: DOCUSATE SODIUM 100 MG CAPSULE PO SCH ×2 (08:51→19:28)
[2023-01-29] MEDS: DRONEDARONE 400 MG TABLET PO SCH ×2 (08:51→19:43)
[2023-01-29] MEDS: HYDROXYCHLOROQUINE 200 MG TABLET PO SCH (08:51)
[2023-01-29] MEDS: polyethylene glycoL POWDER 17 GM (MIRALAX) PACK PO SCH ×2 (08:51→19:28)
[2023-01-29] MEDS: dilTIAZem ER 240 MG CAPSULE PO SCH (08:51)
[2023-01-29] MEDS: APIXABAN 5 MG TABLET PO SCH ×2 (08:51→19:43)
[2023-01-29] MEDS: MONTELUKAST 10 MG TABLET PO SCH (08:51)
[2023-01-29] MEDS: SENNOSIDES 8.6 MG (SENOKOT) TAB PO SCH ×2 (08:52→19:28)
[2023-01-29] MEDS ORDERED: CHLORASEPTIC SPRAY 177 ML LIQUID MC PRN (13:00)
[2023-01-29 19:23] VITALS: BP 135/57
[2023-01-29] MEDS: ALPRAZolam 0.25 MG TABLET PO PRN (19:43)
[2023-01-30] MEDS: LEVOTHYROXINE 150 MCG TABLET PO SCH (04:59)
[2023-01-30] MEDS ORDERED: DRON400T6 PO (06:00)
[2023-01-30] MEDS ORDERED: DILT240C91 PO (06:00)
[2023-01-30] MEDS ORDERED: APIX5TAB PO (06:00)
--- NOTE | 2023-01-30 06:00 | Discharge Summary ---
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 New onset atrial fibrillation with RVR with difficult to control rate COPD Cough Wheezing History of thyroid cancer Neuropathy Fall risk Advanced age Plan: Restart home meds Oral anticoagulation Telemetry Cardiology evaluation Aggressive rehab 01/24/2023: Continue telemetry Continue aggressive rehab 01/25/2023: Supportive care Monitor closely 01/26/2023: Supportive care Monitor closely 01/27/2023: Monitor closely Monitor BP 01/28/2023: Supportive care 01/29/2023: DC tomorrow (1) Myopathy (2) Atrial fibrillation Status: Acute (3) COPD (chronic obstructive pulmonary disease) Status: Chronic (4) New onset a-fib Discharge Summary Discharge Physical Examination Allergies: Coded Allergies: No Known Drug Allergies (Unverified , 06/13/13) Vitals & I&Os Vital Signs Date Time Temp Pulse Resp B/P (MAP) Pulse Ox O2 Delivery O2 Flow Rate FiO2 01/30/23 10:56 35.8 78 20 116/55 97 Room Air 0.00 General Appearance: Alert, Oriented X3, Cooperative Respiratory: Clear to Auscultation Cardiovascular: Regular Rate Psych/Mental Status: Mental Status NL Hospital Course Was the Problem List Reviewed?: Yes Uneventful hospital course after she was moved to ARU from ICU following a pacemaker placement due to cardiac pauses after new onset AF RVR placed on OAC. She was very weak and required aggressive rehab in order to get back to baseline. Overall she did well and labs remained stable and remained improved and was ready for DC. Labs (last 24 hrs) Laboratory Tests 01/24/23 05:19: White Blood Count 5.3, Red Blood Count 3.96, Hemoglobin 12.1, Hematocrit 36, Mean Corpuscular Volume 91, Mean Corpuscular Hemoglobin 31, Mean Corpuscular Hemoglobin Concent 34, Red Cell Distribution Width 13.3, Platelet Count 152, Mean Platelet Volume 10.4, Immature Granulocyte % (Auto) 0, Neutrophils (%) (Auto) 45, Lymphocytes (%) (Auto) 41, Monocytes (%) (Auto) 8, Eosinophils (%) (Auto) 5, Basophils (%) (Auto) 1, Neutrophils # (Auto) 2.4, Lymphocytes # (Auto) 2.2, Monocytes # (Auto) 0.4, Eosinophils # (Auto) 0.3, Basophils # (Auto) 0.0, Immature Granulocyte # (Auto) 0.0, Sodium Level 141, Potassium Level 4.1, Chloride Level 110H, Carbon Dioxide Level 26, Anion Gap 5, Blood Urea Nitrogen 14, Creatinine 0.71, Estimat Glomerular Filtration Rate 86, BUN/Creatinine Ratio 20, Glucose Level 98, Calcium Level 9.3, Corrected Calcium 10.0, Total Bilirubin 0.4, Aspartate Amino Transf (AST/SGOT) 20, Alanine Aminotransferase (ALT/SGPT) 8, Alkaline Phosphatase 69, Total Protein 5.5L, Albumin 3.1L 01/27/23 05:12: White Blood Count 5.4, Red Blood Count 4.08, Hemoglobin 12.4, Hematocrit 38, Mean Corpuscular Volume 93, Mean Corpuscular Hemoglobin 30, Mean Corpuscular Hemoglobin Concent 33, Red Cell Distribution Width 13.3, Platelet Count 168, Mean Platelet Volume 9.9, Immature Granulocyte % (Auto) 0, Neutrophils (%) (Auto) 38L, Lymphocytes (%) (Auto) 48H, Monocytes (%) (Auto) 8, Eosinophils (%) (Auto) 5, Basophils (%) (Auto) 1, Neutrophils # (Auto) 2.0, Lymphocytes # (Auto) 2.6, Monocytes # (Auto) 0.4, Eosinophils # (Auto) 0.3, Basophils # (Auto) 0.1, Immature Granulocyte # (Auto) 0.0, Sodium Level 140, Potassium Level 4.5, Chloride Level 110H, Carbon Dioxide Level 23, Anion Gap 7, Blood Urea Nitrogen 14, Creatinine 0.87, Estimat Glomerular Filtration Rate 67, BUN/Creatinine Ratio 16, Glucose Level 96, Calcium Level 9.1, Magnesium Level 2.0 Pending Labs Laboratory Tests 01/24/23 05:19: White Blood Count 5.3, Red Blood Count 3.96, Hemoglobin 12.1, Hematocrit 36, Mean Corpuscular Volume 91, Mean Corpuscular Hemoglobin 31, Mean Corpuscular Hemoglobin Concent 34, Red Cell Distribution Width 13.3, Platelet Count 152, Mean Platelet Volume 10.4, Immature Granulocyte % (Auto) 0, Neutrophils (%) (Auto) 45, Lymphocytes (%) (Auto) 41, Monocytes (%) (Auto) 8, Eosinophils (%) (Auto) 5, Basophils (%) (Auto) 1, Neutrophils # (Auto) 2.4, Lymphocytes # (Auto) 2.2, Monocytes # (Auto) 0.4, Eosinophils # (Auto) 0.3, Basophils # (Auto) 0.0, Immature Granulocyte # (Auto) 0.0, Sodium Level 141, Potassium Level 4.1, Chloride Level 110, Carbon Dioxide Level 26, Anion Gap 5, Blood Urea Nitrogen 14, Creatinine 0.71, Estimat Glomerular Filtration Rate 86, BUN/Creatinine Ratio 20, Glucose Level 98, Calcium Level 9.3, Corrected Calcium 10.0, Total Bilirubin 0.4, Aspartate Amino Transf (AST/SGOT) 20, Alanine Aminotransferase (ALT/SGPT) 8, Alkaline Phosphatase 69, Total Protein 5.5, Albumin 3.1 01/27/23 05:12: White Blood Count 5.4, Red Blood Count 4.08, Hemoglobin 12.4, Hematocrit 38, Mean Corpuscular Volume 93, Mean Corpuscular Hemoglobin 30, Mean Corpuscular Hemoglobin Concent 33, Red Cell Distribution Width 13.3, Platelet Count 168, Mean Platelet Volume 9.9, Immature Granulocyte % (Auto) 0, Neutrophils (%) (Auto) 38, Lymphocytes (%) (Auto) 48, Monocytes (%) (Auto) 8, Eosinophils (%) (Auto) 5, Basophils (%) (Auto) 1, Neutrophils # (Auto) 2.0, Lymphocytes # (Auto) 2.6, Monocytes # (Auto) 0.4, Eosinophils # (Auto) 0.3, Basophils # (Auto) 0.1, Immature Granulocyte # (Auto) 0.0, Sodium Level 140, Potassium Level 4.5, Chloride Level 110, Carbon Dioxide Level 23, Anion Gap 7, Blood Urea Nitrogen 14, Creatinine 0.87, Estimat Glomerular Filtration Rate 67, BUN/Creatinine Ratio 16, Glucose Level 96, Calcium Level 9.1, Magnesium Level 2.0 Discharge Home Medications: Active Scripts Active Diltiazem 24Hr ER (Diltiazem HCl) 240 Mg Cap.er.24h 240 Mg PO DAILY 30 Days Multaq (Dronedarone HCl) 400 Mg Tablet 400 Mg PO BID 30 Days Eliquis (Apixaban) 5 Mg Tablet 5 Mg PO BID 30 Days Reported Multivitamin 1 Each Tablet 1 Each PO DAILY Omeprazole 20 Mg Capsule.dr 20 Mg PO DAILY Cetirizine HCl 10 Mg Tablet 10 Mg PO DAILY Trelegy Ellipta 200-62.5-25 (Fluticasone/Umeclidin/Vilanter) 200-62.5 Blst.w.dev 1 Puff INH HS Levothyroxine Sodium 150 Mcg Tablet 150 Mcg PO DAILY Mirtazapine 7.5 Mg Tablet 7.5 Mg PO HS Ventolin Hfa (Albuterol Sulfate) 90 Mcg Hfa.aer.ad 2 Puff INH Q6H PRN Gabapentin 100 Mg Capsule 100 Mg PO BID PRN Iprat-Albut 0.5-3(2.5) mg/3 ml (Ipratropium/Albuterol Sulfate) 0.5 Mg-3 Mg (2.5 Mg Base)/3 Ml Ampul.neb 3 Ml NEB BID Gabapentin 100 Mg Capsule 100 Mg PO DAILY Montelukast Sodium 10 Mg Tablet 10 Mg PO DAILY Hydroxychloroquine Sulfate 200 Mg Tablet 200 Mg PO DAILY Vitamin D3 (Cholecalciferol (Vitamin D3)) 25 Mcg Capsule 25 Mcg PO DAILY Instructions to patient/family Please see electronic discharge instructions given to patient. Diagnosis/Problems Diagnosis/Problems (1) Myopathy (2) Atrial fibrillation Status: Acute (3) COPD (chronic obstructive pulmonary disease) Status: Chronic (4) New onset LAMBERT Francois DO Jan 30, 2023 06:00
[2023-01-30 06:31] VITALS: BP 116/55
--- NOTE | 2023-01-30 07:07 | Occupational Ther Daily Note ---
OT Current Status-Daily Note Subjective Pt alert, sitting in recliner. Pt agrees to therapy. No c/o pain. Pt to discharge to home today, QC's gathered. Mental Status/Objective Patient Orientation: Person, Place, Time, Situation Attachments: Telemetry ADL-Treatment Independent with eating. Independent with oral care. Independent with toileting. Pt utilizes SPC to gather clothing and take to bathroom for dressing after shower, independently. Independent with shower using grabbars, shower bench and hand held shower. Pt educated on covering pacemaker site when showering until physician says it is okay to shower without covering, verbalized understanding. Independent dressing. After session, pt sitting in recliner with call light/phone in reach. All needs met in room. Therapy Code Descriptions/Definitions Functional [place] Measure: 0=Not Assessed/NA 4=Minimal Assistance 1=Total Assistance 5=Supervision or Setup 2=Maximal Assistance 6=Modified [place] 3=Moderate Assistance 7=Complete IndependenceSCALE: Activities may be completed with or without assistive devices. 0-Yrbmqqmzlyk-qkkvgwx completes the activity by him/herself with no assistance from a helper. 5-Set-up or Clean-up Assistance-helper sets up or cleans up; patient completes activity. [place] assists only prior to or following the activity. 4-Supervision or Touching Assistance-helper provides verbal cues and/or touching/steadying and/or contact guard assistance as patient completes activity. Assistance may be provided throughout the activity or intermittently. 3-Partial/Moderate Assistance-helper does LESS THAN HALF the effort. [place] lifts, holds or supports trunk or limbs, but provides less than half the effort. 2-Substantial/Maximal Assistance-helper does MORE THAN HALF the effort. [place] lifts or holds trunk or limbs and provides more than half the effort. 7-Hdzkohtvr-qbafvu does ALL the effort. Patient does none of the effort to complete the activity. Or, the assistance of 2 or more helpers is required for the patient to complete the activity. If activity was not attempted, code reason: 7-Patient Refused. 9-Not Applicable-not attempted and the patient did not perform the activity before the current illness, exacerbation or injury. 10-Not Attempted due to Environmental Limitations-(lack of equipment, weather restraints, etc.). 88-Not Attempted due to Medical Conditions or Safety Concerns. Eating (QC): 6 (Pt able to open packages and containers by self and uses regular utensils.) Oral Hygiene (QC): 6 Bathing Location: L Arm, R Arm, L Upper Leg, R Upper Leg, L Lower Leg (including foot), R Lower Leg (including foot), Chest, Abdomen, Buttocks, Perineal Area Shower/Bathe Self (QC): 6 Upper Body Dressing (QC): 6 Lower Body Dressing (QC): 6 On/Off Footwear: 6 Toileting Hygiene (QC): 6 Toilet Transfer (QC): 6 BIMS CAM BIMS Expression of Ideas and Wants: Without Difficulty Understanding Verbal Content: Understands Brief Interview/Mental Status: Yes IRF ZAIDA BIMS: IRF ZAIDA BIMS Response (Comments) Value Repitition of Three Words Three 3 Recalls Socks Yes, No Cue Required 2 Recalls Blue Yes, No Cue Required 2 Recalls Bed Yes, No Cue Required 2 Year Correct 3 Month Accurate Within 5 Days 2 Day Correct 1 Total 15 Patient Normally Able to Recal: Current Session, Location of own room, Staff Names and faces, That he/she in a [facility] Should Staff Asses. Mental St.: No CAM Mental Status Change/Baseline: 0 Inattention: 0 Disorganized thinkin Altered level of consciousness: 0 OT Short Term Goals Short Term Goals Time Frame: Jan 26, 2023 Eatin Oral hygiene: 6 Toileting hygiene: 6 OT Manager Solar Goals Manager Solar Goals Acute change in mental status: 0 Inattention: 0 Disorganized thinkin Altered level of consciousness: 0 Eating (QC): 6 (met) Oral Hygiene (QC): 6 (met) Toileting Hygiene (QC): 6 (met) Shower/Bathe Self (QC): 6 (met) Upper Body Dressing (QC): 6 (met) Lower Body Dressing (QC): 6 (met) On/Off Footwear (QC): 6 (met) 1=Demonstrate adherence to instructed precautions during ADL tasks. 2=Patient will verbalize/demonstrate understanding of assistive devices/modifications for ADL. 3=Patient will improve strength/tolerance for activity to enable patient to perform ADL's. OT Education/Plan Problem List/Assessment Assessment: Decreased Activ Tolerance Discharge Recommendations Plan/Recommendations: Continue POC Therapy Discharge Recommendati: Home & Family Equpiment Recommendations-D/C: None, Extended Bath Bench Treatment Plan/Plan of Care Patient would benefit from OT for education, treatment and training to promote independence in ADL's, mobility, safety and/or upper extremity function for ADL's. Plan of Care: ADL Retraining, Concurrent Therapy, Functional Mobility, Group Exercise/Act as Ind, UE Funct Exercise/Act Treatment Duration: Feb 01, 2023 Frequency: At least 5 of 7 days/Wk (IRF) Estimated Hrs Per Day: 1 hour per day (up to 60 minutes less than 130 minutes) Agreement: Yes Rehab Potential: Good Time Start Time: 07:00 Stop Time: 08:00 DATE: Jan 30, 2023 Total Time Billed (hr/min): 60 Billed Treatment Time 1 visit-ADL 4 (60 min) PING PHILLIPS Jan 30, 2023 07:07
[2023-01-30 07:42] VITALS: BP 116/55
[2023-01-30] MEDS: APIXABAN 5 MG TABLET PO SCH (08:12)
[2023-01-30] MEDS: MONTELUKAST 10 MG TABLET PO SCH (08:12)
[2023-01-30] MEDS: dilTIAZem ER 240 MG CAPSULE PO SCH (08:12)
[2023-01-30] MEDS: DRONEDARONE 400 MG TABLET PO SCH (08:12)
[2023-01-30] MEDS: HYDROXYCHLOROQUINE 200 MG TABLET PO SCH (08:12)
[2023-01-30] MEDS: SENNOSIDES 8.6 MG (SENOKOT) TAB PO SCH (08:13)
[2023-01-30] MEDS: DOCUSATE SODIUM 100 MG CAPSULE PO SCH (08:13)
[2023-01-30] MEDS: polyethylene glycoL POWDER 17 GM (MIRALAX) PACK PO SCH (08:13)
[2023-01-30] MEDS: RT-IPRATROPIUM NEBS 0.5 MG/2.5 ML IH SCH (08:50)
--- NOTE | 2023-01-30 08:53 | Physical Therapy Daily Note ---
PT Daily Note-Current Subjective Pt reports she is doing well this AM and is agreeable to PT. Pt denies pain. Pain Numeric Pain Scale: 0-No Pain Location: No Pain Reported Section J - Health Conditions 1. Rarely or not at all 2. Occasionally 3. Frequently 4. Almost constantly 8. Unable to answer Pain Effect on Sleep: 1 Pain Interference with Therapy: 1 Pain Interference w/Day-to-Day: 1 Transfers SCALE: Activities may be completed with or without assistive devices. 9-Zesfjvhmni-yirrvww completes the activity by him/herself with no assistance from a helper. 5-Set-up or Clean-up Assistance-helper sets up or cleans up; patient completes activity. [place] assists only prior to or following the activity. 4-Supervision or Touching Assistance-helper provides verbal cues and/or touching/steadying and/or contact guard assistance as patient completes activity. Assistance may be provided throughout the activity or intermittently. 3-Partial/Moderate Assistance-helper does LESS THAN HALF the effort. [place] lifts, holds or supports trunk or limbs, but provides less than half the effort. 2-Substantial/Maximal Assistance-helper does MORE THAN HALF the effort. [place] lifts or holds trunk or limbs and provides more than half the effort. 2-Ucffsvbtn-nvmitw does ALL the effort. Patient does none of the effort to compl ete the activity. Or, the assistance of 2 or more helpers is required for the patient to complete the activity. If activity was not attempted, code reason: 7-Patient Refused. 9-Not Applicable-not attempted and the patient did not perform the activity before the current illness, exacerbation or injury. 10-Not Attempted due to Environmental Limitations-(lack of equipment, weather restraints, etc.). 88-Not Attempted due to Medical Conditions or Safety Concerns. Roll Left & Right (QC): 6 Sit to Lying (QC): 6 Lying to Sitting/Side of Bed(Q: 6 Sit to Stand (QC): 6 Chair/Tpq-od-Ykccw Xfer(QC): 6 Toilet Transfer (QC): 6 Car Transfer (QC): 6 Weight Bearing Right Lower Extremity: Right Full Weight Bearing Left Lower Extremity: Left Full Weight Bearing Gait Training Does the Patient Walk?: Yes Distance: 200ft Walk 10 feet (QC): 6 Walk 50 ft with 2 Turns(QC): 6 Walk 150 ft (QC): 6 Walking 10ft/uneven surface-QC: 6 Gait Assistive Device: Cane Single Point Wheelchair Training Does the Pt Use a Wheelchair?: No Wheel 50 ft with 2 turns (QC): 9 Wheel 150 ft (QC): 9 Type of Wheelchair: N/A Stair Training Stair Training: Handrails/: 2 handrails #of Steps: 12 1 Step (curb) (QC): 6 4 Steps (QC): 6 12 Steps (QC): 6 Stairs: Pattern: Reciprocal Balance Picking up an Object (QC): 6 Special Test Comments KU standing balance scale = 4+/5 Treatments QCs completed on this date. Pt has progressed well with PT and met all set goals. Pt is Mod I with all aspects of functional mobility. Pt is Mod I with bed mobility, transfers, walking 200ft with the SPC and negotiating 12 steps with B HR. Pt sitting up in her recliner upon completion of PT with call light in reach and all needs met. Pt reports she is ready to go home and denies any questions or concerns. Assessment Current Status: Excellent Progress Pt tolerated PT well with good effort; All goes met; Mod I with functional mobility with the SPC PT Sensor Technician Goals Shelter Goals PT Shelter Goals Time Frame: Feb 02, 2023 Roll Left & Right (QC): 6 (Pt will be Mod I with all aspects of functional mobility with SPC, in order to safely return home. ) Sit to Lying (QC): 6 (Pt will be Mod I with all aspects of functional mobility with SPC, in order to safely return home. ) Lying-Sitting on Side/Bed(QC): 6 (Pt will be Mod I with all aspects of functional mobility with SPC, in order to safely return home. ) Sit to Stand (QC): 6 (Pt will be Mod I with all aspects of functional mobility with SPC, in order to safely return home. ) Chair/Fhh-uy-Eirmq Xfer(QC): 6 (Pt will be Mod I with all aspects of functional mobility with SPC, in order to safely return home. ) Toilet Transfer (QC): 6 (Pt will be Mod I with all aspects of functional mobility with SPC, in order to safely return home. ) Car Transfer (QC): 6 (Pt will be Mod I with all aspects of functional mobility with SPC, in order to safely return home. ) Does the Patient Walk: Yes Walk 10 feet (QC): 6 (Pt will be Mod I with all aspects of functional mobility with SPC, in order to safely return home. ) Walk 50ft with 2 Turns (QC): 6 (Pt will be Mod I with all aspects of functional mobility with SPC, in order to safely return home. ) Walk 150 ft (QC): 6 (Pt will be Mod I with all aspects of functional mobility with SPC, in order to safely return home. ) Walking 10ft on Uneven Surface: 6 (Pt will be Mod I with all aspects of functional mobility with SPC, in order to safely return home. ) 1 Step (curb) (QC): 6 (Pt will be Mod I with all aspects of functional mobility with SPC, in order to safely return home. ) 4 Steps (QC): 6 (Pt will be Mod I with all aspects of functional mobility with SPC, in order to safely return home. ) 12 Steps (QC): 6 (Pt will be Mod I with all aspects of functional mobility with SPC, in order to safely return home. ) Picking up an Object (QC): 6 (Pt will be Mod I with all aspects of functional mobility with SPC, in order to safely return home. ) Does the Pt use WC or Scooter?: No Wheel 50 feet with 2 turns (QC: 9 Type: N/A Wheel 150 feet: 9 Type: N/A PT Plan Problem List Problem List: Activity Tolerance, Functional Strength, ROM Treatment/Plan Treatment Plan: Continue Plan of Care Treatment Plan: Bed Mobility, Concurrent Therapy, Education, Functional Activity [place], Functional Strength, Group Therapy, Gait, Safety, Therapeutic Exercise, Transfers Treatment Duration: Feb 02, 2023 Frequency: At least 5 of 7 days/Wk (IRF) Estimated Hrs Per Day: 2 hours per day Patient and/or Family Agrees t: Yes Safety Risks/Education Patient Education: Gait Training, Transfer Techniques, Steps, Reviewed Precautions, Correct Positioning, Safety Issues Teaching Recipient: Patient Teaching Methods: Demonstration, Discussion Response to Teaching: Verbalize Understanding, Return Demonstration Discharge Recommendations Therapy Discharge Recommendati: Home & Family Equpiment Recommendations-D/C: None Discharge Status/Home Program Pt is discharging home on this date with family support; pt did not want [facility] Barriers to Progress Proximal weakness; endurance Target Placement Home with family support Time Time In: 830 Time Out: 845 DATE: Jan 30, 2023 Total Billed Treatment Time: 15 Total Billed Treatment 15 min 1 visit GT x 1 ANNI PUENTES PT Jan 30, 2023 08:53
[2023-01-30 10:56] VITALS: BP 116/55
--- NOTE | 2023-01-31 11:16 | Therapy Team Discharge Summary ---
Therapy Discharge Summary Discharge Recommendations Date of Discharge Jan 30, 2023 at 10:15 Therapy D/C Recommendations: Home w/ Family Support Physical Therapy Pt is an 78 y/o female who went to the ED on 01/18/23 for SOB and rapid HR; S/P pacemaker placement on 01/20/23; Admitted to ARU on 01/23/23. At [facility], pt was Mod I with the SPC, cooking, and driving; Ind with stairs. Upon PT eval, pt was CGA - Min A for all aspects of functional mobility. PT focused on B LE strengthening, endurance, functional mobility, walking, balance, safety, and Ind. Pt progressed well with PT and met all set goals. Pt was Mod I with all aspects of functional mobility with the SPC. Pt d/c from ARU to home on 01/30/23; pt refused HHC at this time; d/c from PT at this time. Roll Left to Right (QC): 6 Sit to Lying (QC): 6 Lying to Sitting/Side of Bed(Q: 6 Sit to Stand (QC): 6 Chair/Oik-zn-Zglxy Xfer(QC): 6 Toilet Transfer (QC): 6 Car Transfer (QC): 6 Does the Patient Walk: Yes Mode of Locomotion: Walk Anticipated Mode of Locomotion: Walk Walk 10 feet (QC): 6 Walk 50 ft with 2 Turns(QC): 6 Walk 150 ft (QC): 6 Walking 10ft on uneven surface: 6 Distance: 200ft Gait Assistive Device: Cane Single Point Does the Pt Use a Wheelchair: No Wheel 50 ft with 2 turns (QC): 9 Wheel 150 ft (QC): 9 Type of Wheelchair: N/A #of Steps: 12 1 Step (curb) (QC): 6 4 Steps (QC): 6 12 Steps (QC): 6 Walking Assistive Device: Cane Balance Sitting Static: Normal Balance Sitting Dynamic: Good Balance-Standing Static: Good Picking up an Object (QC): 6 Occupational Therapy Decreased Activ Tolerance Eating (QC): 6 (Pt able to open packages and containers by self and uses regular utensils.) Oral Hygiene (QC): 6 Shower/Bathe Self (QC): 6 Upper Body Dressing (QC): 6 Lower Body Dressing (QC): 6 On/Off Footwear (QC): 6 Toileting Hygiene (QC): 6 PT Shearing Machine Tender Goals Shearing Machine Tender Goals PT Shelter Goals Time Frame: Feb 02, 2023 Roll Left to Right (QC): 6 (Pt will be Mod I with all aspects of functional mobility with SPC, in order to safely return home. ) Sit to Lying (QC): 6 (Pt will be Mod I with all aspects of functional mobility with SPC, in order to safely return home. ) Lying-Sitting on Side/Bed(QC): 6 (Pt will be Mod I with all aspects of functional mobility with SPC, in order to safely return home. ) Sit to Stand (QC): 6 (Pt will be Mod I with all aspects of functional mobility with SPC, in order to safely return home. ) Chair/Zkd-du-Gelek Xfer(QC): 6 (Pt will be Mod I with all aspects of functional mobility with SPC, in order to safely return home. ) Toilet/Commode Transfer (QC): 6 (Pt will be Mod I with all aspects of functional mobility with SPC, in order to safely return home. ) Car Transfer (QC): 6 (Pt will be Mod I with all aspects of functional mobility with SPC, in order to safely return home. ) Does the Patient Walk: Yes Walk 10 feet (QC): 6 (Pt will be Mod I with all aspects of functional mobility with SPC, in order to safely return home. ) Walk 10ft-Uneven Surface(QC): 6 (Pt will be Mod I with all aspects of functional mobility with SPC, in order to safely return home. ) Walk 50ft with 2 Turns (QC): 6 (Pt will be Mod I with all aspects of functional mobility with SPC, in order to safely return home. ) Walk 150 ft (QC): 6 (Pt will be Mod I with all aspects of functional mobility with SPC, in order to safely return home. ) Does the Pt use WC or Scooter?: No Wheel 50 feet with 2 turns (QC: 9 Type: N/A Wheel 150 feet: 9 Type: N/A 1 Step (curb) (QC): 6 (Pt will be Mod I with all aspects of functional mobility with SPC, in order to safely return home. ) 4 Steps (QC): 6 (Pt will be Mod I with all aspects of functional mobility with SPC, in order to safely return home. ) 12 Steps (QC): 6 (Pt will be Mod I with all aspects of functional mobility with SPC, in order to safely return home. ) Picking up an Object (QC): 6 (Pt will be Mod I with all aspects of functional mobility with SPC, in order to safely return home. ) OT Shelter Goals Shelter Goals Acute change in mental status: 0 Inattention: 0 Disorganized thinkin Altered level of consciousness: 0 Eating (QC): 6 (met) Oral Hygiene (QC): 6 (met) Toileting Hygiene (QC): 6 (met) Shower/Bathe Self (QC): 6 (met) Upper Body Dressing (QC): 6 (met) Lower Body Dressing (QC): 6 (met) On/Off Footwear (QC): 6 (met) 1=Demonstrate adherence to instructed precautions during ADL tasks. 2=Patient will verbalize/demonstrate understanding of assistive devices/modifications for ADL. 3=Patient will improve strength/tolerance for activity to enable patient to perform ADL's. ANNI PUENTES PT Jan 31, 2023 11:16
== END 2023-01-30 10:15 | disposition home or self-care (01) | DRG 93 ==
PROVIDERS: ADMIT Internal Medicine; ATTEND Internal Medicine
DX: G72.89 Other specified myopathies (principal); I48.0 Paroxysmal atrial fibrillation; I49.5 Sick sinus syndrome; J44.9 Chronic obstructive pulmonary disease, unspecified; F41.0 Panic disorder [episodic paroxysmal anxiety]; G62.9 Polyneuropathy, unspecified; M79.7 Fibromyalgia; E89.0 Postprocedural hypothyroidism; M19.90 Unspecified osteoarthritis, unspecified site; Z95.0 Presence of cardiac pacemaker; Z79.01 Long term (current) use of anticoagulants; Z91.81 History of falling; Z87.891 Personal history of nicotine dependence; Z85.850 Personal history of malignant neoplasm of thyroid; Z79.899 Other long term (current) drug therapy
CPT/HCPCS: 36415; 80048; 80053; 83735; 85025; 94640; 94760

== ENCOUNTER 2023-04-06 15:35 | Emergency (ER) | payer MEDICARE, OTHER ==
[~2023-04-06] VITALS: Ht 149 cm; Wt 78.0 kg
--- NOTE | 2023-04-06 15:39 | ED General ---
General Chief Complaint: General Problems/Pain Stated Complaint: SOB History of Present Illness Date Seen by Provider: Apr 06, 2023 Time Seen by Provider: 15:38 Initial Comments 78 yr F with PMH of CHF/COPD/ A-Fib with pacemaker placement in January 2023/ Basal mendez carcinoma/ thyroid cancer/, is sent here from clinic for CHF exacerbation due to increasing SOB, mild lower chest pain and oxygen saturation found to be 85% to 93%. In the ER pt is able to speak in sentences but is needing 2L of O2. Pt has been having a productive cough for the past few days. All her symptoms have been going on since last week but worsened 2 day ago. Pt has also been noticing leg edema as well. No known sick contacts. Allergies and Home Medications Allergies Coded Allergies: No Known Drug Allergies (Unverified , 06/13/13) Patient Home Medication List Home Medication List Reviewed: Yes Albuterol Sulfate (Ventolin Hfa) 90 Mcg Hfa.aer.ad, 2 PUFF INH Q6H PRN for SHORTNESS OF BREATH, (Reported) Entered as Reported by: MARY CLAYTON on 01/19/23 110 Apixaban (Eliquis) 5 Mg Tablet, 5 MG PO BID Prescribed by: LAMBERT BROOKS on 01/30/23 0600 Cetirizine HCl (Cetirizine HCl) 10 Mg Tablet, 10 MG PO DAILY, (Reported) Entered as Reported by: MARY CLAYTON on 01/19/23 110 Cholecalciferol (Vitamin D3) (Vitamin D3) 25 Mcg Capsule, 25 MCG PO DAILY, (Reported) Entered as Reported by: MARY CLAYTON on 08/19/19 0948 Diltiazem HCl (Diltiazem 24Hr ER) 240 Mg Cap.er.24h, 240 MG PO DAILY Prescribed by: LAMBERT BROOKS on 01/30/23 06 Dronedarone HCl (Multaq) 400 Mg Tablet, 400 MG PO BID Prescribed by: LAMBERT BROOKS on 01/30/23 06 Fluticasone/Umeclidin/Vilanter (Trelegy Ellipta 200-62.5-25) 200-62.5 Blst.w.dev, 1 PUFF INH HS, (Reported) Entered as Reported by: MARY CLAYTON on 01/19/23 110 Gabapentin (Gabapentin) 100 Mg Capsule, 100 MG PO DAILY, (Reported) Entered as Reported by: MARY CLAYTON on 08/19/19947 Gabapentin (Gabapentin) 100 Mg Capsule, 100 MG PO BID PRN for PAIN-BREAKTHROUGH, (Reported) Entered as Reported by: MARY CLAYTON on 01/19/231105 Hydroxychloroquine Sulfate (Hydroxychloroquine Sulfate) 200 Mg Tablet, 200 MG PO DAILY, (Reported) Entered as Reported by: MARY CLAYTON on 08/19/19947 Ipratropium/Albuterol Sulfate (Iprat-Albut 0.5-3(2.5) mg/3 ml) 0.5 Mg-3 Mg (2.5 Mg Base)/3 Ml Ampul.neb, 3 ML NEB BID, (Reported) Entered as Reported by: MARY CLAYTON on 01/19/231105 Levothyroxine Sodium (Levothyroxine Sodium) 150 Mcg Tablet, 150 MCG PO DAILY, (Reported) Entered as Reported by: MARY CLAYTON on 01/19/231105 Mirtazapine (Mirtazapine) 7.5 Mg Tablet, 7.5 MG PO HS, (Reported) Entered as Reported by: MARY CLAYTON on 01/19/231105 Montelukast Sodium (Montelukast Sodium) 10 Mg Tablet, 10 MG PO DAILY, (Reported) Entered as Reported by: MARY CLAYTON on 08/19/19947 Multivitamin (Multivitamin) 1 Each Tablet, 1 EACH PO DAILY, (Reported) Entered as Reported by: MARY CLAYTON on 01/19/231105 Omeprazole (Omeprazole) 20 Mg Capsule.dr, 20 MG PO DAILY, (Reported) Entered as Reported by: MARY CLAYTON on 01/19/231105 Review of Systems Review of Systems Constitutional: see HPI EENTM: no symptoms reported Respiratory: see HPI, cough, dyspnea on exertion, short of breath Gastrointestinal: no symptoms reported Skin: no symptoms reported Past Ttjyvfy-Lqnyyw-Ykracu Hx Immunizations Up To Date Tetanus Booster (TDap): Unknown PED Vaccines UTD: No Past Medical History Surgery/Hospitalization HX: APPENDECTOMY, CHOLECYSTECTOMY,BACK SURGERY WITH KARTIK, TOTAL RIGHT KNEE REPLACMENT, BASAL CELL REMOVAL ON FACE AND RIGHT SHOULDER, THYROID CANCER RESULTING IN REMOVAL OF THYROIDS. COPD, GERD, FIBROMYALGIA, CHRONIC COUGH, ARTHRITIS, FORMER SMOKER, DEGENERATIVE DISK DISEASE. Surgeries: Yes (BACK) Appendectomy, Gallbladder, Orthopedic, Pacemaker Respiratory: Yes COPD Cardiac: No Atrial Fibrillation Neurological: No Reproductive Disorders: No Genitourinary: No Gastrointestinal: No Musculoskeletal: Yes (LUMBAR PROBLEMS) Degenerate Disk Disease, Arthritis Endocrine: No Cancer: No Psychosocial: No Integumentary: No Blood Disorders: No Adverse Reaction/Blood Tranf: No Family Medical History Family history: Breast disease 03 MOTHER Family history: Cardiovascular disease 03 MOTHER Family history: Diabetes mellitus 03 MOTHER History of - respiratory disease 03 FATHER No Pertinent Family Hx Physical Exam Vital Signs Vital Signs - First Documented 04/06/23 16:10 Temp 37.0 Pulse 87 Resp 24 Pulse Ox 87 O2 Delivery Room Air Capillary Refill : Height, Weight, BMI Height: '" Weight: 186lbs. 0.0oz. 84.577515jx; 32.88 BMI Method: General Appearance: Mild Distress HEENT: PERRL/EOMI, Normal ENT Inspection Neck: Full Range of Motion, Normal Inspection Respiratory: Crackles, Expiration, Rhonci, Wheezing, Other Cardiovascular: Regular Rate, Rhythm, Other ( bilateral pitting edema of lower extremities extending up to the knee, pitting.) Gastrointestinal: Normal Bowel Sounds, Non Tender, Soft Extremity: Normal Range of Motion Neurologic/Psychiatric: Alert, Oriented x3 Skin: Normal Color Focused Exam Lactate Level 04/06/23 15:50: Lactic Acid Level 1.31 Lactic Acid Level Laboratory Tests Test 04/06/23 15:50 Lactic Acid Level 1.31 MMOL/L (0.50-2.00) Progress/Results/Core Measures Suspected Sepsis SIRS Temperature: Pulse: Respiratory Rate: Laboratory Tests 04/06/23 15:50: White Blood Count 9.0 Blood Pressure / Mean: 04/06/23 15:50: Lactic Acid Level 1.31 Laboratory Tests 04/06/23 15:50: Creatinine 0.76, INR Comment 1.5H, Platelet Count 277, Total Bilirubin 0.5 Results/Orders Lab Results Laboratory Tests Test 04/06/23 15:50 04/06/23 17:40 Range/Units White Blood Count 9.0 4.3-11.0 10^3/uL Red Blood Count 3.98 3.80-5.11 10^6/uL Hemoglobin 11.9 11.5-16.0 g/dL Hematocrit 36 35-52 % Mean Corpuscular Volume 91 80-99 fL Mean Corpuscular Hemoglobin 30 25-34 pg Mean Corpuscular Hemoglobin Concent 33 32-36 g/dL Red Cell Distribution Width 13.2 10.0-14.5 % Platelet Count 277 130-400 10^3/uL Mean Platelet Volume 9.8 9.0-12.2 fL Immature Granulocyte % (Auto) 0 % Neutrophils (%) (Auto) 62 42-75 % Lymphocytes (%) (Auto) 27 12-44 % Monocytes (%) (Auto) 9 0-12 % Eosinophils (%) (Auto) 1 0-10 % Basophils (%) (Auto) 1 0-10 % Neutrophils # (Auto) 5.5 1.8-7.8 10^3/uL Lymphocytes # (Auto) 2.4 1.0-4.0 10^3/uL Monocytes # (Auto) 0.8 0.0-1.0 10^3/uL Eosinophils # (Auto) 0.1 0.0-0.3 10^3/uL Basophils # (Auto) 0.1 0.0-0.1 10^3/uL Immature Granulocyte # (Auto) 0.0 0.0-0.1 10^3/uL Percent Immature Platelet Fraction 2.6 0.0-7.6 % Prothrombin Time 18.0 H 12.2-14.7 SEC INR Comment 1.5 H 0.8-1.4 Activated Partial Thromboplast Time 35 24-35 SEC D-Dimer 0.95 H 0.00-0.49 UG/ML Sodium Level 140 135-145 MMOL/L Potassium Level 3.7 3.6-5.0 MMOL/L Chloride Level 104 98-107 MMOL/L Carbon Dioxide Level 24 21-32 MMOL/L Anion Gap 12 5-14 MMOL/L Blood Urea Nitrogen 11 7-18 MG/DL Creatinine 0.76 0.60-1.30 MG/DL Estimat Glomerular Filtration Rate 79 BUN/Creatinine Ratio 14 Glucose Level 121 H 70-105 MG/DL Lactic Acid Level 1.31 0.50-2.00 MMOL/L Calcium Level 9.2 8.5-10.1 MG/DL Corrected Calcium 9.4 8.5-10.1 MG/DL Magnesium Level 1.9 1.6-2.4 MG/DL Total Bilirubin 0.5 0.1-1.0 MG/DL Aspartate Amino Transf (AST/SGOT) 15 5-34 U/L Alanine Aminotransferase (ALT/SGPT) < 5 0-55 U/L Alkaline Phosphatase 96 40-136 U/L Troponin I < 0.30 <0.30 NG/ML Pro-B-Type Natriuretic Peptide 160.5 <450.0 PG/ML Total Protein 6.7 6.4-8.2 GM/DL Albumin 3.7 3.2-4.5 GM/DL Influenza Type A (RT-PCR) Not Detected Not Detecte Influenza Type B (RT-PCR) Not Detected Not Detecte SARS-CoV-2 RNA (RT-PCR) Not Detected Not Detecte Urine Color YELLOW Urine Clarity CLEAR Urine pH 6.0 5-9 Urine Specific [place] 1.020 1.016-1.022 Urine Protein NEGATIVE NEGATIVE Urine Glucose (UA) NEGATIVE NEGATIVE Urine Ketones NEGATIVE NEGATIVE Urine Nitrite NEGATIVE NEGATIVE Urine Bilirubin NEGATIVE NEGATIVE Urine Urobilinogen 0.2 < = 1.0 MG/DL Urine Leukocyte Esterase NEGATIVE NEGATIVE Urine RBC (Auto) TRACE-I H NEGATIVE Urine RBC 2-5 H /HPF Urine WBC 0-2 /HPF Urine Squamous Epithelial Cells 5-10 /HPF Urine Crystals NONE /LPF Urine Bacteria TRACE /HPF Urine Casts NONE /LPF Urine Mucus SMALL H /LPF Urine Culture Indicated NO My Orders Orders - ELI THOMPSON MD Cbc And Automated Diff (04/06/23 15:39) Comprehensive Metabolic Panel (04/06/23 15:39) Lactic Acid Analyzer (04/06/23 15:39) Magnesium (04/06/23 15:39) Protime With Inr (04/06/23 15:39) Partial Thromboplastin Time (04/06/23 15:39) Ua Culture If Indicated (04/06/23 15:39) Influenza A And B By Pcr (04/06/23 15:39) Probnp Fs (04/06/23 15:39) Troponin I Fs (04/06/23 15:39) Covid 19 Inhouse Test (04/06/23 15:39) Chest 1 View Ap/Pa Only (04/06/23 15:39) Blood Culture (04/06/23 15:54) Fibrin Degradation Products (04/06/23 15:55) Ipratropium/Albuterol Inh Soln (Ipratrop (04/06/23 17:00) Methylprednisolone Sod Succ (Methylpredn (04/06/23 16:54) Svn Small Volume Nebulizer (04/06/23 16:54) Furosemide Injection (Furosemide Injec (04/06/23 17:00) Ct Angio Chest W (R/O Pe) (04/06/23 16:55) Benzonatate Capsule (Benzonatate Capsule (04/06/23 16:56) Iohexol Injection (Omnipaque 350 Mg/Ml 1 (04/06/23 17:15) Received Contrast (Hold Metformin- Contr (04/06/23 17:15) Ns (Ivpb) 100 Ml (Sodium Chloride 0.9% 1 (04/06/23 17:15) Aspirin Tablet (Aspirin Tablet) (04/06/23 20:41) Aspirin Chewable Tablet (Aspirin Chewabl (04/06/23 20:43) Apixaban Tablet (Apixaban Tablet) (04/06/23 20:48) Aspirin Chewable Tablet (Aspirin Chewabl (04/06/23 20:53) Aspirin Chewable Tablet (Aspirin Chewabl (04/06/23 21:15) Ekg Tracing (04/06/23 21:02) Troponin I Fs (04/06/23 21:24) Medications Given in ED Current Medications Medications Dose Ordered Sig/Dandre Route Start Time Stop Time Status Last Admin Dose Admin Albuterol/ Ipratropium 3 ml ONCE ONCE INH 04/06/23 17:00 04/06/23 17:02 DC 04/06/23 17:05 3 ML Apixaban 5 mg STK-MED ONCE .ROUTE 04/06/23 20:48 04/06/23 20:50 DC 04/06/23 20:48 5 MG Aspirin 324 mg ONCE ONCE PO 04/06/23 21:15 04/06/23 21:16 DC 04/06/23 20:45 324 MG Furosemide 40 mg ONCE ONCE IVP 04/06/23 17:00 04/06/23 17:02 DC 04/06/23 17:05 40 MG Iohexol 100 ml ONCE ONCE IV 04/06/23 17:15 04/06/23 17:16 DC 04/06/23 18:02 80 ML Sodium Chloride 100 ml ONCE ONCE IV 04/06/23 17:15 04/06/23 17:16 DC 04/06/23 18:02 100 ML Vital Signs/I&O 04/06/23 16:10 Temp 37.0 Pulse 87 Resp 24 B/P (MAP) Pulse Ox 87 O2 Delivery Room Air Capillary Refill : Progress Note : Progress Note 1. PERICARDIAL EFFUSION DUE TO CHF: - CXR: [id number] cardiomegaly with background emphysema. Otherwise, no acute abnormality or complication is seen. - CTA CHEST: see below - CBC: normal WBC - CMP: unremarkable - BNP: not elevated: 160 - COVID test/ Rapid flu test: negative - Troponin: undetectable - Lasix 40mg iv STAT - Duo neb x 2. - Solumedrol 125mg iv STAT -Patient has signs of fluid overload with crackles and rales in the lungs, wet cough, bilateral lower extremity pitting edema but her BNP is only 160. - Discussed with hospitalist at [facility] who discussed with [employer] ascp consultant who recommended that pt be transferred to a facility that has cardiothoracic surgery - Pt prefers to go to [facility]. Discussed with transfer physician and accepted for transfer. Pt will go by [facility] 2. ELEVATED D-DIMER: - D-dimer is 0.95 - CTA CHEST: There is interval development of a moderate to large amount of pericardial fluid. There is no evidence of pulmonary embolism. There is no thoracic aortic aneurysm or dissection. There is grossly similar appearance of the lungs with multiple micronodules involving both lungs. Stable small area of consolidation involving the lingular left lung base region. CT scan of the chest in 6 months is suggested to evaluate for interval change. 3.PAROXYSMAL A-FIB: - 2ND EKG shows A-fib with RVR WITH HEART RATE OF 121, this lasted for 2 or 3 minutes with chest pain and resolved and heart rate went back to the 80's. ASA 324mg given in ER. - Likely due to not tkaing her nightly dose of Eliquis and Multaq. Eliquis given in ER and pt's home medication of Multaq given. ECG Initial ECG Impression Date: Apr 06, 2023 Initial ECG Impression Time: 15:47 Initial ECG Rate: 80 Initial ECG Rhythm: Normal Sinus Initial ECG Impression: Nonspecific Changes Initial ECG Comparisson: No Previous ECG Available EKG : EKG Time: 20:42 Rate: 121 Rhythm: Intervals A-fib and RVR ECG Comparisson: Changed Diagnostic Imaging Diagonstic Imaging: Xray Plain Films/CT/US/NM/MRI: chest Comments [facility] [place], [place] NAME: ELIZ[facility] REID [facility] REC#: [id number] PT STATUS: REG ER : 1945 PHYSICIAN: ELI THOMPSON MD ADMIT DATE: 04/06/23/ER FS Draft Date of Exam:04/06/23 CT ANGIO CHEST W (R/O PE) CLINICAL INDICATION: Patient with elevated d-dimer and shortness of breath. EXAM: CT angiogram of the chest performed with 80 cc Omnipaque 350 IV contrast. Coronal and oblique MIP images of the vasculature were created to better evaluate anatomy. Auto Exposure Controls were utilized during the CT exam to meet ALARA standards for radiation dose reduction. COMPARISON: CT angiogram of the chest dated 07/13/2022. FINDINGS: There is no evidence of pulmonary embolism. There is no thoracic aortic dissection or aneurysm. Again seen are multiple nodules involving both lungs with the right upper lobe affected the most. There is a stable small area of consolidation involving the lingular lung base region. There is no pleural effusion or pneumothorax. There is interval development of a moderate to large sized pericardial effusion. There is no pleural effusion pneumothorax. There is no mediastinal or axillary lymphadenopathy. Mediastinal structures and heart shows no significant abnormality. The visualized portions of the upper abdominal structures are unremarkable. There are degenerative spurs involving the thoracic spine. IMPRESSION: 1: There is interval development of a moderate to large amount of pericardial fluid. 2: There is no evidence of pulmonary embolism. There is no thoracic aortic aneurysm or dissection. 3: There is grossly similar appearance of the lungs with multiple micronodules involving both lungs. Stable small area of consolidation involving the lingular left lung base region. CT scan of the chest in 6 months is suggested to evaluate for interval change. Dictated on workstation # [id number] Dict: 04/06/23 1828 Trans: 04/06/23 1846 [id number] Interpreted by: JANAY SALGUERO MD Electronically signed by: [facility], [facility]. [place], [place] NAME: ELIZA REID [facility] REC#: [id number] PT STATUS: REG ER : 1945 PHYSICIAN: ELI THOMPSON MD ADMIT DATE: 04/06/23/ER FS Signed Date of Exam:04/06/23 CHEST 1 VIEW AP/PA ONLY INDICATION: Peripheral edema. Portable AP view of the chest is obtained with comparison made to study of 01/19/2023. FINDINGS: There has been mild increase in moderate cardiomegaly. Pulmonary vascularity is within normal limits; however, there is air trapping indicating emphysema, bilaterally. No pneumothorax, consolidation, or significant pleural fluid is seen. There has been placement of left anterior chest wall dual-chamber cardiac pacemaker without complication. IMPRESSION: Rjtq-[id number] cardiomegaly with background emphysema. Otherwise, no acute abnormality or complication is seen. Dictated by: Dictated on workstation # [id number] Dict: 04/06/23 1620 Trans: 04/06/23 1625 [id number] Interpreted by: VANESA SANTANA MD Electronically signed by: VANESA SANTANA MD 04/06/23 1625 Departure Impression Primary Impression: Pericardial effusion without cardiac tamponade Additional Impressions: CHF (congestive heart failure) Paroxysmal A-fib Disposition: XFER [facility] Condition: Stable Admissions Decision to Admit/Date: Apr 06, 2023 Time/Decision to Admit Time: 19:30 Transfer Transfer Reason: Exceeds level of care Time Spoke to Accepting Phy: 20:47 Transfer Facility: Replaced by [facility], discussed with transfer physician and accepted for transfer Method of Transfer: Air Departure-Patient Inst. Referrals: SELF,WENDY EDOUARD (PCP/Family) Primary Care Physician ELI THOMPSON MD Apr 06, 2023 15:39
[2023-04-06 16:13] LABS: BASOPHILS # (AUTO) 0.1 10^3/uL (0.0-0.1); BASOPHILS % (AUTO) 1 % (0-10); EOSINOPHILS # (AUTO) 0.1 10^3/uL (0.0-0.3); EOSINOPHILS % (AUTO) 1 % (0-10); HEMATOCRIT 36 % (35-52); HEMOGLOBIN 11.9 g/dL (11.5-16.0); LYMPHOCYTES # (AUTO) 2.4 10^3/uL (1.0-4.0); LYMPHOCYTES % (AUTO) 27 % (12-44); MEAN CORPUSCULAR HEMOGLOBIN 30 pg (25-34); MEAN CORPUSCULAR HGB CONC 33 g/dL (32-36); MEAN CORPUSCULAR VOLUME 91 fL (80-99); MEAN PLATELET VOLUME 9.8 fL (9.0-12.2); MONOCYTES # (AUTO) 0.8 10^3/uL (0.0-1.0); MONOCYTES % (AUTO) 9 % (0-12); NEUTROPHILS # (AUTO) 5.5 10^3/uL (1.8-7.8); NEUTROPHILS % (AUTO) 62 % (42-75); PLATELET COUNT 277 10^3/uL (130-400)
--- NOTE | 2023-04-06 16:23 | Diagnostic Imaging Report ---
INDICATION: Peripheral edema. Portable AP view of the chest is obtained with comparison made to study of 01/19/2023. FINDINGS: There has been mild increase in moderate cardiomegaly. Pulmonary vascularity is within normal limits; however, there is air trapping indicating emphysema, bilaterally. No pneumothorax, consolidation, or significant pleural fluid is seen. There has been placement of left anterior chest wall dual-chamber cardiac pacemaker without complication. IMPRESSION: [id number] cardiomegaly with background emphysema. Otherwise, no acute abnormality or complication is seen. Dictated by: Dictated on workstation # [id number]
[2023-04-06 16:29] LABS: CHLORIDE 104 MMOL/L (98-107); POTASSIUM 3.7 MMOL/L (3.6-5.0); SODIUM 140 MMOL/L (135-145)
[2023-04-06 16:37] LABS: FIBRIN DEGRADATION PRODUCTS 0.95 UG/ML (0.00-0.49); INR 1.5 (0.8-1.4)
[2023-04-06 16:39] LABS: ALANINE AMINOTRANSFERASE < 5 U/L (0-55); ALKALINE PHOSPHATASE 96 U/L (40-136); BILIRUBIN,TOTAL 0.5 MG/DL (0.1-1.0); BUN/CREATININE RATIO 14; CALCIUM 9.2 MG/DL (8.5-10.1); CARBON DIOXIDE 24 MMOL/L (21-32); CREATININE SERUM 0.76 MG/DL (0.60-1.30); GFR ESTIMATED 79; GLUCOSE 121 MG/DL (70-105); MAGNESIUM 1.9 MG/DL (1.6-2.4)
[2023-04-06 16:40] LABS: ALBUMIN 3.7 GM/DL (3.2-4.5); TOTAL PROTEIN 6.7 GM/DL (6.4-8.2)
[2023-04-06] MEDS ORDERED: methylPREDNISolone INJ 125 MG VIAL IV STA (16:54)
[2023-04-06] MEDS ORDERED: BENZONATATE 100 MG CAPSULE PO STA (16:56)
[2023-04-06] MEDS ORDERED: FUROSEMIDE INJECTION 40 MG/4 ML VIAL IVP ONE (17:00)
[2023-04-06] MEDS ORDERED: RT-Ipratropium/Albuterol NEB 3 ML VIAL INH ONE (17:00)
[2023-04-06] MEDS ORDERED: IOHEXOL 350 MG/ML 100 ML (OMNIPAQUE 350) VIAL IV ONE (17:15)
[2023-04-06] MEDS ORDERED: HOLD METFORMIN - RECEIVED CONTRAST 20 ML VIAL IV SCH (17:15)
[2023-04-06] MEDS ORDERED: NS 100 ML (IVPB) BAG IV ONE (17:15)
[2023-04-06 17:48] LABS: BILIRUBIN,URINE NEGATIVE (NEGATIVE); CLARITY,URINE CLEAR; COLOR,URINE YELLOW; GLUCOSE, URINE (UA) NEGATIVE (NEGATIVE); KETONES,URINE NEGATIVE (NEGATIVE); LEUKOCYTE ESTERASE ,URINE NEGATIVE (NEGATIVE); NITRITE,URINE NEGATIVE (NEGATIVE); PROTEIN,URINE NEGATIVE (NEGATIVE)
[2023-04-06 17:53] LABS: BACTERIA,URINE TRACE /HPF; WBC,URINE 0-2 /HPF
--- NOTE | 2023-04-06 18:46 | Diagnostic Imaging Report ---
CLINICAL INDICATION: Patient with elevated d-dimer and shortness of breath. EXAM: CT angiogram of the chest performed with 80 cc Omnipaque 350 IV contrast. Coronal and oblique MIP images of the vasculature were created to better evaluate anatomy. Auto Exposure Controls were utilized during the CT exam to meet ALARA standards for radiation dose reduction. COMPARISON: CT angiogram of the chest dated 07/13/2022. FINDINGS: There is no evidence of pulmonary embolism. There is no thoracic aortic dissection or aneurysm. Again seen are multiple nodules involving both lungs with the right upper lobe affected the most. There is a stable small area of consolidation involving the lingular lung base region. There is no pleural effusion or pneumothorax. There is interval development of a moderate to large sized pericardial effusion. There is no pleural effusion pneumothorax. There is no mediastinal or axillary lymphadenopathy. Mediastinal structures and heart shows no significant abnormality. The visualized portions of the upper abdominal structures are unremarkable. There are degenerative spurs involving the thoracic spine. IMPRESSION: 1: There is interval development of a moderate to large amount of pericardial fluid. 2: There is no evidence of pulmonary embolism. There is no thoracic aortic aneurysm or dissection. 3: There is grossly similar appearance of the lungs with multiple micronodules involving both lungs. Stable small area of consolidation involving the lingular left lung base region. CT scan of the chest in 6 months is suggested to evaluate for interval change. Dictated by: Dictated on workstation # [id number]
[2023-04-06] MEDS ORDERED: ASPIRIN 325 MG TABLET ONE (20:41)
[2023-04-06] MEDS: ASPIRIN 81 MG CHEWABLE TABLET ONE ×2 (20:45→21:07)
[2023-04-06] MEDS ORDERED: APIXABAN 5 MG TABLET ONE (20:48)
[2023-04-06] MEDS ORDERED: ASPIRIN 81 MG CHEWABLE TABLET ONE (20:53)
[2023-04-06] MEDS ORDERED: ASPIRIN 81 MG CHEWABLE TABLET PO ONE (21:15)
[2023-04-06 22:05] VITALS: BP 117/49
== END 2023-04-06 22:05 | disposition short-term general hospital (02) ==
LOC: EDUNIT# 15:35 → ER FS 15:37
DX: I48.0 Paroxysmal atrial fibrillation (principal); I31.39 Other pericardial effusion (noninflammatory); I50.9 Heart failure, unspecified; Z95.0 Presence of cardiac pacemaker; Z87.891 Personal history of nicotine dependence
CPT/HCPCS: 36415; 71045; 71275; 80053; 81000; 83605; 83735; 83880; 84484; 85025; 85379; 85610; 85730; 87040; 87636; 93005; Q9967

== ENCOUNTER → 2023-04-20 | Outpatient (CLI) | payer MEDICARE, OTHER | LOC: CARD 10:16 | PROVIDERS: ATTEND Nurse Practitioner Family | DX: I34.0 Nonrheumatic mitral (valve) insufficiency (principal); I31.39 Other pericardial effusion (noninflammatory) | CPT/HCPCS: 93306 ==

== ENCOUNTER 2023-05-18 09:07 | Inpatient (IN) | payer MEDICARE, OTHER ==
[~2023-05-18] VITALS: Ht 170 cm; Wt 82.0 kg
--- NOTE | 2023-05-18 09:10 | ED Chest Pain ---
General Stated Complaint: CHEST PAIN History of Present Illness Date Seen by Provider: May 18, 2023 Time Seen by Provider: 09:10 Initial Comments 78-year-old female presents with chest pain that is been going on for couple days. She reports it was worse this morning that her heart beating really fast and she is feeling more short of breath. She reports she has COPD uses inhalers twice a day has a chronic cough. She called EMS today because the pain was worse and she felt more short of breath than normal. In route she received 40 of Lasix along with breathing treatment. She reports some minor improvement following the breathing treatment for her shortness of breath. She is on Cardizem and dronedarone for atrial for but has not taken them this morning. Patient is normally on oxygen at home. Patient sees Dr. Barnes at [facility] for her cardiology care Allergies and Home Medications Allergies Coded Allergies: No Known Drug Allergies (Unverified , 06/13/13) Patient Home Medication List Home Medication List Reviewed: Yes Albuterol Sulfate (Ventolin Hfa) 90 Mcg Hfa.aer.ad, 2 PUFF INH Q6H PRN for SHORTNESS OF BREATH, (Reported) Entered as Reported by: MARY CLAYTON on 01/19/23 1106 Apixaban (Eliquis) 5 Mg Tablet, 5 MG PO BID Prescribed by: LAMBERT BROOKS on 01/30/23 0600 Cetirizine HCl (Cetirizine HCl) 10 Mg Tablet, 10 MG PO DAILY, (Reported) Entered as Reported by: MARY CLAYTON on 01/19/23 1106 Cholecalciferol (Vitamin D3) (Vitamin D3) 25 Mcg Capsule, 25 MCG PO DAILY, (Reported) Entered as Reported by: MARY CLAYTON on 08/19/19 0948 Diltiazem HCl (Diltiazem 24Hr ER) 240 Mg Cap.er.24h, 240 MG PO DAILY Prescribed by: LAMBERT BROOKS on 01/30/23 0600 Dronedarone HCl (Multaq) 400 Mg Tablet, 400 MG PO BID Prescribed by: LAMBERT BROOKS on 01/30/23 0600 Fluticasone/Umeclidin/Vilanter (Trelegy Ellipta 200-62.5-25) 200-62.5 Blst.w.dev, 1 PUFF INH HS, (Reported) Entered as Reported by: MARY CLAYTON on 01/19/231105 Gabapentin (Gabapentin) 100 Mg Capsule, 100 MG PO DAILY, (Reported) Entered as Reported by: MARY CLAYTON on 08/19/19947 Gabapentin (Gabapentin) 100 Mg Capsule, 100 MG PO BID PRN for PAIN-BREAKTHROUGH, (Reported) Entered as Reported by: MARY CLAYTON on 01/19/231105 Hydroxychloroquine Sulfate (Hydroxychloroquine Sulfate) 200 Mg Tablet, 200 MG PO DAILY, (Reported) Entered as Reported by: MARY CLAYTON on 08/19/19947 Ipratropium/Albuterol Sulfate (Iprat-Albut 0.5-3(2.5) mg/3 ml) 0.5 Mg-3 Mg (2.5 Mg Base)/3 Ml Ampul.neb, 3 ML NEB BID, (Reported) Entered as Reported by: MARY CLAYTON on 01/19/231105 Levothyroxine Sodium (Levothyroxine Sodium) 150 Mcg Tablet, 150 MCG PO DAILY, (Reported) Entered as Reported by: MARY CLAYTON on 01/19/231105 Mirtazapine (Mirtazapine) 7.5 Mg Tablet, 7.5 MG PO HS, (Reported) Entered as Reported by: MARY CLAYTON on 01/19/231105 Montelukast Sodium (Montelukast Sodium) 10 Mg Tablet, 10 MG PO DAILY, (Reported) Entered as Reported by: MARY CLAYTON on 08/19/19947 Multivitamin (Multivitamin) 1 Each Tablet, 1 EACH PO DAILY, (Reported) Entered as Reported by: MARY CLAYTON on 01/19/231105 Omeprazole (Omeprazole) 20 Mg Capsule.dr, 20 MG PO DAILY, (Reported) Entered as Reported by: MARY CLAYTON on 01/19/231105 Review of Systems Review of Systems Constitutional: No chills, No dizziness, No fever Respiratory: Cough, Shortness of Air Cardiovascular: Chest Pain, Edema, Irregular Heart Rate, Palpitations Gastrointestinal: No Symptoms Reported Genitourinary: No Symptoms Reported Psychiatric/Neurological: No Symptoms Reported Past Ocmgyle-Fvtiei-Mwjnqn Hx Immunizations Up To Date Tetanus Booster (TDap): Unknown PED Vaccines UTD: No Past Medical History Surgery/Hospitalization HX: APPENDECTOMY, CHOLECYSTECTOMY,BACK SURGERY WITH KARTIK, TOTAL RIGHT KNEE REPLACMENT, BASAL CELL REMOVAL ON FACE AND RIGHT SHOULDER, THYROID CANCER RESULTING IN REMOVAL OF THYROIDS. COPD, GERD, FIBROMYALGIA, CHRONIC COUGH, ARTHRITIS, FORMER SMOKER, DEGENERATIVE DISK DISEASE. Surgeries: Yes (BACK) Appendectomy, Gallbladder, Orthopedic, Pacemaker Respiratory: Yes COPD Cardiac: No Atrial Fibrillation Neurological: No Reproductive Disorders: No Genitourinary: No Gastrointestinal: No Musculoskeletal: Yes (LUMBAR PROBLEMS) Degenerate Disk Disease, Arthritis Endocrine: No Cancer: No Psychosocial: No Integumentary: No Blood Disorders: No Adverse Reaction/Blood Tranf: No Family Medical History Family history: Breast disease 03 MOTHER Family history: Cardiovascular disease 03 MOTHER Family history: Diabetes mellitus 03 MOTHER History of - respiratory disease 03 FATHER No Pertinent Family Hx Physical Exam Vital Signs Vital Signs - First Documented 05/18/23 05/18/23 05/18/23 09:24 09:26 09:29 Temp 36.6 Pulse 143 Resp 24 B/P (MAP) 105/65 Pulse Ox 94 O2 Delivery Nasal Cannula O2 Flow Rate 2.00 Capillary Refill : Height, Weight, BMI Height: '" Weight: 186lbs. 0.0oz. 84.364407di; 35.00 BMI Method: General Appearance: No Apparent Distress, WD/WN Respiratory: Crackles (Bibasilar), Decreased Breath Sounds Cardiovascular: Irregularly Irregular, Tachycardia Gastrointestinal: Non Tender, Soft; No Distended, No Guarding Extremity: Swelling (1-2+ bilateral lower extremity edema) Neurologic/Psychiatric: Alert, Oriented x3, Normal Mood/Affect Skin: Normal Color, Warm/Dry Progress/Results/Core Measures Results/Orders Lab Results Laboratory Tests Test 05/18/23 09:15 05/18/23 09:25 Range/Units White Blood Count 12.2 H 4.3-11.0 10^3/uL Red Blood Count 3.96 3.80-5.11 10^6/uL Hemoglobin 11.0 L 11.5-16.0 g/dL Hematocrit 35 35-52 % Mean Corpuscular Volume 88 80-99 fL Mean Corpuscular Hemoglobin 28 25-34 pg Mean Corpuscular Hemoglobin Concent 32 32-36 g/dL Red Cell Distribution Width 13.5 10.0-14.5 % Platelet Count 400 130-400 10^3/uL Mean Platelet Volume 9.3 9.0-12.2 fL Immature Granulocyte % (Auto) 0 % Neutrophils (%) (Auto) 70 42-75 % Lymphocytes (%) (Auto) 19 12-44 % Monocytes (%) (Auto) 10 0-12 % Eosinophils (%) (Auto) 0 0-10 % Basophils (%) (Auto) 0 0-10 % Neutrophils # (Auto) 8.6 H 1.8-7.8 10^3/uL Lymphocytes # (Auto) 2.3 1.0-4.0 10^3/uL Monocytes # (Auto) 1.2 H 0.0-1.0 10^3/uL Eosinophils # (Auto) 0.0 0.0-0.3 10^3/uL Basophils # (Auto) 0.0 0.0-0.1 10^3/uL Immature Granulocyte # (Auto) 0.0 0.0-0.1 10^3/uL Sodium Level 139 135-145 MMOL/L Potassium Level 3.1 L 3.6-5.0 MMOL/L Chloride Level 100 98-107 MMOL/L Carbon Dioxide Level 29 21-32 MMOL/L Anion Gap 10 5-14 MMOL/L Blood Urea Nitrogen 15 7-18 MG/DL Creatinine 0.82 0.60-1.30 MG/DL Estimat Glomerular Filtration Rate 72 BUN/Creatinine Ratio 18 Glucose Level 98 70-105 MG/DL Calcium Level 9.5 8.5-10.1 MG/DL Corrected Calcium 10.4 H 8.5-10.1 MG/DL Magnesium Level 2.0 1.6-2.4 MG/DL Total Bilirubin 1.0 0.1-1.0 MG/DL Aspartate Amino Transf (AST/SGOT) 13 5-34 U/L Alanine Aminotransferase (ALT/SGPT) < 5 0-55 U/L Alkaline Phosphatase 103 40-136 U/L Troponin I < 0.30 <0.30 NG/ML C-Reactive Protein 17.74 H <0.50 MG/DL Pro-B-Type Natriuretic Peptide 1845.0 H <450.0 PG/ML Total Protein 6.4 6.4-8.2 GM/DL Albumin 2.9 L 3.2-4.5 GM/DL Influenza Type A (RT-PCR) Not Detected Not Detecte Influenza Type B (RT-PCR) Not Detected Not Detecte SARS-CoV-2 RNA (RT-PCR) Not Detected Not Detecte My Orders Orders - ALIZA OSORIO DO Cbc And Automated Diff (05/18/23 09:11) Comprehensive Metabolic Panel (05/18/23 09:11) Magnesium (05/18/23 09:11) Influenza A And B By Pcr (05/18/23 09:11) Crp Fs (05/18/23 09:11) Troponin I Fs (05/18/23 09:11) Covid 19 Inhouse Test (05/18/23 09:11) Ekg Tracing (05/18/23 09:11) O2 (05/18/23 09:11) Monitor-Rhythm Ecg Trace Only (05/18/23 09:11) Chest Pa/Lat (2 View) (05/18/23 09:11) Probnp Fs (05/18/23 09:11) Diltiazem Injection (Diltiazem Injection (05/18/23 09:30) Diltiazem Drip Pre-Mix (Diltiazem Drip P (05/18/23 10:00) Ceftriaxone Iv/Im (Ceftriaxone Iv/Im) (05/18/23 10:15) Azithromycin Injection (Azithromycin Inj (05/18/23 10:15) Benzonatate Capsule (Benzonatate Capsule (05/18/23 10:30) Ed Iv/Invasive Line Start (05/18/23 10:24) Ns Iv 500 Ml (Ns Iv 500 Ml) (05/18/23 10:30) Ed Admission (Communication) (05/18/23 10:49) Medications Given in ED Current Medications Medications Dose Ordered Sig/Dandre Route Start Time Stop Time Status Last Admin Dose Admin Azithromycin 500 mg/Sodium Chloride 255 ml @ 250 mls/hr ONCE ONCE IV 05/18/23 10:15 05/18/23 11:16 05/18/23 10:35 250 MLS/HR Benzonatate 100 mg ONCE ONCE PO 05/18/23 10:30 05/18/23 10:31 DC 05/18/23 10:24 100 MG Ceftriaxone Sodium 1000 mg/ Sodium Chloride 50 ml @ 100 mls/hr ONCE ONCE IV 05/18/23 10:15 05/18/23 10:44 DC 05/18/23 10:14 100 MLS/HR Diltiazem HCl 20 mg ONCE ONCE IVP 05/18/23 09:30 05/18/23 09:31 DC 05/18/23 09:24 20 MG Sodium Chloride 500 ml @ 0 mls/hr Q0M ONCE IV 05/18/23 10:30 05/18/23 10:31 DC 05/18/23 10:35 0 MLS/HR Vital Signs/I&O 05/18/23 05/18/23 05/18/23 09:24 09:26 09:29 Temp 36.6 Pulse 143 132 Resp 24 B/P (MAP) 105/65 105/65 (78) Pulse Ox 94 95 O2 Delivery Nasal Cannula Nasal Cannula O2 Flow Rate 2.00 Progress Progress Note : Progress Note Patient's diagnostic studies were ordered reviewed and interpreted by me. Patient has a mild elevated white count. Patient's chest x-ray was ordered reviewed with final interpretation per radiology report that shows left lower lobe pneumonia with questionable pleural effusion is likely due to the pneumonia. Patient EKG shows atrial fibs with RVR with some nonspecific changes. Ventricular rate was 132. Patient to be admitted to Dr. Brooks with Dr. Lee consulting to [facility] ICU. Patient was provided with Rocephin and azithromycin for pneumonia along with some IV fluids. She did receive 20 of Cardizem. However we will hold off on a Cardizem drip until fluids that she seems to be responding to the fluids. They we will further evaluate her upon arrival to [facility] to determine if the Cardizem drip is needed. Patient was stable upon transfer. Initial ECG Impression Date: May 18, 2023 Initial ECG Impression Time: 09:14 Initial ECG Rate: 031 Initial ECG Rhythm: A Fib/Flutter Initial ECG Impression: Nonspecific Changes, Atrial Fibrillation w/RVR Diagnostic Imaging Diagonstic Imaging: Xray Plain Films/CT/US/NM/MRI: chest Comments INDICATION: Chest pain PA and lateral views of chest are obtained with comparison made to the study of 01/20/2023. There has been development of consolidation and probable pleural fluid lower half of the left lung. There is cardiomegaly and mild pulmonary venous congestion. No pneumothorax or other adverse change is seen. IMPRESSION: Infiltrate and pleural fluid in the lower left lung field. Otherwise, there is cardiomegaly and mild pulmonary venous congestion without other significant change. Reviewed: Reviewed by Me, Reviewed/Discussed Departure Impression Primary Impression: Pneumonia Qualified Codes: J18.9 - Pneumonia, unspecified organism Additional Impression: Atrial fibrillation Qualified Codes: I48.91 - Unspecified atrial fibrillation Disposition: 30 STILL A PATIENT Condition: Stable Admissions Decision to Admit Reason: Admit from ER (General) Decision to Admit/Date: May 18, 2023 Time/Decision to Admit Time: 10:40 Departure-Patient Inst. Referrals: SELFWENDY MD (PCP/Family) Primary Care Physician ALIZA OSORIO DO May 18, 2023 09:10
[2023-05-18] MEDS ORDERED: dilTIAZem INJ 25 MG/5 ML VIAL IVP ONE (09:30)
[2023-05-18 09:40] LABS: BASOPHILS % (AUTO) 0 % (0-10); EOSINOPHILS % (AUTO) 0 % (0-10); HEMATOCRIT 35 % (35-52); LYMPHOCYTES # (AUTO) 2.3 10^3/uL (1.0-4.0); LYMPHOCYTES % (AUTO) 19 % (12-44); MEAN CORPUSCULAR HEMOGLOBIN 28 pg (25-34); MEAN CORPUSCULAR HGB CONC 32 g/dL (32-36); MEAN CORPUSCULAR VOLUME 88 fL (80-99); MEAN PLATELET VOLUME 9.3 fL (9.0-12.2); MONOCYTES # (AUTO) 1.2 10^3/uL (0.0-1.0); MONOCYTES % (AUTO) 10 % (0-12); NEUTROPHILS # (AUTO) 8.6 10^3/uL (1.8-7.8); NEUTROPHILS % (AUTO) 70 % (42-75); PLATELET COUNT 400 10^3/uL (130-400); WHITE BLOOD COUNT 12.2 10^3/uL (4.3-11.0)
[2023-05-18 09:55] LABS: CALCIUM 9.5 MG/DL (8.5-10.1); CARBON DIOXIDE 29 MMOL/L (21-32); CHLORIDE 100 MMOL/L (98-107); POTASSIUM 3.1 MMOL/L (3.6-5.0); SODIUM 139 MMOL/L (135-145)
[2023-05-18 09:56] LABS: TOTAL PROTEIN 6.4 GM/DL (6.4-8.2)
--- NOTE | 2023-05-18 09:57 | Diagnostic Imaging Report ---
INDICATION: Chest pain PA and lateral views of chest are obtained with comparison made to the study of 01/20/2023. There has been development of consolidation and probable pleural fluid lower half of the left lung. There is cardiomegaly and mild pulmonary venous congestion. No pneumothorax or other adverse change is seen. IMPRESSION: Infiltrate and pleural fluid in the lower left lung field. Otherwise, there is cardiomegaly and mild pulmonary venous congestion without other significant change. Dictated by: Dictated on workstation # [id number]
[2023-05-18] MEDS ORDERED: dilTIAZem DRIP PRE-MIX 125 ML IV SCH (10:00)
[2023-05-18 10:05] LABS: ALANINE AMINOTRANSFERASE < 5 U/L (0-55); ALBUMIN 2.9 GM/DL (3.2-4.5); ALKALINE PHOSPHATASE 103 U/L (40-136); BUN/CREATININE RATIO 18; CREATININE SERUM 0.82 MG/DL (0.60-1.30); GFR ESTIMATED 72; GLUCOSE 98 MG/DL (70-105)
[2023-05-18] MEDS ORDERED: cefTRIAXone IV/IM 1,000 MG in NS (IVPB) 50 ML 50 ML IV ONE (10:15)
[2023-05-18] MEDS ORDERED: AZITHROMYCIN INJECTION 500 MG in NS (IVPB) 250 ML 250 ML IV ONE (10:15)
[2023-05-18] MEDS ORDERED: NS IV 500 ML 500 ML IV ONE (10:30)
[2023-05-18] MEDS ORDERED: BENZONATATE 100 MG CAPSULE PO ONE (10:30)
[2023-05-18] MEDS ORDERED: BISACODYL 10 MG SUPPOSITORY PR PRN (13:45)
[2023-05-18] MEDS ORDERED: ACETAMINOPHEN 325 MG TABLET PO PRN (13:45)
[2023-05-18] MEDS ORDERED: ONDANSETRON INJECTION 4 MG/2 ML (SDV) IV PRN (13:45)
[2023-05-18] MEDS ORDERED: ONDANSETRON 4 MG ORAL DISSOLVE TABLET PO PRN (13:45)
[2023-05-18] MEDS ORDERED: diphenhydrAMINE 25 MG TABLET PO PRN (13:45)
[2023-05-18] MEDS ORDERED: HYDROmorphone INJECTION 2 MG/ML VIAL IV PRN (13:45)
[2023-05-18] MEDS ORDERED: dilTIAZem DRIP 125 MG/125 ML DRIP IV SCH (13:45)
[2023-05-18] MEDS ORDERED: ANTACID SUSPENSION 30 ML UDC PO PRN (13:45)
[2023-05-18] MEDS ORDERED: LACTULOSE SYRUP 10GM/15ML 30ML UDC PO PRN (13:45)
[2023-05-18] MEDS ORDERED: diphenhydrAMINE INJ 50 MG/ML VIAL IVP PRN (13:45)
[2023-05-18] MEDS ORDERED: dilTIAZem IV FOR DRIP 125 MG in NS (IVPB) 100 ML 100 ML IV SCH (13:45)
[2023-05-18] MEDS ORDERED: NS IV 500 ML 500 ML IV PRN (13:45)
[2023-05-18] MEDS ORDERED: oxyCODONE IMMEDIATE RELEASE 5 MG TABLET PO PRN (13:45)
[2023-05-18] MEDS ORDERED: MELATONIN 3 MG TABLET PO PRN (13:45)
[2023-05-18] MEDS ORDERED: NALOXONE 0.4 MG/ML 1 ML VIAL IV PRN (13:45)
[2023-05-18] MEDS: NS IV 1000 ML 1,000 ML IV SCH (14:13)
[2023-05-18] MEDS: CEFEPIME 1,000 MG/NS 50 ML IVPB IV SCH ×4 (14:13→21:33)
[2023-05-18] MEDS ORDERED: RT-Ipratropium/Albuterol NEB 3 ML VIAL ONE (14:57)
--- NOTE | 2023-05-18 14:59 | Consultation-Cardiology ---
HPI-Cardiology Cardiology Consultation: Date of Consultation 05/18/23 Time Seen by a Provider: 15:00 Date of Admission 05-18-23 Attending Physician Tyrone Bolden MD Admitting Physician Admitting Physician: Yulia Brooks DO Attending Physician: Yulia Brooks DO Consulting Physician Tyshawn Rao MD HPI: Chief Complaint: A-fib with RVR Ms. Noyola is an 78 yr old female admitted to ICU 12 from the [facility] ED. She reports chronic cough which has been worse over the course of the last several days. She states increasing SOB. She reports diarrhea starting yesterday along with poor appetite. No c/o CP. She does report palpitations. She states she has not missed any of her medications until this morning. No c/o fever or chills. No c/o syncope or near syncope. Review of Systems-Cardiology Review of Systems Constitutional: No chills, No fever; malaise Eyes: No vision change Ears/Nose/Throat: No epistaxis, No recent hearing loss Respiratory: As described under HPI Cardiovascular: As described under HPI Gastrointestinal: As described under HPI Genitourinary: No dysuria, No hematuria Musculoskeletal: no symptoms reported Skin: No rash on exposed areas, No ulcerations on exposed areas Psychiatric/Neurological: No anxiety, No depression, No seizure, No focal weakness, No syncope Hematologic: No bleeding abnormalities EJK-Dhnyob-[id number] Hx Patient Social History Smoking Status: Never a Smoker 2nd Hand Smoke Exposure: No Alcohol Use?: No Pt feels they are or have been: No Immunizations Up To Date Tetanus Booster (TDap): Unknown Date of Pneumonia Vaccine: Jun 19, 2011 Date of Influenza Vaccine: Mar 19, 2019 Past Medical History PMH As described under Assessment. Family Medical History Family Medical History: No fam h/o early CAD Family History: Family history: Breast disease 03 MOTHER Family history: Cardiovascular disease 03 MOTHER Family history: Diabetes mellitus 03 MOTHER History of - respiratory disease 03 FATHER Allergies and Home Medications Allergies Coded Allergies: No Known Drug Allergies (Unverified , 06/13/13) Patient Home Medication List Albuterol Sulfate (Ventolin Hfa) 90 Mcg Hfa.aer.ad, 2 PUFF INH Q6H PRN for SHORTNESS OF BREATH, (Reported) Entered as Reported by: MARY CLAYTON on 01/19/23 1106 Last Action: Reviewed Alendronate Sodium (Alendronate Sodium) 70 Mg Tablet, 70 MG PO MON, (Reported) Entered as Reported by: MARY CLAYTON on 05/18/231634 Last Action: Reviewed Apixaban (Eliquis) 5 Mg Tablet, 5 MG PO BID, (Reported) Entered as Reported by: MARY CLAYTON on 05/18/231633 Last Action: Reviewed Cetirizine HCl (Cetirizine HCl) 10 Mg Tablet, 10 MG PO DAILY PRN for ALLERGY SYMPTOMS, (Reported) Entered as Reported by: MARY CLAYTON on 01/19/231105 Last Action: Reviewed Cholecalciferol (Vitamin D3) (Vitamin D3) 25 Mcg Capsule, 25 MCG PO DAILY, (Reported) Entered as Reported by: MARY CLAYTON on 08/19/19 0948 Last Action: Reviewed Diltiazem HCl (Dilt-Xr) 240 Mg Cap.er.deg, 240 MG PO DAILY, (Reported) Entered as Reported by: MARY CLAYTON on 05/18/231633 Last Action: Reviewed Dronedarone HCl (Multaq) 400 Mg Tablet, 400 MG PO BID, (Reported) Entered as Reported by: MARY CLAYTON on 05/18/231633 Last Action: Reviewed Fluticasone/Umeclidin/Vilanter (Trelegy Ellipta 200-62.5-25) 200-62.5 Blst.w.dev, 1 PUFF INH HS, (Reported) Entered as Reported by: MARY CLAYTON on 01/19/231105 Last Action: Reviewed Furosemide (Furosemide) 20 Mg Tablet, 20 MG PO DAILY, (Reported) Entered as Reported by: MARY CLAYTON on 05/18/231633 Last Action: Reviewed Guaifenesin (Guaifenesin) 100 Mg/5 Ml Liquid, 10 ML PO Q6H PRN for COUGH/CONGESTION, (Reported) Entered as Reported by: MARY CLAYTON on 05/18/231633 Last Action: Reviewed Ipratropium/Albuterol Sulfate (Iprat-Albut 0.5-3(2.5) mg/3 ml) 0.5 Mg-3 Mg (2.5 Mg Base)/3 Ml Ampul.neb, 3 ML NEB Q6H PRN for SHORTNESS OF BREATH, (Reported) Entered as Reported by: MARY CLAYTON on 01/19/231105 Last Action: Reviewed Levothyroxine Sodium (Levothyroxine Sodium) 150 Mcg Tablet, 150 MCG PO DAILY, (Reported) Entered as Reported by: MARY CLAYTON on 01/19/231105 Last Action: Reviewed Mirtazapine (Mirtazapine) 7.5 Mg Tablet, 7.5 MG PO HS PRN for SLEEP, (Reported) Entered as Reported by: MARY CLAYTON on 01/19/231105 Last Action: Reviewed Montelukast Sodium (Montelukast Sodium) 10 Mg Tablet, 10 MG PO DAILY, (Reported) Entered as Reported by: MARY CLAYTON on 08/19/19947 Last Action: Reviewed Multivitamin (Multivitamin) 1 Each Tablet, 1 EACH PO DAILY, (Reported) Entered as Reported by: MARY CLAYTON on 01/19/231105 Last Action: Reviewed Omeprazole (Omeprazole) 20 Mg Capsule.dr, 20 MG PO DAILY, (Reported) Entered as Reported by: MARY CLAYTON on 01/19/231105 Last Action: Reviewed Discontinued Medications Apixaban (Eliquis) 5 Mg Tablet, 5 MG PO BID Discontinued Reason: Duplicate Order Prescribed by: YULIA BROOKS on 01/30/23 0600 Last Action: Discontinued Gabapentin (Gabapentin) 100 Mg Capsule, 100 MG PO DAILY, (Reported) Discontinued Reason: No Longer Taking Entered as Reported by: MARY CLAYTON on 08/19/19947 Last Action: Discontinued Gabapentin (Gabapentin) 100 Mg Capsule, 100 MG PO BID PRN for PAIN-BREAKTHROUGH, (Reported) Discontinued Reason: No Longer Taking Entered as Reported by: MARY CLAYTON on 01/19/231105 Last Action: Discontinued Hydroxychloroquine Sulfate (Hydroxychloroquine Sulfate) 200 Mg Tablet, 200 MG PO DAILY, (Reported) Discontinued Reason: No Longer Taking Entered as Reported by: MARY CLAYTON on 08/19/19947 Last Action: Discontinued Physical Exam-Cardiology Physical Exam Vital Signs/I&O 05/18/23 05/18/23 05/18/23 05/18/23 21:00 22:00 22:11 23:00 Pulse 133 122 126 Resp 26 24 25 B/P (MAP) 98/57 (71) 108/61 (77) 108/60 (76) Pulse Ox 94 95 93 95 O2 Delivery Nasal Cannula Nasal Cannula Nasal Cannula Nasal Cannula O2 Flow Rate 2.00 2.00 4.00 2.00 05/18/23 05/19/23 05/19/23 05/19/23 23:59 00:00 00:15 01:00 Pulse 122 111 117 Resp 22 18 B/P (MAP) 93/56 (68) 112/58 (76) Pulse Ox 92 97 95 O2 Delivery Nasal Cannula Nasal Cannula Nasal Cannula O2 Flow Rate 2.00 2.00 2.00 05/19/23 05/19/23 05/19/23 05/19/23 02:00 02:56 03:00 04:00 Pulse 105 98 121 Resp 23 30 19 B/P (MAP) 90/51 (64) 113/62 (79) 86/31 (49) Pulse Ox 96 97 98 99 O2 Delivery Nasal Cannula Nasal Cannula Nasal Cannula Nasal Cannula O2 Flow Rate 2.00 5.00 2.00 2.00 05/19/23 05/19/23 05/19/23 05/19/23 04:00 04:00 04:15 05:00 Temp 36.0 Pulse 122 111 Resp 18 22 B/P (MAP) 101/43 (62) 100/49 (66) Pulse Ox 92 97 93 O2 Delivery Nasal Cannula Nasal Cannula Nasal Cannula O2 Flow Rate 2.00 2.00 2.00 05/19/23 05/19/23 05/19/23 05/19/23 06:00 07:00 07:00 07:27 Pulse 114 109 101 Resp 19 21 B/P (MAP) 98/57 (71) 93/47 (62) Pulse Ox 97 98 97 O2 Delivery Nasal Cannula Nasal Cannula Nasal Cannula O2 Flow Rate 2.00 2.00 2.00 05/19/23 05/19/23 05/19/23 07:27 07:57 08:00 Pulse 131 B/P (MAP) 102/45 (68) Pulse Ox 97 92 O2 Delivery Nasal Cannula Nasal Cannula Nasal Cannula O2 Flow Rate 2.00 4.00 4.00 05/18/23 23:59 Intake Total 150 ml Output Total 150 ml Balance 0 ml Capillary Refill : Less Than 3 Seconds Constitutional: AAO x 3, well-developed, well-nourished HEENT: PERRL, hearing is well preserved, oral hygience is good Neck: No carotid bruit; carotid pulses are 2 + bilaterally Respiratory: No accessory muscle use, No respiratory distress; chest expansion is symmetric, chest is bilaterally symmetric, rhonchi, other (diminished lower lobes L>R) Cardiovascular: irregularly irregular, tachycardia Gastrointestinal: No tender; soft, round; No guarding; audible bowel sounds Extremities: other (bilat LE swelling, mod) Neurologic/Psychiatric: other (moves all extremities) Skin: No rash on exposed areas, No ulcerations on exposed areas Data Review Labs Laboratory Tests 05/18/23 09:15: White Blood Count 12.2H, Red Blood Count 3.96, Hemoglobin 11.0L, Hematocrit 35, Mean Corpuscular Volume 88, Mean Corpuscular Hemoglobin 28, Mean Corpuscular Hemoglobin Concent 32, Red Cell Distribution Width 13.5, Platelet Count 400, Mean Platelet Volume 9.3, Immature Granulocyte % (Auto) 0, Neutrophils (%) (Auto) 70, Lymphocytes (%) (Auto) 19, Monocytes (%) (Auto) 10, Eosinophils (%) (Auto) 0, Basophils (%) (Auto) 0, Neutrophils # (Auto) 8.6H, Lymphocytes # (Auto) 2.3, Monocytes # (Auto) 1.2H, Eosinophils # (Auto) 0.0, Basophils # (Auto) 0.0, Immature Granulocyte # (Auto) 0.0, Sodium Level 139, Potassium Level 3.1L, Chloride Level 100, Carbon Dioxide Level 29, Anion Gap 10, Blood Urea Nitrogen 15, Creatinine 0.82, Estimat Glomerular Filtration Rate 72, BUN/Creat inine Ratio 18, Glucose Level 98, Calcium Level 9.5, Corrected Calcium 10.4H, Magnesium Level 2.0, Total Bilirubin 1.0, Aspartate Amino Transf (AST/SGOT) 13, Alanine Aminotransferase (ALT/SGPT) < 5, Alkaline Phosphatase 103, Troponin I < 0.30, C-Reactive Protein 17.74H, Pro-B-Type Natriuretic Peptide 1845.0H, Total Protein 6.4, Albumin 2.9L 05/18/23 09:25: Influenza Type A (RT-PCR) Not Detected, Influenza Type B (RT-PCR) Not Detected, SARS-CoV-2 RNA (RT-PCR) Not Detected 05/18/23 15:32: Lactic Acid Level 0.92 05/18/23 17:47: Total Bilirubin 0.9, Aspartate Amino Transf (AST/SGOT) 13, Alanine Aminotransferase (ALT/SGPT) 8, Alkaline Phosphatase 79, Total Protein 5.7L, Albumin 2.9L, Direct Bilirubin 0.5H, Indirect Bilirubin 0.4, Thyroid Stimulating Hormone (TSH) 3.37 05/19/23 03:03: Arterial Blood pH 7.44H, Arterial Blood Partial Pressure CO2 42, Arterial Blood Partial Pressure O2 176H, Arterial Blood HCO3 29H, Arterial Blood Total CO2 29.8, Arterial Blood Oxygen Saturation 100, Arterial Blood Base Excess 3.9H, Blood Gas Ventilator Setting NO, Blood Gas Inspired Oxygen 5L 05/19/23 04:21: White Blood Count 10.0, Red Blood Count 3.46L, Hemoglobin 9.9L, Hematocrit 31L, Mean Corpuscular Volume 91, Mean Corpuscular Hemoglobin 29, Mean Corpuscular Hemoglobin Concent 32, Red Cell Distribution Width 13.9, Platelet Count 302, Mean Platelet Volume 9.7, Immature Granulocyte % (Auto) 1, Neutrophils (%) (Auto) 71, Lymphocytes (%) (Auto) 17, Monocytes (%) (Auto) 12, Eosinophils (%) (Auto) 0, Basophils (%) (Auto) 0, Neutrophils # (Auto) 7.1, Lymphocytes # (Auto) 1.7, Monocytes # (Auto) 1.2H, Eosinophils # (Auto) 0.0, Basophils # (Auto) 0.0, Immature Granulocyte # (Auto) 0.1, Sodium Level 141, Potassium Level 3.7, Chloride Level 107, Carbon Dioxide Level 26, Anion Gap 8, Blood Urea Nitrogen 12, Creatinine 0.66, Estimat Glomerular Filtration Rate 89, BUN/Creatinine Ratio 18, Glucose Level 99, Calcium Level 8.2L, Corrected Calcium 9.3, Phosphorus Level 1.8L, Magnesium Level 1.6, Total Bilirubin 0.7, Aspartate Amino Transf (AST/SGOT) 13, Alanine Aminotransferase (ALT/SGPT) < 6, Alkaline Phosphatase 79, Total Protein 5.2L, Albumin 2.6L Radiology NAME: ELIZA NOYOLA [facility] REC#: [id number] PT STATUS: ADM IN : 1945 PHYSICIAN: ALIZA OSORIO DO ADMIT DATE: 05/18/23/ICU Signed Date of Exam:05/18/23 CHEST PA/LAT (2 VIEW) INDICATION: Chest pain PA and lateral views of chest are obtained with comparison made to the study of 01/20/2023. There has been development of consolidation and probable pleural fluid lower half of the left lung. There is cardiomegaly and mild pulmonary venous congestion. No pneumothorax or other adverse change is seen. IMPRESSION: Infiltrate and pleural fluid in the lower left lung field. Otherwise, there is cardiomegaly and mild pulmonary venous congestion without other significant change. Dictated by: Dictated on workstation # [id number] Dict: 05/18/23 0950 Trans: 05/18/23 1405 [facility] [id number] Interpreted by: VANESA SANTANA MD Electronically signed by: VANESA SANTANA MD 05/18/23 1405 ECG Impression ECG Initial ECG Impression: Atrial Fibrillation w/RVR A/P-Cardiology Assessment/Admission Diagnosis Pneumonia - management per medical services Pericardial effusion in March 2023 - admitted to [facility] in [place] on 04-06-23 d/t TTE showing a large pericardial effusion with early tamponade. Underwent pericardiocentesis with drain placement on 04-10-23 with initial drainage of 300 ml.. Drain removed by Dr. Del Cid on 04-12-23 - Last echo on 04/13/23 at [facility], [place]: Trivial pericard eff w/o hemodynamic significance. Limited echo showed LV function to be grossly normal - Echocardiogram of 04-20-23 showed LVEF 60-65%. Mild to mod MR. Minimal pericardial fluid which does not appear to be of hemodynamic signif Marked sinus node dysfunction - EKG of 05-18-23 at [facility] ED in [place] showed A- fib with RVR - PAF with RVR 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) from both of which she was symptomatic - s/p perm dual chamber pacemaker (Medtronic) in January 2023 - echo 01/19/23: LVEF 60-65%, mild to mod LA enlargement, mild to mod MR, PASP 25- 30 mmHg - initiation of oral dronedarone on 01/21/23 S/p thyroidectomy in Jul in 2022 for papillary thyroid cancer in [place] Chronic, bilateral leg swelling: venous insuff and lymphedema Discussion and Recomendations Pneumonia - management per medical/eICU services A-fib with RVR - h/o PAF - currently on Cardizem gtt - unable to titrate up d/t somewhat low BP (asymptomatic) - give IV digoxin - previously on Multaq - hold for now - continue OAC with Eliquis Elevated BNP - CXR shows mild pulmonary congestion - Received IV Lasix at [place] - continue diuretics as indicated Diarrhea - received IVF - hypokalemia likely d/t diarrhea - replace Monitor lab closely Replace electrolytes as indicated Further recs will be based on her hospital course We would like to thank medical services for this consult DA MAR May 18, 2023 14:59
[2023-05-18 15:07] VITALS: BP 110/63
[2023-05-18] MEDS ORDERED: RT-Ipratropium/Albuterol NEB 3 ML VIAL INH PRN (15:15)
[2023-05-18] MEDS ORDERED: guaiFENesin 600 MG TABLET PO NR (15:15)
--- NOTE | 2023-05-18 15:29 | Tele-ICU Consult ---
History of Present Illness History of Present Illness Date Seen by Provider: May 18, 2023 Time Seen by Provider: 15:28 Date of Admission Tele-ICU Physician , consultation as per request of PCP Service provided via interactive audio and video telecommunications E-CARE system to a patient admitted to ICU bed in [facility]. Available chart/ vitals / labs / Images reviewed H&P is from ER notes Patient's information available about PMH, Shx, Fhx allergy reviewed Kennedy. GAVIN as per chart and RN report Pt is a 78 y/o F with PMHx significant for COPD, papillary thyroid cancer s/p thyroidectomy, FIbromyalgia, sinus node dysfunction who presented to ED today via EMS with co worsening SOB thoguht to be 2/2 COPD exacerbation. Upon arrival she was noted to be in Afib with RVR and was started on Cardizem gtt and admitted to MICU for closer monitoring. Labs notable for hypokalemia with K of 3.1, leukocytosis of 12 and BNP of 1845. CXR showed LLL consolidation with layering effusion. She received IV lasix and was started on Ceftriaxone /Azithromycin. Pneumonia: CXR with LLL infiltrate -Cont antibiotics -WIll stop IVF and maintain net neg -Will check lactate -Guanifecin prn cough Afib with RVR: On cardizem gtt Cardiology consulted -TTE 04/20/23- EF 60-65% Hx of sinus node dysfunction -s/p temporary ventricular pacemaker on 01/19/23 - s/p perm dual chamber pacemaker (Medtronic) and removal of temp pacemaker on 01/20/23 -no clinical evidence of decompensated CHF -Cards consulted Lines : periph , (Central Line Necessity Reviewed) Alvarez: Nutrition: HH diet VTE Prophylaxis: Apixiban Stress Ulcer Prophylaxis: Plans in collaboration with bedside consultants and IM MDs. Discussed with RN to reach out if any questions or concerns A total of 25 minutes of CC time was devoted to this patient today, required to treat and/or prevent further deterioration of critical care condition ( as above) I am remotely monitoring this patient from another state. I am unable to do the bedside exam, and history/physical and pertinent information is taken from other notes in the computer and bedside staff. Allergies and Home Medications Allergies Coded Allergies: No Known Drug Allergies (Unverified , 06/13/13) Home Medications Albuterol Sulfate 90 Mcg Hfa.aer.ad, 2 PUFF INH Q6H PRN for SHORTNESS OF BREATH, (Reported) Apixaban 5 Mg Tablet, 5 MG PO BID Prescribed by: LAMBERT BROOKS on 01/30/23599 Cetirizine HCl 10 Mg Tablet, 10 MG PO DAILY, (Reported) Cholecalciferol (Vitamin D3) 25 Mcg Capsule, 25 MCG PO DAILY, (Reported) Diltiazem HCl 240 Mg Cap.er.24h, 240 MG PO DAILY Prescribed by: LAMBERT BROOKS on 01/30/23599 Dronedarone HCl 400 Mg Tablet, 400 MG PO BID Prescribed by: LAMBERT BROOKS on 01/30/23 06 Fluticasone/Umeclidin/Vilanter 200-62.5 Blst.w.dev, 1 PUFF INH HS, (Reported) Gabapentin 100 Mg Capsule, 100 MG PO DAILY, (Reported) Gabapentin 100 Mg Capsule, 100 MG PO BID PRN for PAIN-BREAKTHROUGH, (Reported) Hydroxychloroquine Sulfate 200 Mg Tablet, 200 MG PO DAILY, (Reported) Ipratropium/Albuterol Sulfate 0.5 Mg-3 Mg (2.5 Mg Base)/3 Ml Ampul.neb, 3 ML NEB BID, (Reported) Levothyroxine Sodium 150 Mcg Tablet, 150 MCG PO DAILY, (Reported) Mirtazapine 7.5 Mg Tablet, 7.5 MG PO HS, (Reported) Montelukast Sodium 10 Mg Tablet, 10 MG PO DAILY, (Reported) Multivitamin 1 Each Tablet, 1 EACH PO DAILY, (Reported) Omeprazole 20 Mg Capsule.dr, 20 MG PO DAILY, (Reported) Past Medical/Social/Family Hx Patient Social History Tobacco Use?: No Smoking Status: Never a Smoker Smokeless Tobacco Frequency: Never a User Use of E-Cig and/or Vaping dev: No E-Cig and/or Vaping Freq: Never a User Substance use?: No Alcohol Use?: No Pt stated abuse/neglect: No Immunizations Up To Date Influenza Vaccine Up-to-Date: Yes; Up-to-Date Tetanus Booster (TDap): Unknown Hepatitis A: No Hepatitis B: No TB Skin Test: None Date of Pneumonia Vaccine: Jun 19, 2011 Current Status Communicates: Verbally Primary Language: Yemeni Preferred Spoken Language: Yemeni Is interpretation needed?: No Implanted or Applied Medical D: None Past Medical History COPD H/o thyroid Ca s/p thyroidectomy Review of Systems Constitutional: see HPI Focused Exam Height, Weight, BMI Height: '" Weight: 186lbs. 0.0oz. 84.789923rd; 32.87 BMI Method: Exam Exam Patient acknowledged, consented, and participated in this virtual visit which was conducted using real time audio/video Vital Signs Date Time Temp Pulse Resp B/P (MAP) Pulse Ox O2 Delivery O2 Flow Rate FiO2 05/18/23 15:25 36.6 05/18/23 15:07 36.8 121 93 05/18/23 15:00 93 Nasal Cannula 2.50 05/18/23 14:15 121 26 110/63 (79) 96 Nasal Cannula 2.00 05/18/23 14:14 125 106/64 05/18/23 14:00 128 28 106/64 (78) 96 Nasal Cannula 2.00 05/18/23 13:56 128 05/18/23 13:52 Nasal Cannula 2.00 05/18/23 13:45 131 23 105/70 (82) 90 Nasal Cannula 2.00 05/18/23 13:42 36.8 111 20 110/55 (73) 96 Nasal Cannula 2.00 05/18/23 11:16 128 20 90/57 96 Room Air 05/18/23 09:29 36.6 132 24 105/65 (78) 95 Nasal Cannula 05/18/23 09:26 94 Nasal Cannula 2.00 05/18/23 09:24 143 105/65 Height & Weight Height: '" Weight: 186lbs. 0.0oz. 84.281029bc; 32.87 BMI Method: General Appearance: No Apparent Distress, WD/WN Respiratory: Crackles (Bibasilar), Decreased Breath Sounds Cardiovascular: Irregularly Irregular, Tachycardia Capillary Refill: Less Than 3 Seconds Extremity: Swelling (1-2+ bilateral lower extremity edema) Neurologic/Psychiatric: Alert, Oriented x3, Normal Mood/Affect Skin: Normal Color, Warm/Dry Results Lab Laboratory Tests 05/18/23 09:15 Assessment/Plan Assessment/Plan . JOSÉ BARRETT MD May 18, 2023 15:29
[2023-05-18] MEDS ORDERED: DIGOXIN INJECTION 0.25 MG/ML 2 ML AMPULE IV NR ×2 (16:00→19:00)
[2023-05-18] MEDS ORDERED: POTASSIUM CHLORIDE 20 MEQ TABLET PO NR ×2 (16:00→18:00)
[2023-05-18] MEDS ORDERED: APIX5TAB PO (16:34)
[2023-05-18] MEDS ORDERED: DRON400T6 PO (16:34)
[2023-05-18] MEDS ORDERED: DILT240C47 PO (16:34)
[2023-05-18] MEDS ORDERED: FURO20TA4 PO (16:34)
[2023-05-18] MEDS ORDERED: GUAI100L13 PO (16:34)
[2023-05-18] MEDS ORDERED: ALEN70TA80 PO (16:35)
--- NOTE | 2023-05-18 17:24 | Consultation-Cardiology ---
HPI-Cardiology Cardiology Consultation: Date of Consultation 05/18/23 Time Seen by a Provider: 17:00 Date of Admission Attending Physician Tyrone Bolden MD Admitting Physician Admitting Physician: Yulia Brooks DO Attending Physician: Yulia Brooks DO Consulting Physician SHANTELLE DANIELS MD, MA, FACP, FACC, FSCAI, CCDS HPI: Chief Complaint: A-fib with RVR Ms. Noyola is an 78 yr old female admitted to ICU 12 from the [facility] ED. She reports chronic cough which has been worse over the course of the last several days. She states increasing SOB. She reports diarrhea starting yesterday along with poor appetite. No c/o CP. She does report palpitations. She states she has not missed any of her medications until this morning. No c/o fever or chills. No c/o syncope or near syncope. Review of Systems-Cardiology Review of Systems Constitutional: No chills, No fever; malaise Eyes: No vision change Ears/Nose/Throat: No epistaxis, No recent hearing loss Respiratory: As described under HPI Cardiovascular: As described under HPI Gastrointestinal: As described under HPI Genitourinary: No dysuria, No hematuria Musculoskeletal: no symptoms reported Skin: No rash on exposed areas, No ulcerations on exposed areas Psychiatric/Neurological: No anxiety, No depression, No seizure, No focal weakness, No syncope Hematologic: No bleeding abnormalities [id number] Hx Patient Social History Smoking Status: Never a Smoker 2nd Hand Smoke Exposure: No Alcohol Use?: No Pt feels they are or have been: No Immunizations Up To Date Tetanus Booster (TDap): Unknown Date of Pneumonia Vaccine: Jun 19, 2011 Date of Influenza Vaccine: Mar 19, 2019 Past Medical History PMH As described under Assessment. Family Medical History Family Medical History: No fam h/o early CAD Family History: Family history: Breast disease 03 MOTHER Family history: Cardiovascular disease 03 MOTHER Family history: Diabetes mellitus 03 MOTHER History of - respiratory disease 03 FATHER Allergies and Home Medications Allergies Coded Allergies: No Known Drug Allergies (Unverified , 06/13/13) Patient Home Medication List Home Medication List Reviewed: Yes Albuterol Sulfate (Ventolin Hfa) 90 Mcg Hfa.aer.ad, 2 PUFF INH Q6H PRN for SHORTNESS OF BREATH, (Reported) Entered as Reported by: MARY CLAYTON on 01/19/231105 Last Action: Reviewed Alendronate Sodium (Alendronate Sodium) 70 Mg Tablet, 70 MG PO MON, (Reported) Entered as Reported by: MARY CLAYTON on 05/18/231634 Last Action: Reviewed Apixaban (Eliquis) 5 Mg Tablet, 5 MG PO BID, (Reported) Entered as Reported by: MARY CLAYTON on 05/18/231633 Last Action: Reviewed Cetirizine HCl (Cetirizine HCl) 10 Mg Tablet, 10 MG PO DAILY PRN for ALLERGY SYMPTOMS, (Reported) Entered as Reported by: MARY CLAYTON on 01/19/231105 Last Action: Reviewed Cholecalciferol (Vitamin D3) (Vitamin D3) 25 Mcg Capsule, 25 MCG PO DAILY, (Reported) Entered as Reported by: MARY CLYATON on 08/19/19 0948 Last Action: Reviewed Diltiazem HCl (Dilt-Xr) 240 Mg Cap.er.deg, 240 MG PO DAILY, (Reported) Entered as Reported by: MARY CLAYTON on 05/18/231633 Last Action: Reviewed Dronedarone HCl (Multaq) 400 Mg Tablet, 400 MG PO BID, (Reported) Entered as Reported by: MARY CLAYTON on 05/18/231633 Last Action: Reviewed Fluticasone/Umeclidin/Vilanter (Trelegy Ellipta 200-62.5-25) 200-62.5 Bls t.w.dev, 1 PUFF INH HS, (Reported) Entered as Reported by: MARY CLAYTON on 01/19/231105 Last Action: Reviewed Furosemide (Furosemide) 20 Mg Tablet, 20 MG PO DAILY, (Reported) Entered as Reported by: MARY CLAYTON on 05/18/231633 Last Action: Reviewed Guaifenesin (Guaifenesin) 100 Mg/5 Ml Liquid, 10 ML PO Q6H PRN for COUGH/CONGESTION, (Reported) Entered as Reported by: MARY CLAYTON on 05/18/231633 Last Action: Reviewed Ipratropium/Albuterol Sulfate (Iprat-Albut 0.5-3(2.5) mg/3 ml) 0.5 Mg-3 Mg (2.5 Mg Base)/3 Ml Ampul.neb, 3 ML NEB Q6H PRN for SHORTNESS OF BREATH, (Reported) Entered as Reported by: MARY CLAYTON on 01/19/231105 Last Action: Reviewed Levothyroxine Sodium (Levothyroxine Sodium) 150 Mcg Tablet, 150 MCG PO DAILY, (Reported) Entered as Reported by: MARY CLAYTON on 01/19/231105 Last Action: Reviewed Mirtazapine (Mirtazapine) 7.5 Mg Tablet, 7.5 MG PO HS PRN for SLEEP, (Reported) Entered as Reported by: MARY CLAYTON on 01/19/231105 Last Action: Reviewed Montelukast Sodium (Montelukast Sodium) 10 Mg Tablet, 10 MG PO DAILY, (Reported) Entered as Reported by: MARY CLAYTON on 08/19/19947 Last Action: Reviewed Multivitamin (Multivitamin) 1 Each Tablet, 1 EACH PO DAILY, (Reported) Entered as Reported by: MARY CLAYTON on 01/19/231105 Last Action: Reviewed Omeprazole (Omeprazole) 20 Mg Capsule.dr, 20 MG PO DAILY, (Reported) Entered as Reported by: MARY CLAYTON on 01/19/231105 Last Action: Reviewed Discontinued Medications Apixaban (Eliquis) 5 Mg Tablet, 5 MG PO BID Discontinued Reason: Duplicate Order Prescribed by: YULIA BROOKS on 01/30/23 0600 Last Action: Discontinued Gabapentin (Gabapentin) 100 Mg Capsule, 100 MG PO DAILY, (Reported) Discontinued Reason: No Longer Taking Entered as Reported by: MARY CLAYTON on 08/19/19947 Last Action: Discontinued Gabapentin (Gabapentin) 100 Mg Capsule, 100 MG PO BID PRN for PAIN-BREAKTHROUGH, (Reported) Discontinued Reason: No Longer Taking Entered as Reported by: MARY CLAYTON on 01/19/231105 Last Action: Discontinued Hydroxychloroquine Sulfate (Hydroxychloroquine Sulfate) 200 Mg Tablet, 200 MG PO DAILY, (Reported) Discontinued Reason: No Longer Taking Entered as Reported by: MARY CLAYTON on 08/19/19947 Last Action: Discontinued Physical Exam-Cardiology Physical Exam Vital Signs/I&O 05/18/23 05/18/23 05/18/23 05/18/23 09:24 09:26 09:29 11:16 Temp 36.6 Pulse 143 132 128 Resp 24 20 B/P (MAP) 105/65 105/65 (78) 90/57 Pulse Ox 94 95 96 O2 Delivery Nasal Cannula Nasal Cannula Room Air O2 Flow Rate 2.00 05/18/23 05/18/23 05/18/23 05/18/23 13:42 13:45 13:52 13:56 Temp 36.8 Pulse 111 131 128 Resp 20 23 B/P (MAP) 110/55 (73) 105/70 (82) Pulse Ox 96 90 O2 Delivery Nasal Cannula Nasal Cannula Nasal Cannula O2 Flow Rate 2.00 2.00 2.00 05/18/23 05/18/23 05/18/23 05/18/23 14:00 14:14 14:15 14:30 Pulse 128 125 121 123 Resp 28 26 29 B/P (MAP) 106/64 (78) 106/64 110/63 (79) 122/69 (86) Pulse Ox 96 96 95 O2 Delivery Nasal Cannula Nasal Cannula Nasal Cannula O2 Flow Rate 2.00 2.00 2.00 05/18/23 05/18/23 05/18/23 05/18/23 14:45 15:00 15:00 15:07 Temp 36.8 Pulse 134 125 121 Resp 20 29 B/P (MAP) 118/64 (82) 116/55 (75) Pulse Ox 95 98 93 93 O2 Delivery Nasal Cannula Nasal Cannula Nasal Cannula O2 Flow Rate 2.00 2.00 2.50 05/18/23 05/18/23 05/18/23 05/18/23 15:25 15:30 15:45 16:00 Temp 36.6 Pulse 147 130 Resp 35 27 B/P (MAP) 90/45 (60) 101/49 (66) Pulse Ox 94 93 92 O2 Delivery Nasal Cannula Nasal Cannula Nasal Cannula O2 Flow Rate 2.00 2.00 2.00 05/18/23 05/18/23 16:00 17:00 Pulse 118 115 Resp 25 27 B/P (MAP) 94/56 (69) 87/61 (70) Pulse Ox 94 92 O2 Delivery Nasal Cannula Nasal Cannula O2 Flow Rate 2.00 2.00 Capillary Refill : Less Than 3 Seconds Constitutional: AAO x 3, well-developed, well-nourished HEENT: PERRL, hearing is well preserved, oral hygience is good Neck: No carotid bruit; carotid pulses are 2 + bilaterally Respiratory: No accessory muscle use, No respiratory distress; chest expansion is symmetric, chest is bilaterally symmetric, rhonchi, other (diminished lower lobes L>R) Cardiovascular: irregularly irregular, tachycardia Gastrointestinal: No tender; soft, round; No guarding; audible bowel sounds Extremities: other (bilat LE swelling, mod) Neurologic/Psychiatric: other (moves all extremities) Skin: No rash on exposed areas, No ulcerations on exposed areas Data Review Labs Laboratory Tests 05/18/23 09:15: White Blood Count 12.2H, Red Blood Count 3.96, Hemoglobin 11.0L, Hematocrit 35, Mean Corpuscular Volume 88, Mean Corpuscular Hemoglobin 28, Mean Corpuscular Hemoglobin Concent 32, Red Cell Distribution Width 13.5, Platelet Count 400, Mean Platelet Volume 9.3, Immature Granulocyte % (Auto) 0, Neutrophils (%) (Auto) 70, Lymphocytes (%) (Auto) 19, Monocytes (%) (Auto) 10, Eosinophils (%) (Auto) 0, Basophils (%) (Auto) 0, Neutrophils # (Auto) 8.6H, Lymphocytes # (Auto) 2.3, Monocytes # (Auto) 1.2H, Eosinophils # (Auto) 0.0, Basophils # (Auto) 0.0, Immature Granulocyte # (Auto) 0.0, Sodium Level 139, Potassium Level 3.1L, Chloride Level 100, Carbon Dioxide Level 29, Anion Gap 10, Blood Urea Nitrogen 15, Creatinine 0.82, Estimat Glomerular Filtration Rate 72, BUN/Creatinine Ratio 18, Glucose Level 98, Calcium Level 9.5, Corrected Calcium 10.4H, Magnesium Level 2.0, Total Bilirubin 1.0, Aspartate Amino Transf (AST/SGOT) 13, Alanine Aminotransferase (ALT/SGPT) < 5, Alkaline Phosphatase 103, Troponin I < 0.30, C-Reactive Protein 17.74H, Pro-B-Type Natriuretic Peptide 1845.0H, Total Protein 6.4, Albumin 2.9L 05/18/23 09:25: Influenza Type A (RT-PCR) Not Detected, Influenza Type B (RT-PCR) Not Detected, SARS-CoV-2 RNA (RT-PCR) Not Detected 05/18/23 15:32: Lactic Acid Level 0.92 A/P-Cardiology Assessment/Admission Diagnosis LLL Pneumonia - management per medical services Pericardial effusion in March 2023 - admitted to [facility] in [place] on 04-06-23 d/t TTE showing a large peric ardial effusion with early tamponade. Underwent pericardiocentesis with drain placement on 04-10-23 with initial drainage of 300 ml.. Drain removed by Dr. Del Cid on 04-12-23 - Last echo on 04/13/23 at [facility], [place]: Trivial pericard eff w/o hemodynamic significance. Limited echo showed LV function to be grossly normal - Echocardiogram of 04-20-23 showed LVEF 60-65%. Mild to mod MR. Minimal pericardial fluid which does not appear to be of hemodynamic signif Marked sinus node dysfunction - EKG of 05-18-23 at [facility] ED in [place] showed A- fib with RVR - PAF with RVR 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) from both of which she was symptomatic - s/p perm dual chamber pacemaker (Medtronic) in January 2023 - echo 01/19/23: LVEF 60-65%, mild to mod LA enlargement, mild to mod MR, PASP 25- 30 mmHg - initiation of oral dronedarone on 01/21/23 S/p thyroidectomy in Jul in 2022 for papillary thyroid cancer in [place], [place] Chronic, bilateral leg swelling: venous insuff and lymphedema Discussion and Recomendations Pneumonia - management per medical/eICU services A-fib with RVR - h/o PAF - currently on Cardizem gtt - unable to titrate up d/t somewhat low BP (asymptomatic) - give IV digoxin - previously on Multaq - hold for now. Start iv amio - continue OAC with Eliquis Elevated BNP - CXR shows mild pulmonary congestion - Received IV Lasix at [place] - continue diuretics as indicated Diarrhea - received IVF - hypokalemia likely d/t diarrhea - replace Monitor lab closely Replace electrolytes as indicated Further recs will be based on her hospital course We would like to thank medical services for this consult SHANTELLE DANIELS MD FACP FAC CCDS May 18, 2023 17:24
[2023-05-18] MEDS ORDERED: AMIODARONE FOR BOLUS 150 MG in NS (IVPB) 100 ML 100 ML IV NR (17:45)
[2023-05-18] MEDS ORDERED: AMIODARONE FOR DRIP 450 MG in NORMAL SALINE (EXCEL) 250 ML 250 ML IV SCH (18:00)
[2023-05-18 18:14] LABS: ALBUMIN 2.9 GM/DL (3.2-4.5)
[2023-05-18 18:17] LABS: TOTAL PROTEIN 5.7 GM/DL (6.4-8.2)
[2023-05-18 18:19] LABS: BILIRUBIN,TOTAL 0.9 MG/DL (0.1-1.0)
[2023-05-18 18:23] LABS: BILIRUBIN,DIRECT 0.5 MG/DL (0.0-0.3); BILIRUBIN,INDIRECT 0.4 MG/DL
[2023-05-18] MEDS: RT-Ipratropium/Albuterol NEB 3 ML VIAL INH SCH ×2 (18:35→22:11)
[2023-05-18] MEDS ORDERED: CEFEPIME INJECTION 2,000 MG in NS (IVPB) 50 ML 50 ML IV SCH (21:00)
[2023-05-18] MEDS: APIXABAN 5 MG TABLET PO SCH (21:33)
[2023-05-18] MEDS: DOCUSATE SODIUM 100 MG CAPSULE PO SCH (22:22)
[2023-05-19] MEDS: CEFEPIME 1,000 MG/NS 50 ML IVPB IV SCH ×8 (01:42→19:44)
[2023-05-19] MEDS: NS IV 1000 ML 1,000 ML IV SCH (02:52)
[2023-05-19] MEDS: RT-Ipratropium/Albuterol NEB 3 ML VIAL INH SCH ×6 (02:56→22:12)
[2023-05-19 03:15] LABS: ABG BASE EXCESS 3.9 MMOL/L (-2.5-2.5); ABG OXYGEN SATURATION 100 % (94-100); ABG PCO2 42 MMHG (35-45); ABG PH 7.44 (7.37-7.43); ABG PO2 176 MMHG (79-93); ABG TCO2 29.8 MMOL/L (21.0-31.0); INSPIRED O2 5L; VENTILATOR NO
[2023-05-19 04:56] LABS: BASOPHILS % (AUTO) 0 % (0-10); EOSINOPHILS % (AUTO) 0 % (0-10); HEMATOCRIT 31 % (35-52); HEMOGLOBIN 9.9 g/dL (11.5-16.0); LYMPHOCYTES # (AUTO) 1.7 10^3/uL (1.0-4.0); LYMPHOCYTES % (AUTO) 17 % (12-44); MEAN CORPUSCULAR HEMOGLOBIN 29 pg (25-34); MEAN CORPUSCULAR HGB CONC 32 g/dL (32-36); MEAN CORPUSCULAR VOLUME 91 fL (80-99); MEAN PLATELET VOLUME 9.7 fL (9.0-12.2); MONOCYTES # (AUTO) 1.2 10^3/uL (0.0-1.0); MONOCYTES % (AUTO) 12 % (0-12); NEUTROPHILS # (AUTO) 7.1 10^3/uL (1.8-7.8); NEUTROPHILS % (AUTO) 71 % (42-75); PLATELET COUNT 302 10^3/uL (130-400)
[2023-05-19 05:15] LABS: ALBUMIN 2.6 GM/DL (3.2-4.5)
[2023-05-19 05:16] LABS: CHLORIDE 107 MMOL/L (98-107); POTASSIUM 3.7 MMOL/L (3.6-5.0); SODIUM 141 MMOL/L (135-145)
[2023-05-19 05:17] LABS: CALCIUM 8.2 MG/DL (8.5-10.1)
[2023-05-19 05:18] LABS: GLUCOSE 99 MG/DL (70-105); TOTAL PROTEIN 5.2 GM/DL (6.4-8.2)
[2023-05-19 05:19] LABS: CARBON DIOXIDE 26 MMOL/L (21-32)
[2023-05-19 05:20] LABS: BILIRUBIN,TOTAL 0.7 MG/DL (0.1-1.0)
[2023-05-19 05:21] LABS: ALKALINE PHOSPHATASE 79 U/L (40-136); PHOSPHORUS 1.8 MG/DL (2.3-4.7)
[2023-05-19 05:22] LABS: CREATININE SERUM 0.66 MG/DL (0.60-1.30); GFR ESTIMATED 89
[2023-05-19 05:23] LABS: BUN/CREATININE RATIO 18
[2023-05-19 05:25] LABS: ALANINE AMINOTRANSFERASE < 6 U/L (0-55); MAGNESIUM 1.6 MG/DL (1.6-2.4)
[2023-05-19] MEDS: POTASSIUM CHLORIDE 20 MEQ TABLET PO SCH (05:51)
[2023-05-19] MEDS: POTASSIUM CL 10MEQ/50ML IVPB 50 ML IV SCH (05:51)
[2023-05-19] MEDS: MAGNESIUM 1 GM/100 ML IVPB 100 ML IV SCH ×5 (05:51→08:43)
[2023-05-19] MEDS ORDERED: MAGNESIUM 1 GM/100 ML IVPB 400 ML IV ONE (06:05)
[2023-05-19] MEDS: RT-BUDESONIDE NEBS 0.5 MG/2ML VIAL INH SCH ×2 (07:27→22:13)
[2023-05-19] MEDS ORDERED: RT-BUDESONIDE NEBS 0.5 MG/2ML VIAL INH SCH (08:00)
[2023-05-19] MEDS: APIXABAN 5 MG TABLET PO SCH ×2 (08:39→19:44)
--- NOTE | 2023-05-19 08:40 | Progress Note - Cardiology ---
Cardiology SOAP Progress Note Subjective: Sittng up on the side of the bed Continues to feel SOB and have occ non-productive cough No c/o CP Objective: I&O/Vital Signs 05/19/23 05/19/23 05/19/23 05/19/23 02:56 03:00 04:00 04:00 Temp 36.0 Pulse 98 121 Resp 30 19 B/P (MAP) 113/62 (79) 86/31 (49) Pulse Ox 97 98 99 O2 Delivery Nasal Cannula Nasal Cannula Nasal Cannula O2 Flow Rate 5.00 2.00 2.00 05/19/23 05/19/23 05/19/23 05/19/23 04:00 04:15 05:00 06:00 Pulse 122 111 114 Resp 18 22 19 B/P (MAP) 101/43 (62) 100/49 (66) 98/57 (71) Pulse Ox 92 97 93 97 O2 Delivery Nasal Cannula Nasal Cannula Nasal Cannula Nasal Cannula O2 Flow Rate 2.00 2.00 2.00 2.00 05/19/23 05/19/23 05/19/23 05/19/23 07:00 07:00 07:27 07:27 Pulse 109 101 Resp 21 B/P (MAP) 93/47 (62) Pulse Ox 98 97 97 O2 Delivery Nasal Cannula Nasal Cannula Nasal Cannula O2 Flow Rate 2.00 2.00 2.00 05/19/23 05/19/23 05/19/23 05/19/23 07:57 08:00 09:00 10:00 Pulse 131 134 121 Resp 20 25 B/P (MAP) 102/45 (68) 112/54 (78) 119/71 (79) Pulse Ox 92 93 96 O2 Delivery Nasal Cannula Nasal Cannula Nasal Cannula Nasal Cannula O2 Flow Rate 4.00 4.00 4.00 3.00 05/19/23 05/19/23 05/19/23 05/19/23 10:09 11:00 12:00 12:07 Temp 37.0 Pulse 112 121 Resp 22 15 B/P (MAP) 98/43 (76) 119/69 (91) Pulse Ox 96 96 94 O2 Delivery Nasal Cannula Nasal Cannula Nasal Cannula O2 Flow Rate 4.00 3.00 3.00 05/19/23 05/19/23 05/19/23 12:38 13:00 14:00 Pulse 122 118 100 Resp 24 22 B/P (MAP) 102/58 (69) 97/45 (60) Pulse Ox 94 96 O2 Delivery Nasal Cannula Nasal Cannula O2 Flow Rate 3.00 3.00 05/18/23 23:59 Intake Total 150 ml Output Total 150 ml Balance 0 ml Weight (Pounds): 186 Weight (Ounces): 0.0 Weight (Calculated Kilograms): 84.857041 Constitutional: AAO x 3, well-developed, well-nourished Respiratory: No accessory muscle use, No respiratory distress; chest expansion is symmetric, chest is bilaterally symmetric, rhonchi, other (diminished lower lobes L>R) Cardiovascular: irregularly irregular, tachycardia Gastrointestional: No tender; soft, round; No guarding; audible bowel sounds Extremities: other (bilat pedal edema - improved from yesterday) Neurologic/Psychiatric: other (moves all extremities) Skin: No rash on exposed areas, No ulcerations on exposed areas Results/Procedures: Labs Laboratory Tests 05/18/23 15:32: Lactic Acid Level 0.92 05/18/23 17:47: Total Bilirubin 0.9, Direct Bilirubin 0.5H, Indirect Bilirubin 0.4, Aspartate Amino Transf (AST/SGOT) 13, Alanine Aminotransferase (ALT/SGPT) 8, Alkaline Phosphatase 79, Total Protein 5.7L, Albumin 2.9L, Thyroid Stimulating Hormone (TSH) 3.37 05/19/23 03:03: Arterial Blood pH 7.44H, Arterial Blood Partial Pressure CO2 42, Arterial Blood Partial Pressure O2 176H, Arterial Blood HCO3 29H, Arterial Blood Total CO2 29.8, Arterial Blood Oxygen Saturation 100, Arterial Blood Base Excess 3.9H, Blood Gas Ventilator Setting NO, Blood Gas Inspired Oxygen 5L 05/19/23 04:21: Total Bilirubin 0.7, Aspartate Amino Transf (AST/SGOT) 13, Alanine Aminotransferase (ALT/SGPT) < 6, Alkaline Phosphatase 79, Total Protein 5.2L, Albumin 2.6L, White Blood Count 10.0, Red Blood Count 3.46L, Hemoglobin 9.9L, Hematocrit 31L, Mean Corpuscular Volume 91, Mean Corpuscular Hemoglobin 29, Mean Corpuscular Hemoglobin Concent 32, Red Cell Distribution Width 13.9, Platelet Count 302, Mean Platelet Volume 9.7, Immature Granulocyte % (Auto) 1, Neutrophils (%) (Auto) 71, Lymphocytes (%) (Auto) 17, Monocytes (%) (Auto) 12, Eosinophils (%) (Auto) 0, Basophils (%) (Auto) 0, Neutrophils # (Auto) 7.1, Lymphocytes # (Auto) 1.7, Monocytes # (Auto) 1.2H, Eosinophils # (Auto) 0.0, Basophils # (Auto) 0.0, Immature Granulocyte # (Auto) 0.1, Sodium Level 141, Potassium Level 3.7, Chloride Level 107, Carbon Dioxide Level 26, Anion Gap 8, Blood Urea Nitrogen 12, Creatinine 0.66, Estimat Glomerular Filtration Rate 89, BUN/Creatinine Ratio 18, Glucose Level 99, Calcium Level 8.2L, Corrected Calcium 9.3, Phosphorus Level 1.8L, Magnesium Level 1.6, Digoxin Level 1.48 Microbiology 05/18/23 MRSA Screen - Final, Complete MRSA not isolated A/P: Assessment: LLL Pneumonia - management per medical services Pericardial effusion in March 2023 - admitted to [facility] in [place] on 04-06-23 d/t TTE showing a large pericardial effusion with early tamponade. Underwent pericardiocentesis with drain placement on 04-10-23 with initial drainage of 300 ml.. Drain removed by Dr. Del Cid on 04-12-23 - Last echo on 04/13/23 at [facility], [place]: Trivial pericard eff w/o hemodynamic significance. Limited echo showed LV function to be grossly normal - Echocardiogram of 04-20-23 showed LVEF 60-65%. Mild to mod MR. Minimal girish cardial fluid which does not appear to be of hemodynamic signif Marked sinus node dysfunction - EKG of 05-18-23 at [facility] ED in [place] showed A- fib with RVR - PAF with RVR 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) from both of which she was symptomatic - s/p perm dual chamber pacemaker ([employer]tr[employer]) in January 2023 - echo 01/19/23: LVEF 60-65%, mild to mod LA enlargement, mild to mod MR, PASP 25- 30 mmHg - initiation of oral dronedarone on 01/21/23 - stopped on 05-18-23 (back in a-fib with RVR) - Amiodarone started on 05-18-23 S/p thyroidectomy in Jul in 2022 for papillary thyroid cancer in [place], [place] Chronic, bilateral leg swelling: venous insuff and lymphedema Plan: Pneumonia - management per medical/eICU services A-fib with RVR - h/o PAF - currently on IV Amiodarone load - remains in a-fib with rates not well controlled - continue OAC with Eliquis Elevated BNP - continue diuretics as indicated Monitor lab closely Replace electrolytes as indicated Further recs will be based on her hospital course We would like to thank medical services for this consult DA MAR May 19, 2023 08:40
[2023-05-19] MEDS: DOCUSATE SODIUM 100 MG CAPSULE PO SCH ×2 (08:41→19:55)
[2023-05-19] MEDS ORDERED: POTASSIUM CHLORIDE 20 MEQ TABLET PO ONE (09:00)
[2023-05-19] MEDS ORDERED: DIGOXIN INJECTION 0.25 MG/ML 2 ML AMPULE IV ONE (09:15)
[2023-05-19] MEDS ORDERED: FUROSEMIDE INJECTION 40 MG/4 ML VIAL IVP NR (10:00)
[2023-05-19] MEDS: AZITHROMYCIN INJECTION 250 MG in NS (IVPB) 250 ML 250 ML IV SCH (11:10)
--- NOTE | 2023-05-19 12:03 | Progress Note - Cardiology ---
Cardiology SOAP Progress Note Subjective: Gen malaise and weakness Shortness of breath with activity No n/v/d No focal weakness No cp or palp Objective: I&O/Vital Signs 05/18/23 05/19/23 05/19/23 05/19/23 23:59 00:00 00:15 01:00 Pulse 122 111 117 Resp 22 18 B/P (MAP) 93/56 (68) 112/58 (76) Pulse Ox 92 97 95 O2 Delivery Nasal Cannula Nasal Cannula Nasal Cannula O2 Flow Rate 2.00 2.00 2.00 05/19/23 05/19/23 05/19/23 05/19/23 02:00 02:56 03:00 04:00 Pulse 105 98 121 Resp 23 30 19 B/P (MAP) 90/51 (64) 113/62 (79) 86/31 (49) Pulse Ox 96 97 98 99 O2 Delivery Nasal Cannula Nasal Cannula Nasal Cannula Nasal Cannula O2 Flow Rate 2.00 5.00 2.00 2.00 05/19/23 05/19/23 05/19/23 05/19/23 04:00 04:00 04:15 05:00 Temp 36.0 Pulse 122 111 Resp 18 22 B/P (MAP) 101/43 (62) 100/49 (66) Pulse Ox 92 97 93 O2 Delivery Nasal Cannula Nasal Cannula Nasal Cannula O2 Flow Rate 2.00 2.00 2.00 05/19/23 05/19/23 05/19/23 05/19/23 06:00 07:00 07:00 07:27 Pulse 114 109 101 Resp 19 21 B/P (MAP) 98/57 (71) 93/47 (62) Pulse Ox 97 98 97 O2 Delivery Nasal Cannula Nasal Cannula Nasal Cannula O2 Flow Rate 2.00 2.00 2.00 05/19/23 05/19/23 05/19/23 05/19/23 07:27 07:57 08:00 09:00 Pulse 131 134 Resp 20 B/P (MAP) 102/45 (68) 112/54 (78) Pulse Ox 97 92 93 O2 Delivery Nasal Cannula Nasal Cannula Nasal Cannula Nasal Cannula O2 Flow Rate 2.00 4.00 4.00 4.00 05/19/23 05/19/23 05/19/23 10:00 10:09 11:00 Pulse 121 112 Resp 25 22 B/P (MAP) 119/71 (79) 98/43 (76) Pulse Ox 96 96 96 O2 Delivery Nasal Cannula Nasal Cannula Nasal Cannula O2 Flow Rate 3.00 4.00 3.00 05/18/23 23:59 Intake Total 150 ml Output Total 150 ml Balance 0 ml Weight (Pounds): 186 Weight (Ounces): 0.0 Weight (Calculated Kilograms): 84.180311 Constitutional: AAO x 3, well-developed, well-nourished Respiratory: No accessory muscle use, No respiratory distress; chest expansion is symmetric, chest is bilaterally symmetric, rhonchi, other (diminished lower lobes L>R) Cardiovascular: irregularly irregular, tachycardia Gastrointestional: No tender; soft, round; No guarding; audible bowel sounds Extremities: other (bilat pedal edema - improved from yesterday) Neurologic/Psychiatric: other (moves all extremities) Skin: No rash on exposed areas, No ulcerations on exposed areas Results/Procedures: Labs Laboratory Tests 05/18/23 15:32: Lactic Acid Level 0.92 05/18/23 17:47: Total Bilirubin 0.9, Direct Bilirubin 0.5H, Indirect Bilirubin 0.4, Aspartate Amino Transf (AST/SGOT) 13, Alanine Aminotransferase (ALT/SGPT) 8, Alkaline Phosphatase 79, Total Protein 5.7L, Albumin 2.9L, Thyroid Stimulating Hormone (TSH) 3.37 05/19/23 03:03: Arterial Blood pH 7.44H, Arterial Blood Partial Pressure CO2 42, Arterial Blood Partial Pressure O2 176H, Arterial Blood HCO3 29H, Arterial Blood Total CO2 29.8, Arterial Blood Oxygen Saturation 100, Arterial Blood Base Excess 3.9H, Blood Gas Ventilator Setting NO, Blood Gas Inspired Oxygen 5L 05/19/23 04:21: Total Bilirubin 0.7, Aspartate Amino Transf (AST/SGOT) 13, Alanine Aminotransferase (ALT/SGPT) < 6, Alkaline Phosphatase 79, Total Protein 5.2L, Albumin 2.6L, White Blood Count 10.0, Red Blood Count 3.46L, Hemoglobin 9.9L, Hematocrit 31L, Mean Corpuscular Volume 91, Mean Corpuscular Hemoglobin 29, Mean Corpuscular Hemoglobin Concent 32, Red Cell Distribution Width 13.9, Platelet Count 302, Mean Platelet Volume 9.7, Immature Granulocyte % (Auto) 1, Neutrophils (%) (Auto) 71, Lymphocytes (%) (Auto) 17, Monocytes (%) (Auto) 12, Eosinophils (%) (Auto) 0, Basophils (%) (Auto) 0, Neutrophils # (Auto) 7.1, Lymphocytes # (Auto) 1.7, Monocytes # (Auto) 1.2H, Eosinophils # (Auto) 0.0, Basophils # (Auto) 0.0, Immature Granulocyte # (Auto) 0.1, Sodium Level 141, Potassium Level 3.7, Chloride Level 107, Carbon Dioxide Level 26, Anion Gap 8, Blood Urea Nitrogen 12, Creatinine 0.66, Estimat Glomerular Filtration Rate 89, BUN/Creatinine Ratio 18, Glucose Level 99, Calcium Level 8.2L, Corrected Calcium 9.3, Phosphorus Level 1.8L, Magnesium Level 1.6, Digoxin Level 1.48 Laboratory Tests 05/18/23 09:15 05/19/23 04:21 A/P: Assessment: LLL Pneumonia - management is by the Hospitalist inge H/o pericardial effusion in March 2023 - admitted to [facility] in [place] on 04-06-23 d/t TTE showing a large pericardial effusion with early tamponade. Underwent pericardiocentesis with drain placement on 04-10-23 with initial drainage of 300 ml.. Drain removed by Dr. Del Cid on 04-12-23 - Last echo on 04/13/23 at [facility], [place]: Trivial pericard eff w/o hemodynamic significance. Limited echo showed LV function to be grossly normal - Echocardiogram of 04-20-23 showed LVEF 60-65%. Mild to mod MR. Minimal per icardial fluid which does not appear to be of hemodynamic signif Marked sinus node dysfunction - PAF with RVR 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) from both of which she was symptomatic - s/p perm dual chamber pacemaker ([employer]tr[employer]) in January 2023 - echo 01/19/23: LVEF 60-65%, mild to mod LA enlargement, mild to mod MR, PASP 25- 30 mmHg - initiation of oral dronedarone on 01/21/23 - stopped on 05-18-23 (back in a-fib with RVR) - EKG of 05-18-23 at [facility] ED in [place] showed A-fib with RVR. Amiodarone started on 05-18-23 S/p thyroidectomy in Jul in 2022 for papillary thyroid cancer in [place] Chronic, bilateral leg swelling: venous insuff and lymphedema Plan: * Dig and dilt for vent rate control * Continue apixaban for stroke prophylaxis * Diuretics as needed and as tolerated * Repeat echo * Monitor labs SHANTELLE DANIELS MD FACP FAC CCDS May 19, 2023 12:03
--- NOTE | 2023-05-19 12:38 | History & Physical-Hospitalist ---
ROBIN BUNDY 05/19/23 1238: History of Present Illness HPI/Chief Complaint Pt is an 78 y/o female with a hx of Afib, COPD, and thyroid cancer s/p thyroi dectomy who presented to the ER yesterday as a transfer from [facility] with chest pain that had been ongoing for a couple days. Reports that it had gotten worse yesterday morning with palpitations and an increase in SOB. She has a hx of COPD with inhalers 2x a day and chronic cough. Normally, she is on O2 at home. She has a hx of pericardial effusion March 2023. She was admitted to [facility] in [place] on 04-06-23 d/t TTE showing a large pericardial effusion with early tamponade. Underwent pericardiocentesis with drain placement on 04-10-23 with initial drainage of 300 ml.. Drain removed by Dr. Del Cid on 04-12-23. Last echo on 04/13/23 at [facility], [place]: Trivial pericard eff w/o hemodynamic significance. Limited echo showed LV function to be grossly normal. - Echocardiogram of 04-20-23 showed LVEF 60-65%. Mild to mod MR. Minimal pericardial fluid which does not appear to be of hemodynamic signif She also has a hx of marked sinus node dysfunction w/ PAF with RVR 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) from both of which she was symptomatic s/p perm dual chamber pacemaker (Medtronic) in January 2023. Today she states that she remains feeling SOB but does not feel like her heart is racing as much anymore. Reports that she has been coughing up clear fluid occasionally. Denies CP, fever, or chills. Notes general fatigue. She is joined by her daughter at bedside. Source: patient, family Exam Limitations: no limitations Date Seen 05/19/23 Time Seen by a Provider: 12:36 Attending Physician Self,Tyrone EDOUARD PCP Admitting Physician: Yulia Brooks DO Attending Physician: Yulia Brooks DO Referring Physician Date of Admission May 18, 2023 at 13:23 Home Medications & Allergies Home Medications Reviewed patient Home Medication Reconciliation performed by pharmacy medication reconciliations food equipment service technician and/or nursing. Patients Allergies have been reviewed. Allergies Allergies Coded Allergies No Known Drug Allergies (Tconzoteef23/26/13) Past Lbmvekn-Urtkas-Lkltzi Hx Patient Social History Tobacco Use?: No Smoking Status: Former Smoker Smokeless Tobacco Frequency: Never a User Use of E-Cig and/or Vaping dev: No Use of E-Cig and/or Vaping Jean-Paul: Never a User Substance use?: No Alcohol Use?: No Pt feels they are or have been: No Immunizations Up To Date Date of Influenza Vaccine: Mar 19, 2019 Tetanus Booster (TDap): Unknown Hepatitis A: No Hepatitis B: No PED Vaccines UTD: No Date of Pneumonia Vaccine: Jun 19, 2011 Current Status Communicates: Verbally Primary Language: Guatemalan Preferred Spoken Language: Guatemalan Is interpretation needed?: No Implanted or Applied Medical D: None Past Medical History Surgeries: Appendectomy, Gallbladder, Orthopedic, Pacemaker COPD Atrial Fibrillation Degenerate Disk Disease, Arthritis Hypothyroidsim Thyroid Did You Recieve Any Treatments: Yes What Type of Treatment Did You: Surgical Intervention Blood Disorders: No Adverse Reaction/Blood Tranf: No COPD H/o thyroid Ca s/p thyroidectomy Family Medical History Family history: Breast disease 03 MOTHER Family history: Cardiovascular disease 03 MOTHER Family history: Diabetes mellitus 03 MOTHER History of - respiratory disease 03 FATHER No Pertinent Family Hx Review of Systems Constitutional: No chills, No fever EENTM: No eye pain, No hoarseness Respiratory: cough, short of breath Cardiovascular: No chest pain; palpitations Gastrointestinal: No abdominal pain, No hematemesis, No melena, No nausea, No vomiting Genitourinary: No decreased output, No dysuria : No Musculoskeletal: No muscle pain, No muscle stiffness Skin: No lesions, No rash Psychiatric/Neurological: Denies Headache, Denies Seizure Physical Exam Physical Exam Vital Signs Vital Signs - First Documented 05/18/23 05/18/23 05/18/23 09:24 09:26 09:29 Temp 36.6 Pulse 143 Resp 24 B/P (MAP) 105/65 Pulse Ox 94 O2 Delivery Nasal Cannula O2 Flow Rate 2.00 Capillary Refill : Less Than 3 Seconds Height, Weight, BMI Height: '" Weight: 186lbs. 0.0oz. 84.390478gm; 32.87 BMI Method: General Appearance: No Apparent Distress, Anxious, Chronically ill, Thin Eyes: Bilateral Eye Normal Inspection HEENT: TMs Normal, Normal ENT Inspection Neck: Normal Inspection, Non Tender Respiratory: Chest Non Tender, Crackles (worse on L side) Cardiovascular: Normal Peripheral Pulses, Irregularly Irregular, Tachycardia Gastrointestinal: Normal Bowel Sounds, Non Tender, Soft Extremity: Normal Inspection, Non Tender, No Calf Tenderness, No Pedal Edema Neurologic/Psychiatric: Alert, Oriented x3, No Motor/Sensory Deficits, Normal Mood/Affect Skin: Normal Color, Warm/Dry Results Results/Procedures Labs Laboratory Tests 05/18/23 09:15 05/19/23 04:21 Patient resulted labs reviewed. Imaging: Reviewed Imaging Report Assessment/Plan Admission Diagnosis Afib with RVR. pnuemonia Admission Status: Inpatient Order (span 2 midnights) Reason for Inpatient Admission: Afib with RVR. pnuemonia Assessment and Plan Afib with RVR - Rate is not controlled and is usually above 100 at this time - Continue Eliquis 5 mg BID - Continue amiodarone, digoxin, and diltiazem - Hx of pericardial effusion March 2023. - Echo 04/20/2023 with LVEF 60-65% - Cardiology following, appreciate recommendations Pneumonia - Continues to be SOB although may be d/t Afib with RVR vs pneumonia - 05/18/23- Chest xray demonstrating infiltrate and pleural fluid in the lower left lung field, cardiomegaly and mild pulmonary venous congestion - Continue cefepime 1000 mg and azithromycin 250 mg - Was given one dose of azithromycin and ceftriaxone in the ER - WBC today is 10, was 12.2 yesterday - Continue DuoNeb and budesonide - Continue expectorants - Continue to monitor, repeat CBC tmw YULIA BROOKS DO 05/20/23 0610: History of Present Illness HPI/Chief Complaint Chief complaint: Acute hypoxic respiratory failure with A-fib with RVR HPI: This is an 78-year-old female who has had a very complicated few months most recently was at [facility] for pericardial effusion with early tamponade status post pericardiocentesis now presents with acute hypoxic respiratory failure with A-fib with RVR requiring cardiology consult Jamey rowell. Pneumonia was noted placed on antibiotics. Source: patient, family Exam Limitations: clinical condition Past Gayypgm-Yxhooo-Renxxp Hx Patient Social History Marrital Status: single Employed/Student: retired Smoking Status: Former Smoker Past Medical History Atrial Fibrillation, High Cholesterol, Hypertension Family Medical History Family history: Breast disease 03 MOTHER Family history: Cardiovascular disease 03 MOTHER Family history: Diabetes mellitus 03 MOTHER History of - respiratory disease 03 FATHER Review of Systems Constitutional: see HPI Cardiovascular: chest pain, palpitations Physical Exam Physical Exam General Appearance: Anxious, Chronically ill, Mild Distress Respiratory: Crackles (worse on L side), Decreased Breath Sounds Cardiovascular: Irregularly Irregular, Tachycardia Assessment/Plan Admission Diagnosis Assessment: Acute hypoxic respiratory failure Atrial fibrillation with RVR Pneumonia Recent pericardiocentesis for pericardial effusion with early tamponade Oral anticoagulation Plan: ICU Cardiology consult High risk for intubation Admission Status: Inpatient Order (span 2 midnights) Reason for Inpatient Admission: Respiratory failure with A-fib with RVR Supervisory-Addendum Brief Verification & Attestation Participated in pt care: history, MDM, physical Personally performed: exam, history, MDM, supervision of care Care discussed with: Medical Student Procedures: n/a Results interpretation: Verified all documentation Verification and Attestation of Medical Student E/M Service A medical student performed and documented this service in my presence. I reviewed and verified all information documented by the medical student and made modifications to such information, when appropriate. I personally performed the physical exam and medical decision making. Yulia Brooks May 20, 2023,06:08 ROBIN BUNDY May 19, 2023 12:38 YULIA BROOKS DO May 20, 2023 06:10
--- NOTE | 2023-05-19 15:10 | Tele-ICU Progress Note ---
Subjective Date Seen by a Provider: May 19, 2023 Time Seen by a Provider: 15:09 Subjective/Events-last exam (Tele-ICU Physician , Progress Note ) Service provided via interactive audio and video telecommunications E-CARE system to a patient admitted to ICU bed in [facility]. Patient is seen today due to persistent need of ICU care Available chart/ vitals / labs / Images reviewed Video assessment done using teleICU camera, rest of exam as per RN Discussed with RN Events overnight : Afebrile hemodynamically stable Respiratory - 6L I/O = Pressors- no Hospital course:05/18- 78 y/o F with PMHx significant for COPD, papillary thyroid cancer s/p thyroidectomy, FIbromyalgia, sinus node dysfunction who presented to ED today via EMS with co worsening SOB thoguht to be 2/2 COPD exac erbation. Upon arrival she was noted to be in Afib with RVR and was started on Cardizem gtt and admitted to MICU for closer monitoring. Labs notable for hypokalemia with K of 3.1, leukocytosis of 12 and BNP of 1845. CXR showed LLL consolidation with layering effusion. She received IV lasix and was started on Ceftriaxone /Azithromycin. A/P Pneumonia: CXR with LLL infiltrate -Cont antibiotics -WIll stop IVF and maintain net neg -Will check lactate -Guanifecin prn cough Afib with RVR: On cardizem gtt Cardiology consulted -TTE 04/20/23- EF 60-65% Hx of sinus node dysfunction -s/p temporary ventricular pacemaker on 01/19/23 - s/p perm dual chamber pacemaker (Medtronic) and removal of temp pacemaker on 01/20/23 -no clinical evidence of decompensated CHF -Cards consulted Lines : periph , (Central Line Necessity Reviewed) Alvarez: Nutrition: HH diet VTE Prophylaxis: Apixiban Stress Ulcer Prophylaxis: Plans in collaboration with bedside consultants and IM MDs. Discussed with RN to reach out if any questions or concerns Case and care daily discussed on multidisciplinary rounds ( RN, PharmD, Crewman Armoured Personnel Carrier [id number] , Respiratory Therapy, chrome worker ) A total of20 minutes of critical care time was devoted to this patient today, required to treat and/or prevent further deterioration of critical care condition ( as above ) . I am remotely monitoring this patient from another state. I am unable to do the bedside exam, and history/physical and pertinent information is taken from other notes in the computer and bedside staff. Sepsis Event Evaluation Height, Weight, BMI Height: '" Weight: 186lbs. 0.0oz. 84.768099qg; 32.87 BMI Method: Focused Exam Lactate Level 05/18/23 15:32: Lactic Acid Level 0.92 Exam Exam Patient acknowledged, consented, and participated in this virtual visit which was conducted using real time audio/video Vital Signs Date Time Temp Pulse Resp B/P (MAP) Pulse Ox O2 Delivery O2 Flow Rate FiO2 05/19/23 14:38 94 Nasal Cannula 6.00 05/19/23 14:00 100 22 97/45 (60) 96 Nasal Cannula 3.00 05/19/23 13:00 118 24 102/58 (69) 94 Nasal Cannula 3.00 05/19/23 12:38 122 05/19/23 12:07 37.0 05/19/23 12:00 92 Nasal Cannula 2.00 05/19/23 12:00 121 15 119/69 (91) 94 Nasal Cannula 3.00 05/19/23 11:00 112 22 98/43 (76) 96 Nasal Cannula 3.00 05/19/23 10:09 96 Nasal Cannula 4.00 05/19/23 10:00 121 25 119/71 (79) 96 Nasal Cannula 3.00 05/19/23 09:00 134 20 112/54 (78) 93 Nasal Cannula 4.00 05/19/23 08:00 92 Nasal Cannula 2.00 05/19/23 08:00 131 102/45 (68) 92 Nasal Cannula 4.00 05/19/23 07:57 Nasal Cannula 4.00 05/19/23 07:27 97 Nasal Cannula 2.00 05/19/23 07:27 97 Nasal Cannula 2.00 05/19/23 07:00 101 05/19/23 07:00 109 21 93/47 (62) 98 Nasal Cannula 2.00 05/19/23 06:00 114 19 98/57 (71) 97 Nasal Cannula 2.00 05/19/23 05:00 111 22 100/49 (66) 93 Nasal Cannula 2.00 05/19/23 04:15 122 18 101/43 (62) 97 Nasal Cannula 2.00 05/19/23 04:00 92 Nasal Cannula 2.00 05/19/23 04:00 36.0 05/19/23 04:00 121 19 86/31 (49) 99 Nasal Cannula 2.00 05/19/23 03:00 98 30 113/62 (79) 98 Nasal Cannula 2.00 05/19/23 02:56 97 Nasal Cannula 5.00 05/19/23 02:00 105 23 90/51 (64) 96 Nasal Cannula 2.00 05/19/23 01:00 117 18 112/58 (76) 95 Nasal Cannula 2.00 05/19/23 00:15 111 05/19/23 00:00 122 22 93/56 (68) 97 Nasal Cannula 2.00 05/18/23 23:59 92 Nasal Cannula 2.00 05/18/23 23:00 126 25 108/60 (76) 95 Nasal Cannula 2.00 05/18/23 22:11 93 Nasal Cannula 4.00 05/18/23 22:00 122 24 108/61 (77) 95 Nasal Cannula 2.00 05/18/23 21:00 133 26 98/57 (71) 94 Nasal Cannula 2.00 05/18/23 20:00 123 24 96/52 (67) 95 Nasal Cannula 2.00 05/18/23 20:00 92 Nasal Cannula 2.00 05/18/23 19:43 36.7 05/18/23 19:14 137 05/18/23 19:00 131 35 100/45 (63) 95 Nasal Cannula 2.00 05/18/23 18:36 99 Nasal Cannula 4.00 05/18/23 18:14 137 107/59 05/18/23 18:00 124 28 107/59 (75) 94 Nasal Cannula 2.00 05/18/23 17:00 115 27 87/61 (70) 92 Nasal Cannula 2.00 05/18/23 16:00 118 25 94/56 (69) 94 Nasal Cannula 2.00 05/18/23 16:00 92 Nasal Cannula 2.00 05/18/23 15:45 130 27 101/49 (66) 93 Nasal Cannula 2.00 05/18/23 15:30 147 35 90/45 (60) 94 Nasal Cannula 2.00 05/18/23 15:25 36.6 I & O 05/19/23 06:59 Intake Total 1055 ml Output Total 150 ml Balance 905 ml Height & Weight Height: '" Weight: 186lbs. 0.0oz. 84.612851dt; 32.87 BMI Method: General Appearance: No Apparent Distress, Anxious, Chronically ill, Thin HEENT: TMs Normal, Normal ENT Inspection Neck: Normal Inspection, Non Tender Respiratory: Chest Non Tender, Crackles (worse on L side) Cardiovascular: Normal Peripheral Pulses, Irregularly Irregular, Tachycardia Capillary Refill: Less Than 3 Seconds Extremity: Normal Inspection, Non Tender, No Calf Tenderness, No Pedal Edema Neurologic/Psychiatric: Alert, Oriented x3, No Motor/Sensory Deficits, Normal Mood/Affect Skin: Normal Color, Warm/Dry Results Lab Laboratory Tests 05/18/23 09:15 05/19/23 04:21 Assessment/Plan Assessment/Plan 1 XI VASQUEZ MD May 19, 2023 15:10
[2023-05-19] MEDS: AMIODARONE 200 MG TABLET PO SCH (19:44)
[2023-05-20] MEDS: RT-Ipratropium/Albuterol NEB 3 ML VIAL INH SCH ×3 (03:04→11:25)
[2023-05-20] MEDS: CEFEPIME 1,000 MG/NS 50 ML IVPB IV SCH ×8 (03:34→20:18)
[2023-05-20 04:09] LABS: ABG BASE EXCESS 7.3 MMOL/L (-2.5-2.5); ABG OXYGEN SATURATION 100 % (94-100); ABG PCO2 53 MMHG (35-45); ABG PH 7.41 (7.37-7.43); ABG PO2 119 MMHG (79-93); ABG TCO2 35.2 MMOL/L (21.0-31.0); INSPIRED O2 7L; VENTILATOR NO
[2023-05-20 04:52] LABS: BASOPHILS % (AUTO) 0 % (0-10); EOSINOPHILS % (AUTO) 0 % (0-10); HEMATOCRIT 34 % (35-52); HEMOGLOBIN 10.3 g/dL (11.5-16.0); LYMPHOCYTES # (AUTO) 1.2 10^3/uL (1.0-4.0); LYMPHOCYTES % (AUTO) 12 % (12-44); MEAN CORPUSCULAR HEMOGLOBIN 28 pg (25-34); MEAN CORPUSCULAR HGB CONC 31 g/dL (32-36); MEAN CORPUSCULAR VOLUME 91 fL (80-99); MEAN PLATELET VOLUME 9.8 fL (9.0-12.2); MONOCYTES % (AUTO) 11 % (0-12); NEUTROPHILS # (AUTO) 7.5 10^3/uL (1.8-7.8); NEUTROPHILS % (AUTO) 76 % (42-75); PLATELET COUNT 348 10^3/uL (130-400); WHITE BLOOD COUNT 9.8 10^3/uL (4.3-11.0)
[2023-05-20 05:07] LABS: ALBUMIN 2.6 GM/DL (3.2-4.5); CHLORIDE 104 MMOL/L (98-107); SODIUM 140 MMOL/L (135-145)
[2023-05-20 05:08] LABS: CALCIUM 8.7 MG/DL (8.5-10.1)
[2023-05-20 05:09] LABS: GLUCOSE 108 MG/DL (70-105)
[2023-05-20 05:10] LABS: TOTAL PROTEIN 5.3 GM/DL (6.4-8.2)
[2023-05-20 05:11] LABS: BILIRUBIN,TOTAL 0.5 MG/DL (0.1-1.0); CARBON DIOXIDE 28 MMOL/L (21-32)
[2023-05-20 05:13] LABS: ALKALINE PHOSPHATASE 76 U/L (40-136); CREATININE SERUM 0.65 MG/DL (0.60-1.30); GFR ESTIMATED 89; PHOSPHORUS 2.1 MG/DL (2.3-4.7)
[2023-05-20 05:14] LABS: BUN/CREATININE RATIO 14
[2023-05-20 05:16] LABS: ALANINE AMINOTRANSFERASE < 6 U/L (0-55); MAGNESIUM 2.3 MG/DL (1.6-2.4)
[2023-05-20] MEDS: MAGNESIUM 1 GM/100 ML IVPB 100 ML IV SCH (06:42)
[2023-05-20] MEDS: POTASSIUM CL 10MEQ/50ML IVPB 50 ML IV SCH (06:42)
[2023-05-20] MEDS: POTASSIUM CHLORIDE 20 MEQ TABLET PO SCH (06:42)
--- NOTE | 2023-05-20 08:08 | Tele-ICU Progress Note ---
Subjective Date Seen by a Provider: May 20, 2023 Time Seen by a Provider: 08:03 Subjective/Events-last exam (Tele-ICU Physician , Progress Note ) Service provided via interactive audio and video telecommunications E-CARE system to a patient admitted to ICU bed in [facility]. Patient is seen today due to persistent need of ICU care Available chart/ vitals / labs / Images reviewed Video assessment done using teleICU camera, rest of exam as per RN Discussed with RN Events overnight : 78 yo F admitted for AECOPD, a fib with RVR- V rate now in 70 to 90's-converted to sinus last night LLL consolidation on CXR Started on IV Cardizem but now off, Now on po digoxin and amiodarone 400 mg/bid, IV Azithromycin, Rocephin, BNP 1845 started on IV Lasix Serology negative for Covid and flu ABG this am 7.41/53/119 on 3 lpm Sepsis Event Evaluation Height, Weight, BMI Height: '" Weight: 186lbs. 0.0oz. 84.683205xk; 32.87 BMI Method: Focused Exam Lactate Level 05/18/23 15:32: Lactic Acid Level 0.92 Exam Exam Patient acknowledged, consented, and participated in this virtual visit which was conducted using real time audio/video Vital Signs Date Time Temp Pulse Resp B/P (MAP) Pulse Ox O2 Delivery O2 Flow Rate FiO2 05/20/23 07:51 36.7 05/20/23 07:00 90 05/20/23 07:00 88 30 116/63 (74) 95 Nasal Cannula 3.00 05/20/23 06:00 84 16 103/45 (64) 100 Nasal Cannula 3.00 05/20/23 05:00 84 15 111/47 (68) 100 Nasal Cannula 3.00 05/20/23 04:00 86 27 112/52 (72) 91 Nasal Cannula 3.00 05/20/23 03:41 94 Nasal Cannula 4.00 05/20/23 03:04 98 Nasal Cannula 6.00 05/20/23 03:00 84 19 115/56 (75) 99 Nasal Cannula 3.00 05/20/23 02:00 87 16 120/54 (76) 99 Nasal Cannula 3.00 05/20/23 01:00 89 18 106/50 (68) 100 Nasal Cannula 3.00 05/20/23 00:09 89 05/20/23 00:00 125 15 102/72 (82) 92 Nasal Cannula 3.00 05/19/23 23:39 94 Nasal Cannula 4.00 05/19/23 23:00 123 28 106/58 (74) 96 Nasal Cannula 3.00 05/19/23 22:13 94 Nasal Cannula 6.00 05/19/23 22:13 94 Nasal Cannula 6.00 05/19/23 22:00 118 25 101/52 (68) 92 Nasal Cannula 3.00 05/19/23 21:00 109 22 88/68 (75) 97 Nasal Cannula 3.00 05/19/23 20:32 36.7 05/19/23 20:00 130 31 114/57 (76) 98 Nasal Cannula 3.00 05/19/23 20:00 94 Nasal Cannula 4.00 05/19/23 19:21 117 05/19/23 19:06 94 Nasal Cannula 6.00 05/19/23 19:00 123 32 104/63 (77) 98 Nasal Cannula 3.00 05/19/23 18:59 36.4 05/19/23 18:00 118 37 108/57 (88) 97 Nasal Cannula 3.00 05/19/23 17:00 114 21 102/59 (67) 98 Nasal Cannula 3.00 05/19/23 16:51 36.6 05/19/23 16:00 107 20 109/35 (68) 93 Nasal Cannula 3.00 05/19/23 16:00 90 Nasal Cannula 4.00 05/19/23 15:00 112 26 96/56 (64) 97 Nasal Cannula 3.00 05/19/23 14:38 94 Nasal Cannula 6.00 05/19/23 14:00 100 22 97/45 (60) 96 Nasal Cannula 3.00 05/19/23 13:00 118 24 102/58 (69) 94 Nasal Cannula 3.00 05/19/23 12:38 122 05/19/23 12:07 37.0 05/19/23 12:00 92 Nasal Cannula 2.00 05/19/23 12:00 121 15 119/69 (91) 94 Nasal Cannula 3.00 05/19/23 11:00 112 22 98/43 (76) 96 Nasal Cannula 3.00 05/19/23 10:09 96 Nasal Cannula 4.00 05/19/23 10:00 121 25 119/71 (79) 96 Nasal Cannula 3.00 05/19/23 09:00 134 20 112/54 (78) 93 Nasal Cannula 4.00 I & O 05/20/23 07:00 Intake Total 1672.5 ml Output Total 2050 ml Balance -377.5 ml Height & Weight Height: '" Weight: 186lbs. 0.0oz. 84.245277hu; 32.87 BMI Method: General Appearance: Anxious, Chronically ill, Mild Distress HEENT: TMs Normal, Normal ENT Inspection Neck: Normal Inspection, Non Tender Respiratory: Crackles (worse on L side), Decreased Breath Sounds, Wheezing Cardiovascular: Regular Rate, Rhythm, Irregularly Irregular, Tachycardia Capillary Refill: Less Than 3 Seconds Gastrointestinal: normal bowel sounds, non tender, soft Extremity: Normal Inspection, Non Tender, No Calf Tenderness, No Pedal Edema, Pedal Edema, Other (+3 leg edema in both legs) Neurologic/Psychiatric: Alert, Oriented x3, No Motor/Sensory Deficits, Normal Mood/Affect Skin: Normal Color, Warm/Dry Results Lab Laboratory Tests 05/18/23 09:15 05/19/23 04:21 05/20/23 04:13 Assessment/Plan Assessment/Plan A fib with RVR, now in sinus, will continue digoxin and po amiodarone LLL PNA Going to gen med floor, pt is DNR Critical Care: Critically Ill Patient ROHINI SERRATO MD May 20, 2023 08:08
[2023-05-20] MEDS: DOCUSATE SODIUM 100 MG CAPSULE PO SCH ×2 (08:22→21:17)
[2023-05-20] MEDS: RT-BUDESONIDE NEBS 0.5 MG/2ML VIAL INH SCH (08:29)
[2023-05-20] MEDS: FUROSEMIDE INJECTION 40 MG/4 ML VIAL IVP SCH (08:33)
[2023-05-20] MEDS: AMIODARONE 200 MG TABLET PO SCH ×2 (08:34→20:19)
[2023-05-20] MEDS: AZITHROMYCIN INJECTION 250 MG in NS (IVPB) 250 ML 250 ML IV SCH (08:34)
[2023-05-20] MEDS: APIXABAN 5 MG TABLET PO SCH ×2 (08:34→20:19)
[2023-05-20] MEDS ORDERED: DIGOXIN 0.125 MG TABLET PO SCH ×2 (09:00)
[2023-05-20] MEDS: dexAMETHasone INJ 4 MG/ML SDV IV SCH ×2 (11:25→20:19)
--- NOTE | 2023-05-20 11:34 | Progress Note ---
ROBERT SMITH MD, RESIDENT 05/20/23 1134: Subjective HPI/CC On Admission Date Seen by Provider: May 20, 2023 Time Seen by Provider: 08:15 Chief complaint: Acute hypoxic respiratory failure with A-fib with RVR HPI: This is an 78-year-old female who has had a very complicated few months most recently was at [facility] for pericardial effusion with early tamponade status post pericardiocentesis now presents with acute hypoxic respiratory failure with A-fib with RVR requiring cardiology consult Jamey rowell. Pneumonia was noted placed on antibiotics. Subjective/Events-last exam Patient continues to feel quite ill today. She does note that her breathing is a little bit better compared to when she first came in. She is confused because she does not understand how she ended up in this condition. She is having a little bit of shortness of breath but otherwise has no concerns today. Focused Exam Lactate Level 05/18/23 15:32: Lactic Acid Level 0.92 Objective Exam Vital Signs Vital Signs Date Time Temp Pulse Resp B/P (MAP) Pulse Ox O2 Delivery O2 Flow Rate FiO2 05/20/23 11:00 100 13 131/64 (88) 98 Nasal Cannula 1.00 05/20/23 07:51 36.7 Capillary Refill : Less Than 3 Seconds General Appearance: No Apparent Distress HEENT: Normal ENT Inspection Neck: Full Range of Motion, Normal Inspection Respiratory: Chest Non Tender, No Accessory Muscle Use, No Respiratory Distress, Crackles, Wheezing Cardiovascular: Regular Rate, Rhythm, No Edema, No Murmur Gastrointestinal: Normal Bowel Sounds, Non Tender, Soft Extremity: Pedal Edema (2+ pitting edema bilaterally) Neurologic/Psychiatric: Alert, Oriented x3 Skin: Normal Color, Warm/Dry Results/Procedures Lab Laboratory Tests 05/20/23 04:13 Patient resulted labs reviewed. Imaging: Reviewed Imaging Report Assessment/Plan Assessment and Plan Assess & Plan/Chief Complaint Patient is an 78-year-old female with a past medical history of atrial fibrillation, COPD, thyroid cancer status post thyroidectomy who is currently being managed for atrial fibrillation with Afib with RVR On oral anticoagulation Recent pericardiocentesis for pericardial effusion with early tamponade - Hx of pericardial effusion March 2023. - Echo 04/20/2023 with LVEF 60-65% - Cardiology following, appreciate recommendations - Rate well controlled today - Continue Eliquis 5 mg BID - Continue amiodarone, digoxin -We will transfer to cardiac stepdown Pneumonia COPD exacerbation Acute hypoxic respiratory failure - 05/18/23- Chest xray demonstrating infiltrate and pleural fluid in the lower left lung field, cardiomegaly and mild pulmonary venous congestion - Continue cefepime 1000 mg and azithromycin 250 mg - Continue DuoNeb and budesonide - Continue expectorants - Wean oxygen as tolerated, currently on 1 L nasal cannula. Uses 2 L nasal cannula at base time as needed - Adding on IV Decadron 2 mg every 12 hours as patient is continuing to have significant wheezing on exam LAMBERT BROOKS DO 05/20/23 1637: Subjective Subjective/Events-last exam Patient doing a little bit better Continues to be improving Very frail and advanced age Objective Exam General Appearance: WD/WN, Anxious, Chronically ill, Mild Distress Respiratory: Crackles, Wheezing Assessment/Plan Assessment and Plan Assess & Plan/Chief Complaint Supportive care ROBERT SMITH MD, RESIDENT May 20, 2023 11:34 LAMBERT BROOKS DO May 20, 2023 16:37
[2023-05-20] MEDS ORDERED: PATIENT MAY USE OWN MED,SINGLE MED PO SCH (11:45)
[2023-05-20] MEDS: PANTOPRAZOLE 20 MG TABLET PO SCH (13:54)
[2023-05-20] MEDS: BENZONATATE 100 MG CAPSULE PO PRN ×2 (13:54→23:46)
--- NOTE | 2023-05-20 15:26 | Progress Note - Cardiology ---
Cardiology SOAP Progress Note Subjective: No cp or palp or syncope Still coughing, non-productive Shortness of breath somewhat better Gen weakness No n/v/d Objective: I&O/Vital Signs 05/20/23 05/20/23 05/20/23 05/20/23 03:41 04:00 05:00 06:00 Pulse 86 84 84 Resp 27 15 16 B/P (MAP) 112/52 (72) 111/47 (68) 103/45 (64) Pulse Ox 94 91 100 100 O2 Delivery Nasal Cannula Nasal Cannula Nasal Cannula Nasal Cannula O2 Flow Rate 4.00 3.00 3.00 3.00 05/20/23 05/20/23 05/20/23 05/20/23 07:00 07:00 07:51 08:00 Temp 36.7 Pulse 88 90 Resp 30 B/P (MAP) 116/63 (74) Pulse Ox 95 96 O2 Delivery Nasal Cannula Nasal Cannula O2 Flow Rate 3.00 3.00 05/20/23 05/20/23 05/20/23 05/20/23 08:00 08:29 08:54 09:00 Pulse 96 93 Resp 25 32 B/P (MAP) 90/57 (62) 124/64 (77) Pulse Ox 97 100 100 100 O2 Delivery Nasal Cannula Nasal Cannula Nasal Cannula Nasal Cannula O2 Flow Rate 3.00 7.00 5.00 5.00 05/20/23 05/20/23 05/20/23 05/20/23 09:27 10:00 10:10 11:00 Pulse 93 100 Resp 32 13 B/P (MAP) 116/56 (79) 131/64 (88) Pulse Ox 100 98 O2 Delivery Nasal Cannula Nasal Cannula Nasal Cannula Nasal Cannula O2 Flow Rate 3.00 2.00 1.00 1.00 05/20/23 05/20/23 05/20/23 05/20/23 11:26 11:51 12:00 12:36 Temp 36.7 Pulse 101 96 Resp 14 B/P (MAP) 111/67 (79) Pulse Ox 99 100 O2 Delivery Nasal Cannula Nasal Cannula O2 Flow Rate 1.00 1.00 05/20/23 05/20/23 13:00 14:00 Pulse 107 95 Resp 37 B/P (MAP) 152/64 (93) 116/63 (88) Pulse Ox 98 100 O2 Delivery Nasal Cannula Nasal Cannula O2 Flow Rate 1.00 1.00 05/19/23 23:59 Intake Total 972.5 ml Output Total 1850 ml Balance -877.5 ml Weight (Pounds): 186 Weight (Ounces): 0.0 Weight (Calculated Kilograms): 84.843296 Constitutional: AAO x 3, well-developed, well-nourished Respiratory: No accessory muscle use, No respiratory distress; chest expansion is symmetric, chest is bilaterally symmetric, rhonchi, other (diminished lower lobes L>R) Cardiovascular: irregularly irregular, tachycardia Gastrointestional: No tender; soft, round; No guarding; audible bowel sounds Extremities: other (bilat pedal edema - improved from yesterday) Neurologic/Psychiatric: other (moves all extremities) Skin: No rash on exposed areas, No ulcerations on exposed areas Results/Procedures: Labs Laboratory Tests 05/20/23 04:01: Arterial Blood pH 7.41, Arterial Blood Partial Pressure CO2 53H, Arterial Blood Partial Pressure O2 119H, Arterial Blood HCO3 34H, Arterial Blood Total CO2 35.2H, Arterial Blood Oxygen Saturation 100, Arterial Blood Base Excess 7.3H, Blood Gas Ventilator Setting NO, Blood Gas Inspired Oxygen 7L 05/20/23 04:13: White Blood Count 9.8, Red Blood Count 3.69L, Hemoglobin 10.3L, Hematocrit 34L, Mean Corpuscular Volume 91, Mean Corpuscular Hemoglobin 28, Mean Corpuscular Hemoglobin Concent 31L, Red Cell Distribution Width 13.9, Platelet Count 348, Mean Platelet Volume 9.8, Immature Granulocyte % (Auto) 1, Neutrophils (%) (Auto) 76H, Lymphocytes (%) (Auto) 12, Monocytes (%) (Auto) 11, Eosinophils (%) (Auto) 0, Basophils (%) (Auto) 0, Neutrophils # (Auto) 7.5, Lymphocytes # (Auto) 1.2, Monocytes # (Auto) 1.0, Eosinophils # (Auto) 0.0, Basophils # (Auto) 0.0, Immature Granulocyte # (Auto) 0.1, Sodium Level 140, Potassium Level 4.0, Chloride Level 104, Carbon Dioxide Level 28, Anion Gap 8, Blood Urea Nitrogen 9, Creatinine 0.65, Estimat Glomerular Filtration Rate 89, BUN/Creatinine Ratio 14, Glucose Level 108H, Calcium Level 8.7, Corrected Calcium 9.8, Phosphorus Level 2.1L, Magnesium Level 2.3, Total Bilirubin 0.5, Aspartate Amino Transf (AST/SGOT) 11, Alanine Aminotransferase (ALT/SGPT) < 6, Alkaline Phosphatase 76, Total Protein 5.3L, Albumin 2.6L, Digoxin Level 1.92 Microbiology 05/18/23 MRSA Screen - Final, Complete MRSA not isolated Laboratory Tests 05/19/23 04:21 05/20/23 04:13 A/P: Assessment: LLL Pneumonia - management is by the Hospitalist inge H/o pericardial effusion in March 2023 - admitted to [facility] in [place] on 04-06-23 d/t TTE showing a large pericardial effusion with early tamponade. Underwent pericardiocentesis with drain placement on 04-10-23 with initial drainage of 300 ml.. Drain removed by Dr. Del Cid on 04-12-23 - Last echo on 04/13/23 at [facility], [place]: Trivial pericard eff w/o hemodynamic significance. Limited echo showed LV function to be grossly normal - Echocardiogram of 04-20-23 showed LVEF 60-65%. Mild to mod MR. Minimal pericardial fluid which does not appear to be of hemodynamic signif - Echo on 05-19-23: LVEF 60-65%, mild conc LVH, biatrial enlargement, mild to mod MR, PASP 35-40 mmHg, small serofibrinous pericard eff w/o hemodynamic significance Marked sinus node dysfunction - PAF with RVR 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) from both of which she was symptomatic - s/p perm dual chamber pacemaker (Medtronic) in January 2023 - echo 01/19/23: LVEF 60-65%, mild to mod LA enlargement, mild to mod MR, PASP 25- 30 mmHg - initiation of oral dronedarone on 01/21/23 - stopped on 05-18-23 (back in a-fib with RVR) - EKG of 05-18-23 at [facility] in [place] showed A-fib with RVR. Amiodarone started on 05-18-23 - NSR on 05-20-23 (continuing oral amiodarone) S/p thyroidectomy in Jul in 2022 for papillary thyroid cancer in [place], [place] Chronic, bilateral leg swelling: venous insuff and lymphedema Plan: * Reduce dig (level 1.9). Monitor dig. See orders * Continue amiodarone * Continue apixaban for stroke prophylaxis * Diuretics as needed and as tolerated * Monitor labs * I discussed her CV issues with her and her daughter and answered questions SHANTELLE DANIELS MD [facility] CCDS May 20, 2023 15:26
[2023-05-20] MEDS ORDERED: dilTIAZem ER 240 MG CAPSULE PO ONE ×2 (17:30→17:32)
[2023-05-20] MEDS: TRELEGY ELLIPTA IH SCH (20:22)
[2023-05-20] MEDS ORDERED: APIXABAN 5 MG TABLET PO SCH (21:00)
[2023-05-21] MEDS: CEFEPIME 1,000 MG/NS 50 ML IVPB IV SCH ×8 (02:28→19:41)
[2023-05-21 04:38] LABS: BASOPHILS % (AUTO) 0 % (0-10); EOSINOPHILS % (AUTO) 0 % (0-10); HEMATOCRIT 34 % (35-52); HEMOGLOBIN 10.5 g/dL (11.5-16.0); LYMPHOCYTES # (AUTO) 0.6 10^3/uL (1.0-4.0); LYMPHOCYTES % (AUTO) 8 % (12-44); MEAN CORPUSCULAR HEMOGLOBIN 28 pg (25-34); MEAN CORPUSCULAR HGB CONC 31 g/dL (32-36); MEAN CORPUSCULAR VOLUME 90 fL (80-99); MEAN PLATELET VOLUME 9.5 fL (9.0-12.2); MONOCYTES # (AUTO) 0.4 10^3/uL (0.0-1.0); MONOCYTES % (AUTO) 5 % (0-12); NEUTROPHILS # (AUTO) 6.8 10^3/uL (1.8-7.8); NEUTROPHILS % (AUTO) 87 % (42-75); PLATELET COUNT 389 10^3/uL (130-400); WHITE BLOOD COUNT 7.9 10^3/uL (4.3-11.0)
[2023-05-21 04:48] LABS: ALBUMIN 2.8 GM/DL (3.2-4.5); CHLORIDE 102 MMOL/L (98-107); SODIUM 139 MMOL/L (135-145)
[2023-05-21 04:49] LABS: CALCIUM 9.1 MG/DL (8.5-10.1)
[2023-05-21 04:51] LABS: GLUCOSE 139 MG/DL (70-105); TOTAL PROTEIN 5.6 GM/DL (6.4-8.2)
[2023-05-21 04:52] LABS: BILIRUBIN,TOTAL 0.4 MG/DL (0.1-1.0); CARBON DIOXIDE 30 MMOL/L (21-32)
[2023-05-21 04:54] LABS: ALKALINE PHOSPHATASE 78 U/L (40-136); CREATININE SERUM 0.64 MG/DL (0.60-1.30); GFR ESTIMATED 89
[2023-05-21 04:55] LABS: BUN/CREATININE RATIO 16
[2023-05-21 04:57] LABS: ALANINE AMINOTRANSFERASE < 6 U/L (0-55)
[2023-05-21 05:03] LABS: LYMPHOCYTES % (MANUAL) 2 %; MONOCYTES % (MANUAL) 3 %; NEUTROPHILS % (MANUAL) 93 %; REACTIVE LYMPHOCYTES 2 %
[2023-05-21 05:04] LABS: ELLIPT/OVALOCYTES SLIGHT
[2023-05-21] MEDS: MAGNESIUM 1 GM/100 ML IVPB 100 ML IV SCH (06:44)
[2023-05-21] MEDS: POTASSIUM CL 10MEQ/50ML IVPB 50 ML IV SCH (06:44)
[2023-05-21] MEDS: POTASSIUM CHLORIDE 20 MEQ TABLET PO SCH (06:44)
[2023-05-21] MEDS: LEVOTHYROXINE 150 MCG TABLET PO SCH (06:48)
[2023-05-21] MEDS: AMIODARONE 200 MG TABLET PO SCH ×2 (08:02→19:41)
[2023-05-21] MEDS: APIXABAN 5 MG TABLET PO SCH ×2 (08:02→19:41)
[2023-05-21] MEDS: dexAMETHasone INJ 4 MG/ML SDV IV SCH ×2 (08:02→19:41)
[2023-05-21] MEDS: MONTELUKAST 10 MG TABLET PO SCH (08:02)
[2023-05-21] MEDS: FUROSEMIDE INJECTION 40 MG/4 ML VIAL IVP SCH (08:02)
[2023-05-21] MEDS: dilTIAZem ER 240 MG CAPSULE PO SCH (08:02)
[2023-05-21] MEDS: PANTOPRAZOLE 20 MG TABLET PO SCH (08:02)
[2023-05-21] MEDS: AZITHROMYCIN INJECTION 250 MG in NS (IVPB) 250 ML 250 ML IV SCH (08:03)
[2023-05-21] MEDS: DOCUSATE SODIUM 100 MG CAPSULE PO SCH ×2 (08:28→19:42)
[2023-05-21] MEDS: BENZONATATE 100 MG CAPSULE PO PRN ×2 (08:53→19:41)
[2023-05-21] MEDS ORDERED: DIGOXIN 0.125 MG TABLET PO SCH (09:00)
--- NOTE | 2023-05-21 10:46 | Progress Note ---
ROBERT SMITH MD, RESIDENT 05/21/23 1046: Subjective HPI/CC On Admission Date Seen by Provider: May 21, 2023 Time Seen by Provider: 08:45 Chief complaint: Acute hypoxic respiratory failure with A-fib with RVR HPI: This is an 78-year-old female who has had a very complicated few months most recently was at [facility] for pericardial effusion with early tamponade status post pericardiocentesis now presents with acute hypoxic respiratory failure with A-fib with RVR requiring cardiology consult Jamey rowell. Pneumonia was noted placed on antibiotics. Subjective/Events-last exam Patient states she is feeling better this morning. Does continue to have a cough but notes that overall her respiratory status appears to be improving. She episode of confusion with mild agitation last night and ended up going back into atrial fibrillation with RVR. She was given an additional dose of oral diltiazem and did convert back to sinus rhythm this morning. She otherwise has no concerns today. Review of Systems General: No Chills HEENT: No Head Aches Pulmonary: No Dyspnea; Cough Cardiovascular: Edema; No: Chest Pain, Palpitations Gastrointestinal: No: Nausea, Vomiting, Diarrhea, Constipation Genitourinary: No Dysuria Focused Exam Lactate Level 05/18/23 15:32: Lactic Acid Level 0.92 Objective Exam Vital Signs Vital Signs Date Time Temp Pulse Resp B/P (MAP) Pulse Ox O2 Delivery O2 Flow Rate FiO2 05/21/23 10:02 Nasal Cannula 1.00 05/21/23 08:12 36.3 05/21/23 08:00 98 05/21/23 08:00 87 05/21/23 04:00 18 Capillary Refill : Less Than 3 Seconds General Appearance: No Apparent Distress HEENT: Normal ENT Inspection Neck: Full Range of Motion, Normal Inspection Respiratory: Chest Non Tender, No Accessory Muscle Use, No Respiratory Distress, Wheezing Cardiovascular: Regular Rate, Rhythm, No Murmur, Other (2+ peripheral edema) Gastrointestinal: Normal Bowel Sounds, Non Tender, Soft Extremity: Pedal Edema Neurologic/Psychiatric: Alert, Oriented x3 Skin: Normal Color, Warm/Dry Results/Procedures Lab Laboratory Tests 05/21/23 04:20 Patient resulted labs reviewed. Imaging: Reviewed Imaging Report Assessment/Plan Assessment and Plan Assess & Plan/Chief Complaint Patient is an 78-year-old female with a past medical history of atrial fibrillation, COPD, thyroid cancer status post thyroidectomy who is currently being managed for atrial fibrillation with Afib with RVR On oral anticoagulation Recent pericardiocentesis for pericardial effusion with early tamponade - Hx of pericardial effusion March 2023. - Echo 04/20/2023 with LVEF 60-65% - Cardiology following, appreciate recommendations - Rate well controlled today - Continue Eliquis 5 mg BID - Continue amiodarone - Patient did go back into atrial fibrillation with RVR overnight, converted back to sinus rhythm as of 5 AM this morning - Digoxin discontinued overnight and patient given oral diltiazem Pneumonia COPD exacerbation Acute hypoxic respiratory failure - 05/18/23- Chest xray demonstrating infiltrate and pleural fluid in the lower left lung field, cardiomegaly and mild pulmonary venous congestion - Continue cefepime 1000 mg and azithromycin 250 mg - Restarted home inhalers - Continue expectorants - Wean oxygen as tolerated, currently on 1 L nasal cannula. Uses 2 L nasal cannula at base time as needed -Continue IV Decadron 2 mg every 12 hours LAMBERT BROOKS DO 05/21/231947: Subjective Subjective/Events-last exam Doing well Monitor closely Moving to 4th floor Cough still present Objective Exam General Appearance: No Apparent Distress, WD/WN, Chronically ill Respiratory: Wheezing Cardiovascular: Regular Rate, Rhythm Assessment/Plan Assessment and Plan Assess & Plan/Chief Complaint Move to 4th I personally performed the madden portions of the visit, discussed case with resident and concur with resident documentation of history, physical exam, assessment and treatment plan unless otherwise noted. ROBERT SMITH MD, RESIDENT May 21, 2023 10:46 LAMBERT BROOKS DO May 21, 2023 19:48
--- NOTE | 2023-05-21 12:47 | Progress Note - Cardiology ---
Cardiology SOAP Progress Note Subjective: No cp or palp or syncope Shortness of breath has improved Cough has improved No n/v/d No focal weakness Gen weakness and malaise present Objective: I&O/Vital Signs 05/21/23 05/21/23 05/21/23 05/21/23 01:10 04:00 07:00 08:00 Pulse 100 86 98 87 Resp 18 B/P (MAP) 106/57 (73) 118/65 (83) Pulse Ox 96 100 O2 Delivery Nasal Cannula Nasal Cannula O2 Flow Rate 4.00 4.00 05/21/23 05/21/23 05/21/23 08:00 08:12 10:02 Temp 36.3 B/P (MAP) Pulse Ox 98 O2 Delivery Nasal Cannula Nasal Cannula O2 Flow Rate 2.00 1.00 05/20/23 23:59 Intake Total 700 ml Output Total 825 ml Balance -125 ml Weight (Pounds): 186 Weight (Ounces): 0.0 Weight (Calculated Kilograms): 84.485562 Constitutional: AAO x 3, well-developed, well-nourished Respiratory: No accessory muscle use, No respiratory distress; chest expansion is symmetric, chest is bilaterally symmetric, rhonchi, other (diminished lower lobes L>R) Cardiovascular: irregularly irregular, tachycardia Gastrointestional: No tender; soft, round; No guarding; audible bowel sounds Extremities: other (bilat pedal edema - improved from yesterday) Neurologic/Psychiatric: other (moves all extremities) Skin: No rash on exposed areas, No ulcerations on exposed areas Results/Procedures: Labs Laboratory Tests 05/21/23 04:20: White Blood Count 7.9, Red Blood Count 3.73L, Hemoglobin 10.5L, Hematocrit 34L, Mean Corpuscular Volume 90, Mean Corpuscular Hemoglobin 28, Mean Corpuscular Hemoglobin Concent 31L, Red Cell Distribution Width 13.6, Platelet Count 389, M essence Platelet Volume 9.5, Immature Granulocyte % (Auto) 1, Neutrophils (%) (Auto) 87H, Lymphocytes (%) (Auto) 8L, Monocytes (%) (Auto) 5, Eosinophils (%) (Auto) 0, Basophils (%) (Auto) 0, Neutrophils # (Auto) 6.8, Lymphocytes # (Auto) 0.6L, Monocytes # (Auto) 0.4, Eosinophils # (Auto) 0.0, Basophils # (Auto) 0.0, Immature Granulocyte # (Auto) 0.1, Neutrophils % (Manual) 93, Lymphocytes % (Manual) 2, Monocytes % (Manual) 3, Reactive Lymphocytes 2, Elliptocytes SLIGHT, Sodium Level 139, Potassium Level 4.0, Chloride Level 102, Carbon Dioxide Level 30, Anion Gap 7, Blood Urea Nitrogen 10, Creatinine 0.64, Estimat Glomerular Filtration Rate 89, BUN/Creatinine Ratio 16, Glucose Level 139H, Calcium Level 9.1, Corrected Calcium 10.1, Phosphorus Level 2.0L, Magnesium Level 2.0, Total Bilirubin 0.4, Aspartate Amino Transf (AST/SGOT) 12, Alanine Aminotransferase (ALT/SGPT) < 6, Alkaline Phosphatase 78, Total Protein 5.6L, Albumin 2.8L Microbiology 05/18/23 MRSA Screen - Final, Complete MRSA not isolated Laboratory Tests 05/20/23 04:13 05/21/23 04:20 A/P: Assessment: LLL Pneumonia - management is by the Hospitalist inge H/o pericardial effusion in March 2023 - admitted to [facility] in [place] on 04-06-23 d/t TTE showing a large pericardial effusion with early tamponade. Underwent pericardiocentesis with drain placement on 04-10-23 with initial drainage of 300 ml.. Drain removed by Dr. Del Cid on 04-12-23 - Last echo on 04/13/[address] [facility], [place]: Trivial pericard eff w/o hemodynamic significance. Limited echo showed LV function to be grossly normal - Echocardiogram of 04-20-23 showed LVEF 60-65%. Mild to mod MR. Minimal pe ricardial fluid which does not appear to be of hemodynamic signif - Echo on 05-19-23: LVEF 60-65%, mild conc LVH, biatrial enlargement, mild to mod MR, PASP 35-40 mmHg, small serofibrinous pericard eff w/o hemodynamic significance Marked sinus node dysfunction - PAF with RVR 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) from both of which she was symptomatic - s/p perm dual chamber pacemaker (Medtronic) in January 2023 - echo 01/19/23: LVEF 60-65%, mild to mod LA enlargement, mild to mod MR, PASP 25- 30 mmHg - initiation of oral dronedarone on 01/21/23 - stopped on 05-18-23 (back in a-fib with RVR) - EKG of 05-18-23 at [facility] ED in [place] showed A-fib with RVR. Amiodarone started on 05-18-23 - NSR on 05-20-23 (continuing oral amiodarone) S/p thyroidectomy in Jul in 2022 for papillary thyroid cancer in [place] Chronic, bilateral leg swelling: venous insuff and lymphedema Plan: * Shows clinical improvement. Being transferred out of ICU today * Continue amiodarone * Dig d/c'd and replaced with long-acting dilt (expected to have better toleran ce) * Continue apixaban for stroke prophylaxis * Diuretics as needed and as tolerated * Monitor labs SHANTELLE DANIELS MD FACP FAC CCDS May 21, 2023 12:47
[2023-05-21 17:49] VITALS: BP 128/74
[2023-05-21 20:19] VITALS: BP 107/61
[2023-05-21] MEDS: TRELEGY ELLIPTA IH SCH (21:36)
[2023-05-21 23:40] VITALS: BP 123/68
[2023-05-22 03:17] VITALS: BP 110/69
[2023-05-22] MEDS: CEFEPIME 1,000 MG/NS 50 ML IVPB IV SCH ×8 (03:17→20:08)
[2023-05-22 05:23] LABS: BASOPHILS % (AUTO) 0 % (0-10); EOSINOPHILS % (AUTO) 0 % (0-10); HEMATOCRIT 33 % (35-52); HEMOGLOBIN 10.5 g/dL (11.5-16.0); LYMPHOCYTES # (AUTO) 0.8 10^3/uL (1.0-4.0); LYMPHOCYTES % (AUTO) 11 % (12-44); MEAN CORPUSCULAR HEMOGLOBIN 29 pg (25-34); MEAN CORPUSCULAR HGB CONC 32 g/dL (32-36); MEAN CORPUSCULAR VOLUME 90 fL (80-99); MEAN PLATELET VOLUME 9.3 fL (9.0-12.2); MONOCYTES # (AUTO) 0.4 10^3/uL (0.0-1.0); MONOCYTES % (AUTO) 5 % (0-12); NEUTROPHILS # (AUTO) 6.1 10^3/uL (1.8-7.8); NEUTROPHILS % (AUTO) 83 % (42-75); PLATELET COUNT 398 10^3/uL (130-400); WHITE BLOOD COUNT 7.4 10^3/uL (4.3-11.0)
[2023-05-22] MEDS: LEVOTHYROXINE 150 MCG TABLET PO SCH (05:31)
[2023-05-22 05:33] LABS: ALBUMIN 2.6 GM/DL (3.2-4.5)
[2023-05-22 05:34] LABS: CALCIUM 9.4 MG/DL (8.5-10.1)
[2023-05-22] MEDS: POTASSIUM CL 10MEQ/50ML IVPB 50 ML IV SCH (05:34)
[2023-05-22] MEDS: POTASSIUM CHLORIDE 20 MEQ TABLET PO SCH (05:34)
[2023-05-22 05:35] LABS: TOTAL PROTEIN 5.3 GM/DL (6.4-8.2)
[2023-05-22 05:37] LABS: BILIRUBIN,TOTAL 0.3 MG/DL (0.1-1.0)
[2023-05-22 05:38] LABS: PHOSPHORUS 2.2 MG/DL (2.3-4.7)
[2023-05-22 05:39] LABS: CREATININE SERUM 0.7 MG/DL (0.60-1.30)
[2023-05-22] MEDS: MAGNESIUM 1 GM/100 ML IVPB 100 ML IV SCH (05:46)
[2023-05-22 08:48] VITALS: BP 107/72
--- NOTE | 2023-05-22 08:51 | Physical Therapy Evaluation ---
PT Evaluation-General Medical Diagnosis Admission Date May 18, 2023 at 13:23 Medical Diagnosis: A-fib/pneumonia Onset Date: May 18, 2023 Therapy Diagnosis Therapy Diagnosis: debility/weakness Height/Weight Weight (Pounds): 186 Weight (Ounces): 0.0 Precautions Precautions/Isolations: Fall Prevention, Standard Precautions Referral Physician: Aron Reason for Referral: Evaluation/Treatment Medical History Pertinent Medical History: Atrial Fib (2L NC), COPD Current History ER secondary to chest pain Reviewed History: Yes Social History Home: Multilevel Current Living Status: Alone Entry Into Home: Stairs With Railing PT Steps Into Home: 5 PT Steps Inside Home: 8 Prior Prior Level of Function SCALE: Activities may be completed with or without assistive devices. 8-Lpgszmtwps-chmoqmj completes the activity by him/herself with no assistance from a helper. 5-Set-up or Clean-up Assistance-helper sets up or cleans up; patient completes activity. [place] assists only prior to or following the activity. 4-Supervision or Touching Assistance-helper provides verbal cues and/or touching/steadying and/or contact guard assistance as patient completes activity. Assistance may be provided throughout the activity or intermittently. 3-Partial/Moderate Assistance-helper does LESS THAN HALF the effort. [place] lifts, holds or supports trunk or limbs, but provides less than half the effort. 2-Substantial/Maximal Assistance-helper does MORE THAN HALF the effort. [place] lifts or holds trunk or limbs and provides more than half the effort. 4-Owaupzvxr-mbkqtn does ALL the effort. Patient does none of the effort to complete the activity. Or, the assistance of 2 or more helpers is required for the patient to complete the activity. If activity was not attempted, code reason: 7-Patient Refused. 9-Not Applicable-not attempted and the patient did not perform the activity before the current illness, exacerbation or injury. 10-Not Attempted due to Environmental Limitations-(lack of equipment, weather restraints, etc.). 88-Not Attempted due to Medical Conditions or Safety Concerns. Bed Mobility: 6 Transfers (B,C,W/C): 6 Gait: 6 Stairs: 6 Indoor Mobility (Ambulation): Independent Stairs: Independent Prior Devices Use: Other-see list below Prior Device Use: cane PT Evaluation-Current Subjective Patient agrees to PT. Objective Patient Orientation: Normal For Age Attachments: Oxygen (2L NC) ROM/Strength ROM Lower Extremities bilateral LE WFL Strength Lower Extremities 3+/5 grossly bilateral LE all planes Integumentary/Posture Integumentary refer to nursing notes Bowel Incontinence: Yes Bladder Incontinence: Alvarez Cath Posture trunk flexed posture Neuromuscular (Tone, Coordination, Reflexes) grossly intact Sensory Vision: Wears Glasses Hearing: Functional Transfers Lying to Sitting/Side of Bed(Q: 4 Sit to Stand (QC): 4 Chair/Ijl-ux-Onuvb Xfer(QC): 4 Toilet Transfer (QC): 4 Gait Mode of Locomotion: Walk Anticipated Mode of Locomotion: Walk Walk 10 feet (QC): 4 Walk 50 ft with 2 Turns(QC): 4 Walk 150 ft (QC): 4 Distance: 150' Gait Assistive Device: FWW Comments/Gait Description slow, steady gait sequence Balance Sitting Static: Normal Sitting Dynamic: Normal Standing Static: Normal Standing Dynamic: Normal Assessment/Needs Patient will benefit from skilled PT to address functional strength and mobility to improve current LOF to safely return to home at maximum LOF. Rehab Potential: Fair PT Long-Term Goals Long-Term Goals PT Waterproofer Helper Goals Time Frame: Jun 03, 2023 Roll Left & Right (QC): 6 Sit to Lying (QC): 6 Lying-Sitting on Side/Bed(QC): 6 Sit to Stand (QC): 6 Chair/Rcw-se-Hcsnv Xfer(QC): 6 Toilet Transfer (QC): 6 Walk 10 feet (QC): 5 Walk 50ft with 2 Turns (QC): 5 Walk 150 ft (QC): 5 1 Step (curb) (QC): 4 4 Steps (QC): 4 PT Plan Problem List Problem List: Activity Tolerance, Functional Strength, Safety, Balance, Gait, Transfer, Bed Mobility Treatment/Plan Treatment Plan: Continue Plan of Care Treatment Plan: Bed Mobility, Education, Functional Activity M[place], Functional Strength, Gait, Safety, Therapeutic Exercise, Transfers Treatment Duration: Jun 03, 2023 Frequency: 6 times per week Estimated Hrs Per Day: .25 hour per day Patient and/or Family Agrees t: Yes Time Time In: 800 Time Out: 825 DATE: May 22, 2023 Total Billed Treatment Time: 25 Total Billed Treatment 1 visit EVModC 10 min FA 15 min NOR[place] HOOKS PT May 22, 2023 08:51
--- NOTE | 2023-05-22 09:25 | Progress Note - Cardiology ---
Cardiology SOAP Progress Note Subjective: Sitting up in recliner at the bedside States she is feeling better Continues to feel SOB, but is improving No c/o CP or palpitations Objective: I&O/Vital Signs 05/22/23 05/22/23 05/23/23 05/23/23 22:08 23:32 01:02 03:28 Temp 36.8 36.4 Pulse 81 70 73 Resp 18 18 B/P (MAP) 112/55 (74) 113/57 (75) Pulse Ox 96 96 95 O2 Delivery Nasal Cannula Nasal Cannula Nasal Cannula O2 Flow Rate 1.00 1.00 1.00 1.00 1.00 05/23/23 05/23/23 05/23/23 07:30 08:00 08:05 Temp 36.2 Pulse 72 Resp 17 B/P (MAP) 118/57 (77) Pulse Ox 97 97 O2 Delivery Nasal Cannula Nasal Cannula Nasal Cannula O2 Flow Rate 4.00 3.50 2.00 05/22/23 23:59 Intake Total 1100 ml Output Total 480 ml Balance 620 ml Weight (Pounds): 186 Weight (Ounces): 0.0 Weight (Calculated Kilograms): 84.737881 Constitutional: AAO x 3, well-developed, well-nourished Respiratory: No accessory muscle use, No respiratory distress; chest expansion is symmetric, chest is bilaterally symmetric, rhonchi, other (diminished lower lobes L>R) Cardiovascular: irregularly irregular, tachycardia Gastrointestional: No tender; soft, round; No guarding; audible bowel sounds Genital/Rectal: other (indwelling urinary catheter to DD with what appears to be old blood) Extremities: other (bilat pedal edema - improved from yesterday) Neurologic/Psychiatric: other (moves all extremities) Skin: No rash on exposed areas, No ulcerations on exposed areas Results/Procedures: Labs Laboratory Tests 05/23/23 05:02: White Blood Count 9.5, Red Blood Count 3.97, Hemoglobin 11.2L, Hematocrit 36, Mean Corpuscular Volume 89, Mean Corpuscular Hemoglobin 28, Mean Corpuscular Hemoglobin Concent 32, Red Cell Distribution Width 13.4, Platelet Count 476H, Mean Platelet Volume 9.2, Immature Granulocyte % (Auto) 1, Neutrophils (%) (Auto) 76H, Lymphocytes (%) (Auto) 16, Monocytes (%) (Auto) 8, Eosinophils (%) (Auto) 0, Basophils (%) (Auto) 0, Neutrophils # (Auto) 7.2, Lymphocytes # (Auto) 1.5, Monocytes # (Auto) 0.7, Eosinophils # (Auto) 0.0, Basophils # (Auto) 0.0, Immature Granulocyte # (Auto) 0.1, Sodium Level 141, Potassium Level 3.6, Chloride Level 100, Carbon Dioxide Level 33H, Anion Gap 8, Blood Urea Nitrogen 1 7, Creatinine 0.71, Estimat Glomerular Filtration Rate 86, BUN/Creatinine Ratio 24, Glucose Level 111H, Calcium Level 9.5, Corrected Calcium 10.4H, Phosphorus Level 1.9L, Magnesium Level 2.0, Total Bilirubin 0.3, Aspartate Amino Transf (AST/SGOT) 13, Alanine Aminotransferase (ALT/SGPT) 8, Alkaline Phosphatase 75, Total Protein 6.0L, Albumin 2.9L Microbiology 05/18/23 MRSA Screen - Final, Complete MRSA not isolated A/P: Assessment: LLL Pneumonia - management is by the Hospitalist inge H/o pericardial effusion in March 2023 - admitted to [facility] in [place] on 04-06-23 d/t TTE showing a large pericardial effusion with early tamponade. Underwent pericardiocentesis with drain placement on 04-10-23 with initial drainage of 300 ml.. Drain removed by Dr. Del Cid on 04-12-23 - Last echo on 04/13/23 at [facility], [place]: Trivial pericard eff w/o hemodynamic significance. Limited echo showed LV function to be grossly normal - Echocardiogram of 04-20-23 showed LVEF 60-65%. Mild to mod MR. Minimal pericardial fluid which does not appear to be of hemodynamic signif - Echo on 05-19-23: LVEF 60-65%, mild conc LVH, biatrial enlargement, mild to mod MR, PASP 35-40 mmHg, small serofibrinous pericard eff w/o hemodynamic significance Marked sinus node dysfunction - PAF with RVR 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) from both of which she was symptomatic - s/p perm dual chamber pacemaker ([employer]tronic) in January 2023 - echo 01/19/23: LVEF 60-65%, mild to mod LA enlargement, mild to mod MR, PASP 25- 30 mmHg - initiation of oral dronedarone on 01/21/23 - stopped on 05-18-23 (back in a-fib with RVR) - EKG of 05-18-23 at [facility] in [place] showed A-fib with RVR. Amiodarone started on 05-18-23 - NSR on 05-20-23 (continuing oral amiodarone) S/p thyroidectomy in Jul in 2022 for papillary thyroid cancer in [place], [place] Chronic, bilateral leg swelling: venous insuff and lymphedema Plan: * Shows clinical improvement. Being transferred out of ICU today * Continue amiodarone * Dig d/c'd and replaced with long-acting dilt (expected to have better tolerance) * Continue apixaban for stroke prophylaxis * Change diuretics to oral * Hematuria in urinary catheter - management per medical services * Monitor labs DA MAR May 22, 2023 09:25
[2023-05-22] MEDS: dexAMETHasone INJ 4 MG/ML SDV IV SCH (10:06)
[2023-05-22] MEDS: AMIODARONE 200 MG TABLET PO SCH ×2 (10:08→20:08)
[2023-05-22] MEDS: PANTOPRAZOLE 20 MG TABLET PO SCH (10:08)
[2023-05-22] MEDS: DOCUSATE SODIUM 100 MG CAPSULE PO SCH ×2 (10:08→20:07)
[2023-05-22] MEDS: AZITHROMYCIN INJECTION 250 MG in NS (IVPB) 250 ML 250 ML IV SCH (10:08)
[2023-05-22] MEDS: APIXABAN 5 MG TABLET PO SCH ×2 (10:08→20:08)
[2023-05-22] MEDS: dilTIAZem ER 240 MG CAPSULE PO SCH (10:09)
[2023-05-22] MEDS: MONTELUKAST 10 MG TABLET PO SCH (10:09)
[2023-05-22] MEDS: FUROSEMIDE 40 MG TABLET PO SCH (10:09)
[2023-05-22 11:27] VITALS: BP 112/70
--- NOTE | 2023-05-22 11:59 | Occupational Therapy Eval ---
OT Evaluation-General/PLF Medical Diagnosis Admission Date May 18, 2023 at 13:23 Medical Diagnosis: A-fib/pneumonia Onset Date: May 18, 2023 Therapy Diagnosis Therapy Diagnosis: weakness Height/Weight Weight (Pounds): 186 Weight (Ounces): 0.0 Precautions Precautions/Isolations: Standard Precautions Referral Physician: Aron Eastman Reason: Evaluation/Treatment Medical History Pertinent Medical History: Atrial Fib (2L NC), COPD Current History Productive coughing, SOA w/ communication tasks Reviewed History: Yes Social History Home: Multilevel Current Living Status: Alone Entry Into Home: Stairs With Railing Steps Into Home: 5 Steps Inside Home: 8 ADL-Prior Level of Function SCALE: Activities may be completed with or without assistive devices. 6-Fpenqdikku-frdrewi completes the activity by him/herself with no assistance from a helper. 5-Set-up or Clean-up Assistance-helper sets up or cleans up; patient completes activity. [place] assists only prior to or following the activity. 4-Supervision or Touching Assistance-helper provides verbal cues and/or touching/steadying and/or contact guard assistance as patient completes activity. Assistance may be provided throughout the activity or intermittently. 3-Partial/Moderate Assistance-helper does LESS THAN HALF the effort. [place] lifts, holds or supports trunk or limbs, but provides less than half the effort. 2-Substantial/Maximal Assistance-helper does MORE THAN HALF the effort. [place] lifts or holds trunk or limbs and provides more than half the effort. 5-Csgxflshu-owlhwj does ALL the effort. Patient does none of the effort to complete the activity. Or, the assistance of 2 or more helpers is required for the patient to complete the activity. If activity was not attempted, code reason: 7-Patient Refused. 9-Not Applicable-not attempted and the patient did not perform the activity before the current illness, exacerbation or injury. 10-Not Attempted due to Environmental Limitations-(lack of equipment, weather restraints, etc.). 88-Not Attempted due to Medical Conditions or Safety Concerns. Self Care: Independent Functional Cognition: Independent DME/Equipment: Grab Bars, [address] Self: Yes OT Current Status Subjective Agreeable to OT Mental Status/Objective Patient Orientation: Person, Place, Time, Situation Attachments: Oxygen Current Upper Extremity ROM BUE ROM WFLS Upper Extremity Coordination INTACT Upper Extremity Strength +3/5 grossly ADL-Treatment ADL-Current Uses SPC and utility worker forge at home for ADLs Eating (QC): 6 Oral Hygiene (QC): 5 Shower/Bathe Self (QC): 7 Upper Body Dressing (QC): 4 Lower Body Dressing (QC): 4 On/Off Footwear (QC): 2 Toileting Hygiene (QC): 2 Education OT Patient Education: Energy conservation, Exercise program, Modified ADL techniques, Progress toward Goal/Update tx plan, Purpose of tx/functional activities, Reviewed precautions, Rehab process, Safety issues, Transfer techniques, Use of adapted equipment Teaching Recipient: Patient, Family Teaching Methods: Demonstration, Discussion Response to Teaching: Verbalize Understanding OT Penitentiary Goals Penitentiary Goals Eating (QC): 6 Oral Hygiene (QC): 6 Toileting Hygiene (QC): 6 Shower/Bathe Self (QC): 5 Upper Body Dressing (QC): 6 Lower Body Dressing (QC): 6 On/Off Footwear (QC): 6 1=Demonstrate adherence to instructed precautions during ADL tasks. 2=Patient will verbalize/demonstrate understanding of assistive devices/modifications for ADL. 3=Patient will improve strength/tolerance for activity to enable patient to perform ADL's. OT Education/Plan Problem List/Assessment Assessment: Decreased Activ Tolerance, Decreased UE Strength, Impaired Funct Balance, Impaired Self-Care Skills Discharge Recommendations Plan/Recommendations: Continue POC Therapy Discharge Recommendati: Post Acute OT Treatment Plan/Plan of Care Treatment,Training & Education: Yes Patient would benefit from OT for education, treatment and training to promote independence in ADL's, mobility, safety and/or upper extremity function for ADL's. Plan of Care: ADL Retraining, Functional Mobility, Group Exercise/Act as Ind, UE Funct Exercise/Act Treatment Duration: Jun 02, 2023 Frequency: 3 times per week (3-5 times) Estimated Hrs Per Day: .25 hour per day Agreement: Yes Rehab Potential: Fair Time Start Time: 10:52 Stop Time: 11:05 DATE: May 22, 2023 Total Time Billed (hr/min): 18 Billed Treatment Time EVM 18 min RIYA HAYDEN OT May 22, 2023 11:59
--- NOTE | 2023-05-22 12:05 | Progress Note ---
Subjective Subjective/Events-last exam Feeling better today, walked in reid with walker. Eyes are dry. Objective Exam Last Set of Vital Signs Vital Signs Date Time Temp Pulse Resp B/P (MAP) Pulse Ox O2 Delivery O2 Flow Rate FiO2 05/22/23 11:27 36.5 77 16 112/70 (84) 94 Nasal Cannula 1.00 Capillary Refill : Less Than 3 Seconds I&O Intake and Output 05/21/23 23:59 Intake Total 1790 ml Output Total 2125 ml Balance -335 ml Intake Oral 1740 ml IV Total 50 ml Output Urine Total 2125 ml # Bowel Movements 1 General: Alert, No Acute Distress Lungs: Clear to Auscultation, Normal Air Movement Heart: Other (irregularly irregular) Extremities: Other (trace pitting edema) Neuro: Normal Speech Psych/Mental Status: Mental Status NL, Mood NL Results/Procedures Lab Laboratory Tests 05/22/23 05:14: White Blood Count 7.4, Red Blood Count 3.69L, Hemoglobin 10.5L, Hematocrit 33L, Mean Corpuscular Volume 90, Mean Corpuscular Hemoglobin 29, Mean Corpuscular Hemoglobin Concent 32, Red Cell Distribution Width 13.5, Platelet Count 398, Mean Platelet Volume 9.3, Immature Granulocyte % (Auto) 1, Neutrophils (%) (Auto) 83H, Lymphocytes (%) (Auto) 11L, Monocytes (%) (Auto) 5, Eosinophils (%) (Auto) 0, Basophils (%) (Auto) 0, Neutrophils # (Auto) 6.1, Lymphocytes # (Auto) 0.8L, Monocytes # (Auto) 0.4, Eosinophils # (Auto) 0.0, Basophils # (Auto) 0.0, Immature Granulocyte # (Auto) 0.1, Sodium Level 141, Potassium Level 4.0, Chloride Level 102, Carbon Dioxide Level 31, Anion Gap 8, Blood Urea Nitrogen 15, Creatinine 0.70, Estimat Glomerular Filtration Rate 87, BUN/Creatinine Ratio 21, Glucose Level 130H, Calcium Level 9.4, Corrected Calcium 10.5H, Phosphorus Level 2.2L, Magnesium Level 2.0, Total Bilirubin 0.3, Aspartate Amino Transf (AST/SGOT) 11, Alanine Aminotransferase (ALT/SGPT) 6, Alkaline Phosphatase 70, Total Protein 5.3L, Albumin 2.6L Microbiology 05/18/23 MRSA Screen - Final, Complete MRSA not isolated Radiology NAME: ELIZA REID [facility] REC#: [id number] PT STATUS: ADM IN : 1945 PHYSICIAN: ALIZA OSORIO DO ADMIT DATE: 05/18/23/ICU Signed Date of Exam:05/18/23 CHEST PA/LAT (2 VIEW) INDICATION: Chest pain PA and lateral views of chest are obtained with comparison made to the study of 01/20/2023. There has been development of consolidation and probable pleural fluid lower half of the left lung. There is cardiomegaly and mild pulmonary venous congestion. No pneumothorax or other adverse change is seen. IMPRESSION: Infiltrate and pleural fluid in the lower left lung field. Otherwise, there is cardiomegaly and mild pulmonary venous congestion without other significant change. Dictated by: Dictated on workstation # [id number] Dict: 05/18/23 0950 Trans: 05/18/23 1405 [facility] [id number] Interpreted by: VANESA SANTANA MD Electronically signed by: VANESA SANTANA MD 05/18/23 1405 Assessment/Plan Assessment/Plan Assessment & Plan Afib with RVR On oral anticoagulation Recent pericardiocentesis for pericardial effusion with early tamponade - Hx of pericardial effusion March 2023. - Echo 04/20/2023 with LVEF 60-65% - Cardiology following, appreciate recommendations - Rate well controlled today - Continue Eliquis 5 mg BID - Continue amiodarone - Digoxin discontinued overnight and patient given oral diltiazem Pneumonia COPD exacerbation Acute hypoxic respiratory failure - 05/18/23- Chest xray demonstrating infiltrate and pleural fluid in the lower left lung field, cardiomegaly and mild pulmonary venous congestion - Continue cefepime 1000 mg and azithromycin 250 mg - Restarted home inhalers - Continue expectorants - Wean oxygen as tolerated, currently on 1 L nasal cannula. Uses 2 L nasal cannula at base time as needed -Change dexamethasone to PO prednisone JOSSE CARROLL MD May 22, 2023 12:05
[2023-05-22 16:23] VITALS: BP 112/53
--- NOTE | 2023-05-22 18:30 | Progress Note - Cardiology ---
Cardiology SOAP Progress Note Subjective: Feels better No cp or palp or syncope or shortness of breath at rest No n/v/d No focal weakness Mild gen weakness Objective: I&O/Vital Signs 05/22/23 05/22/23 05/22/23 05/22/23 07:22 08:00 08:48 11:27 Temp 36.4 36.5 Pulse 70 100 77 Resp 16 16 B/P (MAP) 107/72 (84) 112/70 (84) Pulse Ox 90 94 O2 Delivery Nasal Cannula Nasal Cannula Nasal Cannula O2 Flow Rate 1.00 1.00 1.00 05/22/23 05/22/23 12:18 16:23 Temp 36.6 Pulse 77 75 Resp 18 B/P (MAP) 112/53 (72) Pulse Ox 94 O2 Delivery Nasal Cannula O2 Flow Rate 1.00 05/21/23 23:59 Intake Total 1640 ml Output Total 1900 ml Balance -260 ml Weight (Pounds): 186 Weight (Ounces): 0.0 Weight (Calculated Kilograms): 84.013075 Constitutional: AAO x 3, well-developed, well-nourished Respiratory: No accessory muscle use, No respiratory distress; chest expansion is symmetric, chest is bilaterally symmetric, rhonchi, other (diminished lower lobes L>R) Cardiovascular: irregularly irregular, tachycardia Gastrointestional: No tender; soft, round; No guarding; audible bowel sounds Genital/Rectal: other (indwelling urinary catheter to DD with what appears to be old blood) Extremities: other (bilat pedal edema - improved from yesterday) Neurologic/Psychiatric: other (moves all extremities) Skin: No rash on exposed areas, No ulcerations on exposed areas Results/Procedures: Labs Laboratory Tests 05/22/23 05:14: White Blood Count 7.4, Red Blood Count 3.69L, Hemoglobin 10.5L, Hematocrit 33L, Mean Corpuscular Volume 90, Mean Corpuscular Hemoglobin 29, Mean Corpuscular Hemoglobin Concent 32, Red Cell Distribution Width 13.5, Platelet Count 398, Mean Platelet Volume 9.3, Immature Granulocyte % (Auto) 1, Neutrophils (%) (Auto) 83H, Lymphocytes (%) (Auto) 11L, Monocytes (%) (Auto) 5, Eosinophils (%) (Auto) 0, Basophils (%) (Auto) 0, Neutrophils # (Auto) 6.1, Lymphocytes # (Auto) 0.8L, Monocytes # (Auto) 0.4, Eosinophils # (Auto) 0.0, Basophils # (Auto) 0.0, Immature Granulocyte # (Auto) 0.1, Sodium Level 141, Potassium Level 4.0, Chloride Level 102, Carbon Dioxide Level 31, Anion Gap 8, Blood Urea Nitrogen 15, Creatinine 0.70, Estimat Glomerular Filtration Rate 87, BUN/Creatinine Ratio 21, Glucose Level 130H, Calcium Level 9.4, Corrected Calcium 10.5H, Phosphorus Level 2.2L, Magnesium Level 2.0, Total Bilirubin 0.3, Aspartate Amino Transf (AST/SGOT) 11, Alanine Aminotransferase (ALT/SGPT) 6, Alkaline Phosphatase 70, Total Protein 5.3L, Albumin 2.6L Microbiology 05/18/23 MRSA Screen - Final, Complete MRSA not isolated Laboratory Tests 05/21/23 04:20 05/22/23 05:14 A/P: Assessment: LLL Pneumonia - management is by the Hospitalist inge H/o pericardial effusion in March 2023 - admitted to [facility] in [place] on 04-06-23 d/t TTE showing a large pericardial effusion with early tamponade. Underwent pericardiocentesis with drain placement on 04-10-23 with initial drainage of 300 ml.. Drain removed by Dr. Del Cid on 04-12-23 - Last echo on 04/13/23 at [facility], [place]: Trivial pericard eff w/o hemodynamic significance. Limited echo showed LV function to be grossly normal - Echocardiogram of 04-20-23 showed LVEF 60-65%. Mild to mod MR. Minimal pericardial fluid which does not appear to be of hemodynamic signif - Echo on 05-19-23: LVEF 60-65%, mild conc LVH, biatrial enlargement, mild to mod MR, PASP 35-40 mmHg, small serofibrinous pericard eff w/o hemodynamic significance Marked sinus node dysfunction - PAF with RVR 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) from both of which she was symptomatic - s/p perm dual chamber pacemaker (Medtronic) in January 2023 - echo 01/19/23: LVEF 60-65%, mild to mod LA enlargement, mild to mod MR, PASP 25- 30 mmHg - initiation of oral dronedarone on 01/21/23 - stopped on 05-18-23 (back in a-fib with RVR) - EKG of 05-18-23 at [facility] ED in [place] showed A-fib with RVR. Amiodarone started on 05-18-23 - NSR on 05-20-23 (continuing oral amiodarone) S/p thyroidectomy in Jul in 2022 for papillary thyroid cancer in [place], [place] Chronic, bilateral leg swelling: venous insuff and lymphedema Plan: * Shows clinical improvement. Being transferred out of ICU today * Continue amiodarone * Dig d/c'd and replaced with long-acting dilt (expected to have better tolerance) * Continue apixaban for stroke prophylaxis * Change diuretics to oral * Hematuria in urinary catheter - management per medical services * Monitor labs SHANTELLE DANIELS MD FACP FAC CCDS May 22, 2023 18:30
[2023-05-22 19:50] VITALS: BP 111/54
[2023-05-22] MEDS: BENZONATATE 100 MG CAPSULE PO PRN (20:11)
[2023-05-22] MEDS: SODIUM CHLORIDE 5% OU SCH (21:03)
[2023-05-22] MEDS: TRELEGY ELLIPTA IH SCH (22:08)
[2023-05-22 23:32] VITALS: BP 112/55
[2023-05-23] MEDS: CEFEPIME 1,000 MG/NS 50 ML IVPB IV SCH ×4 (02:54→09:13)
[2023-05-23 03:28] VITALS: BP 113/57
[2023-05-23 05:14] LABS: BASOPHILS % (AUTO) 0 % (0-10); EOSINOPHILS % (AUTO) 0 % (0-10); HEMATOCRIT 36 % (35-52); HEMOGLOBIN 11.2 g/dL (11.5-16.0); LYMPHOCYTES # (AUTO) 1.5 10^3/uL (1.0-4.0); LYMPHOCYTES % (AUTO) 16 % (12-44); MEAN CORPUSCULAR HEMOGLOBIN 28 pg (25-34); MEAN CORPUSCULAR HGB CONC 32 g/dL (32-36); MEAN CORPUSCULAR VOLUME 89 fL (80-99); MEAN PLATELET VOLUME 9.2 fL (9.0-12.2); MONOCYTES # (AUTO) 0.7 10^3/uL (0.0-1.0); MONOCYTES % (AUTO) 8 % (0-12); NEUTROPHILS # (AUTO) 7.2 10^3/uL (1.8-7.8); NEUTROPHILS % (AUTO) 76 % (42-75); PLATELET COUNT 476 10^3/uL (130-400); WHITE BLOOD COUNT 9.5 10^3/uL (4.3-11.0)
[2023-05-23 05:25] LABS: ALBUMIN 2.9 GM/DL (3.2-4.5); POTASSIUM 3.6 MMOL/L (3.6-5.0)
[2023-05-23 05:26] LABS: CALCIUM 9.5 MG/DL (8.5-10.1)
[2023-05-23 05:29] LABS: BILIRUBIN,TOTAL 0.3 MG/DL (0.1-1.0)
[2023-05-23 05:31] LABS: CREATININE SERUM 0.71 MG/DL (0.60-1.30); PHOSPHORUS 1.9 MG/DL (2.3-4.7)
[2023-05-23] MEDS: LEVOTHYROXINE 150 MCG TABLET PO SCH (05:39)
[2023-05-23] MEDS: POTASSIUM CL 10MEQ/50ML IVPB 50 ML IV SCH (06:04)
[2023-05-23] MEDS: MAGNESIUM 1 GM/100 ML IVPB 100 ML IV SCH (06:04)
[2023-05-23] MEDS: POTASSIUM CHLORIDE 20 MEQ TABLET PO SCH (06:04)
[2023-05-23] MEDS ORDERED: predniSONE 20 MG TABLET PO SCH (07:00)
[2023-05-23 07:30] VITALS: BP 118/57
[2023-05-23] MEDS ORDERED: POTASSIUM CHLORIDE 20 MEQ TABLET PO ONE (09:00)
[2023-05-23] MEDS: dilTIAZem ER 240 MG CAPSULE PO SCH (09:13)
[2023-05-23] MEDS: AMIODARONE 200 MG TABLET PO SCH (09:13)
[2023-05-23] MEDS: SODIUM CHLORIDE 5% OU SCH (09:13)
[2023-05-23] MEDS: APIXABAN 5 MG TABLET PO SCH (09:14)
[2023-05-23] MEDS: MONTELUKAST 10 MG TABLET PO SCH (09:14)
[2023-05-23] MEDS: FUROSEMIDE 40 MG TABLET PO SCH (09:14)
[2023-05-23] MEDS: DOCUSATE SODIUM 100 MG CAPSULE PO SCH (09:14)
[2023-05-23] MEDS: PANTOPRAZOLE 20 MG TABLET PO SCH (09:14)
[2023-05-23] MEDS: BENZONATATE 100 MG CAPSULE PO PRN (09:16)
--- NOTE | 2023-05-23 10:29 | Progress Note - Cardiology ---
Cardiology SOAP Progress Note Subjective: Sitting up in recliner at the bedside States she feels good this morning No c/o CP Continued SOB with freq cough Objective: I&O/Vital Signs 05/22/23 05/23/23 05/23/23 05/23/23 23:32 01:02 03:28 07:00 Temp 36.8 36.4 Pulse 81 70 73 71 Resp 18 18 B/P (MAP) 112/55 (74) 113/57 (75) Pulse Ox 96 95 O2 Delivery Nasal Cannula Nasal Cannula O2 Flow Rate 1.00 1.00 1.00 1.00 05/23/23 05/23/23 05/23/23 07:30 08:00 08:05 Temp 36.2 Pulse 72 Resp 17 B/P (MAP) 118/57 (77) Pulse Ox 97 97 O2 Delivery Nasal Cannula Nasal Cannula Nasal Cannula O2 Flow Rate 4.00 3.50 2.00 05/22/23 23:59 Intake Total 1100 ml Output Total 480 ml Balance 620 ml Weight (Pounds): 186 Weight (Ounces): 0.0 Weight (Calculated Kilograms): 84.811266 Constitutional: AAO x 3, well-developed, well-nourished Respiratory: No accessory muscle use, No respiratory distress; chest expansion is symmetric, chest is bilaterally symmetric, rhonchi, other (diminished lower lobes L>R) Cardiovascular: irregularly irregular Gastrointestional: No tender; soft, round; No guarding; audible bowel sounds Genital/Rectal: other (indwelling urinary catheter to DD with what appears to b e old blood) Extremities: other (bilat pedal edema - improved from yesterday) Neurologic/Psychiatric: other (moves all extremities) Skin: No rash on exposed areas, No ulcerations on exposed areas Results/Procedures: Labs Laboratory Tests 05/23/23 05:02: White Blood Count 9.5, Red Blood Count 3.97, Hemoglobin 11.2L, Hematocrit 36, Mean Corpuscular Volume 89, Mean Corpuscular Hemoglobin 28, Mean Corpuscular Hemoglobin Concent 32, Red Cell Distribution Width 13.4, Platelet Count 476H, Mean Platelet Volume 9.2, Immature Granulocyte % (Auto) 1, Neutrophils (%) (Auto) 76H, Lymphocytes (%) (Auto) 16, Monocytes (%) (Auto) 8, Eosinophils (%) (Auto) 0, Basophils (%) (Auto) 0, Neutrophils # (Auto) 7.2, Lymphocytes # (Auto) 1.5, Monocytes # (Auto) 0.7, Eosinophils # (Auto) 0.0, Basophils # (Auto) 0.0, Immature Granulocyte # (Auto) 0.1, Sodium Level 141, Potassium Level 3.6, Chloride Level 100, Carbon Dioxide Level 33H, Anion Gap 8, Blood Urea Nitrogen 17, Creatinine 0.71, Estimat Glomerular Filtration Rate 86, BUN/Creatinine Ratio 24, Glucose Level 111H, Calcium Level 9.5, Corrected Calcium 10.4H, Phosphorus Level 1.9L, Magnesium Level 2.0, Total Bilirubin 0.3, Aspartate Amino Transf (AST/SGOT) 13, Alanine Aminotransferase (ALT/SGPT) 8, Alkaline Phosphatase 75, Total Protein 6.0L, Albumin 2.9L Microbiology 05/18/23 MRSA Screen - Final, Complete MRSA not isolated Laboratory Tests 05/22/23 05:14 05/23/23 05:02 A/P: Assessment: LLL Pneumonia - management is by the Hospitalist inge H/o pericardial effusion in March 2023 - admitted to [facility] in [place] on 04-06-23 d/t TTE showing a large pericardial effusion with early tamponade. Underwent pericardiocentesis with drain placement on 04-10-23 with initial drainage of 300 ml.. Drain removed by Dr. Del Cid on 04-12-23 - Last echo on 04/13/23 at [facility], [place]: Trivial pericard eff w/o hemodynamic significance. Limited echo showed LV function to be grossly normal - Echocardiogram of 04-20-23 showed LVEF 60-65%. Mild to mod MR. Minimal pericardial fluid which does not appear to be of hemodynamic signif - Echo on 05-19-23: LVEF 60-65%, mild conc LVH, biatrial enlargement, mild to mod MR, PASP 35-40 mmHg, small serofibrinous pericard eff w/o hemodynamic significance Marked sinus node dysfunction - PAF with RVR 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) from both of which she was symptomatic - s/p perm dual chamber pacemaker ([employer]tronic) in January 2023 - echo 01/19/23: LVEF 60-65%, mild to mod LA enlargement, mild to mod MR, PASP 25- 30 mmHg - initiation of oral dronedarone on 01/21/23 - stopped on 05-18-23 (back in a-fib with RVR) - EKG of 05-18-23 at [facility] ED in [place] showed A-fib with RVR. Amiodarone started on 05-18-23 - NSR on 05-20-23 (continuing oral amiodarone) S/p thyroidectomy in Jul in 2022 for papillary thyroid cancer in [place], [place] Chronic, bilateral leg swelling: venous insuff and lymphedema Plan: * Shows clinical improvement * Management of pneumonia per medical services * Continue amiodarone * Continue apixaban for stroke prophylaxis * Monitor labs DA MAR May 23, 2023 10:29
[2023-05-23 11:27] VITALS: BP 117/60
--- NOTE | 2023-05-23 12:03 | Physical Therapy Daily Note ---
PT Daily Note-Current Subjective Patient agrees to PT. Pain Section J - Health Conditions 1. Rarely or not at all 2. Occasionally 3. Frequently 4. Almost constantly 8. Unable to answer Pain Effect on Sleep: 1 Pain Interference with Therapy: 1 Pain Interference w/Day-to-Day: 1 Mental Status Attachments: Oxygen Transfers SCALE: Activities may be completed with or without assistive devices. 9-Hjfabtdsvi-gtcuveu completes the activity by him/herself with no assistance from a helper. 5-Set-up or Clean-up Assistance-helper sets up or cleans up; patient completes activity. [place] assists only prior to or following the activity. 4-Supervision or Touching Assistance-helper provides verbal cues and/or touching/steadying and/or contact guard assistance as patient completes activity. Assistance may be provided throughout the activity or intermittently. 3-Partial/Moderate Assistance-helper does LESS THAN HALF the effort. [place] lifts, holds or supports trunk or limbs, but provides less than half the effort. 2-Substantial/Maximal Assistance-helper does MORE THAN HALF the effort. [place] lifts or holds trunk or limbs and provides more than half the effort. 4-Aocksudjv-feygsk does ALL the effort. Patient does none of the effort to complete the activity. Or, the assistance of 2 or more helpers is required for the patient to complete the activity. If activity was not attempted, code reason: 7-Patient Refused. 9-Not Applicable-not attempted and the patient did not perform the activity before the current illness, exacerbation or injury. 10-Not Attempted due to Environmental Limitations-(lack of equipment, weather restraints, etc.). 88-Not Attempted due to Medical Conditions or Safety Concerns. Sit to Stand (QC): 5 Gait Training Distance: 175' Walk 10 feet (QC): 5 Walk 50 ft with 2 Turns(QC): 5 Walk 150 ft (QC): 5 Gait Assistive Device: FWW trunk flexed posture with FWW use/functional gait sequence Assessment Patient tolerated treatment well and remains up in recliner with needs met. PT to increase activity as tolerated by patient. PT Prison Goals House Wirer Goals PT House Wirer Goals Time Frame: Jun 03, 2023 Roll Left & Right (QC): 6 Sit to Lying (QC): 6 Lying-Sitting on Side/Bed(QC): 6 Sit to Stand (QC): 6 Chair/Myd-ig-Liagz Xfer(QC): 6 Toilet Transfer (QC): 6 Walk 10 feet (QC): 5 Walk 50ft with 2 Turns (QC): 5 Walk 150 ft (QC): 5 1 Step (curb) (QC): 4 4 Steps (QC): 4 PT Plan Treatment/Plan Treatment Plan: Continue Plan of Care Treatment Plan: Bed Mobility, Education, Functional Activity [place], Functional Strength, Gait, Safety, Therapeutic Exercise, Transfers Treatment Duration: Jun 03, 2023 Frequency: 6 times per week Estimated Hrs Per Day: .25 hour per day Patient and/or Family Agrees t: Yes Time Time In: 1121 Time Out: 1131 DATE: May 23, 2023 Total Billed Treatment Time: 10 Total Billed Treatment 1 visit FA 10 min [place] PT May 23, 2023 12:03
[2023-05-23] MEDS ORDERED: FURO40TA4 PO (14:05)
[2023-05-23] MEDS ORDERED: PRD20T PO (14:05)
--- NOTE | 2023-05-23 14:06 | D/C HH Face to Face Order ---
D/C Face to Face Orders Instructions for Patient Via [facility], Patient Instructions/FollowUp: Follow up with primary physician within a week. Physician to follow Patient: RENA Discharge Diet for Home: Cardiac Diet Patient Problems: Pneumonia Atrial fibrillation Chronic respiratory insufficiency Patient Data-Allergies,Ht & Wt Patient Allergies: Coded Allergies: No Known Drug Allergies (Unverified , 06/13/13) Weight (Pounds): 186 Weight (Ounces): 0.0 Home Health Need/Face to Face Date of Face to Face: May 23, 2023 Clinical Findings: Shortness of breath I have seen Pt kqjs-dk-iady: Yes Discharged To: Home Diagnosis/Conditions: See problems Patient is Homebound due to: Marija fall risk due to instabilty, Shortness of breath/distress Homebound Status Due to the above stated illness, injury or surgical procedure (medical condition or diagnosis) and associated clinical findings, the patient is homebound because of his/her inability to leave home except with aid of a supportive device and/or person AND leaving the home requires a considerable and taxing effort or is medically contraindicated. Pt req the following assistanc: Aid of another person, Walker Home Health Nursing Orders Home Health Services Order: Nursing Services, Physical Therapy-Evaluate & Treat Home Health Infusion Therapy Line Start Date: May 18, 2023 Certify Stmt I certify that this patient is under my care and that I, a nurse practitioner or a physician; a campus administrative assistant working with me, had a face to face encounter that - meets the physician face to face encounter requirements with this patient as dated. JOSSE CARROLL MD May 23, 2023 14:06
--- NOTE | 2023-05-23 14:13 | Progress Note - Cardiology ---
Cardiology SOAP Progress Note Subjective: No cp or palp or syncope or shortness of breath Gen weakness No focal weakness No n/v/d Objective: I&O/Vital Signs 05/23/23 05/23/23 05/23/23 05/23/23 03:28 07:00 07:30 08:00 Temp 36.4 36.2 Pulse 73 71 72 Resp 18 17 B/P (MAP) 113/57 (75) 118/57 (77) Pulse Ox 95 97 97 O2 Delivery Nasal Cannula Nasal Cannula Nasal Cannula O2 Flow Rate 1.00 4.00 3.50 1.00 05/23/23 05/23/23 05/23/23 05/23/23 08:00 08:05 11:27 13:00 Temp 36.2 Pulse 77 72 Resp 17 B/P (MAP) 117/60 (79) Pulse Ox 97 O2 Delivery Room Air Nasal Cannula Nasal Cannula O2 Flow Rate 2.00 2.00 05/22/23 23:59 Intake Total 1100 ml Output Total 480 ml Balance 620 ml Weight (Pounds): 186 Weight (Ounces): 0.0 Weight (Calculated Kilograms): 84.835685 Constitutional: AAO x 3, well-developed, well-nourished Respiratory: No accessory muscle use, No respiratory distress; chest expansion is symmetric, chest is bilaterally symmetric, rhonchi, other (diminished lower lobes L>R) Cardiovascular: irregularly irregular Gastrointestional: No tender; soft, round; No guarding; audible bowel sounds Genital/Rectal: other (indwelling urinary catheter to DD with what appears to be old blood) Extremities: other (bilat pedal edema - improved from yesterday) Neurologic/Psychiatric: other (moves all extremities) Skin: No rash on exposed areas, No ulcerations on exposed areas Results/Procedures: Labs Laboratory Tests 05/23/23 05:02: White Blood Count 9.5, Red Blood Count 3.97, Hemoglobin 11.2L, Hematocrit 36, Mean Corpuscular Volume 89, Mean Corpuscular Hemoglobin 28, Mean Corpuscular Hemoglobin Concent 32, Red Cell Distribution Width 13.4, Platelet Count 476H, Mean Platelet Volume 9.2, Immature Granulocyte % (Auto) 1, Neutrophils (%) (Auto) 76H, Lymphocytes (%) (Auto) 16, Monocytes (%) (Auto) 8, Eosinophils (%) (Auto) 0, Basophils (%) (Auto) 0, Neutrophils # (Auto) 7.2, Lymphocytes # (Auto) 1.5, Monocytes # (Auto) 0.7, Eosinophils # (Auto) 0.0, Basophils # (Auto) 0.0, Immature Granulocyte # (Auto) 0.1, Sodium Level 141, Potassium Level 3.6, Chloride Level 100, Carbon Dioxide Level 33H, Anion Gap 8, Blood Urea Nitrogen 17, Creatinine 0.71, Estimat Glomerular Filtration Rate 86, BUN/Creatinine Ratio 24, Glucose Level 111H, Calcium Level 9.5, Corrected Calcium 10.4H, Phosphorus Level 1.9L, Magnesium Level 2.0, Total Bilirubin 0.3, Aspartate Amino Transf (AST/SGOT) 13, Alanine Aminotransferase (ALT/SGPT) 8, Alkaline Phosphatase 75, Total Protein 6.0L, Albumin 2.9L Microbiology 05/18/23 MRSA Screen - Final, Complete MRSA not isolated Laboratory Tests 05/22/23 05:14 05/23/23 05:02 A/P: Assessment: LLL Pneumonia - management is by the Hospitalist inge H/o pericardial effusion in March 2023 - admitted to [facility] in [place] on 04-06-23 d/t TTE showing a large pe ricardial effusion with early tamponade. Underwent pericardiocentesis with drain placement on 04-10-23 with initial drainage of 300 ml.. Drain removed by Dr. Del Cid on 04-12-23 - Last echo on 04/13/23 at [facility], [place]: Trivial pericard eff w/o hemodynamic significance. Limited echo showed LV function to be grossly normal - Echocardiogram of 04-20-23 showed LVEF 60-65%. Mild to mod MR. Minimal peric ardial fluid which does not appear to be of hemodynamic signif - Echo on 05-19-23: LVEF 60-65%, mild conc LVH, biatrial enlargement, mild to mod MR, PASP 35-40 mmHg, small serofibrinous pericard eff w/o hemodynamic significance Marked sinus node dysfunction - PAF with RVR 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) from both of which she was symptomatic - s/p perm dual chamber pacemaker ([employer]ers[employer]et[employer]) in January 2023 - echo 01/19/23: LVEF 60-65%, mild to mod LA enlargement, mild to mod MR, PASP 25- 30 mmHg - initiation of oral dronedarone on 01/21/23 - stopped on 05-18-23 (back in a-fib with RVR) - EKG of 05-18-23 at [facility] in [place] showed A-fib with RVR. Amiodarone started on 05-18-23 - NSR on 05-20-23 (continuing oral amiodarone) S/p thyroidectomy in Jul in 2022 for papillary thyroid cancer in [place] Chronic, bilateral leg swelling: venous insuff and lymphedema Plan: * Continues to show clinical improvement * Management of pneumonia per Medical services * Continue amiodarone * Continue apixaban for stroke prophylaxis * Monitor labs SHANTELLE DANIELS MD FACP FAC CCDS May 23, 2023 14:13
--- NOTE | 2023-05-23 14:22 | Occupational Ther Daily Note ---
OT Current Status-Daily Note Subjective Agreeable to participate w/ OT Mental Status/Objective Patient Orientation: Person, Place, Time, Situation ADL-Treatment Therapy Code Descriptions/Definitions Functional Burnett Measure: 0=Not Assessed/NA 4=Minimal Assistance 1=Total Assistance 5=Supervision or Setup 2=Maximal Assistance 6=Modified Burnett 3=Moderate Assistance 7=Complete IndependenceSCALE: Activities may be completed with or without assistive devices. 3-Palaupydzm-lgycbmy completes the activity by him/herself with no assistance from a helper. 5-Set-up or Clean-up Assistance-helper sets up or cleans up; patient completes activity. Mitchell assists only prior to or following the activity. 4-Supervision or Touching Assistance-helper provides verbal cues and/or touching/steadying and/or contact guard assistance as patient completes activity. Assistance may be provided throughout the activity or intermittently. 3-Partial/Moderate Assistance-helper does LESS THAN HALF the effort. Mitchell lifts, holds or supports trunk or limbs, but provides less than half the effort. 2-Substantial/Maximal Assistance-helper does MORE THAN HALF the effort. Mitchell lifts or holds trunk or limbs and provides more than half the effort. 7-Fesytazlb-ngstmk does ALL the effort. Patient does none of the effort to complete the activity. Or, the assistance of 2 or more helpers is required for the patient to complete the activity. If activity was not attempted, code reason: 7-Patient Refused. 9-Not Applicable-not attempted and the patient did not perform the activity before the current illness, exacerbation or injury. 10-Not Attempted due to Environmental Limitations-(lack of equipment, weather restraints, etc.). 88-Not Attempted due to Medical Conditions or Safety Concerns. Other Treatment ARM JACKS 10x , ARM SCISSORS 10 x, SIT/STAND 4 30 sec reps. Education OT Patient Education: Correct positioning, Exercise program, Progress toward Goal/Update tx plan, Purpose of tx/functional activities, Reviewed precautions, Rehab process, Safety issues, Transfer techniques Teaching Recipient: Patient Teaching Methods: Demonstration, Discussion Response to Teaching: Verbalize Understanding, Reinforcement Needed OT Insurance Risk Manager Goals Insurance Risk Manager Goals Eating (QC): 6 Oral Hygiene (QC): 6 Toileting Hygiene (QC): 6 Shower/Bathe Self (QC): 5 Upper Body Dressing (QC): 6 Lower Body Dressing (QC): 6 On/Off Footwear (QC): 6 1=Demonstrate adherence to instructed precautions during ADL tasks. 2=Patient will verbalize/demonstrate understanding of assistive devices/modifications for ADL. 3=Patient will improve strength/tolerance for activity to enable patient to perform ADL's. OT Education/Plan Problem List/Assessment Assessment: Decreased Activ Tolerance, Decreased UE Strength, Impaired Self- Care Skills Discharge Recommendations Plan/Recommendations: Continue POC Treatment Plan/Plan of Care Treatment,Training & Education: Yes Patient would benefit from OT for education, treatment and training to promote independence in ADL's, mobility, safety and/or upper extremity function for ADL's. Plan of Care: ADL Retraining, Functional Mobility, Group Exercise/Act as Ind, UE Funct Exercise/Act Treatment Duration: Jun 02, 2023 Frequency: 3 times per week (3-5 times) Estimated Hrs Per Day: .25 hour per day Agreement: Yes Rehab Potential: Fair In recliner following ther ex, all needs met Time Start Time: 13:00 Stop Time: 13:19 DATE: May 23, 2023 Total Time Billed (hr/min): 19 Billed Treatment Time EX 19 min RIYA HAYDEN OT May 23, 2023 14:22
[2023-05-23] MEDS ORDERED: AMIO200T65 PO (15:05)
[2023-05-23 16:23] VITALS: BP 117/60
== END 2023-05-23 16:23 | disposition home health service (06) | DRG 193 ==
LOC: EDUNIT# 09:07 → ER FS 09:08 → ICU 13:23 → 4TH 05-21 18:04
PROVIDERS: ADMIT Internal Medicine; ATTEND Family Medicine
DX: J18.9 Pneumonia, unspecified organism (principal); J96.01 Acute respiratory failure with hypoxia; J44.0 Chronic obstructive pulmonary disease with (acute) lower respiratory infection; I49.5 Sick sinus syndrome; I48.0 Paroxysmal atrial fibrillation; K21.9 Gastro-esophageal reflux disease without esophagitis; E78.00 Pure hypercholesterolemia, unspecified; R54 Age-related physical debility; Z66 Do not resuscitate; I34.0 Nonrheumatic mitral (valve) insufficiency; I87.2 Venous insufficiency (chronic) (peripheral); E87.6 Hypokalemia; M79.7 Fibromyalgia; R05.3 Chronic cough; M19.90 Unspecified osteoarthritis, unspecified site; Z87.891 Personal history of nicotine dependence; Z96.651 Presence of right artificial knee joint; Z95.0 Presence of cardiac pacemaker; Z79.01 Long term (current) use of anticoagulants; Z79.899 Other long term (current) drug therapy; Z85.850 Personal history of malignant neoplasm of thyroid; Z85.828 Personal history of other malignant neoplasm of skin
CPT/HCPCS: 36415; 36600; 71046; 80053; 80076; 80162; 82805; 83605; 83735; 83880; 84100; 84443; 84484; 85007; 85025; 85027; 86141; 87081; 87636; 93005; 93041; 93306; 94640; 94760; 96361; 96365; 96367; 96375